=== PATIENT | female | born 1935 | race Caucasian/White ===

== ENCOUNTER → 2016-07-09 | Outpatient (CLI) | payer OTHER ==
[~2016-07-09] MED LIST: ALBUAER2 INH; ALEN70TA4 PO; ASCO500T16 PO; ATOR-22 PO; ATRINSX INH; CALC200T PO; CALCTAB7 PO; CICL80AE INH; DENO60SO IM; DILT120C43 PO; DILT120C68 PO; EPP3/2 IM; FURO20TA PO; IMD/2 PO; MULT-506 PO; PANT40TA PO; PSYL1POW PO; RIVA1TAB4 PO
[2016-07-09 15:33] LABS: BASO % 0.3 %; BASO ABS # 0.02 K/uL (0-0.2); COMPLETE YES; EOS % 1.8 %; HEMATOCRIT 40.3 % (37-47); IG% 0.3 %; LYMPH % 34.4 %; LYMPH ABS # 2.62 K/uL (1.2-3.4); MEAN CELL VOLUME 87.2 fL (80-100); MEAN CORPUSCULAR HEMOGLOBIN 29.2 pg (25-34); MEAN CORPUSCULAR HGB CONC 33.5 g/dl (32-36); MEAN PLATELET VOLUME 11.2 fL (7.4-10.4); MONO % 9.3 %; NEUT % 53.9 %; PLATELET COUNT 240 K/uL (130-400); RED BLOOD COUNT 4.62 M/uL (4.2-5.4); WHITE BLOOD COUNT 7.62 K/uL (4.8-10.8)
== END | disposition home or self-care (01) ==
LOC: C.LAB1850 14:00
PROVIDERS: ATTEND Internal Medicine
DX: K62.5 Hemorrhage of anus and rectum (principal)

== ENCOUNTER → 2016-07-17 | Outpatient (CLI) | payer OTHER | END | disposition home or self-care (01) | LOC: C.PAPS 16:16 | PROVIDERS: ATTEND Obstetrics & Gynecology | DX: Z12.4 Encounter for screening for malignant neoplasm of cervix (principal) ==

== ENCOUNTER → 2016-07-19 | Outpatient (CLI) | payer OTHER ==
--- NOTE | 2016-07-19 14:08 | MAMMOGRAPHY REPORT ---
BILATERAL DIGITAL SCREENING MAMMOGRAM WITH CAD: 07/19/2016 TECHNIQUE: Current study was also evaluated with a Computer Aided Detection (CAD) system. Bilatera l CC and MLO views were obtained. COMPARISON: Comparison is made to exams dated: 06/26/2015 mammogram, 06/24/2014 mammogram, 06/18/2012 mammogram, 06/23/2013 mammogram, 06/17/2011 mammogram, and 06/14/2009 mammogram - [facility]. BREAST COMPOSITION: The tissue of both breasts is heterogeneously dense, which may obscure small ma sses. FINDINGS: No suspicious masses, calcifications, or areas of architectural distortion are noted in e ither breast. There has been no significant interval change compared to prior exams. Scattered bilat eral benign-appearing calcifications are not significantly changed. IMPRESSION: ACR BI-RADS CATEGORY 2: BENIGN There is no mammographic evidence of malignancy. A 1 year screening mammogram is recommended. The p atient will receive written notification of the results. Approximately 10% of breast cancers are not detected with mammography. A negative mammographic repor t should not delay biopsy if a clinically suggestive mass is present. Stephanie Jane M.D. ah/:07/19/2016 11:52:39 [employer]ivery Car Driver: Zenia LAURENT(Jacob)(Deven), [facility] letter sent: Normal 1/2 BI-RADS Code: ACR BI-RADS Category 2: Benign
== END | disposition home or self-care (01) ==
LOC: C.MAMM 10:46
PROVIDERS: ATTEND Obstetrics & Gynecology
DX: Z12.31 Encounter for screening mammogram for malignant neoplasm of breast (principal)

== ENCOUNTER → 2016-08-06 | Outpatient (CLI) | payer OTHER ==
--- NOTE | 2016-08-06 15:53 | DIAGNOSTIC IMAGING REPORT ---
TWO VIEW CHEST CLINICAL HISTORY: Cough. Dyspnea. FINDINGS: PA and lateral chest radiographs are compared to study dated 12/28/2013. The heart is enlarged and there is atherosclerotic calcification of the thoracic aorta. The mitral annulus is densely calcified. The pulmonary vasculature is noncongested. Chronic residual thickening is similar to previous. There are small pleural effusions with bibasilar consolidation. The upper lobes appear clear. There is no pneumothorax. The skeletal structures are osteopenic. Degenerative change is noted throughout the thoracic spine. Fusion hardware is seen in the lower cervical region. IMPRESSION: 1. Cardiomegaly without radiographic evidence of congestive failure. 2. Small pleural effusions and bibasilar consolidation. This could represent atelectasis versus an infectious/inflammatory pneumonitis. Clinical correlation will be required and radiographic follow-up to resolution is recommended. Electronically signed by: Jorje Quispe M.D. 08/06/2016 3:52 PM Dictated Date/Time: 08/06/2016 3:51 PM
== END | disposition home or self-care (01) ==
LOC: C.RAD1850 15:32
PROVIDERS: ATTEND Internal Medicine Pulmonary Disease
DX: R06.02 Shortness of breath (principal); R05 Cough; I51.7 Cardiomegaly; J90 Pleural effusion, not elsewhere classified; R91.8 Other nonspecific abnormal finding of lung field

== ENCOUNTER → 2016-08-12 | Outpatient (CLI) | payer OTHER ==
--- NOTE | 2016-08-12 15:15 | DIAGNOSTIC IMAGING REPORT ---
CHEST 2 VIEWS ROUTINE CLINICAL HISTORY: J18.9 [id number] dyspnea COMPARISON STUDY: 08/06/2016 FINDINGS: Small bilateral pleural effusions are unchanged. Mild stable cardiomegaly. Partial calcification of the mitral annulus. Mid and upper lungs are considered clear. IMPRESSION: Small stable bilateral pleural effusions. Moderate stable cardiomegaly. Electronically signed by: Junito Mckee M.D. 08/12/2016 3:13 PM Dictated Date/Time: 08/12/2016 3:12 PM
== END | disposition home or self-care (01) ==
LOC: C.RAD1850 15:01
PROVIDERS: ATTEND Allergy & Immunology Allergy
DX: J18.9 Pneumonia, unspecified organism (principal)

== ENCOUNTER → 2016-09-16 | Outpatient (CLI) | payer OTHER ==
--- NOTE | 2016-09-16 11:04 | DIAGNOSTIC IMAGING REPORT ---
RIGHT HAND 3 VIEWS CLINICAL HISTORY: Right hand pain. Fall. FINDINGS: 3 views the right hand are compared to study dated 05/29/2016. The skeletal structures are osteopenic. No fracture is identified. There is mild degenerative narrowing at the radiocarpal articulation. Arthritic change is also seen at the first carpometacarpal and metacarpophalangeal joints. There is advanced erosive osteoarthritic change seen involving the second and third distal interphalangeal joints with overlying soft tissue edema. Milder osteoarthritic change is seen throughout the remaining interphalangeal joints. IMPRESSION: 1. No acute fracture is identified. 2. Osteopenia and arthritic change as detailed above. This is similar to the 05/29/2016 examination. Electronically signed by: Jorje Quispe M.D. 09/16/2016 11:02 AM Dictated Date/Time: 09/16/2016 10:59 AM
== END | disposition home or self-care (01) ==
LOC: C.RDSM 08:00
PROVIDERS: ATTEND Physician Assistant
DX: M79.641 Pain in right hand (principal); M85.841 Other specified disorders of bone density and structure, right hand

== ENCOUNTER → 2016-09-25 | Outpatient (CLI) | payer OTHER ==
--- NOTE | 2016-09-25 17:43 | DIAGNOSTIC IMAGING REPORT ---
CHEST 2 VIEWS ROUTINE HISTORY: Atypical chest pain. Cough. COMPARISON: Chest 08/12/2016. FINDINGS: The heart remains enlarged. There are small bilateral pleural effusions, unchanged. Mild diffuse interstitial thickening persists. This may represent mild congestive change. There is cervical spinal fusion hardware. No pneumothorax. IMPRESSION: No change in the small bilateral pleural effusions, cardiomegaly, and mild congestive change. Electronically signed by: Wilbert Horvath M.D. 09/25/2016 5:40 PM Dictated Date/Time: 09/25/2016 5:39 PM
== END | disposition home or self-care (01) ==
LOC: C.RAD1850 15:55
PROVIDERS: ATTEND Physician Assistant
DX: R05 Cough (principal); R07.9 Chest pain, unspecified; I51.7 Cardiomegaly

== ENCOUNTER → 2016-09-26 | Outpatient (CLI) | payer OTHER | END | disposition home or self-care (01) | LOC: C.MAMM 15:15 | PROVIDERS: ATTEND Obstetrics & Gynecology | DX: M81.0 Age-related osteoporosis without current pathological fracture (principal); M85.89 Other specified disorders of bone density and structure, multiple sites ==

== ENCOUNTER → 2016-10-01 | Outpatient (CLI) | payer OTHER ==
--- NOTE | 2016-10-01 10:21 | DIAGNOSTIC IMAGING REPORT ---
RIGHT HAND MIN 3 VIEWS CLINICAL HISTORY: RIGHT HAND PAIN Right pain COMPARISON: None. DISCUSSION: Severe degenerative change of the distal interphalangeal joints. This is most prominent at the level of the first through third fingers. Significant degenerative changes noted in the intercarpal as well as carpal metacarpal region. Bony mineralization is somewhat diminished throughout. There is no evidence for soft tissue swelling. IMPRESSION: Severe degenerative change. Electronically signed by: Junito Mckee M.D. 10/01/2016 10:20 AM Dictated Date/Time: 10/01/2016 10:18 AM
== END | disposition home or self-care (01) ==
LOC: C.RDSM 10:15
PROVIDERS: ATTEND Physician Assistant
DX: M79.641 Pain in right hand (principal)

== ENCOUNTER → 2016-10-23 | Outpatient (CLI) | payer OTHER ==
[2016-10-23 12:24] LABS: CALCIUM 8.7 mg/dl (8.5-10.1)
[2016-10-23 12:58] LABS: URINE COLLECTION TIME 24 HOURS
[2016-10-23 13:03] LABS: CALCIUM URINE < 5.0 mg/dl
[2016-10-24 17:48] LABS: ALBUMIN 4.1 G/DL (3.8-4.8); GAMMA GLOBULIN 0.6 G/DL (0.8-1.7); TOTAL PROTEIN 6.2 G/DL (6.2-8.3)
== END | disposition home or self-care (01) ==
LOC: C.LAB1850 11:18
PROVIDERS: ATTEND Internal Medicine Rheumatology
DX: M81.0 Age-related osteoporosis without current pathological fracture (principal); E55.9 Vitamin D deficiency, unspecified; E61.8 Deficiency of other specified nutrient elements

== ENCOUNTER → 2016-11-12 | Day surgery (SDC) | payer OTHER ==
[2016-10-31 10:56] VITALS: Ht 154.9 cm; Wt 60.0 kg
[~2016-11-12] VITALS: Ht 154.9 cm; Wt 60.0 kg
[~2016-11-12] MED LIST changes: -ALEN70TA4 PO; -CALCTAB7 PO; -DILT120C43 PO; -FURO20TA PO; +LIDOCAINE HCL 2% 2 ML VIAL (20MG/ML) ONE; +PROPOFOL IV EMULSION 10 MG/ML 20 ML VIAL IV ONE
--- NOTE | 2016-11-12 11:54 | Endo History and Physical ---
History & Physical Date of Service: Nov 12, 2016. Chief Complaint: DYSPHAGIA, GERD Referring Physician: DR. RAMON History of Present Illness 81 yo CF who presents for EGD secondary to GERD and dysphagia. Past Medical History Atrial Fibrillation, Osteoporosis, Asthma, Gastrointestinal Disorder, Reflux, High Cholesterol, Hypertension, Other Past Surgical History Hx Cardiac Surgery: No Hx Internal Defibrillator: No Hx Pacemaker: No Hx Abdominal Surgery: Yes (OOPHERECTOMY, PARTIAL HYSTER, HEMORRHOIDECTOMY) Hx of Implantable Prosthesis: No Hx Post-Op Nausea and Vomiting: No Hx Cancer Surgery: No Hx Thoracic Surgery: No Hx Orthopedic: Yes (RT X2/LT X1 CTR, LT SHOULDER SURGERY,LT KNEE SURGERY,C4-5 SURGERY(FULL ROM)) Hx Urinary Tract Surgery: Yes (BLADDER TACK X3) Family History None Social History Smoking Status: Never Smoker Hx Substance Use: No Hx Alcohol Use: No Allergies Coded Allergies: BEE STING (Verified Allergy, Severe, ANAPHYLAXIS, 10/31/16) Clarithromycin (Verified Allergy, Severe, RASH AND FACIAL SWELLING, 10/31/16 ) Moxifloxacin (Verified Allergy, Severe, RASH AND FACIAL SWELLING, 10/31/16) Quinolones (Verified Allergy, Severe, RASH AND FACIAL SWELLING, 10/31/16) Sulfamethoxazole w/Trimethoprim (Verified Allergy, Severe, RASH AND FACIAL SWELLING, 10/31/16) Fluconazole (Verified Allergy, Intermediate, INCREASED HEART RATE, 11/11/14 ) Nitrofurantoin (Verified Allergy, Unknown, RASH, 10/31/16) Ketamine (Verified Adverse Reaction, Unknown, VOMITING, 10/31/16) Current Medications Reported Home Medications Medications Dose Route/Sig Max Daily Dose Days Date Category Prolia (Denosumab) 60 Mg/Ml Cindy 1 Dose IM [id number] 10/31/16 Reported Metamucil [facility] Fib (Psyllium) 58.12 % Pow 2 Tbs PO QAM 10/31/16 Reported Imodium (Loperamide HCl) 2 Mg Cap 2 Mg PO DAILY PRN 10/31/16 Reported Epipen (Epinephrine) 0.3 Mg/0.3 Ml Inj 0.3 Mg IM UD PRN 10/31/16 Reported Atrovent 0.02% Soln (Ipratropium [place]) 2.5 Ml Nebu 1 Dose INH QID PRN 10/31/16 Reported Oscal 500/200 D-3 (Calcium Carbonate-Vitamin D) 1 Tab Tab 1 Tab PO QAM 10/31/16 Reported Alvesco (Ciclesonide) 80 Mcg/Act Aer 1 Puff INH BID 10/31/16 Reported Tiazac (Diltiazem HCl) 120 Mg Capcr 120 Mg PO BID 10/31/16 Reported Xarelto (Rivaroxaban) 20 Mg Tab 20 Mg PO QPM 06/29/14 Reported Ascorbic Acid 500 Mg Tab 500 Mg PO QAM 09/27/12 Reported Protonix (Pantoprazole Sodium) 40 Mg Tab 40 Mg PO QAM 03/16/12 Reported Multivitamin (Multivitamins) Tab 1 Tablet PO QAM 04/08/11 Reported Ventolin (Albuterol) Inh 2 Puffs INH Q4H PRN 01/17/09 Reported Lipitor (Atorvastatin Calcium) 20 Mg Tab 40 Mg PO HS 01/17/09 Reported Vital Signs Weight (Kilograms): 60 Height (Feet): 5 Height (Inches): 1 Date Time Temp Pulse Resp B/P (MAP) Pulse Ox O2 Delivery O2 Flow Rate FiO2 11/12/16 11:39 36.6 87 18 131/77 (95) 96 Room Air Physical Exam General Appearance: WD/WN, no apparent distress Respiratory/Chest: Auscultation: breath sounds normal Cardiovascular: Heart Auscultation: RRR Abdomen: Bowel Sounds: normal Inspection & Palpation: soft, non-distended, no tenderness, guarding & rebound Assessment and Plan Assessment: 81 yo CF who presents for EGD secondary to GERD and dysphagia. Plan: Proceed with EGD
--- NOTE | 2016-11-12 12:47 | Discharge Instructions ---
Endoscopy Patient Instructions Date / Procedure(s) Performed Nov 12, 2016. EGD Allergy Information Coded Allergies: BEE STING (Verified Allergy, Severe, ANAPHYLAXIS, 10/31/16) Clarithromycin (Verified Allergy, Severe, RASH AND FACIAL SWELLING, 10/31/16 ) Moxifloxacin (Verified Allergy, Severe, RASH AND FACIAL SWELLING, 10/31/16) Quinolones (Verified Allergy, Severe, RASH AND FACIAL SWELLING, 10/31/16) Sulfamethoxazole w/Trimethoprim (Verified Allergy, Severe, RASH AND FACIAL SWELLING, 10/31/16) Fluconazole (Verified Allergy, Intermediate, INCREASED HEART RATE, 11/11/14 ) Nitrofurantoin (Verified Allergy, Unknown, RASH, 10/31/16) Ketamine (Verified Adverse Reaction, Unknown, VOMITING, 10/31/16) Discharge Date / Findings Nov 12, 2016. Esophageal stricture s/p dilation Hiatal hernia Medication Instructions Stopped Medication(s): XARELTO 11/09/16 OK to resume all medications today as prescribed Medications Dose Route/Sig Max Daily Dose Days Date Category Prolia (Denosumab) 60 Mg/Ml Cindy 1 Dose IM [id number] 10/31/16 Reported Metamucil [facility] Fib (Psyllium) 58.12 % Pow 2 Tbs PO QAM 10/31/16 Reported Imodium (Loperamide HCl) 2 Mg Cap 2 Mg PO DAILY PRN 10/31/16 Reported Epipen (Epinephrine) 0.3 Mg/0.3 Ml Inj 0.3 Mg IM UD PRN 10/31/16 Reported Atrovent 0.02% Soln (Ipratropium [place]) 2.5 Ml Nebu 1 Dose INH QID PRN 10/31/16 Reported Oscal 500/200 D-3 (Calcium Carbonate-Vitamin D) 1 Tab Tab 1 Tab PO QAM 10/31/16 Reported Alvesco (Ciclesonide) 80 Mcg/Act Aer 1 Puff INH BID 10/31/16 Reported Tiazac (Diltiazem HCl) 120 Mg Capcr 120 Mg PO BID 10/31/16 Reported Xarelto (Rivaroxaban) 20 Mg Tab 20 Mg PO QPM 06/29/14 Reported Ascorbic Acid 500 Mg Tab 500 Mg PO QAM 09/27/12 Reported Protonix (Pantoprazole Sodium) 40 Mg Tab 40 Mg PO QAM 03/16/12 Reported Multivitamin (Multivitamins) Tab 1 Tablet PO QAM 04/08/11 Reported Ventolin (Albuterol) Inh 2 Puffs INH Q4H PRN 01/17/09 Reported Lipitor (Atorvastatin Calcium) 20 Mg Tab 40 Mg PO HS 01/17/09 Reported Provider Instructions Activity Restrictions - No exercising or heavy lifting for 24 hours. - Do not drink alcohol the day of the procedure. - Do not drive a car or operate machinery until the day after the procedure. - Do not make any important decisions or sign important papers in 24 hours after the procedure. Following Day: - Return to full activity which may include returning to work/school. Diet Start your diet with liquids and light foods (jello, soup, juice, toast). Then eat your usual diet if not nauseated. Treatment For Common After Affects For mild abdominal pain, bloating, or excessive gas: - Rest - Eat lightly - Lie on right side Follow-Up Information Follow-up with DR. RAMON as scheduled Anesthesia Information What You Should Know You have had a procedure that required some medicine to reduce anxiety and discomfort. This treatment is called moderate sedation. After receiving the treatment, you may be sleepy, but you will be able to breathe on your own. The effects of the treatment may last for several hours. Follow these instructions along with Activity/Diet recommendations noted above: * Do NOT do anything where dizziness or clumsiness would be dangerous. * Rest quietly at home today, then you can be up and about tomorrow. * Have a responsible person stay with you the rest of today. * You may have had an I.V. today. If so, you may take the dressing off later today. Recommendations Call your doctor if: * Trouble breathing * Continuous vomiting for more than 24 hours * Temperature above 101 degrees * Severe abdominal pain or bloating * Pain not relieved by pain medicine ordered * There is increased drainage or redness from any incision * A large amount of rectal bleeding greater than 2-3 tablespoons. (If you had a polyp/s removed or have hemorrhoids, a small amount of blood - from the rectum is to be expected.) * You have any unanswered questions or concerns. IN THE EVENT OF A SERIOUS EMERGENCY, GO TO THE NEAREST EMERGENCY ROOM Your discharge instructions were prepared by provider Eamon Betancur. Patient Instructions Signature Page Muna Young Patient (or Guardian) Signature/Date: I have read and understand the instructions given to me by my caregivers. Caregiver/RN/Doctor Signature/Date: The above-named patient and/or guardian has received patient instructions on this date. + Original Patient Signature Page (only) stays with chart. Please make copy for patient.
--- NOTE | 2016-11-12 12:58 | GI REPORT ---
Procedure Date: 11/12/2016 12:34 PM Procedure: Upper GI endoscopy Indications: Dysphagia Medicines: Monitored Anesthesia Care Complications: No immediate complications. Estimated Blood Loss: Estimated blood loss: none. Procedure: Pre-Anesthesia Assessment: - Prior to the procedure, a History and Physical was performed, and patient medications and allergies were reviewed. The patient's tolerance of previous anesthesia was also reviewed. The risks and benefits of the procedure and the sedation options and risks were discussed with the patient. All questions were answered, and informed consent was obtained. Prior Anticoagulants: The patient has taken Xarelto (rivaroxaban), last dose was 3 days prior to procedure. ASA Grade Assessment: III - A patient with severe systemic disease. After reviewing the risks and benefits, the patient was deemed in satisfactory condition to undergo the procedure. After obtaining informed consent, the endoscope was passed under direct vision. Throughout the procedure, the patient's blood pressure, pulse, and oxygen saturations were monitored continuously. The scope was introduced through the mouth, and advanced to the second part of duodenum. The upper GI endoscopy was accomplished without difficulty. The patient tolerated the procedure well. Findings: One mild benign-appearing, intrinsic stenosis was found. This measured 1.5 cm (inner diameter) x 1 cm (in length) and was traversed. A guidewire was placed and the scope was withdrawn. Dilation was performed with a Savary dilator with no resistance at 54 Fr. A small hiatus hernia was present. The examined duodenum was normal. Impression: - Benign-appearing esophageal stenosis. Dilated. - Small hiatus hernia. - Normal examined duodenum. - No specimens collected. Recommendation: - Resume previous diet. - Continue present medications. - Repeat the upper endoscopy PRN for retreatment. - Return to primary care physician as previously scheduled. Eamon Betancur DO 11/12/2016 12:58:12 PM This report has been signed electronically. Note Initiated On: 11/12/2016 12:34 PM I attest to the content of the Intraoperative Record and orders documented therein, exceptions below
[2016-11-12 13:19] VITALS: BP 128/85; PULSE 80; O2SAT 97
--- NOTE | 2016-11-12 14:16 | Anesthesiology Progress Note ---
Anesthesia Post Op Note Date & Time Nov 12, 2016 at 14:16 Vital Signs Pain Intensity: 0 Vital Signs Past 12 Hours Date Time Temp Pulse Resp B/P (MAP) Pulse Ox O2 Delivery O2 Flow Rate FiO2 11/12/16 13:19 80 16 128/85 (99) 97 Room Air 11/12/16 13:04 89 16 124/69 (87) 97 Room Air 11/12/16 12:49 87 16 105/64 (78) 90 Room Air 11/12/16 11:39 36.6 87 18 131/77 (95) 96 Room Air Notes Mental Status: alert / awake / arousable, participated in evaluation Pt Amnestic to Procedure: Yes Nausea / Vomiting: adequately controlled Pain: adequately controlled Airway Patency, RR, SpO2: stable & adequate BP & HR: stable & adequate Hydration State: stable & adequate Anesthetic Complications: no major complications apparent
== END | disposition home or self-care (01) ==
LOC: C.GI 11:06
PROVIDERS: ATTEND Internal Medicine
DX: R13.10 Dysphagia, unspecified (principal); K22.2 Esophageal obstruction; K44.9 Diaphragmatic hernia without obstruction or gangrene; M81.0 Age-related osteoporosis without current pathological fracture; I48.91 Unspecified atrial fibrillation; J45.909 Unspecified asthma, uncomplicated; K21.9 Gastro-esophageal reflux disease without esophagitis; E78.00 Pure hypercholesterolemia, unspecified; I10 Essential (primary) hypertension; Z79.01 Long term (current) use of anticoagulants

== ENCOUNTER → 2016-12-06 | Outpatient (CLI) | payer OTHER ==
[~2016-12-06] MED LIST changes: -LIDOCAINE HCL 2% 2 ML VIAL (20MG/ML) ONE; -PROPOFOL IV EMULSION 10 MG/ML 20 ML VIAL IV ONE
--- NOTE | 2016-12-06 15:47 | DIAGNOSTIC IMAGING REPORT ---
LEFT FOOT MIN 3 VIEWS HISTORY:81 yearsFemaleLEFT FOOT PAIN COMPARISON: None available. TECHNIQUE: 3 views of the left foot. FINDINGS: The bones are moderately demineralized. No acute fracture or dislocation is identified. There is severe joint space narrowing with subchondral sclerosis and marginal spurring of the first metatarsal phalangeal joint. Moderate degenerative changes are seen throughout the interphalangeal joints. There is spurring of the calcaneus. There is mild dorsal forefoot soft tissue swelling. IMPRESSION: 1. Mild forefoot soft tissue swelling without acute fracture or dislocation. 2. Severe osteoarthritis of the first metatarsophalangeal joint. The above report was generated using voice recognition software. It may contain grammatical, syntax or spelling errors. Electronically signed by: Ignacio Whelan 12/06/2016 3:46 PM Dictated Date/Time: 12/06/2016 3:44 PM
== END | disposition home or self-care (01) ==
LOC: C.RDSM 15:30
PROVIDERS: ATTEND Physician Assistant
DX: M79.672 Pain in left foot (principal)

== ENCOUNTER → 2016-12-27 | Outpatient (CLI) | payer OTHER ==
--- NOTE | 2016-12-27 12:42 | DIAGNOSTIC IMAGING REPORT ---
LEFT FOOT 3 VIEWS CLINICAL HISTORY: Left foot pain. FINDINGS: 3 views of left foot are compared to study dated 12/06/2016. The skeletal structures are osteopenic. No fracture is seen. Advanced arthritic change is seen at the first metatarsophalangeal joint with bony overgrowth and sclerosis. There is a large plantar calcaneal enthesophyte. Mild dorsal soft tissue edema is noted. IMPRESSION: 1. No acute fracture is identified. Dorsal soft tissue swelling has modestly improved from 12/06/2016. 2. Osteopenia, heel spur, and arthritic change as above Electronically signed by: Jorje Quispe M.D. 12/27/2016 12:41 PM Dictated Date/Time: 12/27/2016 12:40 PM
== END | disposition home or self-care (01) ==
LOC: C.RDSM 11:30
PROVIDERS: ATTEND Physician Assistant
DX: M85.872 Other specified disorders of bone density and structure, left ankle and foot (principal); M77.32 Calcaneal spur, left foot

== ENCOUNTER → 2017-01-06 | Outpatient (CLI) | payer OTHER | END | disposition home or self-care (01) | LOC: C.LAB1850 11:06 | PROVIDERS: ATTEND Internal Medicine Rheumatology | DX: E55.9 Vitamin D deficiency, unspecified (principal); E21.3 Hyperparathyroidism, unspecified ==

== ENCOUNTER → 2017-01-16 | Outpatient (CLI) | payer OTHER ==
--- NOTE | 2017-01-16 13:39 | DIAGNOSTIC IMAGING REPORT ---
LEFT FOOT 3 VIEWS HISTORY: Left foot pain. METATARSAL FX OF LEFT FOOT COMPARISON: Left foot 12/19/2016. FINDINGS: The bones are osteopenic. Severe osteoarthritis with [id number] articulation at the first MTP joint. No acute fracture or dislocation. The Lisfranc joint is maintained. Small plantar heel spur. Mild dorsal soft tissue swelling remains unchanged. No radiopaque foreign bodies. Moderate osteoarthritis of the DIP and PIP joints of the toes. IMPRESSION: No change compared to the prior study. No acute fracture or dislocation within the left foot. Severe osteoarthritis at the first MTP joint. Electronically signed by: Wilbert Horvath M.D. 01/16/2017 1:37 PM Dictated Date/Time: 01/16/2017 1:34 PM
== END | disposition home or self-care (01) ==
LOC: C.RDSM 11:39
PROVIDERS: ATTEND Physician Assistant
DX: M19.072 Primary osteoarthritis, left ankle and foot (principal)

== ENCOUNTER → 2017-03-05 | Outpatient (CLI) | payer OTHER ==
--- NOTE | 2017-03-05 15:42 | DIAGNOSTIC IMAGING REPORT ---
RIGHT FOOT 3 VIEWS HISTORY: RIGHT FOOT PAIN COMPARISON: Right foot 11/30/2015. FINDINGS: No acute fracture or dislocation. The Lisfranc joint remains intact. Mild to moderate osteoarthritis throughout the right foot, unchanged. Small soft tissue and bony bunion. Small plantar heel spur. Soft tissues are unremarkable. No radiopaque foreign bodies. IMPRESSION: No acute fracture or dislocation within the right foot. Electronically signed by: Wilbert Horvath M.D. 03/05/2017 3:41 PM Dictated Date/Time: 03/05/2017 3:35 PM
== END ==
LOC: C.RDSM 15:06
PROVIDERS: ATTEND Physician Assistant
DX: M79.671 Pain in right foot (principal)

== ENCOUNTER → 2017-03-24 | Outpatient (CLI) | payer OTHER ==
[2017-03-24 12:21] LABS: BLOOD UREA NITROGEN 9 mg/dl (7-18); BUN/CREATININE RATIO 9.9 (10-20); CREATININE 0.93 mg/dl (0.60-1.20)
== END | disposition home or self-care (01) ==
LOC: C.LAB1850 10:12
PROVIDERS: ATTEND Surgery
DX: K43.2 Incisional hernia without obstruction or gangrene (principal)

== ENCOUNTER → 2017-03-25 | Outpatient (CLI) | payer OTHER ==
[~2017-03-25] MED LIST changes: +OPTIRAY 320 IV PRN
--- NOTE | 2017-03-25 12:31 | DIAGNOSTIC IMAGING REPORT ---
CT ABD/PELVIS IV AND ORAL CONT CLINICAL HISTORY: K43.2 left-sided abdominal pain. Possible incisional hernia. COMPARISON STUDY: 06/10/2014 TECHNIQUE: Following the IV administration of 94 mL of Optiray-320, CT scan of the abdomen and pelvis was performed from the lung bases to the proximal femurs. Images are reviewed in the axial, sagittal, and coronal planes. IV contrast was administered without complication. A dose lowering technique was utilized adhering to the principles of ALARA. CT DOSE: 277.43 mGy.cm FINDINGS: Lower chest: The heart is enlarged. There is dependent interstitial thickening/atelectatic change. Liver: The contrast-enhanced liver is normal in size, contour, and attenuation. There is no intrahepatic biliary ductal dilatation. The hepatic veins and portal veins are patent. Gallbladder: Unremarkable. Spleen: Normal in size and attenuation. Pancreas: Unremarkable. Adrenal glands: Unremarkable. Kidneys: There is a 46 mm right renal cyst. Bowel: There are no transition zones indicate bowel obstruction. There are no findings to indicate acute appendicitis. By history the appendix is surgically absent. There is colonic diverticulosis. There are no acute peridiverticular inflammatory changes. Peritoneum: There is no intraperitoneal free air or abdominal ascites. There is an enlarging left-sided spigelian hernia. There is mild infiltration of the hernia fat. Vasculature: The abdominal aorta is normal in course and caliber. Adenopathy: None. Pelvic viscera: The uterus appears surgically absent. Skeletal structures: There is a grade 1 spondylolisthesis of L4 and L5. No destructive lesions are visualized IMPRESSION: 1. No evidence of bowel obstruction. No evidence of free air. 2. Surgically absent appendix. No evidence of acute diverticulitis 3. Enlarging left-sided spigelian hernia with mild infiltration of the hernia fat Electronically signed by: Elton Rowley M.D. 03/25/2017 12:29 PM Dictated Date/Time: 03/25/2017 12:25 PM
== END | disposition home or self-care (01) ==
LOC: C.CTS 11:59
PROVIDERS: ATTEND Surgery
DX: K43.9 Ventral hernia without obstruction or gangrene (principal)

== ENCOUNTER → 2017-05-12 | Outpatient (CLI) | payer OTHER ==
[~2017-05-12] MED LIST changes: -OPTIRAY 320 IV PRN
--- NOTE | 2017-05-12 15:52 | DIAGNOSTIC IMAGING REPORT ---
CHEST 2 VIEWS ROUTINE CLINICAL HISTORY: COUGH HISTORY PNEUMONIA COMPARISON STUDY: 09/25/2016 FINDINGS: The heart is enlarged. There are small bilateral pleural effusions. There are associated bibasilar opacities likely atelectatic although a superimposed inflammatory process could appear similar. There is no overt failure. Post surgical changes are present within the cervical spine.[ IMPRESSION: Cardiomegaly and small bilateral pleural effusions with associated bibasilar opacities likely atelectatic Electronically signed by: Elton Rowley M.D. 05/12/2017 3:51 PM Dictated Date/Time: 05/12/2017 3:50 PM
== END | disposition home or self-care (01) ==
LOC: C.RAD1850 15:38
PROVIDERS: ATTEND Internal Medicine
DX: R05 Cough (principal)

== ENCOUNTER → 2017-07-10 | Outpatient (CLI) | payer OTHER ==
[~2017-07-10] VITALS: Ht 157.5 cm; Wt 58.0 kg
[2017-07-10] VITALS (8 sets, daily range): BP systolic 123–152; BP diastolic 63–89; PULSE 80–102; TEMP 36.6; O2SAT 91–100; Ht 157.5 cm; Wt 58.0 kg
[~2017-07-10] MED LIST changes: +BCTCR/30 EXT; +CARTIA PO; +FENTANYL CITRATE INJ 50 MCG/1 ML 2 ML VIAL ONE; +MIDAZOLAM HCL 1 MG/ML 2ML VIAL ONE; +TRIA37.5 PO; +VITAMIN D PO
--- NOTE | 2017-07-10 09:02 | History & Physical Bridge Note ---
H&P Re-Evaluation Bridge Note: I have examined the patient, reviewed the History & Physical and in the interval since the performance of the History & Physical I have noted the following changes of clinical significance: No changes noted
--- NOTE | 2017-07-10 09:03 | Pre Sedation Assessment ---
Pre Sedation Assessment General Date of Sedation: Jul 10, 2017. Vital Signs Past 12 Hours Date Time Temp Pulse Resp B/P (MAP) Pulse Ox O2 Delivery O2 Flow Rate FiO2 07/10/17 07:44 36.6 83 16 130/77 (94) 91 Room Air Review Cardiovascular: + systolic murmur, + irregularly irregular Lungs: lungs clear Pre-Sedation Airway Assessment Smoking Status: Never Smoker Hx of Sleep Apnea: No Short Thick Neck: No Thyro-mental Distance: > 3 Finger Breadths Oral Cavity: Dentures Mallampati Classification: Class III ASA Classification: Class III NPO Status Date of Last Intake of Fluids: Jul 10, 2017 Time of Last Intake of Fluids: 0600 Date of Last Intake of Solids: Jul 09, 2017 Time of Last Intake of Solids: 1999 Procedure Planning Contraindications for Sedation: None Current Medications Reviewed: Yes Notes The planned sedation has been discussed with the patient. Informed Consent was obtained. I have identified the patient, determined the appropriateness of sedation and have assessed the patient immediately prior to the procedure. All medicine(s) and interventions are by my order.
--- NOTE | 2017-07-10 09:39 | Cardiology Procedure Brief Nt ---
Preliminary Cardiology Note Procedure Date Jul 10, 2017. 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 Sutton Specimens none Complication(s) None Disposition
--- NOTE | 2017-07-10 09:44 | Discharge Instructions ---
Discharge Instructions Date of Service Jul 10, 2017. Visit Dyspnea on exertion Discharge Discharge Diagnosis / Problem: Mitral valve prolapse with regurgitation Discharge Goals Goal(s): Diagnostic testing Activity Recommendations Activity Limitations: as noted below Anesthesia . Post Anesthesia Instructions: If you have had General Anesthesia or IV Sedation: * Do not drive today. * Resume driving when surgeon permits. * Do not make important decisions or sign legal documents today. * Call surgeon for: 1. Temperature elevations greater than 101 degrees F. 2. Uncontrollable pain. 3. Excessive bleeding. 4. Persistent nausea and vomiting. 5. Medication intolerance (nausea, vomiting or rash). * For nausea and vomiting use only clear liquids such as: tea, soda, bouillon until nausea subsides, then gradually increase diet as tolerated. * If you have any concerns or questions, call your surgeon's office. If physician is unavailable and it is an emergency, call 911 or go to the nearest emergency room. . Instructions / Follow-Up Instructions / Follow-Up ACTIVITY RECOMMENDATIONS: Resume activities as tolerated with no limitations unless specified. __ No lifting over 10 pounds for 24 hours. __ Do not engage in vigorous exercise, sexual activity, or sports for 24 hours. __ Do not drive or operate any motorized equipment for 24 hours. __ You may return to work/school tomorrow. __ Nothing to eat or drink until gag reflex returns. __ No HOT or WARM liquids for 8 hours. __ Avoid "scratchy" foods such as potato chips or pretzels for 24 hours following procedure. SPECIAL CARE: If you experience coughing up or vomiting of blood, contact 911. Diet Recommendations Recommended Home Diet: resume previous diet Pending Studies Studies pending at discharge: no Medical Emergencies . Who to Call and When: Medical Emergencies: If at any time you feel your situation is an emergency, please call 911 immediately. . Non-Emergent Contact Non-Emergency issues call your: Primary Care Provider . . "Provider Documentation" section prepared by Myrtle Morse. .
--- NOTE | 2017-07-10 14:04 | Post Sedation Assessment ---
Post Sedation Assessment General Date of Sedation Jul 10, 2017. Vital Signs: Vital Signs Past 12 Hours Date Time Temp Pulse Resp B/P (MAP) Pulse Ox O2 Delivery O2 Flow Rate FiO2 07/10/17 11:00 80 18 123/66 (85) 94 Room Air 07/10/17 10:45 80 18 124/61 (82) 94 Room Air 07/10/17 10:30 87 18 123/63 (83) 93 Room Air 07/10/17 10:15 82 18 123/52 (75) 93 Room Air 07/10/17 10:00 85 18 123/52 (75) 93 Room Air 07/10/17 09:50 77 18 126/60 (82) 92 Room Air 07/10/17 09:40 94 16 129/61 (83) 92 Room Air 07/10/17 09:33 96 18 134/80 96 Nasal Cannula 6 07/10/17 09:30 96 18 141/89 96 Nasal Cannula 6 07/10/17 09:25 96 18 138/72 96 Nasal Cannula 6 07/10/17 09:20 96 18 139/63 95 Nasal Cannula 6 07/10/17 09:15 102 18 149/86 95 Nasal Cannula 6 07/10/17 09:10 102 18 152/89 100 Nasal Cannula 6 07/10/17 07:44 36.6 83 16 130/77 (94) 91 Room Air Post Procedure Recovery Score Activity: (2) Moves 4 extremities * Respiration: (2) Deep breath/cough Circulation: (2) +/-20% PreAnes Value Consciousness: (2) Fully Awake Oxygen Saturation: (2) > 92% On Room Air Post Anesthesia Score: 10 Post Sedation Plan On clinical assessment, the patient appears to have tolerated the sedation without complications. Patient is recovering as anticipated. Patient will continue to be monitored by nursing and may be discharged when sedation discharge criteria are met per below protocol. Upon Completions of procedure and additional 15 minutes continue every 5 minute vital signs and the P.A.R. score; then discharge to a Phase I or Fast Track to Phase II per the following guidelines: * Discharge Patient to appropriate Phase II area if PAR is 8 or greater or return to pre- procedure baseline. The post - procedure orders will be as directed. * If PAR score is less than 8 or not return to pre-procedure baseline then patient will follow Phase I monitoring till PAR is reached for Phase II. The Phase I may be done in procedure room or may call to secure a Phase I area. * If naloxone or flumazenil are used for reversal, hold in Phase I for an additional 60 -120 minutes before discharge to Phase II. Please call the Sedation Physician to re-evaluate and complete post-note for discharge to Phase II area. Do NOT discharge from procedure sedation or Phase 1 until post- sedation evaluation note is complete by procedure /sedation MD Sedation Discharge Instructions to be given to the patient at discharge to home.
--- NOTE | 2017-07-10 14:46 | TEE ---
*NOTICE TO RECEIVING LIBERTARIAN AGENCY This information is strictly Confidential and protected under [place] law. [place] law prohibits you from making any further disclosure of this information unless further disclosure is expressly permitted by the written consent of the person to whom it pertains or is authorized by law. A general authorization for the release of medical or other information is not sufficient for this purpose. Hospital accepts no responsibility if the information is made available to any other person, INCLUDING THE PATIENT. Interpretation Summary * Name: SHIREEN DOMINGUEZ Study Date: 07/10/2017 08:58 AM BP: 129/66 mmHg * Patient Location: [facility] HR: 88 * : 1935 (M/d/yyyy) Gender: Female Height: 62 in * Age: 82 yrs Ethnicity: [place] Weight: 127 lb * Ordering Physician: Kade Sutton * Referring Physician: Kade Sutton * Performed By: Elise Aguero RDCS * * Reason For Study: Dyspnea on Exertion * BSA: 1.6 m2 * -- Conclusions -- * SABINO: * 1. Normal left ventricular size and systolic function. Estimated EF 60-65%. No regional wall motion abnormalities. No significant left ventricular hypertrophy. * 2. The right ventricle is mildly dilated. * 3. Moderate left atrial dilation. Severe right atrial dilation. * 4. 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 At least moderate to severe eccentric (anteriorly directed) mitral regurgitation. * 5. There is moderate tricuspid regurgitation. * 6. Patient tolerated procedure well without known complication. Procedure Details * The transesophageal portion of this study was personally supervised by the undersigned interpreting physician. * SABINO Probe #1 utilized for procedure. * The study was performed in Cardiopulmonary Department. * Time out was conducted by the physician, nurse, and outboard technician with positive identification of patient and procedure. * Informed consent for Transesophageal Echocardiogram was obtained prior to the procedure. * An intravenous line was placed. A topical anesthetic agent was used for oropharangeal anesthesia. A bite block was inserted. * The patient's vital signs, including blood pressure, heart rate, pulse oximetry and cardiac rhythm were monitored throughout the procedure . * Fentanyl 75 mcg was administered for procedural sedation. * Midazolam 3 mg administered for sedation. * The posterior oropharynx was anesthetized using a topical anesthetic spray. A bite guard was inserted. * A multifrequency, multiplane transesopheageal echocardiographic endoscope was inserted and manipulated in the standard fashion to achieve multiplane views. * The transesophageal probe was passed without difficulty. * The usual views were obtained; basal, mid-esophageal, transgastric and aortic views. * The patient tolerated the procedure well without evidence of orophangeal or esophageal trauma. * A 2D transesophageal echocardiogram with spectral and color flow Doppler was performed. * Start time: 9:10 am End time: 9:33 am Left Ventricle * Normal left ventricular size and systolic function. Estimated EF 60-65%. No regional wall motion abnormalities. No significant left ventricular hypertrophy. Right Ventricle * The right ventricle is mildly dilated. * The right ventricular systolic function is normal. Atria * No thrombus is detected in the left atrial appendage. * Moderate left atrial dilation. * The right atrium is severely dilated. * No visualized VSD or PFO on 2D imaging or color Doppler. 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 At least moderate to severe eccentric (anteriorly directed) mitral regurgitation. * There is no mitral valve stenosis. Tricuspid Valve * Tricuspid valve appears grossly normal in structure. * There is no tricuspid stenosis. * There is moderate tricuspid regurgitation. Aortic Valve * The aortic valve is trileaflet. * The aortic valve opens well. * Trace aortic regurgitation. Pulmonic Valve * The pulmonary valve is inadequately visualized, but the Doppler data is adequate for interpretation. * Trace pulmonic valvular regurgitation. Great Vessels * The aortic root is normal size. * Ascending aorta of normal dimension * Moderate atherosclerotic disease noted within the visualized portions of the thoracic descending aorta. * Blunted pulmonary venous flow pattern. Pericardium * Trace pericardial effusion. MMode 2D Measurements and Calculations Ao root diam 3.5 cm Ao root area 9.9 cm\S\2 asc Aorta Diam 3.5 cm Doppler Measurements and Calculations MV E max or[place] 85.8 cm/sec MR max [place] 341.3 cm/sec MR max PG 46.6 mmHg TR max [place] 302.8 cm/sec
== END | disposition home or self-care (01) ==
LOC: C.CPL 06:45
PROVIDERS: ATTEND Internal Medicine Cardiovascular Disease
DX: I34.0 Nonrheumatic mitral (valve) insufficiency (principal); R06.09 Other forms of dyspnea; I10 Essential (primary) hypertension; J45.901 Unspecified asthma with (acute) exacerbation; I65.29 Occlusion and stenosis of unspecified carotid artery; I48.2 Chronic atrial fibrillation; Z79.01 Long term (current) use of anticoagulants; K21.9 Gastro-esophageal reflux disease without esophagitis; M19.90 Unspecified osteoarthritis, unspecified site; E78.5 Hyperlipidemia, unspecified; K44.9 Diaphragmatic hernia without obstruction or gangrene; M81.0 Age-related osteoporosis without current pathological fracture; N25.81 Secondary hyperparathyroidism of renal origin; E55.9 Vitamin D deficiency, unspecified; Z90.710 Acquired absence of both cervix and uterus; Z82.49 Family history of ischemic heart disease and other diseases of the circulatory system; Z83.3 Family history of diabetes mellitus; Z82.3 Family history of stroke; Z80.3 Family history of malignant neoplasm of breast; Z80.41 Family history of malignant neoplasm of ovary; Z80.7 Family history of other malignant neoplasms of lymphoid, hematopoietic and related tissues; Z88.1 Allergy status to other antibiotic agents

== ENCOUNTER → 2017-07-21 | Outpatient (CLI) | payer OTHER ==
[~2017-07-21] MED LIST changes: -FENTANYL CITRATE INJ 50 MCG/1 ML 2 ML VIAL ONE; -MIDAZOLAM HCL 1 MG/ML 2ML VIAL ONE
--- NOTE | 2017-07-21 14:50 | MAMMOGRAPHY REPORT ---
BILATERAL DIGITAL SCREENING MAMMOGRAM TOMOSYNTHESIS WITH CAD: 07/21/2017 CLINICAL HISTORY: Routine screening examination. TECHNIQUE: Breast tomosynthesis in addition to standard 2D mammography was performed. Current study was also evaluated with a Computer Aided Detection (CAD) system. COMPARISON: Comparison is made to exams dated: 07/19/2016 mammogram, 06/26/2015 mammogram, 06/24/2014 m ammogram, 06/23/2013 mammogram, 06/18/2012 mammogram, and 06/15/2010 mammogram - [facility]. BREAST COMPOSITION: The tissue of both breasts is heterogeneously dense, which may obscure small mas ses. FINDINGS: There are mild to moderate vascular calcifications and scattered benign rim calcifications in the breasts. No suspicious mass, architectural distortion or cluster of suspicious microcalcifica tions is seen. IMPRESSION: ACR BI-RADS CATEGORY 1: NEGATIVE There is no mammographic evidence of malignancy. A 1 year screening mammogram is recommended. The pa tient will receive written notification of the results. Approximately 10% of breast cancers are not detected with mammography. A negative mammographic report should not delay biopsy if a clinically suggestive mass is present. Myrtle Anthony M.D. ay/:07/21/2017 11:33:41 Quality Assurance Advisor: Zenia LAURENT(Jacob)(Deven), [facility] letter sent: Normal 1/2 BI-RADS Code: ACR BI-RADS Category 1: Negative
== END | disposition home or self-care (01) ==
LOC: C.MAMM 11:04
PROVIDERS: ATTEND Obstetrics & Gynecology
DX: Z12.31 Encounter for screening mammogram for malignant neoplasm of breast (principal)

== ENCOUNTER → 2017-08-08 | Outpatient (CLI) | payer OTHER | END | disposition home or self-care (01) | LOC: C.LAB1850 14:39 | PROVIDERS: ATTEND Internal Medicine Rheumatology | DX: M81.0 Age-related osteoporosis without current pathological fracture (principal); E55.9 Vitamin D deficiency, unspecified; N25.81 Secondary hyperparathyroidism of renal origin ==

== ENCOUNTER → 2017-12-30 | Outpatient (CLI) | payer OTHER ==
[~2017-12-30] MED LIST changes: -ALBUAER2 INH; -ATOR-22 PO; -BCTCR/30 EXT; -CARTIA PO; -CICL80AE INH; -DENO60SO IM; +DNSIS60 INJ; +LPT/40 PO; -PSYL1POW PO; +PSYL43PO PO; +SYMIN/8045 INH; -VITAMIN D PO; +VNTHFA/IN INH
--- NOTE | 2017-12-30 13:52 | DIAGNOSTIC IMAGING REPORT ---
CHEST 2 VIEWS ROUTINE CLINICAL HISTORY: K22.8 Esophageal pain pain. Dyspnea. COMPARISON STUDY: 05/12/2017 FINDINGS: Moderate stable cardia megaly. Chronic basilar interstitial prominence. No focal infiltrate. IMPRESSION: Stable cardiomegaly. No acute process. The above report was generated using voice recognition software. It may contain grammatical, syntax or spelling errors. Electronically signed by: Junito Mckee M.D. 12/30/2017 1:51 PM Dictated Date/Time: 12/30/2017 1:50 PM
== END | disposition home or self-care (01) ==
LOC: C.RAD 13:22
PROVIDERS: ATTEND Internal Medicine
DX: K22.8 Other specified diseases of esophagus (principal)

== ENCOUNTER 2021-03-27 20:11 | Inpatient (IN) ==
[2021-03-27 20:43] LABS: Basophils # (auto) 0.03 K/uL (0-0.2); Basophils % (auto) 0.3 %; Eosinophils # (auto) 0.19 K/uL (0-0.5); Eosinophils % (auto) 1.8 %; Hematocrit (blood only) 40.5 % (37-47); Hemoglobin 13.9 g/dL (12.0-16.0); Immature Granulocytes # (auto) 0.03 K/uL (0.00-0.02); Immature Granulocytes % (auto) 0.3 %; Lymphocytes # (auto) 1.63 K/uL (1.2-3.4); Lymphocytes % (auto) 15.6 %; Mean Corpuscular Hemoglobin 29.4 pg (25-34); Mean Corpuscular Hgb Conc 34.3 g/dL (32-36); Mean Corpuscular Volume 85.6 fL (80-100); Mean Platelet Volume 9.9 fL (7.4-10.4); Monocytes # (auto) 0.99 K/uL (0.11-0.59); Monocytes % (auto) 9.5 %; Neutrophils # (auto) 7.56 K/uL (1.4-6.5); Neutrophils % (auto) 72.5 %; Platelet Count 222 K/uL (130-400); RDW Coefficient of Variation 14.6 % (11.5-14.5); RDW Standard Deviation 45.5 fL (36.4-46.3); Red Blood Count 4.73 M/uL (4.2-5.4); White Blood Count 10.43 K/uL (4.8-10.8)
[2021-03-27 20:56] LABS: INR 2.3 (0.9-1.1); Partial Thromboplastin Ratio 1.4; Partial Thromboplastin Time 35.8 Seconds (21.0-31.0); Prothrombin Time 21.5 Seconds (9.0-12.0)
[2021-03-27 21:01] LABS: Alanine Aminotransferase 24 U/L (12-78); Albumin Level 3.6 gm/dl (3.4-5.0); Aspartate Aminotransferase 24 U/L (15-37); BUN Creatinine Ratio 12.1 (10-20); Blood Urea Nitrogen 10 mg/dl (7-18); Calcium 9.7 mg/dl (8.5-10.1); Carbon Dioxide 26 mmol/L (21-32); Chloride 104 mmol/L (98-107); Est GFR (African American) 79.1 ml/min; Est GFR (Non-African American) 68.3 ml/min; Glucose 123 mg/dl (70-99); Potassium 3.6 mmol/L (3.5-5.1); Sodium 137 mmol/L (136-145)
--- NOTE | 2021-03-27 21:01 | History & Physical Report ---
Date of Service March 27, 2021 Assessment & Plan (1) Abdominal pain: Plan: Suspect the patient's abdominal pain and other GI complaints are related to her hernia. I discussed with the emergency room physician who saw her during her previous visit on 03/23 and he actually saw the patient this evening as well and noted that the hernia appears larger. Due to the fact that her hernia is larger and her GI complaints noted we are planning on taking her emergently to the operating room for repair of this hernia. Dr. Gutierrez will be in shortly to go over the risks, benefits, and alternatives with the patient. He will also discussed with her the expected postoperative course. I will plan on contacting the blood bank to see if any FFP is available in the event that we need to reverse her Coumadin. This patient is taking Coumadin and there is plan surgery we will not use any additional chemical means of DVT prevention. Additional recommendations will be made based on the patient's operative findings and postoperative course as it unfolds. History of Present Illness Chief Complaint: Abdominal pain Primary Care Provider: Jeff Mensah MD This is an 86-year-old female with a known history of an abdominal hernia. Patient was seen and evaluated by general surgery in the past but she put off hernia repair as she had significant dyspnea on exertion requiring open heart surgery. Patient says in 2018 she ultimately underwent a tricuspid valve repair and atrial appendage ablation at the [facility]. Since her heart surgery she has now been able to walk nearly 2 miles a day and her dyspnea on exertion has markedly improved. With her activities of daily living she does not get short of breath. She does note however that she takes Coumadin for history of atrial fibrillation. She notes that she has taken her Coumadin up to and including this evening. The patient was seen here at [facility] in the emergency department due to nausea, vomiting, and diarrhea. In the emergency department the patient had a CT scan of her abdomen which demonstrated a fat-containing Sp igellian hernia. She was able to be discharged home as there is no noted bowel obstruction. Patient says that since her most recent trip to the emergency department she was doing well up to including yesterday. She did note however today that the hernia appears to be bigger and she has had multiple episodes of nausea vomiting. She also notes some abdominal pain that appears to be worst in the epigastric area. She denies any fevers, shakes, chills. She denies any chest pain. She denies any shortness of breath. Since arrival to the emergency department she has had labs performed including a CBC where her white blood cell count, hemoglobin, hematocrit, and platelet count were noted to be within normal range. Coagulation studies, CMP, and lactic acid level are pending. A Covid test has been sent and is pending. A preoperative chest x-ray did not show any evidence of pneumonia or pleural effusions. A preoperative EKG is pending.. At the time of my interview the patient was having episodes of nausea vomiting but she was not in any overt distress. Allergies Allergy/AdvReac Type Severity Reaction Status Date / Time Bactrim Allergy Severe RASH AND Verified 12/25/17 10:05 FACIAL SWELLING bee venom protein (honey bee) Allergy SV ANAPHYLAXIS Verified 03/27/21 20:39 clarithromycin Allergy SV RASH AND Verified 03/27/21 20:39 FACIAL SWELLING moxifloxacin Allergy SV RASH AND Verified 03/27/21 20:39 FACIAL SWELLING Quinolones Allergy SV RASH AND Verified 03/27/21 20:39 FACIAL SWELLING sulfamethoxazole Allergy SV RASH AND Verified 03/27/21 20:39 FACIAL SWELLING trimethoprim Allergy SV RASH AND Verified 03/27/21 20:39 FACIAL SWELLING fluconazole Allergy MO INCREASED Verified 03/27/21 20:39 HEART RATE nitrofurantoin Allergy U RASH Verified 03/27/21 20:39 ampicillin Allergy Unknown Verified 03/27/21 20:39 NSAIDS (Non-Steroidal AdvReac Intermediate Pt had Unverified 03/27/21 20:39 Anti-Inflamma Open Heart Surgery ketamine AdvReac U VOMITING Verified 03/27/21 20:39 Home Medications Medication Instructions Recorded Confirmed Type albuterol sulfate 90 mcg/actuation 2 puff INHALATION Q4 PRN 03/24/18 03/27/21 History aerosol inhaler (Ventolin HFA) ascorbic acid (vitamin C) 500 mg 500 mg PO DAILY 03/24/18 03/27/21 History tablet (Vitamin C) calcium carbonate 500 mg (1,250 1 tab PO DAILY 03/24/18 03/27/21 History mg)-vitamin D3 200 unit tablet (Calcium 500 + D) cholecalciferol (vitamin D3) 125 5,000 unit PO Q2D 03/24/18 03/27/21 History mcg (5,000 unit) tablet (Vitamin D3) multivitamin (Multiple Vitamins) 1 tab PO DAILY 03/24/18 03/27/21 History psyllium husk 3.4 gram/5.4 gram 1 - 2 tbsp PO DAILY@1600 03/24/18 03/27/21 History oral powder (Metamucil) denosumab 60 mg/mL subcutaneous 60 mg SUBCUT Q6MO ml 02/02/19 03/27/21 History syringe (Prolia) inhalational spacing device #1 ea 02/02/19 01/18/21 History (Aerochamber Plus Flow-Vu) fluticasone 250 mcg-salmeterol 50 1 inh INHALATION DAILY #60 ea 08/20/20 03/27/21 Rx mcg/dose blistr powdr for inhalation (Advair Diskus) pantoprazole 40 mg tablet,delayed 40 mg PO QAM #90 tab 11/28/20 03/27/21 Rx release (Protonix) atorvastatin 40 mg tablet (Lipitor) 40 mg PO HS #90 tab 12/07/20 03/27/21 Rx triamterene 37.5 1 tab PO Q2D #45 tab 12/21/20 03/27/21 Rx mg-hydrochlorothiazide 25 mg tablet ipratropium bromide 0.02 % 2.5 ml INHALATION QID PRN #150 ml 03/12/21 03/27/21 Rx solution for inhalation aspirin 81 mg tablet,delayed 81 mg PO DAILY 03/23/21 03/27/21 History release cefdinir 300 mg capsule 300 mg PO BID 5 Days #10 cap 03/23/21 03/27/21 Rx epinephrine 0.3 mg/0.3 mL 0.3 mg IM UD PRN 03/23/21 03/27/21 History injection, auto-injector warfarin 6 mg tablet 6 mg PO DAILY 03/23/21 03/27/21 History metoprolol succinate 25 mg 12.5 mg PO BID #90 tab 03/27/21 03/27/21 Rx tablet,extended release 24 hr (Toprol XL) Past Med/Surg History Medical History Anticoagulant long-term use Asthma Atrial flutter with rapid ventricular response Biopsy of breast (2012) Cystocele surgically repaired Dysphagia H/O Goiter H/O gastroesophageal reflux (GERD) Hiatal hernia History of esophageal dilatation Hypertension Migraines Osteoarthritis Osteoporosis Severe mitral regurgitation 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 MVR/MAZE. 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 Surgical History H/O hemorrhoidectomy H/O knee surgery LEFT KNEE H/O maze procedure for a fib H/O shoulder surgery LEFT History of back surgery History of bilateral tubal ligation History of bladder surgery History of breast biopsy History of cardiac cath History of carpal tunnel release History of cataract surgery History of colonoscopy History of esophagogastroduodenoscopy (EGD) History of foot surgery History of hand surgery History of hysterectomy History of oophorectomy History of rectocele History of total abdominal hysterectomy History of tricuspid valve replacement S/P cervical spinal fusion (1999) UNSURE OF LEVELS. FULL ROM. 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 Beliefs That Will Affect Care: None marital status: / Current Living Situation: Alone current occupation: Retired Feels Safe at Home: Yes Seatbelt Use: always Assistive Devices: Hearing Aid - Bilateral Review of Systems Constitutional: no fever and no chills Eyes: no diplopia Ear, Nose, Mouth, Throat: no ear pain and no sore throat Respiratory: no cough and no dyspnea Cardiovascular: no chest pain Gastrointestinal: + abdominal pain, + nausea and + vomiting Genitourinary: no dysuria Musculoskeletal: no back pain Integumentary: no rash Neurologic: no localized weakness Physical Exam Constitutional: well developed and well nourished; no acute distress Eyes: no conjunctival abnormality ENMT: Ears: no hearing impairment and no external ear abnormality Mouth: no oropharynx abnormality Neck: trachea midline Respiratory: normal respiratory effort; no respiratory distress and no labored breathing Breath sounds are slightly decreased at the bases Cardiovascular: Rate/Rhythm: + irregularly irregular Gastrointestinal (Abdomen): Abdomen is soft with minimal distention. Bowel sounds are present. The patient was noted to have a large bulging mass in the left upper quadrant consistent with known hernia. There is minimal tenderness to this area. There is no erythema noted to the surrounding skin. The hernia was unable to be reduced at bedside. Musculoskeletal: No calf tenderness Skin: normal turgor Neurologic: moves all extremities Psychiatric: A+Ox3, euthymic affect Results & Data Results & Data ([facility]) Vital Signs (Past 12 Hours) Vital Signs Pulse Resp BP Pulse Ox 03/27/21 20:27 16 03/27/21 20:24 60 18 204/95 H 95 Supervising Physician Co-Signing Physician Notes As per Bandar Singleton physician operations and intelligence assistant Muna weller call me from home earlier this evening complaining of nausea and vomiting that developed earlier during the day and also noted that the hernia that she had in the left side is gotten bigger and she was concerned there was strangulated and I asked her to come into the emergency room where at this time evaluation will enlarge left lower quadrant hernia unable to be reduced the size of the hernia extends approximately 15 cm although reviewing the CAT scan that she had a few days ago but this was a spigelian hernia with fat and some strangulation of tissue but no bowel contents On physical exam it feels marked to be smooth during contents and 1 waiting vision just was incarcerated fat The ER physician that saw her few days ago was present again tonight and felt that the hernia got markedly larger On examination the rest of the abdomen is benign With this I recommended to proceed with surgery having seen no other pathology that could explain her symptomatology and suspicious at this time that this may contain some bowel loops recommended to proceed accordingly The situation was also discussed in detail with her daughter Susannah at [phone] Our discussion included indication for surgery in anticipation of surgery possible repair with and without mesh and anticipated recovery time raising also the question that the patient's may need to go to a rehab facility after surgery since she lives alone Also discussed the patient is on Coumadin INR is 2.6 and I felt given her past history cardiac gandhi we would work with that rather than try to reverse it All questions were answered permit was signed PG Care Time/CCT Total # of Minutes Spent Total Time Spent with Patient: Total time spent is greater than 50% in coordination of care (as documented) at patient's floor/unit and/or counseling patient: Coding Level of Care Code 12186 Initial Inpt Care Lvl 3 Diagnoses Abdominal pain R10.9 Abdominal location: unspecified location (1) Abdominal pain Abdominal location: unspecified location Qualified Code(s): R10.9 - Unspecified abdominal pain
[2021-03-27 21:04] LABS: Albumin Globulin Ratio 1.2 (0.9-2); Alkaline Phosphatase 69 U/L (45-117); Globulin 3.1 gm/dl (2.5-4.0); Total Protein 6.7 gm/dl (6.4-8.2)
[2021-03-27] MEDS ORDERED: LIDOCAINE 1% LOCAL 20 ML VIAL ONE (21:39)
[2021-03-27] MEDS ORDERED: BUPIVACAINE 0.5 % 5 MG/1 ML MPF 30ML VIAL ONE (21:39)
--- NOTE | 2021-03-27 21:51 | Anesthesiology Consultation ---
Date of Service March 27, 2021 Assessment & Plan (1) Encounter for pre-operative examination: Chart Review Chart Review: Acceptable Risk for Surgery Consults Requested none ASA [id number] Proposed Anesthesia Anesthesia Type: General Risk / Benefits Reviewed With: PT / POA / Parent / Guardian, Accepts Plan and Informed Consent Obtained History Surgery Operation Date: 03/27/21 22:00 Proposed Procedures p Ventral Hernia Repair - Abhishek Gutierrez MD, FACS Height/Weight Weight: 64.8 kg Allergies Allergy/AdvReac Type Severity Reaction Status Date / Time Bactrim Allergy Severe RASH AND Verified 12/25/17 10:05 FACIAL SWELLING bee venom protein (honey bee) Allergy SV ANAPHYLAXIS Verified 03/27/21 20:39 clarithromycin Allergy SV RASH AND Verified 03/27/21 20:39 FACIAL SWELLING moxifloxacin Allergy SV RASH AND Verified 03/27/21 20:39 FACIAL SWELLING Quinolones Allergy SV RASH AND Verified 03/27/21 20:39 FACIAL SWELLING sulfamethoxazole Allergy SV RASH AND Verified 03/27/21 20:39 FACIAL SWELLING trimethoprim Allergy SV RASH AND Verified 03/27/21 20:39 FACIAL SWELLING fluconazole Allergy MO INCREASED Verified 03/27/21 20:39 HEART RATE nitrofurantoin Allergy U RASH Verified 03/27/21 20:39 ampicillin Allergy Unknown Verified 03/27/21 20:39 NSAIDS (Non-Steroidal AdvReac Intermediate Pt had Unverified 03/27/21 20:39 Anti-Inflamma Open Heart Surgery ketamine AdvReac U VOMITING Verified 03/27/21 20:39 Medications Home Medications Medication Instructions Recorded Confirmed Last Taken albuterol sulfate 90 mcg/actuation 2 puff INHALATION Q4 PRN 03/24/18 03/27/21 Unknown aerosol inhaler (Ventolin HFA) ascorbic acid (vitamin C) 500 mg 500 mg PO DAILY 03/24/18 03/27/21 03/22/21 tablet (Vitamin C) calcium carbonate 500 mg (1,250 1 tab PO DAILY 03/24/18 03/27/21 03/22/21 mg)-vitamin D3 200 unit tablet (Calcium 500 + D) cholecalciferol (vitamin D3) 125 5,000 unit PO Q2D 03/24/18 03/27/21 03/22/21 mcg (5,000 unit) tablet (Vitamin D3) multivitamin (Multiple Vitamins) 1 tab PO DAILY 03/24/18 03/27/21 03/22/21 psyllium husk 3.4 gram/5.4 gram 1 - 2 tbsp PO DAILY@1600 03/24/18 03/27/21 03/22/21 oral powder (Metamucil) denosumab 60 mg/mL subcutaneous 60 mg SUBCUT Q6MO ml 02/02/19 03/27/21 03/21/21 syringe (Prolia) inhalational spacing device #1 ea 02/02/19 01/18/21 Unknown (Aerochamber Plus Flow-Vu) fluticasone 250 mcg-salmeterol 50 1 inh INHALATION DAILY #60 ea 08/20/20 03/27/21 03/22/21 mcg/dose blistr powdr for inhalation (Advair Diskus) pantoprazole 40 mg tablet,delayed 40 mg PO QAM #90 tab 11/28/20 03/27/21 03/22/21 release (Protonix) atorvastatin 40 mg tablet (Lipitor) 40 mg PO HS #90 tab 12/07/20 03/27/21 03/22/21 triamterene 37.5 1 tab PO Q2D #45 tab 12/21/20 03/27/21 03/22/21 mg-hydrochlorothiazide 25 mg tablet ipratropium bromide 0.02 % 2.5 ml INHALATION QID PRN #150 ml 03/12/21 03/27/21 03/19/21 solution for inhalation aspirin 81 mg tablet,delayed 81 mg PO DAILY 03/23/21 03/27/21 03/22/21 release cefdinir 300 mg capsule 300 mg PO BID 5 Days #10 cap 03/23/21 03/27/21 Unknown epinephrine 0.3 mg/0.3 mL 0.3 mg IM UD PRN 03/23/21 03/27/21 Unknown injection, auto-injector warfarin 6 mg tablet 6 mg PO DAILY 03/23/21 03/27/21 03/22/21 metoprolol succinate 25 mg 12.5 mg PO BID #90 tab 03/27/21 03/27/21 Unknown tablet,extended release 24 hr (Toprol XL) NPO Date Last Intake of Fluids: 03/27/21 Time Last Intake of Fluids: 17:00 Date Last Intake of Solids: 03/27/21 Time Last Intake of Solids: 12:00 Past Medical History Medical History Anticoagulant long-term use Asthma Atrial flutter with rapid ventricular response Biopsy of breast (2012) Cystocele surgically repaired Dysphagia H/O Goiter H/O gastroesophageal reflux (GERD) Hiatal hernia History of esophageal dilatation Hypertension Migraines Osteoarthritis Osteoporosis Severe mitral regurgitation 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 MVR/MAZE. 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 Exercise / Class Metabolic Activity III < 4 Walking/Shop/Light housework Past Family History Family History Aunt Breast cancer Brother Diabetes Sister Breast cancer Myocardial infarction Ovarian cancer Diabetes Father Myocardial infarction Mother Myocardial infarction Diabetes Past Surgical History Surgical History H/O hemorrhoidectomy H/O knee surgery LEFT KNEE H/O maze procedure for a fib H/O shoulder surgery LEFT History of back surgery History of bilateral tubal ligation History of bladder surgery History of breast biopsy History of cardiac cath History of carpal tunnel release History of cataract surgery History of colonoscopy History of esophagogastroduodenoscopy (EGD) History of foot surgery History of hand surgery History of hysterectomy History of oophorectomy History of rectocele History of total abdominal hysterectomy History of tricuspid valve replacement S/P cervical spinal fusion (1999) UNSURE OF LEVELS. FULL ROM. S/P hysterectomy (2012) S/P Maze operation for atrial fibrillation (2017) S/P STERLING-BSO Past Anesthesia History No Hx of Anesthesia Complications and No Family Hx of Anesthesia Complications History of PONV No Hx of Motion Sickness and History of PONV Social History Smoking Status: Smoker, status unknown Hx Alcohol Use: No Hx Substance Use: No substance use type: does not use Physical Exam Vital Signs Last Vital Signs Pulse 60 03/27/21 20:24 Resp 16 03/27/21 20:27 BP 204/95 H 03/27/21 20:24 Pulse Ox 95 03/27/21 20:24 ENMT Mouth: + dentures (partials) Thyromental Distance: > or= 3.5 Finger Breadths Mallampati Class: III Neck normal visual inspection Respiratory normal respiratory effort Auscultation: lungs clear to auscultation bilaterally Cardiovascular Rate/Rhythm: regular rate and regular rhythm Testing Laboratory Results 03/27/21 20:35 03/27/21 20:35 PT 21.5 Seconds (9.0-12.0) H 03/27/21 20:35 INR 2.3 (0.9-1.1) H 03/27/21 20:35 APTT 35.8 Seconds (21.0-31.0) H 03/27/21 20:35 Laboratory Tests 12/27/20 16:25 SARS-CoV-2 RNA ([facility]) Negative Electrocardiogram Date: 03/27/21 Sinus bradycardia, rate 59 bpm Low voltage QRS Possible Anterolateral infarct , age undetermined Abnormal ECG When compared with ECG of 23-MAR-2021 10:14, QRS axis Shifted right Borderline criteria for Anterior infarct are now Present Borderline criteria for Anterolateral infarct are now Present Nonspecific T wave abnormality now evident in Lateral leads
[2021-03-27] MEDS ORDERED: ePHEDrine sulfate 50 MG/ML AMP IV PRN (21:52)
[2021-03-27] MEDS ORDERED: ATROPINE SULFATE 0.1 MG/ML 10ML SYR IV PRN (21:52)
[2021-03-27] MEDS ORDERED: ONDANSETRON INJ 2 MG/ML 2 ML VIAL IV PRN (21:52)
[2021-03-27] MEDS ORDERED: fentaNYL citrate 100 MCG/2 ML VIAL IV PRN (21:52)
[2021-03-27] MEDS ORDERED: LIDOCAINE 2% 2 ML VIAL/AMP(20MG/ML) INFIL ONE (21:59)
[2021-03-27] MEDS ORDERED: fentaNYL citrate 100 MCG/2 ML VIAL ONE ×3 (21:59→23:14)
[2021-03-27] MEDS ORDERED: SUCCINYLCHOLINE 100MG/5ML SYR IV ONE (21:59)
[2021-03-27] MEDS ORDERED: PROPOFOL IV EMULSION 10 MG/ML 20 ML VIAL IV ONE (21:59)
[2021-03-27] MEDS ORDERED: PHENYLEPHRINE 100MCG/ML 5ML SYR ONE (23:19)
[2021-03-27] MEDS ORDERED: ceFAZolin 1000MG 1,000 MG/7.5 ML SYR IV ONE (23:33)
[2021-03-27] MEDS ORDERED: GELATIN SPONGE SZ 100 ONE (23:36)
--- NOTE | 2021-03-27 23:42 | Post Operative Brief Note ---
PG Immediate Post Op with CF Date of Surgery March 27, 2021 Pre & Post Diagnosis Operation Date: 03/27/21 22:00 Pre-Op Diagnosis: Incisional Hernia Post-Op Diagnosis: Incisional Hernia I identified the patient and participated in the time-out.: Yes Procedure Operation Date: 03/27/21 22:00 Actual Procedures p Open Incarcerated Incisional Hernia Repair (Left) - Abhishek Gutierrez MD, FACS Surgeon Abhishek Gutierrez MD, FACS [employer]age [employer] Estimated Blood Loss 50 Findings Consistent with Post-Op Diagnosis Specimens Specimen Description: A. Incarcerated Incisional Hernia Sac
--- NOTE | 2021-03-27 23:59 | Operative Report ---
Post Operative Report Pre & Post Diagnosis Operation Date: 03/27/21 22:00 Pre-Op Diagnosis: Incisional Hernia Post-Op Diagnosis: Incisional Hernia I identified the patient and participated in the time-out.: Yes Procedure Operation Date: 03/27/21 22:00 Actual Procedures p Open Incarcerated Incisional Hernia Repair (Left) - Abhishek Gutierrez MD, FACS Repair of incarcerated incisional hernia and resection of incarcerated fatty tissue The patient was brought into the operating room theater supine position the abdomen was prepped Betadine scrub a solution properly draped a timeout was had patient was identified antibiotics were not initially given patient has been on p.o. antibiotics for UTI for last 5 days and anticipated not likely using mesh for the procedure The mass that we had measured was incarcerated tissue was centered over what appeared to be a trocar site from previous laparoscopic surgery not sure if it was a robotic or not that was done Arline therefore we made an incision of likely right over the trocar site medially went into the subcutaneous tissue went underneath Mat's fascia were met was significant incarcerated tissue onto what appeared to be the hernial sac this was chronically incarcerated we took our line of resection first by exposing the emergent abdominal wall lateral to this large defect and circumferentially worked our way underneath free and the abdominal wall from the subcutaneous fatty tissue to we were able then to a lot find the large mass that was protruding through the abdominal wall what we could see here there was some discoloration into the underneath the hernial sac we could see some fatty tissue only were able to enter the hernial sac and identified a significant amount of fat omentum that was adherent unable to be reduced from the hernial sac but we also saw a loop of small bowel coming through that apparently slightly compromised no significant ischemic we then we placed the finger and could identify the hernial defect which was proximal about 3 cm in size we enlarged that in the inferior portion use any cautery and what we could see was that our extension in the inferior portion medially of it we were at the edge of the rectus abdominis once this had been completed we were able then to reduce the loop of small bowel easily into the abdomen and it pinked up immediately patient had omentum was significantly incarcerated in the subcutaneous tissue and hernial sac we excised that the hernial sac circumferentially along with it we resected a portion of the omentum that was incarcerated. Once this was completed we enlarged the incision so we could free the undersurface under the peritoneal cavity of any adhesions. We had exposed the peritoneum enough that we would be able to close it with a chromic suture. The opening of the hernial defect into the peritoneum once we were finished and what we had enlarged was approximately 6 cm after we closed the peritoneum with a 3-0 chromic suture I closed the abdominal wall starting just lateral to the rectus abdominis all the way to the external Bleich incorporating the external fascia and the internal Bleich and single [id number] PDS sutures once this completed I ran another 0 PDS suture in a continuous fashion over the incision the area was checked hemostasis and appears satisfactory we then placed a piece of Gelfoam embedded in 0.5% Marcaine in the subcutaneous tissue close the fatty tissue over it with 2-0 running Vicryl and ash for skin edges dressing was applied procedure was tolerated well by the patient estimated blood loss approximately 50 cc Addendum once I had opened the hernial defect was not sure whether or not that would need that mesh at that time I asked anesthesia to give 1 g of Ancef and of note she had no side effects from being allergic to a significant amount of cephalosporin and other antibiotics Addendum Bandar Zaman physician political science research assistant was present throughout the whole case and helped the retraction exposure and wound closure Spoke with daughter Susannah after surgery at [phone] Surgeon Abhishek Gutierrez MD, FACS [employer]ather [employer] Estimated Blood Loss 50 Findings Consistent with Post-Op Diagnosis Incarcerated omental tissue and small bowel loops Specimens Hernia sac and incarcerated fatty tissue Description of Procedure merda I attest to the content of the Intraoperative Record and any orders documented therein. Any exceptions are noted below.
--- NOTE | 2021-03-28 00:14 | Anesthesiology Progress Note ---
Date of Service March 28, 2021 Anesthesia Post Procedure Vital Signs Vital Signs: Temp Pulse Pulse Resp BP BP Pulse Ox 03/27/21 23:57 98.2 F 58 L 14 173/79 H 98 03/27/21 20:27 16 03/27/21 20:24 60 18 204/95 H 95 Transfer of Care Handoff Completed per policy Notes Mental Status: alert / awake / arousable and participated in evaluation Patient Amnestic to Procedure: Yes Nausea / Vomiting: adequately controlled Pain: adequately controlled Airway Patency, RR, SpO2: stable & adequate BP & HR: stable & adequate Hydration State: stable & adequate Anesthetic Complications: no major complications apparent and Pt Satisfied with anesthetic care
[2021-03-28] MEDS ORDERED: MoRPHine SULFATE 2 MG/ML CARP IV PRN (01:39)
[2021-03-28] MEDS ORDERED: [UNRECOGNIZED DRUG - OTHER] SCH (01:39)
[2021-03-28] MEDS ORDERED: ALBUTEROL HFA 8 GM INHALER INH PRN (01:39)
[2021-03-28] MEDS ORDERED: EPINEPHrine ADULT AUTO-INJECT 0.3 MG SYR IM PRN (01:39)
[2021-03-28] MEDS ORDERED: IPRATROPIUM BROMIDE NEB SOLN 0.02% 2.5 ML VIAL INH PRN (01:39)
[2021-03-28] MEDS ORDERED: LACTATED RINGER'S 1,000 ML IV SCH (01:39)
[2021-03-28] MEDS ORDERED: ACETAMINOPHEN 1,000 MG/100 ML VIAL IV SCH (03:00)
[2021-03-28] MEDS: ONDANSETRON INJ 2 MG/ML 2 ML VIAL IV PRN ×2 (03:41→16:25)
[2021-03-28 06:15] LABS: Basophils # (auto) 0.02 K/uL (0-0.2); Basophils % (auto) 0.2 %; Eosinophils # (auto) 0.13 K/uL (0-0.5); Eosinophils % (auto) 1.3 %; Hematocrit (blood only) 35.7 % (37-47); Hemoglobin 12.2 g/dL (12.0-16.0); Immature Granulocytes # (auto) 0.02 K/uL (0.00-0.02); Immature Granulocytes % (auto) 0.2 %; Lymphocytes # (auto) 1.43 K/uL (1.2-3.4); Lymphocytes % (auto) 13.9 %; Mean Corpuscular Hemoglobin 29.3 pg (25-34); Mean Corpuscular Volume 85.6 fL (80-100); Mean Platelet Volume 9.5 fL (7.4-10.4); Monocytes # (auto) 1.15 K/uL (0.11-0.59); Monocytes % (auto) 11.2 %; Neutrophils # (auto) 7.56 K/uL (1.4-6.5); Neutrophils % (auto) 73.2 %; Platelet Count 186 K/uL (130-400); RDW Coefficient of Variation 14.8 % (11.5-14.5); RDW Standard Deviation 46.6 fL (36.4-46.3); Red Blood Count 4.17 M/uL (4.2-5.4); White Blood Count 10.31 K/uL (4.8-10.8)
[2021-03-28 06:21] LABS: Mean Corpuscular Hgb Conc 34.2 g/dL (32-36)
[2021-03-28 06:30] LABS: INR 2.2 (0.9-1.1); Prothrombin Time 21.2 Seconds (9.0-12.0)
[2021-03-28 06:36] LABS: BUN Creatinine Ratio 11.7 (10-20); Calcium 8.4 mg/dl (8.5-10.1); Creatinine Clr Calc Pharmacy 48.5 ml/min; Est GFR (African American) 85.6 ml/min; Est GFR (Non-African American) 73.9 ml/min
--- NOTE | 2021-03-28 07:00 | XRay Report ---
XR chest 1V portable CLINICAL HISTORY: Preoperative evaluation. COMPARISON STUDY: Chest radiograph December 27, 2020. FINDINGS: Moderate cardiomegaly is noted. There is no evidence for pulmonary edema. Left basilar opac ity favors atelectasis. There are median sternotomy wires, prosthetic tricuspid valve and postoperati ve findings within the cervical spine. IMPRESSION: 1. No acute cardiopulmonary findings. 2. Stable cardiomegaly without evidence for pulmonary edema. 3. Left basilar opacity suggestive of atelectasis. ACT 112: Negative or not required by law. Electronically signed by: Rob Mackay M.D. 03/28/2021 6:58 AM
[2021-03-28] MEDS: METOPROLOL SUCC 25MG EXT REL TAB PO SCH ×2 (07:52→20:22)
[2021-03-28] MEDS: ASPIRIN 81 MG ECTAB PO SCH (07:57)
[2021-03-28] MEDS: PANTOprazole 40 MG TAB PO SCH (07:57)
[2021-03-28] MEDS: CALCIUM 600MG + VIT D 400 IU TAB PO SCH (07:58)
--- NOTE | 2021-03-28 08:02 | Surgery Progress Note ---
Date of Service March 28, 2021 Assessment & Plan (1) Abdominal pain: Plan: Suspect the patient's abdominal pain and other GI complaints are related to her hernia. I discussed with the emergency room physician who saw her during her previous visit on 03/23 and he actually saw the patient this evening as well and noted that the hernia appears larger. Due to the fact that her hernia is larger and her GI complaints noted we are planning on taking her emergently to the operating room for repair of this hernia. Dr. Gutierrez will be in shortly to go over the risks, benefits, and alternatives with the patient. He will also discussed with her the expected postoperative course. I will plan on contacting the blood bank to see if any FFP is available in the event that we need to reverse her Coumadin. This patient is taking Coumadin and there is plan surgery we will not use any additional chemical means of DVT prevention. Additional recommendations will be made based on the patient's operative findings and postoperative course as it unfolds. Plan: Patient is 12 hours postoperative open repair and incarcerated incisional hernia from a prior trocar site that she had approximately 4 years ago for a gynecologic procedure The operative finding was discussed with the patient including the fact there was a loop of small bowel that was incarcerated that did not need to be resected At this point will increase her activity and diet but the patient will require some rehab in the immediate postoperative period she lives alone social service was consulted Suspects length of stay in the hospital next 24 possibly 48 hours Admission and Anticipated Discharge Date Admission Date: March 27, 2021 Subjective Feels much better than last evening stating her pain was pretty excruciating then Physical Exam Physical Exam: She is alert coherent resting comfortable in bed without any abdominal discomfort except at the operative site Gastrointestinal (Abdomen): The abdomen is soft the dressing in the left lower quadrant operative site is intact dry Results & Data ([facility]) Vital Signs (Past 12 Hours) Vital Signs Temp Pulse Pulse Resp BP BP Pulse Ox 03/28/21 07:33 37.1 C 53 L 16 122/72 95 03/28/21 03:02 36.5 C 59 L 16 129/69 92 03/28/21 02:05 54 L 03/28/21 00:50 54 L 16 155/69 H 95 03/28/21 00:40 36.5 C 53 L 15 154/65 H 95 03/28/21 00:30 53 L 16 162/74 H 96 03/28/21 00:20 56 L 18 163/73 H 96 03/28/21 00:10 56 L 15 166/78 H 98 03/28/21 00:00 62 18 167/79 H 98 03/27/21 23:57 36.8 C 58 L 14 173/79 H 98 03/27/21 20:27 16 03/27/21 20:24 60 18 204/95 H 95 PG Care Time/CCT Total # of Minutes Spent Total Time Spent with Patient: Total time spent is greater than 50% in coordination of care (as documented) at patient's floor/unit and/or counseling patient: Coding Level of Care Code None Diagnoses Abdominal pain R10.9 Abdominal location: unspecified location (1) Abdominal pain Abdominal location: unspecified location Qualified Code(s): R10.9 - Unspecified abdominal pain
[2021-03-28] MEDS ORDERED: oxyCODONE/ACETAMINOPHEN 5mg/325mg TAB PO PRN (08:04)
[2021-03-28] MEDS: FLUTICASONE/VILANTEROL 200/25MCG 14 PUFFS/INHALER INH SCH (08:44)
--- NOTE | 2021-03-28 13:26 | Hospitalist Consultation ---
Date of Consultation March 28, 2021 Assessment & Plan (1) Incisional hernia: S/p incisional hernia repair with Dr. Gutierrez on 03/27 for an incarcerated loop of small bowel. - Doing well overall. Advanced diet per surgery. - Post-operative care per surgery (2) Atrial flutter with controlled response: In sinus bradycardia on admission. Had MAZE procedure when her mitral valve was replaced. - Monitor - Continue warfarin - INR today is 2.2. (3) HTN (hypertension): Follows with Dr. Sutton. BP today is 140/80. - Continue beta-marychuy (4) Asthma: Follows with Dr. Hernandez. No acute issues. - Continue home inhaler - DuoNebs PRN (5) S/P mitral valve replacement with bioprosthetic valve: In 2018. - No acute needs (6) DVT prophylaxis: On warfarin. Therapeutic INR. History of Present Illness Reason for Consultation: Medical management Attending Physician: Abhishek Gutierrez MD, FACS History of Present Illness 86yo F w/ hx of asthma, allergies, HTN, atrial flutter, s/p mitral valve replacement who presents as post-operative consult after hernia repair with Dr. Gutierrez on 03/27. She reports that her pain is relatively well controlled. It was mildly worse this morning, but otherwise better this afternoon. Reports no fevers/chills, chest pain, shortness of breath, abdominal pain, nausea, or vomiting. Allergies Allergy/AdvReac Type Severity Reaction Status Date / Time Bactrim Allergy Severe RASH AND Verified 12/25/17 10:05 FACIAL SWELLING bee venom protein (honey bee) Allergy SV ANAPHYLAXIS Verified 03/27/21 20:39 clarithromycin Allergy SV RASH AND Verified 03/27/21 20:39 FACIAL SWELLING moxifloxacin Allergy SV RASH AND Verified 03/27/21 20:39 FACIAL SWELLING Quinolones Allergy SV RASH AND Verified 03/27/21 20:39 FACIAL SWELLING sulfamethoxazole Allergy SV RASH AND Verified 03/27/21 20:39 FACIAL SWELLING trimethoprim Allergy SV RASH AND Verified 03/27/21 20:39 FACIAL SWELLING fluconazole Allergy MO INCREASED Verified 03/27/21 20:39 HEART RATE nitrofurantoin Allergy U RASH Verified 03/27/21 20:39 ampicillin Allergy Unknown Verified 03/27/21 20:39 NSAIDS (Non-Steroidal AdvReac Intermediate Pt had Unverified 03/27/21 20:39 Anti-Inflamma Open Heart Surgery ketamine AdvReac U VOMITING Verified 03/27/21 20:39 Home Medications Medication Instructions Recorded Confirmed Type albuterol sulfate 90 mcg/actuation 2 puff INHALATION Q4 PRN 03/24/18 03/27/21 History aerosol inhaler (Ventolin HFA) ascorbic acid (vitamin C) 500 mg 500 mg PO DAILY 03/24/18 03/27/21 History tablet (Vitamin C) calcium carbonate 500 mg (1,250 1 tab PO DAILY 03/24/18 03/27/21 History mg)-vitamin D3 200 unit tablet (Calcium 500 + D) cholecalciferol (vitamin D3) 125 5,000 unit PO Q2D 03/24/18 03/27/21 History mcg (5,000 unit) tablet (Vitamin D3) multivitamin (Multiple Vitamins) 1 tab PO DAILY 03/24/18 03/27/21 History psyllium husk 3.4 gram/5.4 gram 1 - 2 tbsp PO DAILY@1600 03/24/18 03/27/21 History oral powder (Metamucil) denosumab 60 mg/mL subcutaneous 60 mg SUBCUT Q6MO ml 02/02/19 03/27/21 History syringe (Prolia) inhalational spacing device #1 ea 02/02/19 01/18/21 History (Aerochamber Plus Flow-Vu) fluticasone 250 mcg-salmeterol 50 1 inh INHALATION DAILY #60 ea 08/20/20 Rx mcg/dose blistr powdr for inhalation (Advair Diskus) pantoprazole 40 mg tablet,delayed 40 mg PO QAM #90 tab 11/28/20 03/27/21 Rx release (Protonix) atorvastatin 40 mg tablet (Lipitor) 40 mg PO HS #90 tab 12/07/20 03/27/21 Rx triamterene 37.5 1 tab PO Q2D #45 tab 12/21/20 03/27/21 Rx mg-hydrochlorothiazide 25 mg tablet ipratropium bromide 0.02 % 2.5 ml INHALATION QID PRN #150 ml 03/12/21 03/27/21 Rx solution for inhalation aspirin 81 mg tablet,delayed 81 mg PO DAILY 03/23/21 03/27/21 History release epinephrine 0.3 mg/0.3 mL 0.3 mg IM UD PRN 03/23/21 03/27/21 History injection, auto-injector warfarin 6 mg tablet 6 mg PO DAILY 03/23/21 03/27/21 History metoprolol succinate 25 mg 12.5 mg PO BID #90 tab 03/27/21 03/27/21 Rx tablet,extended release 24 hr (Toprol XL) Patient History Medical History Anticoagulant long-term use Asthma Atrial flutter with rapid ventricular response Biopsy of breast (2012) Cystocele surgically repaired Dysphagia H/O Goiter H/O gastroesophageal reflux (GERD) Hiatal hernia History of esophageal dilatation Hypertension Migraines Osteoarthritis Osteoporosis Severe mitral regurgitation 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 MVR/MAZE. 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 Surgical History H/O hemorrhoidectomy H/O knee surgery LEFT KNEE H/O maze procedure for a fib H/O shoulder surgery LEFT History of back surgery History of bilateral tubal ligation History of bladder surgery History of breast biopsy History of cardiac cath History of carpal tunnel release History of cataract surgery History of colonoscopy History of esophagogastroduodenoscopy (EGD) History of foot surgery History of hand surgery History of hysterectomy History of incisional hernia repair (03/27/21) Open Incarcerated Incisional Hernia Repair -Abhishek Gutierrez MD, FACS 03/27/2021 History of oophorectomy History of rectocele History of total abdominal hysterectomy History of tricuspid valve replacement S/P cervical spinal fusion (1999) UNSURE OF LEVELS. FULL ROM. S/P hysterectomy (2012) S/P Maze operation for atrial fibrillation (2017) S/P STERLING-BSO Family History Aunt Breast cancer Brother Diabetes Sister Breast cancer Myocardial infarction Ovarian cancer Diabetes Father Myocardial infarction Mother Myocardial infarction Diabetes Social History Smoking Status: Never smoker Second Hand Exposure: No; Hx Alcohol Use: No Hx Substance Use: No Preferred Language: Mauritian Communication Ability: Effective Hearing Ability: Normal Classification Analyst Required: No Beliefs That Will Affect Care: None marital status: / Current Living Situation: Alone current occupation: Retired How many Children do You have: 2 Other Information That Helps Us Care for You: No Feels Safe at Home: Yes Safety Concerns: Feels Safe At This Time Seatbelt Use: always Assistive Devices: None Assistive Devices Comment: partials, upper and lower Review of Systems Review of Systems: All systems reviewed & are unremarkable except as noted in HPI & below Physical Exam Constitutional: WD/WN, vitals as above Eyes: EOM intact bilaterally; no conjunctival abnormality ENMT: external ear and nose normal, oropharynx normal Neck: trachea midline, no thyromegaly normal visual inspection Respiratory: normal respiratory effort, lungs clear to auscultation no respiratory distress Cardiovascular: RRR, no murmur, no edema Gastrointestinal (Abdomen): Inspection/Auscultation: + abdominal surgical incision (Bandaged); + abdomen abnormal to inspection and abdomen not distended Musculoskeletal: no cyanosis or clubbing, extremities motor strength 5/5 Skin: no rashes, warm and dry Neurologic: moves all extremities and awake Psychiatric: Orientation: alert, oriented to person and cooperative Results & Data Results & Data ([facility]) Vital Signs (Past 12 Hours) Vital Signs Temp Pulse Pulse Resp BP Pulse Ox 03/28/21 11:07 36.8 C 59 L 14 138/78 95 03/28/21 07:33 37.1 C 53 L 16 122/72 95 03/28/21 03:02 36.5 C 59 L 16 129/69 92 03/28/21 02:05 54 L PG Care Time/CCT Total # of Minutes Spent Total Time Spent with Patient: Total time spent is greater than 50% in coordination of care (as documented) at patient's floor/unit and/or counseling patient: Coding Level of Care Code 16105 Inpt Consult Level 4 Diagnoses Incisional hernia K43.2 Atrial flutter with controlled response I48.92 HTN (hypertension) I10 S/P mitral valve replacement with bioprosthetic valve Z95.3 DVT prophylaxis Z29.9 Asthma J45.909
[2021-03-28] MEDS: WARFARIN SOD 6 MG TAB PO SCH (15:48)
[2021-03-28] MEDS: ACETAMINOPHEN 325 MG TAB PO PRN (16:25)
--- NOTE | 2021-03-29 05:37 | Electrocardiogram Report ---
Test Reason : Blood Pressure : / mmHG Vent. Rate : 059 BPM Atrial Rate : 059 BPM P-R Int : 200 ms QRS Dur : 094 ms QT Int : 452 ms P-R-T Axes : 000 119 -06 degrees QTc Int : 447 ms Sinus bradycardia Low voltage QRS Possible Anterior infarct Nonspecific T wave abnormality Abnormal ECG When compared with ECG of 23-MAR-2021 10:14, QRS axis Shifted right Borderline criteria for Anterior infarct are now Present Confirmed by Thompson Warren ([id number]) on 03/29/2021 5:36:34 AM Referred By: REFERRED SELF Confirmed By:Thompson Warren
[2021-03-29 07:26] LABS: INR 3.2 (0.9-1.1); Prothrombin Time 29.3 Seconds (9.0-12.0)
[2021-03-29 07:29] VITALS: BP 133/69; TEMP 98.6; O2SAT 91
[2021-03-29] MEDS: PANTOprazole 40 MG TAB PO SCH (07:40)
--- NOTE | 2021-03-29 07:40 | Surgery Progress Note ---
Date of Service March 29, 2021 Assessment & Plan (1) Abdominal pain: Plan: Suspect the patient's abdominal pain and other GI complaints are related to her hernia. I discussed with the emergency room physician who saw her during her previous visit on 03/23 and he actually saw the patient this evening as well and noted that the hernia appears larger. Due to the fact that her hernia is larger and her GI complaints noted we are planning on taking her emergently to the operating room for repair of this hernia. Dr. Gutierrez will be in shortly to go over the risks, benefits, and alternatives with the patient. He will also discussed with her the expected postoperative course. I will plan on contacting the blood bank to see if any FFP is available in the event that we need to reverse her Coumadin. This patient is taking Coumadin and there is plan surgery we will not use any additional chemical means of DVT prevention. Additional recommendations will be made based on the patient's operative findings and postoperative course as it unfolds. Plan: 03/29/21 Patient is approximately 36 hours postop repair incarcerated incisional hernia left lower quadrant Overall she is doing very well plans for discharge her to her rehab facility are underway She can be increase her activity may shower Recheck a hemoglobin this morning Patient is 12 hours postoperative open repair and incarcerated incisional hernia from a prior trocar site that she had approximately 4 years ago for a gynecologic procedure The operative finding was discussed with the patient including the fact there w as a loop of small bowel that was incarcerated that did not need to be resected At this point will increase her activity and diet but the patient will require some rehab in the immediate postoperative period she lives alone social service was consulted Suspects length of stay in the hospital next 24 possibly 48 hours Admission and Anticipated Discharge Date Admission Date: March 27, 2021 Subjective She denies any abdominal discomfort was able to eat yesterday without any pain she has been up in a chair and states he has some discomfort in on the incision she set up for for a while She is just taking some Tylenol for pain Physical Exam Physical Exam: Is alert coherent resting comfortably The abdomen soft does have some bloody drainage along the incision in the left lower quadrant and the fullness in that area is likely related more to the longstanding tissue that expanded over the hernia rather than the abdomen leading Results & Data ([facility]) Vital Signs (Past 12 Hours) Vital Signs Temp Pulse Pulse Resp BP Pulse Ox 03/29/21 07:29 37.0 C 77 16 133/69 91 03/29/21 04:00 36.9 C 107 H 18 139/78 93 03/28/21 23:00 36.8 C 70 18 151/92 H 90 03/28/21 22:19 67 PG Care Time/CCT Total # of Minutes Spent Total Time Spent with Patient: Total time spent is greater than 50% in coordination of care (as documented) at patient's floor/unit and/or counseling patient: Coding Level of Care Code None Diagnoses Abdominal pain R10.9 Abdominal location: unspecified location (1) Abdominal pain Abdominal location: unspecified location Qualified Code(s): R10.9 - Unspecified abdominal pain
[2021-03-29] MEDS: ASPIRIN 81 MG ECTAB PO SCH (07:41)
[2021-03-29] MEDS: FLUTICASONE/VILANTEROL 200/25MCG 14 PUFFS/INHALER INH SCH (07:41)
[2021-03-29] MEDS: CALCIUM 600MG + VIT D 400 IU TAB PO SCH (07:41)
[2021-03-29] MEDS: METOPROLOL SUCC 25MG EXT REL TAB PO SCH (07:41)
[2021-03-29] MEDS: ONDANSETRON INJ 2 MG/ML 2 ML VIAL IV PRN ×2 (09:05→12:35)
[2021-03-29] MEDS: WARFARIN SOD 6 MG TAB PO SCH (11:21)
--- NOTE | 2021-03-29 12:23 | Hospitalist Progress Note ---
Date of Service March 29, 2021 Assessment & Plan (1) Incisional hernia: Plan: S/p incisional hernia repair with Dr. Gutierrez on 03/27 for an incarcerated loop of small bowel. - Doing well overall. Advanced diet per surgery. No BM yet on my interview. - Post-operative care per surgery (2) Atrial flutter with controlled response: Plan: In sinus bradycardia on admission. Had MAZE procedure when her mitral valve was replaced. - Monitor - INR today is 3.2. Hold warfarin for today, then possibly lower dose as her oral vitamin K intake is lower than usual. (3) HTN (hypertension): Plan: Follows with Dr. Sutton. BP today is 130/70. - Continue beta-marychuy (4) Asthma: Plan: Follows with Dr. Hernandez. No acute issues. - Continue home inhaler - DuoNebs PRN (5) S/P mitral valve replacement with bioprosthetic valve: Plan: In 2017. - No acute needs (6) DVT prophylaxis: Plan: On warfarin. Therapeutic INR. Given medical stability, Hospital Medicine team will sign off. Please re-consult with any questions or concerns. Thank you for letting us assist in the care of this patient! Admission and Anticipated Discharge Date Admission Date: March 27, 2021 Subjective Some pain today, but not a ton and controlled with acetaminophen.. Physical Exam Constitutional: WD/WN, vitals as above Eyes: EOM intact bilaterally; no conjunctival abnormality ENMT: external ear and nose normal, oropharynx normal Neck: trachea midline, no thyromegaly normal visual inspection Respiratory: normal respiratory effort, lungs clear to auscultation no respiratory distress Cardiovascular: RRR, no murmur, no edema Gastrointestinal (Abdomen): Inspection/Auscultation: + abdominal surgical incision (Bandaged); + abdomen abnormal to inspection and abdomen not distended Musculoskeletal: no cyanosis or clubbing, extremities motor strength 5/5 Skin: no rashes, warm and dry Neurologic: moves all extremities and awake Psychiatric: Orientation: alert, oriented to person and cooperative Results & Data Results & Data ([facility]) Vital Signs (Past 12 Hours) Vital Signs Temp Pulse Resp BP Pulse Ox 03/29/21 07:29 37.0 C 77 16 133/69 91 03/29/21 04:00 36.9 C 107 H 18 139/78 93 PG Care Time/CCT Total # of Minutes Spent Total Time Spent with Patient: Total time spent is greater than 50% in coordination of care (as documented) at patient's floor/unit and/or counseling patient: Coding Level of Care Code 45292 Subseq Hosp Care Lvl 2 Diagnoses Incisional hernia K43.2 Atrial flutter with controlled response I48.92 HTN (hypertension) I10 Asthma J45.909 S/P mitral valve replacement with bioprosthetic valve Z95.3 DVT prophylaxis Z29.9
[2021-03-29 13:26] VITALS: PULSE 69
[2021-03-29] MEDS: ACETAMINOPHEN 325 MG TAB PO PRN (15:08)
--- NOTE | 2021-03-30 08:34 | Discharge Summary ---
Date of Service March 30, 2021 Admission HPI Per Admitting Provider This is an 86-year-old female with a known history of an abdominal hernia. Patient was seen and evaluated by general surgery in the past but she put off hernia repair as she had significant dyspnea on exertion requiring open heart surgery. Patient says in 2018 she ultimately underwent a tricuspid valve repair and atrial appendage ablation at the [facility]. Since her heart surgery she has now been able to walk nearly 2 miles a day and her dyspnea on exertion has markedly improved. With her activities of daily living she does not get short of breath. She does note however that she takes Coumadin for history of atrial fibrillation. She notes that she has taken her Coumadin up to and including this evening. The patient was seen here at [facility] in the emergency department due to nausea, vomiting, and diarrhea. In the emergency department the patient had a CT scan of her abdomen which demonstrated a fat-containing Spigellian hernia. She was able to be discharged home as there is no noted bowel obstruction. Patient says that since her most recent trip to the emergency department she was doing well up to including yesterday. She did note however today that the hernia appears to be bigger and she has had multiple episodes of nausea vomiting. She also notes some abdominal pain that appears to be worst in the epigastric area. She denies any fevers, shakes, chills. She denies any chest pain. She denies any shortness of breath. Since arrival to the emergency department she has had labs performed including a CBC where her white blood cell count, hemoglobin, hematocrit, and platelet count were noted to be within normal range. Coagulation studies, CMP, and lactic acid level are pending. A Covid test has been sent and is pending. A preoperative chest x-ray did not show any evidence of pneumonia or pleural effusions. A preoperative EKG is pending.. At the time of my interview the patient was having episodes of nausea vomiting but she was not in any overt distress. Principal Diagnosis Incarcerated incisional hernia left lower quadrant Discharge Exam She was alert coherent in no distress abdomen is benign the incision ash were intact some slight ecchymosis were noted and likely some postop fluid accumulation in the abdominal wall at the operative site Discharge Data Allergies Allergy/AdvReac Type Severity Reaction Status Date / Time Bactrim Allergy Severe RASH AND Verified 12/25/17 10:05 FACIAL SWELLING bee venom protein (honey bee) Allergy SV ANAPHYLAXIS Verified 03/27/21 20:39 clarithromycin Allergy SV RASH AND Verified 03/27/21 20:39 FACIAL SWELLING moxifloxacin Allergy SV RASH AND Verified 03/27/21 20:39 FACIAL SWELLING Quinolones Allergy SV RASH AND Verified 03/27/21 20:39 FACIAL SWELLING sulfamethoxazole Allergy SV RASH AND Verified 03/27/21 20:39 FACIAL SWELLING trimethoprim Allergy SV RASH AND Verified 03/27/21 20:39 FACIAL SWELLING fluconazole Allergy MO INCREASED Verified 03/27/21 20:39 HEART RATE nitrofurantoin Allergy U RASH Verified 03/27/21 20:39 ampicillin Allergy Unknown Verified 03/27/21 20:39 NSAIDS (Non-Steroidal AdvReac Intermediate Pt had Unverified 03/27/21 20:39 Anti-Inflamma Open Heart Surgery ketamine AdvReac U VOMITING Verified 03/27/21 20:39 Consultations 03/28/21 01:39 Consult Hospitalist Routine Procedures Performed Operation Date: 03/27/21 22:00 Actual Procedures p Open Incarcerated Incisional Hernia Repair (Left) - Abhishek Gutierrez MD, FACS Hospital Course (1) Incisional hernia: Patient will be discharged today to rehab facility see her back in the office in a week instructions were given regarding wound care diet activity and meds Patient was taken the operating room on 03/27/2021 for incarcerated left lower quadrant incisional hernia from a trocar site likely from a laparoscopic robotic assisted gynecological procedure done years ago At the time of the surgery we identified a small loop of bowel that was incarcerated but not strangulated we reduce it and immediately and improved we closed the incision primarily with suture avoiding mesh Total Time Total Time Spent Total Time Spent (In Minutes): 30 minutes Discharge Plan Discharge Items Patient Disposition: Transfer Inpatient Rehab Fac Reason For Visit: HERNIA Discharge Diagnosis: s/p incarcerated left lower quadrant hernia repair Activity: As commented below Lifting: No more than 10 pounds Lifting Comment: for 1 week Bathing Comment: may shower with help Sexual Activity: When tolerated Exercise/Sports: None Driving/Machine Use: no driving until seen in follow up Non-emergency contact: Surgeon Call non-emergency contact if: your pain is not controlled and your temperature is above 101 Follow-up/Referrals: Jeff Mensah III, MD [Primary Care Provider] - Diet: Low Fiber Christian Attending Provider Instructions: call [phone] for follow up one week with general surgery [facility] [employer] Provider Instructions: - Hold warfarin for 03/29/2021. - Recheck INR on 03/30/2021 Patient eats lots of leafy greens at home (2x/day), so warfarin may need to be reduced until she has a full diet and is able to return to normal oral intake. Pending Studies at Discharge: No Stand-Alone Forms: [facility] Skilled Items Patient informed of condition?: Yes DNR: Yes Discharge Level of Care: Acute rehab Communicable Disease: No Discharge Prognosis: Improving Lines: None Urinary Catheter: No Medications and DC Order Prescriptions: Continued fluticasone propion-salmeterol [Advair Diskus] 250-50 mcg/dose blister with device 1 inh inhalation DAILY Qty: 60 RF: 5 atorvastatin [Lipitor] 40 mg tablet 40 mg PO HS Qty: 90 RF: 3 triamterene-hydrochlorothiazid 37.5-25 mg tablet 1 tab PO Q2D Qty: 45 RF: 3 ipratropium bromide 0.02 % solution 2.5 ml Inhalation QID PRN (Reason: Shortness Of Breath Or Wheezing) Qty: 150 RF: 8 metoprolol succinate [Toprol XL] 25 mg tablet extended release 24 hr 12.5 mg PO BID Qty: 90 RF: 3 (DME) Aerochamber Plus Flow-Vu spacer See Dose Instructions .ROUTE .MEDSUPPLY Qty: 1 RF: 0 pantoprazole [Protonix] 40 mg tablet,delayed release (DR/EC) 40 mg PO QAM Qty: 90 RF: 3 multivitamin [Multiple Vitamins] Tablet 1 tab PO DAILY RF: 0 ascorbic acid (vitamin C) [Vitamin C] 500 mg Tablet 500 mg PO DAILY RF: 0 albuterol sulfate [Ventolin HFA] 90 mcg/actuation Hfa Aerosol Inhaler 2 puff INHALATION Q4 PRN (Reason: Shortness Of Breath Or Wheezing) RF: 0 calcium carbonate-vitamin D3 [Calcium 500 + D] 500 mg(1,250mg) -200 unit Tablet 1 tab PO DAILY RF: 0 cholecalciferol (vitamin D3) [Vitamin D3] 5,000 unit Tablet 5,000 unit PO Q2D RF: 0 Metamucil 3.4 gram/5.4 gram Powder 1 - 2 tbsp PO DAILY@1600 RF: 0 Prolia 60 mg/mL syringe 60 mg subcut Q6MO RF: 0 aspirin 81 mg Tablet,Delayed Release (Dr/Ec) 81 mg PO DAILY RF: 0 epinephrine 0.3 mg/0.3 mL auto-injector 0.3 mg IM UD PRN (Reason: Allergic Reaction) RF: 0 warfarin 6 mg tablet 6 mg PO DAILY RF: 0 Discharge Orders: Discharge Order (Routine); Ordered 03/29/21 Ordered By: Abhishek Gutierrez Admission Data Admit Date/Time: 03/27/21 23:51 Attending Provider: Abhishek Gutierrez Admit Provider: Abhishek Gutierrez Primary Care Provider: Jeff Mensah III Other Providers: Nisreen Ley ; Ryder Post ; Neri Roberto ; Jignesh Cash ; Judson Knapp ; Fernando Egan ; Jorje Engel ; Moni Macias ; Navya Foote ; Josue Lyles ; Ashwini Moyer ; Margaret Urban ; Roverto Swartz ; Jose D Vicente ; Ritchie Jiménez ; Nisreen Marx ; Berry Plaza ; Rik Prieto ; Ulises Durán ; Ryder Mendosa ; Lucas Ahn ; Jessica Hunter ; Luan Barragan ; Ashwini Padilla ; Arturo Ayala ; Gerald Baltazar ; Uma Iglesias ; [facility] Other Interventions: Discharge Summary Assessment (RN) Last Done: 03/29/21 13:25 Coding Level of Care Code D/C DAY MANAGEMENT <30 MINS Diagnoses Incisional hernia K43.2
== END 2021-03-29 15:32 | DRG 354 ==
LOC: ED 20:11 → ASU 21:42 → 2W 23:51

== ENCOUNTER 2021-04-02 09:29 | Inpatient (IN) ==
[2021-04-02] MEDS ORDERED: ONDANSETRON INJ 2 MG/ML 2 ML VIAL IV STA (09:38)
[2021-04-02] MEDS ORDERED: MoRPHine SULFATE 4 MG/ML 1 ML CARP\\VIAL IV STA (09:38)
[2021-04-02] MEDS ORDERED: SODIUM CHLORIDE 0.9% 500 ML IV STA (09:38)
--- NOTE | 2021-04-02 09:44 | Emergency Department Note ---
Impression & Plan SBO (small bowel obstruction) admission ED Provider Note HPI: The patient is an 86-year-old female who presents the emergency department with a chief complaint of left lower quadrant abdominal pain as well as nausea and vomiting. Patient is POD # 6 s/p hernia repair to [facility] by Dr. Gutierrez. Patient states that her symptoms seem to have worsened over the past several days to the point where she has a very diminished appetite. She does complain of some pain in the area of the left lower quadrant. On arrival here to the ED the patient is hypertensive but otherwise hemodynamically stable, she is saturating well on room air, she appears in no acute distress on my initial evaluation. ROS: -GI: Abdominal pain, recent surgery, nausea and vomiting *10 point review systems was conducted and is otherwise negative unless stated above *Outpatient medications and allergy history reviewed PE: General: Alert, NAD HEENT: Normocephalic, atraumatic, trachea midline Eyes: Extraocular eye movement is intact, no scleral erythema Pulmonary: Clear to auscultation bilaterally, no wheezing Cardio: Regular rate and rhythm GI: Abdomen is soft, moderate tenderness to palpation without guarding or rigidity, there is moderate distention, surgical wound to the left side of the abdomen with ash in place without surrounding erythema, there is no purulent drainage : No suprapubic tenderness MSK: No evidence of trauma or malformation of the extremities, no edema Skin: No evidence of rash Neuro: Alert, no focal deficits Psychiatric: Cooperative pvc monitor: Order placed, patient is in sinus rhythm on the monitor Medical Decision Making: CT imaging of the abdomen and pelvis shows evidence of high-grade small bowel obstruction. Lab work is generally at baseline. Patient was given IV fluids in the ED as well as antiemetics. Case was discussed with the patient's general surgeon, Dr. Greg Horan, who evaluated the patient at the bedside. Patient is hemodynamically stable at this time. She will be admitted to the general surgery service for further management. Patient was in agreement the above plan, she was admitted in stable condition. * Diagnosis: High-grade small bowel obstruction * Disposition: Admission to general surgery Junito Woodard DO Emergency Medicine Past Med/Surg History Medical History Anticoagulant long-term use Asthma Atrial flutter with rapid ventricular response Biopsy of breast (2012) Cystocele surgically repaired Dysphagia H/O Goiter H/O gastroesophageal reflux (GERD) Hiatal hernia History of esophageal dilatation Hypertension Migraines Osteoarthritis Osteoporosis Severe mitral regurgitation 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 MVR/MAZE. 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 Surgical History H/O hemorrhoidectomy H/O knee surgery LEFT KNEE H/O maze procedure for a fib H/O shoulder surgery LEFT History of back surgery History of bilateral tubal ligation History of bladder surgery History of breast biopsy History of cardiac cath History of carpal tunnel release History of cataract surgery History of colonoscopy History of esophagogastroduodenoscopy (EGD) History of foot surgery History of hand surgery History of hysterectomy History of incisional hernia repair (03/27/21) Open Incarcerated Incisional Hernia Repair -Abhishek Gutierrez MD, FACS 03/27/2021 History of oophorectomy History of rectocele History of total abdominal hysterectomy History of tricuspid valve replacement S/P cervical spinal fusion (1999) UNSURE OF LEVELS. FULL ROM. S/P hysterectomy (2012) S/P Maze operation for atrial fibrillation (2017) S/P STERLING-BSO Family History Aunt Breast cancer Brother Diabetes Sister Breast cancer Myocardial infarction Ovarian cancer Diabetes Father Myocardial infarction Mother Myocardial infarction Diabetes Social History Smoking Status: Never smoker Second Hand Exposure: No; Hx Alcohol Use: No Hx Substance Use: No Preferred Language: [place] Communication Ability: Effective Hearing Ability: Normal Claims Consultant Required: No Beliefs That Will Affect Care: None marital status: / Current Living Situation: Alone current occupation: Retired How many Children do You have: 2 Feels Safe at Home: Yes Seatbelt Use: always Assistive Devices: Walker Allergies Allergies Allergy/AdvReac Type Severity Reaction Status Date / Time Bactrim Allergy Severe RASH AND Verified 12/25/17 10:05 FACIAL SWELLING bee venom protein (honey bee) Allergy Severe ANAPHYLAXIS Verified 04/02/21 16:44 clarithromycin Allergy Intermediate RASH AND Verified 04/02/21 16:44 FACIAL SWELLING fluconazole Allergy Intermediate INCREASED Verified 04/02/21 16:44 HEART RATE moxifloxacin Allergy Intermediate RASH AND Verified 04/02/21 16:44 FACIAL SWELLING nitrofurantoin Allergy Intermediate RASH Verified 04/02/21 16:44 Quinolones Allergy Intermediate RASH AND Verified 04/02/21 16:44 FACIAL SWELLING sulfamethoxazole Allergy Intermediate RASH AND Verified 04/02/21 16:44 FACIAL SWELLING trimethoprim Allergy Intermediate RASH AND Verified 04/02/21 16:44 FACIAL SWELLING ampicillin Allergy Unknown Unknown Verified 04/02/21 16:44 NSAIDS (Non-Steroidal AdvReac Intermediate Pt had Unverified 04/02/21 10:23 Anti-Inflamma Open Heart Surgery ketamine AdvReac Mild VOMITING Verified 04/02/21 16:44 Home Meds Home Medications Medication Instructions Recorded Confirmed albuterol sulfate 90 mcg/actuation 2 puff INHALATION Q4 PRN 03/24/18 04/02/21 aerosol inhaler (Ventolin HFA) ascorbic acid (vitamin C) 500 mg 500 mg PO DAILY 03/24/18 04/02/21 tablet (Vitamin C) calcium carbonate 500 mg (1,250 1 tab PO DAILY 03/24/18 04/02/21 mg)-vitamin D3 200 unit tablet (Calcium 500 + D) cholecalciferol (vitamin D3) 125 5,000 unit PO Q2D 03/24/18 04/02/21 mcg (5,000 unit) tablet (Vitamin D3) multivitamin (Multiple Vitamins) 1 tab PO DAILY 03/24/18 04/02/21 psyllium husk 3.4 gram/5.4 gram 1 - 2 tbsp PO DAILY@1600 03/24/18 04/02/21 oral powder (Metamucil) aspirin 81 mg tablet,delayed 81 mg PO DAILY 03/23/21 04/02/21 release epinephrine 0.3 mg/0.3 mL 0.3 mg IM UD PRN 03/23/21 04/02/21 injection, auto-injector warfarin 6 mg tablet 6 mg PO DAILY 03/23/21 04/02/21 fluticasone furoate 200 1 inh INHALATION DAILY 04/02/21 04/02/21 mcg-vilanterol 25 mcg/dose inhalation powder Previous Rx's Medication Instructions Recorded pantoprazole 40 mg tablet,delayed 40 mg PO QAM #90 tab 11/28/20 release (Protonix) atorvastatin 40 mg tablet (Lipitor) 40 mg PO HS #90 tab 12/07/20 triamterene 37.5 1 tab PO Q2D #45 tab 12/21/20 mg-hydrochlorothiazide 25 mg tablet metoprolol succinate 25 mg 12.5 mg PO BID #90 tab 03/27/21 tablet,extended release 24 hr (Toprol XL) Results & Data (ED) Vital Signs Vital Signs - 24 hr 04/02/21 09:34 04/02/21 09:38 04/02/21 10:00 Temperature 37.4 C Temperature Source Oral Pulse Rate 68 68 Pulse Rate from SpO2 Sensor 67 Pulse Rhythm Regular Pulse Strength Normal Respiratory Rate 20 25 H Respiratory Effort / Characteristics Non-Labored Spontaneous Respiratory Depth Normal Respiratory Pattern Regular Blood Pressure 157/102 H 172/86 H Blood Pressure Mean 120 114 Blood Pressure Position Sitting Pulse Oximetry 94 97 Oxygen Delivery Method Room Air Sepsis Recent Fever Within 48 Hours No Sepsis New/Unexplained Change in Mental Status No Sepsis Action Taken by Nursing No Action Required 04/02/21 11:02 04/02/21 13:00 Temperature Temperature Source Pulse Rate 65 65 Pulse Rate from SpO2 Sensor Pulse Rhythm Pulse Strength Respiratory Rate 20 16 Respiratory Effort / Characteristics Respiratory Depth Respiratory Pattern Blood Pressure 164/73 H 172/82 H Blood Pressure Mean 103 112 Blood Pressure Position Pulse Oximetry 99 97 Oxygen Delivery Method Room Air Room Air Sepsis Recent Fever Within 48 Hours Sepsis New/Unexplained Change in Mental Status Sepsis Action Taken by Nursing Laboratory Data Result diagrams: 04/02/21 09:55 04/02/21 09:55 Lab Results 04/02/21 04/02/21 04/02/21 Range/Units 09:55 09:55 09:55 WBC 8.99 (4.8-10.8) K/uL RBC 4.28 (4.2-5.4) M/uL Hgb 12.3 (12.0-16.0) g/dL Hct 36.7 L (37-47) % MCV 85.7 (80-100) fL MCH 28.7 (25-34) pg MCHC 33.5 (32-36) g/dL RDW Std Deviation 44.0 (36.4-46.3) fL RDW Coeff of Linda 14.1 (11.5-14.5) % Plt Count 248 (130-400) K/uL MPV 9.5 (7.4-10.4) fL Immature Gran % (Auto) 0.3 % Neut % (Auto) 71.4 % Lymph % (Auto) 14.8 % [place] % (Auto) 11.9 % Eos % (Auto) 1.4 % Baso % (Auto) 0.2 % Neut # (Auto) 6.41 (1.4-6.5) K/uL Lymph # (Auto) 1.33 (1.2-3.4) K/uL [place] # (Auto) 1.07 H (0.11-0.59) K/uL Eos # (Auto) 0.13 (0-0.5) K/uL Baso # (Auto) 0.02 (0-0.2) K/uL Immature Gran # (Auto) 0.03 H (0.00-0.02) K/uL PT 12.3 H (9.0-12.0) Seconds INR 1.2 H (0.9-1.1) Sodium 132 L (136-145) mmol/L Potassium 3.4 L (3.5-5.1) mmol/L Chloride 99 (98-107) mmol/L Carbon Dioxide 24 (21-32) mmol/L Anion Gap 9.0 (3-11) BUN 13 (7-18) mg/dl Creatinine 0.59 L (0.6-1.2) mg/dl Est Cr Clr Drug Dosing 61.6 ml/min Est GFR ( Amer) 96.9 ml/min Est GFR (Non-Af Amer) 83.6 ml/min BUN/Creatinine Ratio 21.4 H (10-20) Glucose 112 H (70-99) mg/dl Calcium 8.5 (8.5-10.1) mg/dl Total Bilirubin 1.9 H (0.2-1) mg/dl AST 22 (15-37) U/L ALT 17 (12-78) U/L Alkaline Phosphatase 61 (45-117) U/L Total Protein 5.9 L (6.4-8.2) gm/dl Albumin 2.7 L (3.4-5.0) gm/dl Globulin 3.2 (2.5-4.0) gm/dl Albumin/Globulin Ratio 0.8 L (0.9-2) Lipase 66 L (73-393) U/L Urine Color Urine Appearance (Clear) Urine pH (4.5-7.5) Ur Specific [place] (1.000-1.030) Urine Protein (Negative) Urine Glucose (UA) (Negative) Urine Ketones (Negative) Urine Blood (Negative) Urine Nitrite (Negative) Urine Bilirubin (Negative) Urine Urobilinogen (Negative) Ur Leukocyte Esterase (Negative) Urine WBC (Auto) (0-5) /hpf Urine RBC (Auto) (0-4) /hpf U Hyaline Cast (Auto) (0-5) /lpf U Epithel Cells (Auto) (0-5) /lpf Urine Bacteria (Auto) (Negative) COVID-19 Eval Order SARS-CoV-2 (PCR) (Negative) 04/02/21 04/02/21 04/02/21 Range/Units 11:10 11:19 11:19 WBC (4.8-10.8) K/uL RBC (4.2-5.4) M/uL Hgb (12.0-16.0) g/dL Hct (37-47) % MCV (80-100) fL MCH (25-34) pg MCHC (32-36) g/dL RDW Std Deviation (36.4-46.3) fL RDW Coeff of Linda (11.5-14.5) % Plt Count (130-400) K/uL MPV (7.4-10.4) fL Immature Gran % (Auto) % Neut % (Auto) % Lymph % (Auto) % [place] % (Auto) % Eos % (Auto) % Baso % (Auto) % Neut # (Auto) (1.4-6.5) K/uL Lymph # (Auto) (1.2-3.4) K/uL [place] # (Auto) (0.11-0.59) K/uL Eos # (Auto) (0-0.5) K/uL Baso # (Auto) (0-0.2) K/uL Immature Gran # (Auto) (0.00-0.02) K/uL PT (9.0-12.0) Seconds INR (0.9-1.1) Sodium (136-145) mmol/L Potassium (3.5-5.1) mmol/L Chloride (98-107) mmol/L Carbon Dioxide (21-32) mmol/L Anion Gap (3-11) BUN (7-18) mg/dl Creatinine (0.6-1.2) mg/dl Est Cr Clr Drug Dosing ml/min Est GFR ( Amer) ml/min Est GFR (Non-Af Amer) ml/min BUN/Creatinine Ratio (10-20) Glucose (70-99) mg/dl Calcium (8.5-10.1) mg/dl Total Bilirubin (0.2-1) mg/dl AST (15-37) U/L ALT (12-78) U/L Alkaline Phosphatase (45-117) U/L Total Protein (6.4-8.2) gm/dl Albumin (3.4-5.0) gm/dl Globulin (2.5-4.0) gm/dl Albumin/Globulin Ratio (0.9-2) Lipase (73-393) U/L Urine Color Dark Yellow Urine Appearance Clear (Clear) Urine pH 6.0 (4.5-7.5) Ur Specific [place] 1.036 H (1.000-1.030) Urine Protein Trace H (Negative) Urine Glucose (UA) Negative (Negative) Urine Ketones Trace H (Negative) Urine Blood Negative (Negative) Urine Nitrite Negative (Negative) Urine Bilirubin Negative (Negative) Urine Urobilinogen Negative (Negative) Ur Leukocyte Esterase Trace H (Negative) Urine WBC (Auto) 1-5 (0-5) /hpf Urine RBC (Auto) 0-4 (0-4) /hpf U Hyaline Cast (Auto) 1-5 (0-5) /lpf U Epithel Cells (Auto) >30 H (0-5) /lpf Urine Bacteria (Auto) Negative (Negative) COVID-19 Eval Order Covid19 at [facility] SARS-CoV-2 (PCR) NEGATIVE (Negative) Administered Medications Potassium Chloride/Sodium Chloride (Normal Saline W/20 Meq Kcl) 20 meq in 1,000 mls @ 100 mls/hr IV .Q10H RANDOLPH Stop: 05/02/21 16:37 Last Admin: 04/02/21 16:54 Dose: 100 mls/hr Documented by: [id number] Ondansetron HCl (Ondansetron Inj 2 Mg/Ml 2 Ml Vial) 4 mg IV Q4H PRN PRN Reason: Nausea And Vomiting Stop: 05/02/21 16:37 Last Admin: 04/02/21 16:54 Dose: 4 mg Documented by: [id number] Discontinued Medications Sodium Chloride (Nss) 500 mls @ 999 mls/hr IV .Q31M STA Stop: 04/02/21 10:08 Last Infusion: 04/02/21 11:17 Dose: 0 mls/hr Documented by: [id number] Admin: 04/02/21 09:51 Dose: 999 mls/hr Documented by: [id number] Ioversol (Optiray 320 100ml) 94 ml IV ONCE ONE Stop: 04/02/21 10:59 Last Admin: 04/02/21 10:59 Dose: 94 ml Documented by: [id number] Morphine Sulfate (Morphine Sulfate 4 Mg/Ml 1 Ml Carp\Vial) 2 mg IV NOW STA Stop: 04/02/21 09:39 Last Admin: 04/02/21 09:51 Dose: Not Given Documented by: [id number] Morphine Sulfate (Morphine Sulfate 2 Mg/Ml Carp) Confirm Administered Dose 2 mg .ROUTE .STK-MED ONE Stop: 04/02/21 09:48 Last Admin: 04/02/21 09:51 Dose: 2 mg Documented by: [id number] Ondansetron HCl (Ondansetron Inj 2 Mg/Ml 2 Ml Vial) 4 mg IV NOW STA Stop: 04/02/21 09:39 Last Admin: 04/02/21 09:51 Dose: 4 mg Documented by: [id number] Imaging Data Radiologist's Impression: Abdomen/Pelvis CT 04/02/21 09:[address] WITH IV CONTRAST CT DOSE: 607.14 mGycm HISTORY: N/V, left lower quadrant pain, recent hernia surgery TECHNIQUE: Multiaxial CT images of the abdomen and pelvis were performed following the use of intravenous contrast. A dose lowering technique was utilized adhering to the principles of ALARA. COMPARISON STUDY: Abdomen and pelvis CT 03/23/2021. FINDINGS: Patchy densities within the lungs posteriorly favor dependent change. There are poststernotomy changes. The heart remains mildly enlarged. Tricuspid valve prosthesis is noted. Dense mitral anus calcifications are present. No pneumoperitoneum. No pneumatosis. No suspicious lytic or blastic osseous lesions. The liver, gallbladder, spleen, adrenal glands, and pancreas unremarkable. Stable right renal cyst. No hydronephrosis. Normal left kidney. Calcified plaque within the normal caliber abdominal aorta. The main portal vein is patent. The bladder is unremarkable. Small amount of ascites is present. Colonic diverticulosis. No evidence for acute diverticulitis. Mildly dilated gas and fluid-filled loops of proximal to mid small bowel seen within the abdomen. Focal transition point within the left mid abdomen on image 284. The distal loops of small bowel are decompressed. The small bowel loops are dilated up to 3.6 cm. There is trace fluid adjacent to the but dilated small bowel. Therefore, this is consistent with a high-grade small bowel obstruction. Small irregular focus of hemorrhage within the left lower quadrant omental fat which is likely expected given the postoperative changes of repair of the left lower quadrant fat-containing hernia. There is hemorrhage and fluid deep to the incision site within the subcutaneous left lower quadrant abdominal wall. This likely represents the recent postoperative change. This area measures approximately 9 x 3 cm. IMPRESSION: 1. Focal transition point within the mid to distal jejunum within the left midabdomen as described above resulting in a high-grade small bowel obstruction. The exact etiology is not clearly identified but favors an internal hernia. 2. Small amount of irregular density within the left lower quadrant omentum likely representing a small amount of hemorrhage from the interval reduction of the left lower quadrant hernia. 3. A focal area of subcutaneous gas and hemorrhage within the left lower quadrant deep to the incision site likely due to the postoperative change. 4. Trace ascites. 5. These findings were discussed with Dr. Gutierrez at 12:15 PM on 04/02/2021. ACT 112: Negative or not required by law. Electronically signed by: Wilbert Horvath M.D. 04/02/2021 12:20 PM Discharge Plan Visit Data Chief Complaint: Abdominal Pain ED Provider: Junito Woodard Discharge Problem: SBO (small bowel obstruction) Patient Disposition: Admitted As Inpatient Discharge Instructions Interventions: ED Discharge Assessment Last Done: 04/02/21 16:23
[2021-04-02] MEDS ORDERED: MoRPHine SULFATE 2 MG/ML CARP ONE (09:47)
[2021-04-02 10:12] LABS: Basophils # (auto) 0.02 K/uL (0-0.2); Basophils % (auto) 0.2 %; Eosinophils # (auto) 0.13 K/uL (0-0.5); Eosinophils % (auto) 1.4 %; Hematocrit (blood only) 36.7 % (37-47); Hemoglobin 12.3 g/dL (12.0-16.0); Immature Granulocytes # (auto) 0.03 K/uL (0.00-0.02); Immature Granulocytes % (auto) 0.3 %; Lymphocytes # (auto) 1.33 K/uL (1.2-3.4); Lymphocytes % (auto) 14.8 %; Mean Corpuscular Hemoglobin 28.7 pg (25-34); Mean Corpuscular Hgb Conc 33.5 g/dL (32-36); Mean Corpuscular Volume 85.7 fL (80-100); Mean Platelet Volume 9.5 fL (7.4-10.4); Monocytes # (auto) 1.07 K/uL (0.11-0.59); Monocytes % (auto) 11.9 %; Neutrophils # (auto) 6.41 K/uL (1.4-6.5); Neutrophils % (auto) 71.4 %; Platelet Count 248 K/uL (130-400); RDW Coefficient of Variation 14.1 % (11.5-14.5); Red Blood Count 4.28 M/uL (4.2-5.4); White Blood Count 8.99 K/uL (4.8-10.8)
[2021-04-02 10:22] LABS: INR 1.2 (0.9-1.1); Prothrombin Time 12.3 Seconds (9.0-12.0)
[2021-04-02 10:27] LABS: Albumin Level 2.7 gm/dl (3.4-5.0); BUN Creatinine Ratio 21.4 (10-20); Calcium 8.5 mg/dl (8.5-10.1); Creatinine Clr Calc Pharmacy 61.6 ml/min; Est GFR (African American) 96.9 ml/min; Est GFR (Non-African American) 83.6 ml/min; Potassium 3.4 mmol/L (3.5-5.1)
[2021-04-02 10:29] LABS: Albumin Globulin Ratio 0.8 (0.9-2); Bilirubin,Total 1.9 mg/dl (0.2-1); Globulin 3.2 gm/dl (2.5-4.0); Total Protein 5.9 gm/dl (6.4-8.2)
[2021-04-02] MEDS ORDERED: OPTIRAY 320 100ml IV ONE (10:58)
[2021-04-02 11:27] LABS: Appearance Urine Clear (Clear); Bacteria Urine Automated Negative (Negative); Bilirubin Urine Negative (Negative); Blood Urine Negative (Negative); Color Urine Dark Yellow; Epithelial Cell Urine Auto >30 /lpf (0-5); Glucose Urine UA Negative (Negative); Ketones Urine Trace (Negative); Leukocyte Esterase Urine Trace (Negative); Nitrite Urine Negative (Negative); Protein Urine Trace (Negative); RBC Urine Automated 0-4 /hpf (0-4); Specific Gravity Urine 1.036 (1.000-1.030); Urobilinogen Urine Negative (Negative)
--- NOTE | 2021-04-02 12:22 | CT Scan Report ---
ABDOMEN AND PELVIS CT WITH IV CONTRAST CT DOSE: 607.14 mGycm HISTORY: N/V, left lower quadrant pain, recent hernia surgery TECHNIQUE: Multiaxial CT images of the abdomen and pelvis were performed following the use of intrave nous contrast. A dose lowering technique was utilized adhering to the principles of ALARA. COMPARISON STUDY: Abdomen and pelvis CT 03/23/2021. FINDINGS: Patchy densities within the lungs posteriorly favor dependent change. There are poststernot loyda changes. The heart remains mildly enlarged. Tricuspid valve prosthesis is noted. Dense mitral sandi s calcifications are present. No pneumoperitoneum. No pneumatosis. No suspicious lytic or blastic oss eous lesions. The liver, gallbladder, spleen, adrenal glands, and pancreas unremarkable. Stable right renal cyst. No hydronephrosis. Normal left kidney. Calcified plaque within the normal caliber abdomi nal aorta. The main portal vein is patent. The bladder is unremarkable. Small amount of ascites is pr esent. Colonic diverticulosis. No evidence for acute diverticulitis. Mildly dilated gas and fluid-maya led loops of proximal to mid small bowel seen within the abdomen. Focal transition point within the l eft mid abdomen on image 284. The distal loops of small bowel are decompressed. The small bowel loops are dilated up to 3.6 cm. There is trace fluid adjacent to the but dilated small bowel. Therefore, t his is consistent with a high-grade small bowel obstruction. Small irregular focus of hemorrhage with in the left lower quadrant omental fat which is likely expected given the postoperative changes of re pair of the left lower quadrant fat-containing hernia. There is hemorrhage and fluid deep to the inci pillo site within the subcutaneous left lower quadrant abdominal wall. This likely represents the rece nt postoperative change. This area measures approximately 9 x 3 cm. IMPRESSION: 1. Focal transition point within the mid to distal jejunum within the left midabdomen as described ab ove resulting in a high-grade small bowel obstruction. The exact etiology is not clearly identified b ut favors an internal hernia. 2. Small amount of irregular density within the left lower quadrant omentum likely representing a sma ll amount of hemorrhage from the interval reduction of the left lower quadrant hernia. 3. A focal area of subcutaneous gas and hemorrhage within the left lower quadrant deep to the incisio n site likely due to the postoperative change. 4. Trace ascites. 5. These findings were discussed with Dr. Gutierrez at 12:15 PM on 04/02/2021. ACT 112: Negative or not required by law. Electronically signed by: Wilbert Horvath M.D. 04/02/2021 12:20 PM
--- NOTE | 2021-04-02 13:14 | History & Physical Report ---
Date of Service April 02, 2021 Assessment & Plan (1) Abdominal pain: Plan: Will admit for possible SBO vs post op ileus. N/V have improved, will hold on NG for now but place if she has further N/V. INR is 1.2, will ask hospitalist to see also. Could be started on heparin drip if needed--will be NPO, further surgery may be possible but nothing planned at this time. History of Present Illness Primary Care Provider: Jeff Mensah MD 86 y/o female 6 days s/p LLQ incisional hernia repair with increasing pain, N/V over the weekend. Dr. Gutierrez was contacted this morning and recommended the patient come to the ED for further evaluation. Allergies Allergy/AdvReac Type Severity Reaction Status Date / Time Bactrim Allergy Severe RASH AND Verified 12/25/17 10:05 FACIAL SWELLING bee venom protein (honey bee) Allergy SV ANAPHYLAXIS Verified 04/02/21 10:23 clarithromycin Allergy SV RASH AND Verified 04/02/21 10:23 FACIAL SWELLING moxifloxacin Allergy SV RASH AND Verified 04/02/21 10:23 FACIAL SWELLING Quinolones Allergy SV RASH AND Verified 04/02/21 10:23 FACIAL SWELLING sulfamethoxazole Allergy SV RASH AND Verified 04/02/21 10:23 FACIAL SWELLING trimethoprim Allergy SV RASH AND Verified 04/02/21 10:23 FACIAL SWELLING fluconazole Allergy MO INCREASED Verified 04/02/21 10:23 HEART RATE nitrofurantoin Allergy U RASH Verified 04/02/21 10:23 ampicillin Allergy Unknown Verified 04/02/21 10:23 NSAIDS (Non-Steroidal AdvReac Intermediate Pt had Unverified 04/02/21 10:23 Anti-Inflamma Open Heart Surgery ketamine AdvReac U VOMITING Verified 04/02/21 10:23 Home Medications Medication Instructions Recorded Confirmed Type albuterol sulfate 90 mcg/actuation 2 puff INHALATION Q4 PRN 03/24/18 04/02/21 History aerosol inhaler (Ventolin HFA) ascorbic acid (vitamin C) 500 mg 500 mg PO DAILY 03/24/18 04/02/21 History tablet (Vitamin C) calcium carbonate 500 mg (1,250 1 tab PO DAILY 03/24/18 04/02/21 History mg)-vitamin D3 200 unit tablet (Calcium 500 + D) cholecalciferol (vitamin D3) 125 5,000 unit PO Q2D 03/24/18 04/02/21 History mcg (5,000 unit) tablet (Vitamin D3) multivitamin (Multiple Vitamins) 1 tab PO DAILY 03/24/18 04/02/21 History psyllium husk 3.4 gram/5.4 gram 1 - 2 tbsp PO DAILY@1600 03/24/18 04/02/21 History oral powder (Metamucil) pantoprazole 40 mg tablet,delayed 40 mg PO QAM #90 tab 11/28/20 04/02/21 Rx release (Protonix) atorvastatin 40 mg tablet (Lipitor) 40 mg PO HS #90 tab 12/07/20 04/02/21 Rx triamterene 37.5 1 tab PO Q2D #45 tab 12/21/20 04/02/21 Rx mg-hydrochlorothiazide 25 mg tablet aspirin 81 mg tablet,delayed 81 mg PO DAILY 03/23/21 04/02/21 History release epinephrine 0.3 mg/0.3 mL 0.3 mg IM UD PRN 03/23/21 04/02/21 History injection, auto-injector warfarin 6 mg tablet 6 mg PO DAILY 03/23/21 04/02/21 History metoprolol succinate 25 mg 12.5 mg PO BID #90 tab 03/27/21 04/02/21 Rx tablet,extended release 24 hr (Toprol XL) fluticasone furoate 200 1 inh INHALATION DAILY 04/02/21 04/02/21 History mcg-vilanterol 25 mcg/dose inhalation powder Past Med/Surg History Medical History Anticoagulant long-term use Asthma Atrial flutter with rapid ventricular response Biopsy of breast (2012) Cystocele surgically repaired Dysphagia H/O Goiter H/O gastroesophageal reflux (GERD) Hiatal hernia History of esophageal dilatation Hypertension Migraines Osteoarthritis Osteoporosis Severe mitral regurgitation 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 MVR/MAZE. 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 Surgical History H/O hemorrhoidectomy H/O knee surgery LEFT KNEE H/O maze procedure for a fib H/O shoulder surgery LEFT History of back surgery History of bilateral tubal ligation History of bladder surgery History of breast biopsy History of cardiac cath History of carpal tunnel release History of cataract surgery History of colonoscopy History of esophagogastroduodenoscopy (EGD) History of foot surgery History of hand surgery History of hysterectomy History of incisional hernia repair (03/27/21) Open Incarcerated Incisional Hernia Repair -Abhishek Gutierrez MD, FACS 03/27/2021 History of oophorectomy History of rectocele History of total abdominal hysterectomy History of tricuspid valve replacement S/P cervical spinal fusion (1999) UNSURE OF LEVELS. FULL ROM. S/P hysterectomy (2012) S/P Maze operation for atrial fibrillation (2017) S/P STERLING-BSO Family History Aunt Breast cancer Brother Diabetes Sister Breast cancer Myocardial infarction Ovarian cancer Diabetes Father Myocardial infarction Mother Myocardial infarction Diabetes Social History Smoking Status: Never smoker Second Hand Exposure: No; Hx Alcohol Use: No Hx Substance Use: No Preferred Language: Serbian Communication Ability: Effective Hearing Ability: Normal Tool Adjuster Required: No Beliefs That Will Affect Care: None marital status: / Current Living Situation: Alone current occupation: Retired How many Children do You have: 2 Feels Safe at Home: Yes Seatbelt Use: always Assistive Devices: Walker Review of Systems Constitutional: no fever and no chills Gastrointestinal: + abdominal pain, + nausea and + vomiting Physical Exam Constitutional: WD/WN, vitals as above Respiratory: normal respiratory effort, lungs clear to auscultation Cardiovascular: RRR, no murmur, no edema Gastrointestinal (Abdomen): Inspection/Auscultation: + abdomen distended (mild) and + abdominal surgical incision (some ecchymosis, dry) Percussion/Palpation: + abdomen tender (mild) and abdomen soft Results & Data Results & Data ([facility]) Vital Signs (Past 12 Hours) Vital Signs Temp Pulse Resp BP Pulse Ox 04/02/21 13:00 65 16 172/82 H 97 04/02/21 11:02 65 20 164/73 H 99 04/02/21 10:00 68 25 H 172/86 H 97 04/02/21 09:38 94 04/02/21 09:34 37.4 C 68 20 157/102 H Code Status & VTE Plan VTE Prophylaxis Plan VTE Prophylaxis will be ordered: Yes (1) Abdominal pain Abdominal location: unspecified location Qualified Code(s): R10.9 - Unspecified abdominal pain
[2021-04-02] MEDS ORDERED: MoRPHine SULFATE 2 MG/ML CARP IV PRN (16:38)
[2021-04-02] MEDS ORDERED: MoRPHine SULFATE 4 MG/ML 1 ML CARP\\VIAL IV PRN (16:38)
[2021-04-02] MEDS ORDERED: ALBUTEROL HFA 8 GM INHALER INH PRN (16:38)
[2021-04-02] MEDS: ONDANSETRON INJ 2 MG/ML 2 ML VIAL IV PRN (16:54)
[2021-04-02] MEDS: NSS + 20MEQ KCL 20 MEQ/1,000 ML BAG IV SCH (16:54)
--- NOTE | 2021-04-02 17:41 | Hospitalist Consultation ---
Date of Consultation April 02, 2021 Assessment & Plan (1) SBO (small bowel obstruction): This is an 86-year-old female with a notable history of bioprosthetic mitral valve repair and tricuspid repair with subsequent development of atrial flutter (s/p MAZE procedure), now on warfarin therapy and metoprolol, hypertension who presented to [facility] on 04/02 for evaluation of persistent nausea and vomiting over the weekend, subsequently found to have findings c/f SBO vs. ileus. Hospitalist team consulted for aid in anticoagulation History of Atrial Flutter -- in setting of MVR, now s/p MAZE procedure Noted to be in sinus rhythm on admission; however, at the time of my visitation, was noted to have irregular rhythm versus frequent ectopy on exam. Will obtain EKG Patient normally on warfarin 6 mg daily. Hold while n.p.o. Initiate heparin drip to maintain therapeutic anticoagulation while n.p.o. / in case of need for surgery Continue home metoprolol succinate for now - can transition to IV if poorly tolerated (2.5mg b.i.d.) Maintain K>4, Mg>2 Monitor H&H SBO vs. Ileus -- in setting of recent incisional hernia repair on 03/[address] of the abdomen and pelvis Surgery following, no plan for procedural intervention at this time. No NGT currently in place. HTN At home, on metoprolol succinate 12.5 mg twice daily, triamterenehydrochlorothiazide 37.5-25 mg every other day Continue home metoprolol, hold triamterenehydrochlorothiazide Asthma No acute issues, continue home inhaler, duo nebs as needed DVT PPX: Heparin gtt, as above. (2) Atrial flutter with controlled response: (3) Asthma: (4) HTN (hypertension): (5) S/P mitral valve replacement with bioprosthetic valve: (6) S/P tricuspid valve repair: (7) Hyponatremia: (8) Hypokalemia: (9) Total bilirubin, elevated: Supervising Physician Co-Signing Physician Notes Attending Attestation & Consult Note: Pt seen/examined, chart reviewed, care plan d/w resident Dr Judson Waters. I agree w/ the smyth components of his consult documentation. 86yo female - POD #6 s/p left-sided open Incarcerated Incisional Hernia Repair. Was discharged to home last but unfortunately developed recurrent nausea and vomiting along with stomach pain/bloating on Friday into Friday. Presented today to the ER for worsening GI symptoms and lack of flatus. CT a/p with probable SBO (internal hernia). Admitted by gen surg for supportive care. During my visit she states the vomiting has stopped. She passed a minimal amount of flatus a short time ago prior to my visit. PMH, PSH, allergies, meds, sochx, famhx - reviewed VSS, afebrile gen - looks ill/tired but a/o x 3 mouth - MM slightly dry neck - no JVD heart - irregular (extra beats), regular rate, S1 S2, no murmur lungs - CTA b/l abd - modestly distended, BS+, nontender, ecchymoses LLQ abd wall; dressing in place LLQ ext - no edema, pulses 2+ b/l labs - Na [address] a/p reviewed Hb 12.3 (stable from prior CBC) EKG - my reading - NSR, NS ST changes limb leads/anterior leads - no change from prior EKG A/P: 1. SBO - 2nd internal hernia? defer management/Rx to gen surg 2. HYPONATREMIA - 2nd to volume depletion/emesis. Isotonic fluids as you are doing. 3. hypokalemia - KCL in Iv fluids; repeat K and mag in am. 4. h/o A.fib/flutter on coumadin - hold latter, heparin drip in meantime. Small amount of blood noted on CT abd/pelvis is small and H/H stable from prior hospitalization. 5. elevated total bili - Gilbert's? consider repeat in 2-3 days. 6. valvular heart disease - no issues at this time. Ryder Post MD History of Present Illness Reason for Consultation: medical management of anticoagulation Requesting Physician: Abhishek Gutierrez MD Attending Physician: Abhishek Gutierrez MD, [facility] History of Present Illness This is an 86-year-old female with a notable history of bioprosthetic mitral valve repair and tricuspid repair with subsequent development of atrial flutter (s/p MAZE procedure), now on warfarin therapy and metoprolol, hypertension who presented to [facility] on 04/02 for evaluation of persistent nausea and vomiting over the weekend. Of note, patient recently underwent incisional hernia repair on 03/27 following discovery of an incarcerated loop of bowel. In the ER, she was found to have evidence of a transition point within the intestines on imaging that was concerning for small bowel obstruction, po ssibly with small, surrounding hemorrhage in the left lower quadrant omentum. Her hemoglobin was stable at 12.3. She was admitted by the surgical service for possible SBO versus postop ileus. She is noted to have had high blood pressures throughout her stay so far, between BPs 150-170/70-100s. Hospitalist service was consulted for aid in management with her anticoagulation. At the time my visitation, patient endorses some abdominal pain but no nausea. She says this is improved since she has gotten here, but not by much. She denies any chest pain, palpitations, shortness of breath. She endorses wanting ice chips and that the n.p.o. status has been difficult for her. Allergies Allergy/AdvReac Type Severity Reaction Status Date / Time Bactrim Allergy Severe RASH AND Verified 12/25/17 10:05 FACIAL SWELLING bee venom protein (honey bee) Allergy Severe ANAPHYLAXIS Verified 04/02/21 16:44 clarithromycin Allergy Intermediate RASH AND Verified 04/02/21 16:44 FACIAL SWELLING fluconazole Allergy Intermediate INCREASED Verified 04/02/21 16:44 HEART RATE moxifloxacin Allergy Intermediate RASH AND Verified 04/02/21 16:44 FACIAL SWELLING nitrofurantoin Allergy Intermediate RASH Verified 04/02/21 16:44 Quinolones Allergy Intermediate RASH AND Verified 04/02/21 16:44 FACIAL SWELLING sulfamethoxazole Allergy Intermediate RASH AND Verified 04/02/21 16:44 FACIAL SWELLING trimethoprim Allergy Intermediate RASH AND Verified 04/02/21 16:44 FACIAL SWELLING ampicillin Allergy Unknown Unknown Verified 04/02/21 16:44 NSAIDS (Non-Steroidal AdvReac Intermediate Pt had Unverified 04/02/21 10:23 Anti-Inflamma Open Heart Surgery ketamine AdvReac Mild VOMITING Verified 04/02/21 16:44 Home Medications Medication Instructions Recorded Confirmed Type albuterol sulfate 90 mcg/actuation 2 puff INHALATION Q4 PRN 03/24/18 04/02/21 History aerosol inhaler (Ventolin HFA) ascorbic acid (vitamin C) 500 mg 500 mg PO DAILY 03/24/18 04/02/21 History tablet (Vitamin C) calcium carbonate 500 mg (1,250 1 tab PO DAILY 03/24/18 04/02/21 History mg)-vitamin D3 200 unit tablet (Calcium 500 + D) cholecalciferol (vitamin D3) 125 5,000 unit PO Q2D 03/24/18 04/02/21 History mcg (5,000 unit) tablet (Vitamin D3) multivitamin (Multiple Vitamins) 1 tab PO DAILY 03/24/18 04/02/21 History psyllium husk 3.4 gram/5.4 gram 1 - 2 tbsp PO DAILY@1600 03/24/18 04/02/21 History oral powder (Metamucil) pantoprazole 40 mg tablet,delayed 40 mg PO QAM #90 tab 11/28/20 04/02/21 Rx release (Protonix) atorvastatin 40 mg tablet (Lipitor) 40 mg PO HS #90 tab 12/07/20 04/02/21 Rx triamterene 37.5 1 tab PO Q2D #45 tab 12/21/20 04/02/21 Rx mg-hydrochlorothiazide 25 mg tablet aspirin 81 mg tablet,delayed 81 mg PO DAILY 03/23/21 04/02/21 History release epinephrine 0.3 mg/0.3 mL 0.3 mg IM UD PRN 03/23/21 04/02/21 History injection, auto-injector warfarin 6 mg tablet 6 mg PO DAILY 03/23/21 04/02/21 History metoprolol succinate 25 mg 12.5 mg PO BID #90 tab 03/27/21 04/02/21 Rx tablet,extended release 24 hr (Toprol XL) fluticasone furoate 200 1 inh INHALATION DAILY 04/02/21 04/02/21 History mcg-vilanterol 25 mcg/dose inhalation powder Patient History Medical History Anticoagulant long-term use Asthma Atrial flutter with rapid ventricular response Biopsy of breast (2012) Cystocele surgically repaired Dysphagia H/O Goiter H/O gastroesophageal reflux (GERD) Hiatal hernia History of esophageal dilatation Hypertension Migraines Osteoarthritis Osteoporosis Severe mitral regurgitation 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 MVR/MAZE. 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 Surgical History H/O hemorrhoidectomy H/O knee surgery LEFT KNEE H/O maze procedure for a fib H/O shoulder surgery LEFT History of back surgery History of bilateral tubal ligation History of bladder surgery History of breast biopsy History of cardiac cath History of carpal tunnel release History of cataract surgery History of colonoscopy History of esophagogastroduodenoscopy (EGD) History of foot surgery History of hand surgery History of hysterectomy History of incisional hernia repair (03/27/21) Open Incarcerated Incisional Hernia Repair -Abhishek Gutierrez MD, FACS 03/27/2021 History of oophorectomy History of rectocele History of total abdominal hysterectomy History of tricuspid valve replacement S/P cervical spinal fusion (1999) UNSURE OF LEVELS. FULL ROM. S/P hysterectomy (2012) S/P Maze operation for atrial fibrillation (2017) S/P STERLING-BSO Family History Aunt Breast cancer Brother Diabetes Sister Breast cancer Myocardial infarction Ovarian cancer Diabetes Father Myocardial infarction Mother Myocardial infarction Diabetes Social History Smoking Status: Never smoker Second Hand Exposure: No; Hx Alcohol Use: No Hx Substance Use: No Preferred Language: Syrian Communication Ability: Effective Hearing Ability: Normal Cub Reporter Required: No Beliefs That Will Affect Care: None marital status: / Current Living Situation: Alone current occupation: Retired How many Children do You have: 2 Feels Safe at Home: Yes Safety Concerns: Feels Safe At This Time Seatbelt Use: always Assistive Devices: None Review of Systems Review of Systems: Constitutional: Denies fever, chills Cardiovascular: Denies Chest pain, chest pressure, palpitations Respiratory: Denies shortness of breath, cough, sputum production, difficulty breathing Gastrointestinal: Endorses some abdominal pain, nausea; no vomiting Genitourinary: Denies urinary symptoms Musculoskeletal: Denies weakness Neurological: Denies headache Physical Exam Physical Exam: General: Tired appearing 86-year-old woman who is lying back in her hospital bed, relaxed, upon my arrival. She is freely conversive and oriented throughout her discussion. HEENT: NCAT. Eyes - Sclera are white, anicteric, and without injection. Mouth - MMM with no tonsillar edema or exudates. Cardiac: Normal rate and irregular rhythm (vs. regular rhythm with frequent ectopy); S1 and S2 present with no murmurs, rubs, or gallops. Pulmonary: Good respiratory effort with symmetric expansion of the chest. No use of accessory muscles. Lungs were clear to auscultation bilaterally with no crackles or wheezes. Abdominal: Normoactive bowel sounds. Abdomen was soft, nondistended, and non- tender to palpation. Extremities: Upper and lower extremities are warm and well perfused. Psych: Behavior is cooperative and appropriate. Affect is WNL. Insight is appropriate. Results & Data Results & Data ([facility]) Vital Signs (Past 12 Hours) Vital Signs Temp Pulse Pulse Resp BP BP Pulse Ox 04/02/21 16:37 36.7 C 71 18 173/79 H 94 04/02/21 16:00 72 20 174/87 H 97 04/02/21 15:30 72 20 97 04/02/21 15:00 69 20 96 04/02/21 14:30 70 20 97 04/02/21 14:00 69 20 97 04/02/21 13:30 68 20 96 04/02/21 13:00 65 16 172/82 H 97 04/02/21 11:02 65 20 164/73 H 99 04/02/21 10:00 68 25 H 172/86 H 97 04/02/21 09:38 94 04/02/21 09:34 37.4 C 68 20 157/102 H Laboratory Results Laboratory Results - last 24 hr 04/02/21 04/02/21 04/02/21 09:55 09:55 09:55 WBC 8.99 RBC 4.28 Hgb 12.3 Hct 36.7 L MCV 85.7 MCH 28.7 MCHC 33.5 RDW Std Deviation 44.0 RDW Coeff of Linda 14.1 Plt Count 248 MPV 9.5 Immature Gran % (Auto) 0.3 Neut % (Auto) 71.4 Lymph % (Auto) 14.8 Harding % (Auto) 11.9 Eos % (Auto) 1.4 Baso % (Auto) 0.2 Neut # (Auto) 6.41 Lymph # (Auto) 1.33 Harding # (Auto) 1.07 H Eos # (Auto) 0.13 Baso # (Auto) 0.02 Immature Gran # (Auto) 0.03 H PT 12.3 H INR 1.2 H APTT PTT Ratio Sodium 132 L Potassium 3.4 L Chloride 99 Carbon Dioxide 24 Anion Gap 9.0 BUN 13 Creatinine 0.59 L Est Cr Clr Drug Dosing 61.6 Est GFR ( Amer) 96.9 Est GFR (Non-Af Amer) 83.6 BUN/Creatinine Ratio 21.4 H Glucose 112 H Calcium 8.5 Total Bilirubin 1.9 H AST 22 ALT 17 Alkaline Phosphatase 61 Total Protein 5.9 L Albumin 2.7 L Globulin 3.2 Albumin/Globulin Ratio 0.8 L Lipase 66 L Urine Color Urine Appearance Urine pH Ur Specific Dunbar Urine Protein Urine Glucose (UA) Urine Ketones Urine Blood Urine Nitrite Urine Bilirubin Urine Urobilinogen Ur Leukocyte Esterase Urine WBC (Auto) Urine RBC (Auto) U Hyaline Cast (Auto) U Epithel Cells (Auto) Urine Bacteria (Auto) COVID-19 Eval Order SARS-CoV-2 (PCR) 04/02/21 04/02/21 04/02/21 11:10 11:19 11:19 WBC RBC Hgb Hct MCV MCH MCHC RDW Std Deviation RDW Coeff of Linda Plt Count MPV Immature Gran % (Auto) Neut % (Auto) Lymph % (Auto) Harding % (Auto) Eos % (Auto) Baso % (Auto) Neut # (Auto) Lymph # (Auto) Harding # (Auto) Eos # (Auto) Baso # (Auto) Immature Gran # (Auto) PT INR APTT PTT Ratio Sodium Potassium Chloride Carbon Dioxide Anion Gap BUN Creatinine Est Cr Clr Drug Dosing Est GFR ( Amer) Est GFR (Non-Af Amer) BUN/Creatinine Ratio Glucose Calcium Total Bilirubin AST ALT Alkaline Phosphatase Total Protein Albumin Globulin Albumin/Globulin Ratio Lipase Urine Color Dark Yellow Urine Appearance Clear Urine pH 6.0 Ur Specific Dunbar 1.036 H Urine Protein Trace H Urine Glucose (UA) Negative Urine Ketones Trace H Urine Blood Negative Urine Nitrite Negative Urine Bilirubin Negative Urine Urobilinogen Negative Ur Leukocyte Esterase Trace H Urine WBC (Auto) 1-5 Urine RBC (Auto) 0-4 U Hyaline Cast (Auto) 1-5 U Epithel Cells (Auto) >30 H Urine Bacteria (Auto) Negative COVID-19 Eval Order Covid19 at [facility] SARS-CoV-2 (PCR) NEGATIVE 04/02/21 19:46 WBC RBC Hgb Hct MCV MCH MCHC RDW Std Deviation RDW Coeff of Linda Plt Count MPV Immature Gran % (Auto) Neut % (Auto) Lymph % (Auto) Harding % (Auto) Eos % (Auto) Baso % (Auto) Neut # (Auto) Lymph # (Auto) Harding # (Auto) Eos # (Auto) Baso # (Auto) Immature Gran # (Auto) PT 12.5 H INR 1.3 H APTT 26.5 PTT Ratio 1.0 Sodium Potassium Chloride Carbon Dioxide Anion Gap BUN Creatinine Est Cr Clr Drug Dosing Est GFR ( Amer) Est GFR (Non-Af Amer) BUN/Creatinine Ratio Glucose Calcium Total Bilirubin AST ALT Alkaline Phosphatase Total Protein Albumin Globulin Albumin/Globulin Ratio Lipase Urine Color Urine Appearance Urine pH Ur Specific Dunbar Urine Protein Urine Glucose (UA) Urine Ketones Urine Blood Urine Nitrite Urine Bilirubin Urine Urobilinogen Ur Leukocyte Esterase Urine WBC (Auto) Urine RBC (Auto) U Hyaline Cast (Auto) U Epithel Cells (Auto) Urine Bacteria (Auto) COVID-19 Eval Order SARS-CoV-2 (PCR) Diagnostic Findings Abdomen/Pelvis CT 04/02/21 09:[address] WITH IV CONTRAST CT DOSE: 607.14 mGycm HISTORY: N/V, left lower quadrant pain, recent hernia surgery TECHNIQUE: Multiaxial CT images of the abdomen and pelvis were performed following the use of intravenous contrast. A dose lowering technique was utilized adhering to the principles of ALARA. COMPARISON STUDY: Abdomen and pelvis CT 03/23/2021. FINDINGS: Patchy densities within the lungs posteriorly favor dependent change. There are poststernotomy changes. The heart remains mildly enlarged. Tricuspid valve prosthesis is noted. Dense mitral anus calcifications are present. No pneumoperitoneum. No pneumatosis. No suspicious lytic or blastic osseous lesions. The liver, gallbladder, spleen, adrenal glands, and pancreas unremarkable. Stable right renal cyst. No hydronephrosis. Normal left kidney. Calcified plaque within the normal caliber abdominal aorta. The main portal vein is patent. The bladder is unremarkable. Small amount of ascites is present. Colonic diverticulosis. No evidence for acute diverticulitis. Mildly dilated gas and fluid-filled loops of proximal to mid small bowel seen within the abdomen. Focal transition point within the left mid abdomen on image 284. The distal loops of small bowel are decompressed. The small bowel loops are dilated up to 3.6 cm. There is trace fluid adjacent to the but dilated small bowel. Therefore, this is consistent with a high-grade small bowel obstruction. Small irregular focus of hemorrhage within the left lower quadrant omental fat which is likely expected given the postoperative changes of repair of the left lower quadrant fat-containing hernia. There is hemorrhage and fluid deep to the incision site within the subcutaneous left lower quadrant abdominal wall. This likely represents the recent postoperative change. This area measures approximately 9 x 3 cm. IMPRESSION: 1. Focal transition point within the mid to distal jejunum within the left midabdomen as described above resulting in a high-grade small bowel obstruction. The exact etiology is not clearly identified but favors an internal hernia. 2. Small amount of irregular density within the left lower quadrant omentum likely representing a small amount of hemorrhage from the interval reduction of the left lower quadrant hernia. 3. A focal area of subcutaneous gas and hemorrhage within the left lower quadrant deep to the incision site likely due to the postoperative change. 4. Trace ascites. 5. These findings were discussed with Dr. Gutierrez at 12:15 PM on 04/02/2021. ACT 112: Negative or not required by law. Electronically signed by: Wilbert Horvath M.D. 04/02/2021 12:20 PM Resident Activity Tracking Resident Involvement: Resident Care Provided Care Provided: [facility]
[2021-04-02] MEDS ORDERED: Heparin IV Adult Wt-Based Standard *NO* Bolus Protocol ONE (18:42)
[2021-04-02 20:05] LABS: INR 1.3 (0.9-1.1); Partial Thromboplastin Time 26.5 Seconds (21.0-31.0); Prothrombin Time 12.5 Seconds (9.0-12.0)
[2021-04-02] MEDS: METOPROLOL SUCC 25MG EXT REL TAB PO SCH (20:45)
[2021-04-02] MEDS: HEPARIN SODIUM/DEXTROSE 25,000 UNITS/500 ML BAG IV SCH (21:10)
[2021-04-02] MEDS ORDERED: PANTOprazole 40 MG in SYRINGE 0 ML IV ONE (22:45)
--- NOTE | 2021-04-02 22:50 | Billing Data ---
Date of Service April 02, 2021 Coding Level of Care Code 45680 Subseq Hosp Care Lvl 3
[2021-04-03] MEDS: NSS + 20MEQ KCL 20 MEQ/1,000 ML BAG IV SCH ×2 (03:12→12:54)
[2021-04-03 03:35] LABS: Basophils # (auto) 0.02 K/uL (0-0.2); Basophils % (auto) 0.3 %; Eosinophils # (auto) 0.11 K/uL (0-0.5); Eosinophils % (auto) 1.5 %; Hematocrit (blood only) 33.8 % (37-47); Hemoglobin 11.4 g/dL (12.0-16.0); Immature Granulocytes # (auto) 0.01 K/uL (0.00-0.02); Immature Granulocytes % (auto) 0.1 %; Lymphocytes # (auto) 1.37 K/uL (1.2-3.4); Lymphocytes % (auto) 18.2 %; Mean Corpuscular Hemoglobin 28.6 pg (25-34); Mean Corpuscular Hgb Conc 33.7 g/dL (32-36); Mean Corpuscular Volume 84.9 fL (80-100); Mean Platelet Volume 9.6 fL (7.4-10.4); Monocytes # (auto) 1.05 K/uL (0.11-0.59); Neutrophils # (auto) 4.96 K/uL (1.4-6.5); Neutrophils % (auto) 65.9 %; Platelet Count 247 K/uL (130-400); RDW Coefficient of Variation 14.1 % (11.5-14.5); RDW Standard Deviation 44.2 fL (36.4-46.3); Red Blood Count 3.98 M/uL (4.2-5.4); White Blood Count 7.52 K/uL (4.8-10.8)
[2021-04-03 03:55] LABS: Partial Thromboplastin Ratio 2.3
[2021-04-03 04:06] LABS: Partial Thromboplastin Time 60.2 Seconds (21.0-31.0)
[2021-04-03 04:29] LABS: Calcium 7.6 mg/dl (8.5-10.1); Creatinine Clr Calc Pharmacy 68.6 ml/min; Est GFR (African American) 100.3 ml/min; Est GFR (Non-African American) 86.6 ml/min; Magnesium 1.8 mg/dl (1.8-2.4); Potassium 3.5 mmol/L (3.5-5.1)
--- NOTE | 2021-04-03 07:43 | Surgery Progress Note ---
Date of Service April 03, 2021 Assessment & Plan (1) Abdominal pain: Plan: 04/03/21 Overall she is improved status keeping her n.p.o. we will start her on some ice chips and some obstacles we will repeat the KUB this morning I did mention to her that we may get an upper GI with small bowel follow-through to further evaluate was likely an intermittent obstruction likely from adhesions Lab noted All question answered Will admit for possible SBO vs post op ileus. N/V have improved, will hold on NG for now but place if she has further N/V. INR is 1.2, will ask hospitalist to see also. Could be started on heparin drip if needed--will be NPO, further surg jaxson may be possible but nothing planned at this time. Admission and Anticipated Discharge Date Admission Date: April 02, 2021 Subjective She feels much better this morning had a bowel movement last night minimal abdominal discomfort except the operative site no further nausea she would like to have some ice chips Physical Exam Physical Exam: Is alert coherent resting comfortably The abdomen is much softer there is no localized tenderness incision unchanged Results & Data ([facility]) Vital Signs (Past 12 Hours) Vital Signs Temp Pulse Resp BP Pulse Ox 04/03/21 07:29 36.7 C 70 18 150/82 H 90 04/02/21 23:14 36.9 C 71 16 149/78 H 92 04/02/21 20:46 71 155/80 H PG Care Time/CCT Total # of Minutes Spent Total Time Spent with Patient: Total time spent is greater than 50% in coordination of care (as documented) at patient's floor/unit and/or counseling patient: Coding Level of Care Code 63657 Subseq Hosp Care Lvl 3 Diagnoses Abdominal pain R10.9 Abdominal location: unspecified location (1) Abdominal pain Abdominal location: unspecified location Qualified Code(s): R10.9 - Unspecified abdominal pain
[2021-04-03] MEDS: METOPROLOL SUCC 25MG EXT REL TAB PO SCH (07:55)
--- NOTE | 2021-04-03 08:38 | XRay Report ---
KUB HISTORY: Follow up study in a patient with small bowel distention follow up bowel obstruction COMPARISON: CT abdomen and pelvis 04/02/2021 FINDINGS: Prior median sternotomy with cardiac valvular prosthesis and leads overlying the mediastinu m and upper abdomen. There is persistent small bowel distention with dilated loops measuring up to 5. 8 cm transversely which appears unchanged from yesterday's study. Contrast is noted within the urinar y bladder lumen. Surgical clips of the left lower abdominal wall. No renal calculi. No ureteral calc nithin. No pneumoperitoneum or pneumatosis. No fracture. IMPRESSION: 1. Persistent small bowel obstruction. 2. No pneumoperitoneum. ACT 112: Negative or not required by law. The above report was generated using voice recognition software. It may contain grammatical, syntax o r spelling errors. Electronically signed by: Morris Whelan M.D. 04/03/2021 8:37 AM
--- NOTE | 2021-04-03 09:00 | Electrocardiogram Report ---
Test Reason : Blood Pressure : / mmHG Vent. Rate : 072 BPM Atrial Rate : 072 BPM P-R Int : 192 ms QRS Dur : 084 ms QT Int : 430 ms P-R-T Axes : 000 023 -24 degrees QTc Int : 470 ms Normal sinus rhythm Low voltage QRS T wave abnormality, consider anterior ischemia Prolonged QT Abnormal ECG When compared with ECG of 27-MAR-2021 21:07, QRS axis Shifted left Borderline criteria for Anterior infarct are no longer Present Borderline criteria for Anterolateral infarct are no longer Present Confirmed by Jalil Wynn ([id number]) on 04/03/2021 9:00:20 AM Referred By: REFERRED SELF Confirmed By:Raul Wynn
[2021-04-03] MEDS: FLUTICASONE/VILANTEROL 200/25MCG 14 PUFFS/INHALER INH SCH (09:47)
[2021-04-03] MEDS: PANTOprazole 40 MG in SYRINGE 0 ML IV SCH (11:39)
[2021-04-03] MEDS ORDERED: ACETAMINOPHEN 1,000 MG/100 ML VIAL IV PRN (13:57)
[2021-04-03] MEDS ORDERED: MoRPHine SULFATE 2 MG/ML CARP IV PRN (14:01)
--- NOTE | 2021-04-03 14:11 | Hospitalist Progress Note ---
Date of Service April 03, 2021 Assessment & Plan (1) SBO (small bowel obstruction): Plan: Surgery following, no plan for procedural intervention at this time. -NGT inserted today for gastric decompression - Adjusted pain medications. IV Ofirmev q8h for pain 1-5 and Morphine 2mg IV q3h prn pain 6-10 (2) Atrial flutter with controlled response: Plan: EKG obtained demonstrated NSR Patient normally on warfarin 6 mg daily. Hold while n.p.o. Heparin gtt on board to maintain therapeutic anticoagulation while n.p.o. / in case of need for surgery Continue home metoprolol succinate for now - can transition to IV if poorly tolerated (2.5mg b.i.d.) however will need to transition to monitored bed to initiate IV Lopressor Maintain K>4 - will give a K Ignacio today 10 meq IV x1 - Maintain Mg>2 Monitor H&H (3) Asthma: Plan: No acute issues, continue home inhaler, duonebs as needed (4) HTN (hypertension): Plan: At home, on metoprolol succinate 12.5 mg twice daily, triamterenehydrochlorothiazide 37.5-25 mg every other day Continue home metoprolol though NGT and clamp x 30-60 min after administration - triamterenehydrochlorothiazide on hold (5) S/P mitral valve replacement with bioprosthetic valve: (6) S/P tricuspid valve repair: (7) Total bilirubin, elevated: Plan: Trend TB Admission and Anticipated Discharge Date Admission Date: April 02, 2021 Subjective Patient seen on rounds this morning. Remains hospitalized under general surgery's service for high grade SBO following an incisional hernia repair on 03/27. She reports that her abdominal pain is a 3-4/10. She notes that her daughter was extremely upset that she was receiving Morphine for her abdominal pain because it can "shut down all of your organs." Otherwise, she is tolerating ice chips. ordered NGT to be inserted today d/t persistent small bowel distention noted on KUB this morning to 5cm. She did pass small amount of flatus this AM. She is doing well otherwise and denies chest pain, palpitations, dyspnea, fever, chills, headache, n/v or gu symptoms. Review of Systems Review of Systems: All systems reviewed & are unremarkable except as noted in HPI & below Respiratory: no dyspnea Cardiovascular: no chest pain Gastrointestinal: no nausea and no vomiting Physical Exam Constitutional: WD/WN, vitals as above Respiratory: normal respiratory effort, lungs clear to auscultation Cardiovascular: RRR, no murmur, no edema Gastrointestinal (Abdomen): Inspection/Auscultation: + abdomen distended and + hyperactive bowel sounds (x 4 quadrants) Percussion/Palpation: abdomen soft; abdomen nontender surgical incision in LLQ dressing intact Musculoskeletal: no cyanosis or clubbing, extremities motor strength 5/5 Skin: no rashes, warm and dry Psychiatric: A+Ox3, euthymic affect Results & Data Results & Data ([facility]) Vital Signs (Past 12 Hours) Vital Signs Temp Pulse Resp BP Pulse Ox 04/03/21 07:29 36.7 C 70 18 150/82 H 90 Laboratory Results Laboratory Results - last 24 hr 04/02/21 04/03/21 04/03/21 19:46 03:18 03:18 WBC 7.52 RBC 3.98 L Hgb 11.4 L Hct 33.8 L MCV 84.9 MCH 28.6 MCHC 33.7 RDW Std Deviation 44.2 RDW Coeff of Linda 14.1 Plt Count 247 MPV 9.6 Immature Gran % (Auto) 0.1 Neut % (Auto) 65.9 Lymph % (Auto) 18.2 [place] % (Auto) 14.0 Eos % (Auto) 1.5 Baso % (Auto) 0.3 Neut # (Auto) 4.96 Lymph # (Auto) 1.37 [place] # (Auto) 1.05 H Eos # (Auto) 0.11 Baso # (Auto) 0.02 Immature Gran # (Auto) 0.01 PT 12.5 H INR 1.3 H APTT 26.5 60.2 H* PTT Ratio 1.0 2.3 Sodium Potassium Chloride Carbon Dioxide Anion Gap BUN Creatinine Est Cr Clr Drug Dosing Est GFR ( Amer) Est GFR (Non-Af Amer) BUN/Creatinine Ratio Glucose Calcium Magnesium 04/03/21 03:18 WBC RBC Hgb Hct MCV MCH MCHC RDW Std Deviation RDW Coeff of Linda Plt Count MPV Immature Gran % (Auto) Neut % (Auto) Lymph % (Auto) [place] % (Auto) Eos % (Auto) Baso % (Auto) Neut # (Auto) Lymph # (Auto) [place] # (Auto) Eos # (Auto) Baso # (Auto) Immature Gran # (Auto) PT INR APTT PTT Ratio Sodium 135 L Potassium 3.5 Chloride 105 Carbon Dioxide 23 Anion Gap 7.0 BUN 14 Creatinine 0.53 L Est Cr Clr Drug Dosing 68.6 Est GFR ( Amer) 100.3 Est GFR (Non-Af Amer) 86.6 BUN/Creatinine Ratio 26.0 H Glucose 95 Calcium 7.6 L Magnesium 1.8 Diagnostic Findings KUB X-Ray 04/03/21 07:38 KUB HISTORY: Follow up study in a patient with small bowel distention follow up bowel obstruction COMPARISON: CT abdomen and pelvis 04/02/2021 FINDINGS: Prior median sternotomy with cardiac valvular prosthesis and leads overlying the mediastinum and upper abdomen. There is persistent small bowel distention with dilated loops measuring up to 5.8 cm transversely which appears unchanged from yesterday's study. Contrast is noted within the urinary bladder lumen. Surgical clips of the left lower abdominal wall. No renal calculi. No ureteral calculi. No pneumoperitoneum or pneumatosis. No fracture. IMPRESSION: 1. Persistent small bowel obstruction. 2. No pneumoperitoneum. ACT 112: Negative or not required by law. The above report was generated using voice recognition software. It may contain grammatical, syntax or spelling errors. Electronically signed by: Morris Whelan M.D. 04/03/2021 8:37 AM Medications Administered Current Medications Albuterol (Albuterol Hfa 8 Gm Inhaler) 2 puffs INH Q4 PRN PRN Reason: Shortness Of Breath Or Wheezing Stop: 05/02/21 16:37 Fluticasone/Vilanterol (Fluticasone/Vilanterol 200/25mcg 14 Puffs/Inhaler) 1 puffs INH DAILY RANDOLPH Stop: 05/03/21 08:59 Last Admin: 04/03/21 09:47 Dose: 1 puffs Potassium Chloride/Sodium Chloride (Normal Saline W/20 Meq Kcl) 20 meq in 1,000 mls @ 100 mls/hr IV .Q10H RANDOLPH Stop: 05/02/21 16:37 Last Admin: 04/03/21 12:54 Dose: 100 mls/hr Heparin Sodium/Dextrose (Heparin Sodium/Dextrose) 25,000 units in 500 mls @ 20 mls/hr IV .Q24H [facility]; Protocol Stop: 05/02/21 18:59 Last Titration: 04/03/21 07:14 Dose: 1,000 units/hr, 20 mls/hr Pantoprazole Sodium 40 mg/ (Syringe) 10 mls @ 5 mls/min IV DAILY@1100 RANDOLPH Stop: 05/03/21 10:59 Last Admin: 04/03/21 11:39 Dose: 5 mls/min Acetaminophen (Ofirmev) 1,000 mg in 100 mls @ 400 mls/hr IV Q8H PRN PRN Reason: pain (1-5) Stop: 04/06/21 13:56 Potassium Chloride (K Ignacio / Wtr) 10 meq in 100 mls @ 100 mls/hr IV ONE ONE Stop: 04/03/21 17:04 Metoprolol Succinate (Metoprolol Succ 25mg Ext Rel Tab) 12.5 mg PO QAM [facility] Stop: 05/02/21 18:44 Last Admin: 04/03/21 07:55 Dose: 12.5 mg Morphine Sulfate (Morphine Sulfate 2 Mg/Ml Carp) 2 mg IV Q3H PRN PRN Reason: pain (6-10) Stop: 04/16/21 16:37 Ondansetron HCl (Ondansetron Inj 2 Mg/Ml 2 Ml Vial) 4 mg IV Q4H PRN PRN Reason: Nausea And Vomiting Stop: 05/02/21 16:37 Last Admin: 04/02/21 16:54 Dose: 4 mg PG Care Time/CCT Total # of Minutes Spent Total Time Spent with Patient: Total time spent is greater than 50% in coordination of care (as documented) at patient's floor/unit and/or counseling patient: Coding [place] [address] Subseq Hosp Care Lvl 2 Patient Type Established History Expanded Problem Focused Exam Expanded Problem Focused Medical Decision Making Moderate Complexity Diagnoses SBO (small bowel obstruction) K56.609 Atrial flutter with controlled response I48.92 Asthma J45.909 HTN (hypertension) I10 S/P mitral valve replacement with bioprosthetic valve Z95.3 S/P tricuspid valve repair Z98.890 Total bilirubin, elevated R17
[2021-04-03] MEDS ORDERED: POTASSIUM CHLORIDE / WTR 10 MEQ/100 ML PLCT IV ONE (16:10)
[2021-04-03] MEDS: HEPARIN SODIUM/DEXTROSE 25,000 UNITS/500 ML BAG IV SCH (21:04)
[2021-04-04] MEDS: NSS + 20MEQ KCL 20 MEQ/1,000 ML BAG IV SCH ×2 (00:09→09:39)
--- NOTE | 2021-04-04 06:54 | Surgery Progress Note ---
Date of Service April 04, 2021 Assessment & Plan (1) Abdominal pain: Plan: 04/04/21 NG is drained approximately 1000 cc since insertion the patient has had a few bowel movements We will repeat a KUB this morning We will have PICC line inserted and start hyperalimentation since the patient has virtually had nothing to eat for about a week according to her We will most likely need an upper GI with small bowel follow-through and given the size of the small bowel distention I suspect the patient will eventually need explored I would like to avoid that if at all possible 04/03/21 Overall she is improved status keeping her n.p.o. we will start her on some ice chips and some obstacles we will repeat the KUB this morning I did mention to her that we may get an upper GI with small bowel follow-through to further evaluate was likely an intermittent obstruction likely from adhesions Lab noted All question answered Will admit for possible SBO vs post op ileus. N/V have improved, will hold on NG for now but place if she has further N/V. INR is 1.2, will ask hospitalist to see also. Could be started on heparin drip if needed--will be NPO, further surgery may be possible but nothing planned at this time. Admission and Anticipated Discharge Date Admission Date: April 02, 2021 Subjective Denies any abdominal pain stating that she has had a few bowel movements Physical Exam Physical Exam: 04/04/[address] some bloody drainage likely from trauma noted in the tube The abdomen softly distended is nontender No change in the incision in left lower quadrant 04/03/21 Is alert coherent resting comfortably The abdomen is much softer there is no localized tenderness incision unchanged Results & Data ([facility]) Vital Signs (Past 12 Hours) Vital Signs Temp Pulse Resp BP Pulse Ox 04/03/21 22:20 36.8 C 80 16 157/84 H 94 PG Care Time/CCT Total # of Minutes Spent Total Time Spent with Patient: Total time spent is greater than 50% in coordination of care (as documented) at patient's floor/unit and/or counseling patient: Coding Level of Care Code 59437 Subseq Hosp Care Lvl 3 Diagnoses Abdominal pain R10.9 Abdominal location: unspecified location (1) Abdominal pain Abdominal location: unspecified location Qualified Code(s): R10.9 - Unspecified abdominal pain
[2021-04-04] MEDS ORDERED: TPN/PPN CONSULT PHARMACY PRN (07:44)
[2021-04-04 07:59] LABS: Basophils # (auto) 0.03 K/uL (0-0.2); Basophils % (auto) 0.4 %; Eosinophils # (auto) 0.07 K/uL (0-0.5); Eosinophils % (auto) 0.9 %; Hematocrit (blood only) 38.8 % (37-47); Immature Granulocytes # (auto) 0.02 K/uL (0.00-0.02); Immature Granulocytes % (auto) 0.2 %; Lymphocytes # (auto) 1.27 K/uL (1.2-3.4); Lymphocytes % (auto) 15.8 %; Mean Corpuscular Hemoglobin 29.1 pg (25-34); Mean Corpuscular Hgb Conc 33.5 g/dL (32-36); Mean Platelet Volume 10.2 fL (7.4-10.4); Monocytes # (auto) 1.28 K/uL (0.11-0.59); Monocytes % (auto) 15.9 %; Neutrophils # (auto) 5.37 K/uL (1.4-6.5); Neutrophils % (auto) 66.8 %; Platelet Count 286 K/uL (130-400); RDW Coefficient of Variation 14.4 % (11.5-14.5); RDW Standard Deviation 45.6 fL (36.4-46.3); Red Blood Count 4.46 M/uL (4.2-5.4); White Blood Count 8.04 K/uL (4.8-10.8)
[2021-04-04 08:21] LABS: Partial Thromboplastin Ratio 5.1
[2021-04-04 08:23] LABS: Partial Thromboplastin Time 134.3 Seconds (21.0-31.0)
[2021-04-04 08:28] LABS: Albumin Level 2.5 gm/dl (3.4-5.0); BUN Creatinine Ratio 25.2 (10-20); Bilirubin Direct 0.4 mg/dl (0-0.2); Calcium 7.8 mg/dl (8.5-10.1); Creatinine Clr Calc Pharmacy 74.2 ml/min; Est GFR (Non-African American) 88.8 ml/min; Magnesium 1.8 mg/dl (1.8-2.4); Potassium 3.5 mmol/L (3.5-5.1)
[2021-04-04 08:31] LABS: Bilirubin,Total 1.7 mg/dl (0.2-1); Total Protein 5.6 gm/dl (6.4-8.2)
[2021-04-04] MEDS ORDERED: DEXTROSE 10% 1,000 ML IV PRN (08:48)
[2021-04-04] MEDS ORDERED: TPN/PPN CONSULT PHARMACY STA (08:48)
--- NOTE | 2021-04-04 08:57 | Hospitalist Progress Note ---
Date of Service April 04, 2021 Assessment & Plan (1) SBO (small bowel obstruction): Plan: NGT inserted yesterday for gastric decompression. Despite that, pt continued to have persistent HGSBO. Pain control on board with IV APAP for mild-mod pain and IV Morphine for mod-severe pain. Discussed cased with Dr. Gutierrez who felt pt required surgical intervention. Susbequently, pt taken to OR today and underwent exploratory lap w/ MONALISA. F/U imaging as per surgical team. (2) Atrial flutter with controlled response: Plan: EKG obtained on rounds due to tachycardia on exam. EKG demonstrating sinus tach. Apparently, pt is to be on Toprol XL 12.5mg twice daily but was already receiving once daily here. This has been adjusted. However, in light of her tachycardia, will need transitioned to telemetry bed. Will then be able to administer PRN IV Lopressor while NPO. Patient normally on warfarin 6 mg daily which is on hold and she is currently on Heparin gtt (which has been held since she went to the OR). Can resume 8 hours post op. Keep K+ >4.0, despite K Ignacio yesterday, no change in K+ today. Will provide another 20meq K Ignacio x1. Repeat labs in AM. (3) Asthma: Plan: No acute issues, continue home inhaler, duonebs as needed (4) HTN (hypertension): Plan: At home, on metoprolol succinate 12.5 mg twice daily, triamterenehydrochlorothiazide 37.5-25 mg every other day. Continue home metoprolol though NGT and clamp x 30-60 min after administration. Tria mterenehydrochlorothiazide on hold. BP acceptable. (5) S/P mitral valve replacement with bioprosthetic valve: (6) S/P tricuspid valve repair: (7) Total bilirubin, elevated: Plan: Downtrending, ? etiology (8) Encounter for pre-operative examination: Admission and Anticipated Discharge Date Admission Date: April 02, 2021 Subjective Patient was seen on rounds this morning. She was resting semi-comfortably in bed. NGT inserted yesterday. Canister this AM had a total of 250 mL dark brown with some blood tinged output. Canister was not marked to note over what period of time the output was from. Pt was told by surgery that she was to have a feeding tube placed, however, further clarification by RN noted that she was to have a PICC line/midline inserted with initiation of TPN. Pt asking if she was going to have to have another surgery at which time that was not certain. She denies chest pain, dyspnea, palpitations, n/v, or gu symptoms. She did pass a few small soft pieces of stool today. She denies passing flatus. She noted the NGT was uncomfortable. Pt was also questioning that her bandage from her surgical site had not been changed since she was at [facility]. No issues reported by RN. Review of Systems Constitutional: as per Subjective / HPI Gastrointestinal: + abdominal pain (mild) and + bloating; no nausea NGT causing discomfort. Psychiatric: + anxiety Physical Exam Constitutional: WD/WN, vitals as above Respiratory: normal respiratory effort, lungs clear to auscultation Cardiovascular: Rate/Rhythm: + tachycardic Heart Sounds: normal S1 and normal S2; no click, no gallop and no murmur Gastrointestinal (Abdomen): Inspection/Auscultation: + abdomen distended, + abdominal wall ecchymosis (at surgical incision site), + abdominal surgical incision (ash intact, no erythema, edema, or active drainage or bleeding.) and + hypoactive bowel sounds (BS absent) Percussion/Palpation: + abdomen tender (LLQ) and abdomen soft Musculoskeletal: no cyanosis or clubbing, extremities motor strength 5/5 Skin: no rashes, warm and dry Psychiatric: A+Ox3, euthymic affect Results & Data Results & Data ([facility]) Vital Signs (Past 12 Hours) Vital Signs Temp Pulse Resp BP Pulse Ox 04/04/21 08:11 36.4 C L 110 H 16 136/90 95 04/03/21 22:20 36.8 C 80 16 157/84 H 94 Laboratory Results Laboratory Results - last 24 hr 04/04/21 04/04/21 04/04/21 07:23 07:23 07:23 WBC 8.04 RBC 4.46 Hgb 13.0 Hct 38.8 MCV 87.0 MCH 29.1 MCHC 33.5 RDW Std Deviation 45.6 RDW Coeff of Linda 14.4 Plt Count 286 MPV 10.2 Immature Gran % (Auto) 0.2 Neut % (Auto) 66.8 Lymph % (Auto) 15.8 [place] % (Auto) 15.9 Eos % (Auto) 0.9 Baso % (Auto) 0.4 Neut # (Auto) 5.37 Lymph # (Auto) 1.27 [place] # (Auto) 1.28 H Eos # (Auto) 0.07 Baso # (Auto) 0.03 Immature Gran # (Auto) 0.02 APTT 134.3 H* PTT Ratio 5.1 Sodium 136 Potassium 3.5 Chloride 108 H Carbon Dioxide 19 L Anion Gap 9.0 BUN 12 Creatinine 0.49 L Est Cr Clr Drug Dosing 74.2 Est GFR ( Amer) 103.0 Est GFR (Non-Af Amer) 88.8 BUN/Creatinine Ratio 25.2 H Glucose 93 Calcium 7.8 L Phosphorus Magnesium 1.8 Total Bilirubin 1.7 H Direct Bilirubin 0.4 H AST 19 ALT 17 Alkaline Phosphatase 67 Total Protein 5.6 L Albumin 2.5 L 04/04/21 07:23 WBC RBC Hgb Hct MCV MCH MCHC RDW Std Deviation RDW Coeff of Linda Plt Count MPV Immature Gran % (Auto) Neut % (Auto) Lymph % (Auto) [place] % (Auto) Eos % (Auto) Baso % (Auto) Neut # (Auto) Lymph # (Auto) [place] # (Auto) Eos # (Auto) Baso # (Auto) Immature Gran # (Auto) APTT PTT Ratio Sodium Potassium Chloride Carbon Dioxide Anion Gap BUN Creatinine Est Cr Clr Drug Dosing Est GFR ( Amer) Est GFR (Non-Af Amer) BUN/Creatinine Ratio Glucose Calcium Phosphorus 1.8 L Magnesium Total Bilirubin Direct Bilirubin AST ALT Alkaline Phosphatase Total Protein Albumin Diagnostic Findings KUB X-Ray 04/04/21 06:22 KUB HISTORY: Follow up study in a patient with small bowel obstruction f/u bowel obstruction vs ileus COMPARISON: KUB 04/03/2021 FINDINGS: An enteric tube is again noted with distal tip overlying the gastric body. Persistent small bowel obstruction with dilated loops measuring up to approximately 5.5 cm transversely, previously 5.8 cm. Surgical clips of the lateral lower left abdominal wall. No renal calculi. No ureteral calculi. No pneumoperitoneum or pneumatosis. No fracture. IMPRESSION: 1. Unchanged appearance of the persistent small bowel obstruction. 2. Enteric tube terminates in the stomach. ACT 112: Negative or not required by law. The above report was generated using voice recognition software. It may contain grammatical, syntax or spelling errors. Electronically signed by: Morris Whelan M.D. 04/04/2021 9:34 AM Medications Administered Current Medications Albuterol (Albuterol Hfa 8 Gm Inhaler) 2 puffs INH Q4 PRN PRN Reason: Shortness Of Breath Or Wheezing Stop: 05/02/21 16:37 Atropine Sulfate (Atropine Sulfate 0.1 Mg/Ml 10ml Syr) 0.5 mg IV Q1M PRN PRN Reason: PACU Use-HR<40 &/or Bradycardi Ephedrine Sulfate (Ephedrine Sulfate 50 Mg/Ml Amp) 5 mg IV Q5M PRN PRN Reason: PACU Use Only-SBP<90 mmHg Stop: 05/04/21 13:12 Fentanyl Citrate (Fentanyl Citrate 100 Mcg/2 Ml Vial) 25 mcg IV Q5M PRN PRN Reason: PACU Use Only-Pain Stop: 04/18/21 13:12 Last Admin: 04/04/21 14:55 Dose: 25 mcg Documented by: Fluticasone/Vilanterol (Fluticasone/Vilanterol 200/25mcg 14 Puffs/Inhaler) 1 puffs INH DAILY RANDOLPH Stop: 05/03/21 08:59 Last Admin: 04/04/21 09:41 Dose: 1 puffs Documented by: Pantoprazole Sodium 40 mg/ (Syringe) 10 mls @ 5 mls/min IV DAILY@1100 RANDOLPH Stop: 05/03/21 10:59 Last Admin: 04/04/21 12:34 Dose: 5 mls/min Acetaminophen (Ofirmev) 1,000 mg in 100 mls @ 400 mls/hr IV Q8H PRN PRN Reason: pain (1-5) Stop: 04/06/21 13:56 Dextrose (D10w) 1,000 mls @ 0 mls/hr IV .Q0M PRN PRN Reason: protocol (see label comments) Stop: 05/04/21 08:47 Potassium Phosphate 24 mmol/ (Sodium Chloride) 508 mls @ 88 mls/hr IV ONE ONE Stop: 04/04/21 16:31 Last Admin: 04/04/21 11:57 Dose: 88 mls/hr Documented by: Nutrition (Parenteral) 1,600 (ml/ TPN BAG) 1,600 mls @ 62.5 mls/hr IV .Q24H RANDOLPH; Protocol Stop: 04/05/21 15:59 Cefazolin Sodium (Ancef 2000mg) 2,000 mg in 15 mls @ 3.75 mls/min IV PREOP RANDOLPH Stop: 04/04/21 18:00 Potassium Chloride/Sodium Chloride (Normal Saline W/20 Meq Kcl) 20 meq in 1,000 mls @ 62.5 mls/hr IV .Q16H RANDOLPH Stop: 05/04/21 15:59 Metoprolol Succinate (Metoprolol Succ 25mg Ext Rel Tab) 12.5 mg PO BID RANDOLPH Stop: 05/04/21 09:14 Last Admin: 04/04/21 09:40 Dose: 12.5 mg Miscellaneous Information (Tpn/Ppn Consult Pharmacy) 1 ea N/A UD PRN PRN Reason: Consult Stop: 05/04/21 07:43 Morphine Sulfate (Morphine Sulfate 2 Mg/Ml Carp) 2 mg IV Q3H PRN PRN Reason: pain (6-10) Stop: 04/16/21 16:37 Ondansetron HCl (Ondansetron Inj 2 Mg/Ml 2 Ml Vial) 4 mg IV Q4H PRN PRN Reason: Nausea And Vomiting Stop: 05/02/21 16:37 Last Admin: 04/02/21 16:54 Dose: 4 mg Ondansetron HCl (Ondansetron Inj 2 Mg/Ml 2 Ml Vial) 4 mg IV ONCE PRN PRN Reason: PACU Use Only-Nausea/Vomiting Stop: 05/04/21 13:12 Last Admin: 04/04/21 14:31 Dose: 4 mg Phenylephrine HCl (Phenylephrine 100mcg/Ml 5ml Syr) 100 mcg IV Q5M PRN PRN Reason: PACU Use Only-SBP<90 or HR>70 Stop: 05/04/21 13:12 PG Care Time/CCT Total # of Minutes Spent Total Time Spent with Patient: Total time spent is greater than 50% in coordination of care (as documented) at patient's floor/unit and/or counseling patient: Coding [place] [address] Subseq Hosp Care Lvl 2 Patient Type Established Medical Decision Making Moderate Complexity Diagnoses SBO (small bowel obstruction) K56.609 Atrial flutter with controlled response I48.92 Asthma J45.909 HTN (hypertension) I10 S/P mitral valve replacement with bioprosthetic valve Z95.3 S/P tricuspid valve repair Z98.890 Total bilirubin, elevated R17 Encounter for pre-operative examination Z01.818
--- NOTE | 2021-04-04 09:35 | XRay Report ---
KUB HISTORY: Follow up study in a patient with small bowel obstruction f/u bowel obstruction vs ileus COMPARISON: KUB 04/03/2021 FINDINGS: An enteric tube is again noted with distal tip overlying the gastric body. Persistent small bowel obstruction with dilated loops measuring up to approximately 5.5 cm transversely, previously 5 .8 cm. Surgical clips of the lateral lower left abdominal wall. No renal calculi. No ureteral calcul i. No pneumoperitoneum or pneumatosis. No fracture. IMPRESSION: 1. Unchanged appearance of the persistent small bowel obstruction. 2. Enteric tube terminates in the stomach. ACT 112: Negative or not required by law. The above report was generated using voice recognition software. It may contain grammatical, syntax o r spelling errors. Electronically signed by: Morris Whelan M.D. 04/04/2021 9:34 AM
[2021-04-04] MEDS: METOPROLOL SUCC 25MG EXT REL TAB PO SCH ×2 (09:40→23:24)
[2021-04-04] MEDS: FLUTICASONE/VILANTEROL 200/25MCG 14 PUFFS/INHALER INH SCH (09:41)
[2021-04-04] MEDS ORDERED: POTASSIUM PHOSPHATE 24 MMOL in SODIUM CHLORIDE 0.9% 500 ML IV ONE (10:45)
--- NOTE | 2021-04-04 10:52 | Pharmacy Report ---
Pharmacy PN Initial Consult - Date of Service April 04, 2021 - Scope Pharmacy has been consulted to manage parenteral nutrition orders and order appropriate labs. As part of the Nutrition Support Team guidelines, pharmacy will work in conjunction with dietary when determining the patients caloric needs. - Subjective The patient is a 86 year old F admitted on 04/02/21 13:05 for ABDOMINAL PAIN. Patient is to receive parenteral nutrition for NPO x 7 days. - Objective Height: 5 ft 1 in Weight: 68.2 kg Diet: NPO Intake & Output (Last 24Hrs): Intake & Output 04/02/21 04/03/21 04/04/21 04/05/21 06:59 06:59 06:59 06:59 Intake Total 1485.000 / 1264.540 6386.000 / 2570.000 1178.666 / 1178.666 Output Total 1003 / 1003 Balance 1485.000 / 1537.930 0895.000 / 9444.173 7167.666 / 1178.666 Weight 68.2 kg 68.2 kg Laboratory Data (Last 24 Hrs):: 04/04/21 04/04/21 07:23 07:23 Sodium 136 Potassium 3.5 Chloride 108 H Carbon Dioxide 19 L BUN 12 Creatinine 0.49 L Glucose 93 Calcium 7.8 L Phosphorus 1.8 L Magnesium 1.8 Total Bilirubin 1.7 H AST 19 ALT 17 Alkaline Phosphatase 67 Albumin 2.5 L Nutrition Assessment:: Please refer to the Notes section of the EMR for the most recent bone glue maker note. - Assessment Muna is ordered to start parenteral nutrition today due to prolonged NPO with SBO vs. post op ileus: * PICC line ordered to be placed today --> as of 1314, PICC line has yet to be placed and RN reports patient may be going back to OR, therefore today's bag will be made for infusion via peripheral line, will switch to central on 04/05 if able * Hypophosphatemia on am labs (phos 1.8) - ordered Kphos 24 mmol IV x 1 for replacement * Surgery requests 125 ml/hr of fluid. Will continue NS + 20 kcl @ 62.5 ml/hr in addition to PPN @ 62.5 ml.hr for total of 125. * Patient is at high risk for refeeding syndrome, therefore thiamine will be added to the formula. Potassium, magnesium, and phosphorous will be increased to account for this. - Plan For day 1 of PN administration, the following will be ordered: Macronutrients Amino acids 85 grams/day Dextrose 90 grams/day Lipids 50 grams/day Micronutrients Sodium acetate 24 mEq Potassium phosphate 24 mMol Potassium acetate 30 mEq Magnesium sulfate 12.18 mEq Multivitamins 10 mL Trace Elements 10 mL Additional additives: folic acid 1 mg, thiamine 100 mg Total volume 1600 mL to be infused over 24 hrs will provide 1196 kcal/day Final osmolarity 900 mOsm/L (maximum for PPN is 900 mOsm/L) Labs to be ordered per PN order protocol Pharmacy will follow and adjust parenteral nutrition orders on a daily basis. Thank you.
[2021-04-04] MEDS: POTASSIUM CHLORIDE / WTR 10 MEQ/100 ML PLCT IV SCH ×2 (11:26→12:34)
[2021-04-04] MEDS ORDERED: LIDOCAINE 2% 2 ML VIAL/AMP(20MG/ML) INFIL ONE (12:25)
[2021-04-04] MEDS ORDERED: PROPOFOL IV EMULSION 10 MG/ML 20 ML VIAL IV ONE (12:25)
[2021-04-04] MEDS ORDERED: SUCCINYLCHOLINE CHLORIDE 20 MG/ML 10 ML VIAL IV ONE (12:25)
[2021-04-04] MEDS ORDERED: fentaNYL citrate 100 MCG/2 ML VIAL ONE (12:25)
[2021-04-04] MEDS ORDERED: ROCURONIUM BROMIDE 10 MG/ML 5 ML VIAL IV ONE (12:25)
[2021-04-04] MEDS: PANTOprazole 40 MG in SYRINGE 0 ML IV SCH (12:34)
[2021-04-04] MEDS ORDERED: BUPIVACAINE 0.5 % 5 MG/1 ML MPF 30ML VIAL ONE (12:35)
[2021-04-04] MEDS ORDERED: CALCIUM CHLORIDE 10% 10 ML SYR IV ONE (12:37)
[2021-04-04] MEDS ORDERED: ALBUMIN HUMAN 5% 12.5 GM/250 ML VIAL IV ONE (12:38)
--- NOTE | 2021-04-04 12:49 | Anesthesiology Consultation ---
Date of Service April 04, 2021 Assessment & Plan (1) Encounter for pre-operative examination: Chart Review Chart Review: Acceptable Risk for Surgery and Patient NOT seen in Pre Admission Testing covid neg 04/02/21 Consults Requested none History Surgery Operation Date: 04/04/21 11:30 Proposed Procedures p Exploratory Laparotomy - Abhishek Gutierrez MD, FACS Height/Weight Height: 5 ft 1 in Weight: 68.2 kg Allergies Allergy/AdvReac Type Severity Reaction Status Date / Time Bactrim Allergy Severe RASH AND Verified 12/25/17 10:05 FACIAL SWELLING bee venom protein (honey bee) Allergy Severe ANAPHYLAXIS Verified 04/02/21 16:44 clarithromycin Allergy Intermediate RASH AND Verified 04/02/21 16:44 FACIAL SWELLING fluconazole Allergy Intermediate INCREASED Verified 04/02/21 16:44 HEART RATE moxifloxacin Allergy Intermediate RASH AND Verified 04/02/21 16:44 FACIAL SWELLING nitrofurantoin Allergy Intermediate RASH Verified 04/02/21 16:44 Quinolones Allergy Intermediate RASH AND Verified 04/02/21 16:44 FACIAL SWELLING sulfamethoxazole Allergy Intermediate RASH AND Verified 04/02/21 16:44 FACIAL SWELLING trimethoprim Allergy Intermediate RASH AND Verified 04/02/21 16:44 FACIAL SWELLING ampicillin Allergy Unknown Unknown Verified 04/02/21 16:44 NSAIDS (Non-Steroidal AdvReac Intermediate Pt had Unverified 04/02/21 10:23 Anti-Inflamma Open Heart Surgery ketamine AdvReac Mild VOMITING Verified 04/02/21 16:44 Medications Home Medications Medication Instructions Recorded Confirmed Last Taken albuterol sulfate 90 mcg/actuation 2 puff INHALATION Q4 PRN 03/24/18 04/02/21 Unknown aerosol inhaler (Ventolin HFA) ascorbic acid (vitamin C) 500 mg 500 mg PO DAILY 03/24/18 04/02/21 03/22/21 tablet (Vitamin C) calcium carbonate 500 mg (1,250 1 tab PO DAILY 03/24/18 04/02/21 03/22/21 mg)-vitamin D3 200 unit tablet (Calcium 500 + D) cholecalciferol (vitamin D3) 125 5,000 unit PO Q2D 03/24/18 04/02/21 03/22/21 mcg (5,000 unit) tablet (Vitamin D3) multivitamin (Multiple Vitamins) 1 tab PO DAILY 03/24/18 04/02/21 03/22/21 psyllium husk 3.4 gram/5.4 gram 1 - 2 tbsp PO DAILY@1600 03/24/18 04/02/21 03/22/21 oral powder (Metamucil) pantoprazole 40 mg tablet,delayed 40 mg PO QAM #90 tab 11/28/20 04/02/21 03/22/21 release (Protonix) atorvastatin 40 mg tablet (Lipitor) 40 mg PO HS #90 tab 12/07/20 04/02/21 03/22/21 triamterene 37.5 1 tab PO Q2D #45 tab 12/21/20 04/02/21 03/22/21 mg-hydrochlorothiazide 25 mg tablet aspirin 81 mg tablet,delayed 81 mg PO DAILY 03/23/21 04/02/21 03/22/21 release epinephrine 0.3 mg/0.3 mL 0.3 mg IM UD PRN 03/23/21 04/02/21 Unknown injection, auto-injector warfarin 6 mg tablet 6 mg PO DAILY 03/23/21 04/02/21 03/22/21 metoprolol succinate 25 mg 12.5 mg PO BID #90 tab 03/27/21 04/02/21 Unknown tablet,extended release 24 hr (Toprol XL) fluticasone furoate 200 1 inh INHALATION DAILY 04/02/21 04/02/21 Unknown mcg-vilanterol 25 mcg/dose inhalation powder Active Medications Generic Name Dose Route Start Last Admin Trade Name Freq PRN Reason Stop Dose Admin Fluticasone/Vilanterol 1 puffs 04/03/21 09:00 04/04/21 09:41 Fluticasone/Vilanterol 200/25mcg 14 Puffs/Inhaler INH 05/03/21 08:59 1 puffs DAILY RANDOLPH Administration Potassium Chloride/Sodium Chloride 20 meq in 1,000 mls @ 100 mls/hr 04/02/21 16:38 04/04/21 09:39 Normal Saline W/20 Meq Kcl IV 05/02/21 16:37 100 mls/hr .Q10H RANDOLPH Administration Pantoprazole Sodium 40 mg/ 10 mls @ 5 mls/min 04/03/21 11:00 04/04/21 12:34 Syringe IV 05/03/21 10:59 5 mls/min DAILY@1100 RANDOLPH Administration Potassium Phosphate 24 mmol/ 508 mls @ 88 mls/hr 04/04/21 10:45 04/04/21 11:57 Sodium Chloride IV 04/04/21 16:31 88 mls/hr ONE ONE Administration Metoprolol Succinate 12.5 mg 04/04/21 09:15 04/04/21 09:40 Metoprolol Succ 25mg Ext Rel Tab PO 05/04/21 09:14 12.5 mg BID RANDOLPH Administration Ondansetron HCl 4 mg 04/02/21 16:38 04/02/21 16:54 Ondansetron Inj 2 Mg/Ml 2 Ml Vial IV 05/02/21 16:37 4 mg Q4H PRN Administration Nausea And Vomiting Past Medical History Medical History Anticoagulant long-term use Asthma Atrial flutter with rapid ventricular response Biopsy of breast (2012) Cystocele surgically repaired Dysphagia H/O Goiter H/O gastroesophageal reflux (GERD) Hiatal hernia History of esophageal dilatation Hypertension Migraines Osteoarthritis Osteoporosis Severe mitral regurgitation 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 MVR/MAZE. 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 Past Family History Family History Aunt Breast cancer Brother Diabetes Sister Breast cancer Myocardial infarction Ovarian cancer Diabetes Father Myocardial infarction Mother Myocardial infarction Diabetes Past Surgical History Surgical History H/O hemorrhoidectomy H/O knee surgery LEFT KNEE H/O maze procedure for a fib H/O shoulder surgery LEFT History of back surgery History of bilateral tubal ligation History of bladder surgery History of breast biopsy History of cardiac cath History of carpal tunnel release History of cataract surgery History of colonoscopy History of esophagogastroduodenoscopy (EGD) History of foot surgery History of hand surgery History of hysterectomy History of incisional hernia repair (03/27/21) Open Incarcerated Incisional Hernia Repair -Abhishek Gutierrez MD, FACS 03/27/2021 History of oophorectomy History of rectocele History of total abdominal hysterectomy History of tricuspid valve replacement S/P cervical spinal fusion (1999) UNSURE OF LEVELS. FULL ROM. S/P hysterectomy (2013) S/P Maze operation for atrial fibrillation (2017) S/P STERLING-BSO 03/27/21: Hernia repair. [facility]. MAC 3, grade 1 view. 7.0 ETT. Social History Smoking Status: Never smoker Hx Alcohol Use: No Hx Substance Use: No substance use type: does not use Physical Exam Vital Signs Last Vital Signs Temp 37.1 C 04/04/21 12:53 Pulse 126 H 04/04/21 12:53 Resp 20 04/04/21 12:53 BP 150/94 H 04/04/21 12:53 Pulse Ox 97 04/04/21 12:53 Testing Laboratory Results 04/04/21 07:23 04/04/21 07:23 PT 12.5 Seconds (9.0-12.0) H 04/02/21 19:46 INR 1.3 (0.9-1.1) H 04/02/21 19:46 APTT 134.3 Seconds (21.0-31.0) H* 04/04/21 07:23 Urine Color Dark Yellow 04/02/21 11:10 Urine Appearance Clear (Clear) 04/02/21 11:10 Urine pH 6.0 (4.5-7.5) 04/02/21 11:10 Ur Specific [place] 1.036 (1.000-1.030) H 04/02/21 11:10 Urine Protein Trace (Negative) H 04/02/21 11:10 Urine Glucose (UA) Negative (Negative) 04/02/21 11:10 Urine Ketones Trace (Negative) H 04/02/21 11:10 Urine Nitrite Negative (Negative) 04/02/21 11:10 Ur Leukocyte Esterase Trace (Negative) H 04/02/21 11:10 Urine WBC (Auto) 1-5 /hpf (0-5) 04/02/21 11:10 Urine RBC (Auto) 0-4 /hpf (0-4) 04/02/21 11:10 U Hyaline Cast (Auto) 1-5 /lpf (0-5) 04/02/21 11:10 U Epithel Cells (Auto) >30 /lpf (0-5) H 04/02/21 11:10 Urine Bacteria (Auto) Negative (Negative) 04/02/21 11:10 Electrocardiogram Date: 04/02/21 DICTATED BY:Jalil Wynn MD Test Reason : Blood Pressure : / mmHG Vent. Rate : 072 BPM Atrial Rate : 072 BPM P-R Int : 192 ms QRS Dur : 084 ms QT Int : 430 ms P-R-T Axes : 000 023 -24 degrees QTc Int : 470 ms Normal sinus rhythm Low voltage QRS T wave abnormality, consider anterior ischemia Prolonged QT Abnormal ECG When compared with ECG of 27-MAR-2021 21:07, QRS axis Shifted left Borderline criteria for Anterior infarct are no longer Present Borderline criteria for Anterolateral infarct are no longer Present Confirmed by Jalil Wynn ([id number]) on 04/03/2021 9:00:20 AM Chest X-Ray Date: 03/27/21 XR chest 1V portable CLINICAL HISTORY: Preoperative evaluation. COMPARISON STUDY: Chest radiograph December 27, 2020. FINDINGS: Moderate cardiomegaly is noted. There is no evidence for pulmonary edema. Left basilar opacity favors atelectasis. There are median sternotomy wires, prosthetic tricuspid valve and postoperative findings within the cervical spine. IMPRESSION: 1. No acute cardiopulmonary findings. 2. Stable cardiomegaly without evidence for pulmonary edema. 3. Left basilar opacity suggestive of atelectasis. Other Testing KUB HISTORY: Follow up study in a patient with small bowel obstruction f/u bowel obstruction vs ileus COMPARISON: KUB 04/03/2021 FINDINGS: An enteric tube is again noted with distal tip overlying the gastric body. Persistent small bowel obstruction with dilated loops measuring up to approximately 5.5 cm transversely, previously 5.8 cm. Surgical clips of the lateral lower left abdominal wall. No renal calculi. No ureteral calculi. No pneumoperitoneum or pneumatosis. No fracture. IMPRESSION: 1. Unchanged appearance of the persistent small bowel obstruction. 2. Enteric tube terminates in the stomach.
[2021-04-04] MEDS ORDERED: ATROPINE SULFATE 0.1 MG/ML 10ML SYR IV PRN (13:13)
[2021-04-04] MEDS ORDERED: PHENYLEPHRINE 100MCG/ML 5ML SYR IV PRN (13:13)
[2021-04-04] MEDS ORDERED: ONDANSETRON INJ 2 MG/ML 2 ML VIAL IV PRN (13:13)
[2021-04-04] MEDS ORDERED: ePHEDrine sulfate 50 MG/ML AMP IV PRN (13:13)
[2021-04-04] MEDS ORDERED: fentaNYL citrate 100 MCG/2 ML VIAL IV PRN (13:13)
[2021-04-04] MEDS ORDERED: ceFAZolin 2000MG 2,000 MG/15 ML SYR IV SCH (13:30)
[2021-04-04] MEDS ORDERED: SUGAMMADEX SODIUM 200 MG/2 ML VIAL IV ONE (13:50)
[2021-04-04] MEDS ORDERED: METOPROLOL TARTRATE 1 MG/ML VIAL IV ONE (13:57)
[2021-04-04] MEDS ORDERED: PHENYLEPHRINE HCL 10 MG/ML VIAL ONE (13:57)
[2021-04-04] MEDS ORDERED: ePHEDrine sulfate 50 MG/ML SYR ONE (13:57)
--- NOTE | 2021-04-04 14:12 | Post Operative Brief Note ---
PG Immediate Post Op with CF Date of Surgery April 04, 2021 Pre & Post Diagnosis Operation Date: 04/04/21 11:30 Pre-Op Diagnosis: Abdominal pain Post-Op Diagnosis: Bowel obstruction secondary to adhesions I identified the patient and participated in the time-out.: Yes Procedure Operation Date: 04/04/21 11:30 Actual Procedures p Exploratory Laparotomy(Not Applicable) - Abhishek Gutierrez MD, FACS Surgeon Abhishek Gutierrez MD, FACS Background Investigator b miriam camp Estimated Blood Loss 10 Findings Consistent with Post-Op Diagnosis Specimens Specimen Description: 1.urine culture sent under separate order Pathology: A. Abdominal Adhesion Drains Jain Catheter (Placed in OR)
--- NOTE | 2021-04-04 14:28 | Operative Report ---
Post Operative Report Pre & Post Diagnosis Operation Date: 04/04/21 11:30 Pre-Op Diagnosis: Abdominal pain Post-Op Diagnosis: Bowel obstruction secondary to adhesions I identified the patient and participated in the time-out.: Yes Procedure Operation Date: 04/04/21 11:30 Actual Procedures p Exploratory Laparotomy(Not Applicable) - Abhishek Gutierrez MD, FACS Lysis of adhesion The patient was brought into the operating room theater general endotracheal anesthesia the abdomen was prepped Betadine solution and properly draped Jain catheter had been inserted systemic antibiotics on board a timeout was had the patient was identified we made about a 3 inch incision above and below the umbilicus to the left nipple through subcutaneous tissue in the midline we entered the peritoneal cavity or some free fluid was appreciated it was not bloody we then enlarged the incision further towards the previous scar in the infraumbilical area this point we could visualize the bowel that appeared to be distended a viable slightly cyanotic we then extended the incision is more cephalad to the point that we were able then to extract the dilated bowels out of the abdomen again the fluid in the abdomen was nonbloody and as we extracted out and all the way from the ligament of Treitz we start freeing it up and were able to identify the transition point which was done into the sigmoid colon area appeared to be inflammation from a appendiceal epiploic to the small bowel loop we were able to free this up and divide part of the epiploic with the small charles wel to avoid entry into the small bowel this is significantly narrowed we did not enter the lumen or the wall once we had freed this up we could easily milk it through and this is definitely was the transition point we further went down and evaluated the rest of the small bowel towards the cecum what we identified was another loop of bowel that was adherent what appeared to be the hernial sac in the left lower quadrant but it was nonobstructed we freed this up from the angy wall and remnant of the hernial sac of note when I repaired the left lower quadrant hernia we had resected part of the hernial sac and was able to suture it closure of the peritoneum with a chromic suture we had identified a loop of small bowel as we pulled out the herniated fat through the abdominal wall on the hernial defect but the small bowel loop which was a small bowel did not appear to be involved with any protrusion through the abdominal wall into the hernial sac at the time neck manipulating and pulling up the hernia contents which was fat we pulled up a loop of bowel but this had returned all intra- abdominally at the time and there was no evidence of any obstruction. We then continue milking the small bowel all the way down to the ileocecal valve which there was further obstruction noted the colon had some stool that was prominent around the hepatic flexure the liver was palpated there was no masses the gallbladder did not appear to have any stones by palpation we position the NG tube approximately 56 cm palpated directly into the stomach we then closed the abdominal wall using #1 PDS in a continuous fashion starting one cephalad and 1 code then 5/8 an inch [place] was placed in the subcu and ash closed over the [place] was tied distally approximately 2-0 silk dressing was applied procedure was tolerated well by the patient estimate blood loss 10 cc at the end of the procedure heart rate has come down to about 100 she had received a liter of of IV fluid and 12.5 of albumin AddendumB Christianne camp was present throughout the procedure and helped the retraction exposure and wound closure Talked with daughter Susannah at [phone] Surgeon Abhishek Gutierrez MD, FACS Metalizing Machine Operator kortney camp Estimated Blood Loss 2 Findings Consistent with Post-Op Diagnosis Obstruction secondary to adhesion Specimens Adhesion Drains 5/8 inch [place] and subcutaneous tissue Description of Procedure merda I attest to the content of the Intraoperative Record and any orders documented therein. Any exceptions are noted below.
--- NOTE | 2021-04-04 14:38 | Anesthesiology Progress Note ---
Date of Service April 04, 2021 Anesthesia Post Procedure Vital Signs Vital Signs: Temp Pulse Pulse Resp BP BP Pulse Ox 04/04/21 12:53 37.1 C 126 H 20 150/94 H 97 04/04/21 11:14 130 H 123/89 04/04/21 08:11 36.4 C L 110 H 16 136/90 95 04/03/21 22:20 36.8 C 80 16 157/84 H 94 04/03/21 15:37 36.9 C 83 17 177/100 H 95 Transfer of Care Handoff Completed per policy Notes Mental Status: alert / awake / arousable and participated in evaluation Patient Amnestic to Procedure: Yes Nausea / Vomiting: adequately controlled Pain: adequately controlled Airway Patency, RR, SpO2: stable & adequate BP & HR: stable & adequate Hydration State: stable & adequate Anesthetic Complications: no major complications apparent and Pt Satisfied with anesthetic care Notes: Patient HR improved after metoprolol intraoperatively. Plan to go to PCU/tele once she meets PACU discharge criteria.
--- NOTE | 2021-04-04 14:49 | Electrocardiogram Report ---
Test Reason : Blood Pressure : / mmHG Vent. Rate : 118 BPM Atrial Rate : 127 BPM P-R Int : 246 ms QRS Dur : 090 ms QT Int : 210 ms P-R-T Axes : -22 -13 190 degrees QTc Int : 294 ms Atrial flutter with rapid ventricular response Abnormal ECG When compared with ECG of 02-APR-2021 20:30, Atrial flutter has replaced sinus rhythm Vent. rate has increased BY [address] now depressed in Lateral leads Nonspecific T wave abnormality, worse in Lateral leads Confirmed by Jalil Wynn ([id number]) on 04/04/2021 2:48:55 PM Referred By: REFERRED SELF Confirmed By:Raul Wynn
[2021-04-04] MEDS ORDERED: MoRPHine SULFATE 2 MG/ML CARP IV PRN (19:16)
[2021-04-04] MEDS ORDERED: MoRPHine SULFATE 4 MG/ML 1 ML CARP\\VIAL IV PRN (19:16)
[2021-04-04] MEDS: ACETAMINOPHEN 1,000 MG/100 ML VIAL IV SCH (20:10)
[2021-04-04] MEDS ORDERED: METOPROLOL TARTRATE 1 MG/ML VIAL IV PRN (20:11)
[2021-04-04] MEDS: Custom Peripheral Pn 1,600 ML in TPN BAG 0 ML IV SCH (23:22)
[2021-04-05] MEDS: NSS + 20MEQ KCL 20 MEQ/1,000 ML BAG IV SCH ×2 (02:53→06:21)
[2021-04-05] MEDS: ACETAMINOPHEN 1,000 MG/100 ML VIAL IV SCH ×3 (04:04→19:35)
[2021-04-05] MEDS: Custom Peripheral Pn 1,600 ML in TPN BAG 0 ML IV SCH (06:20)
[2021-04-05 07:53] LABS: Hematocrit (blood only) 33.3 % (37-47); Hemoglobin 11.2 g/dL (12.0-16.0); Mean Corpuscular Hemoglobin 29.1 pg (25-34); Mean Corpuscular Hgb Conc 33.6 g/dL (32-36); Mean Corpuscular Volume 86.5 fL (80-100); Mean Platelet Volume 9.9 fL (7.4-10.4); Platelet Count 249 K/uL (130-400); RDW Standard Deviation 47.4 fL (36.4-46.3); Red Blood Count 3.85 M/uL (4.2-5.4); White Blood Count 6.04 K/uL (4.8-10.8)
[2021-04-05] MEDS: FLUTICASONE/VILANTEROL 200/25MCG 14 PUFFS/INHALER INH SCH (07:58)
[2021-04-05 08:00] LABS: Partial Thromboplastin Ratio 1.2; Partial Thromboplastin Time 32.5 Seconds (21.0-31.0)
--- NOTE | 2021-04-05 08:03 | Surgery Progress Note ---
Date of Service April 05, 2021 Assessment & Plan (1) Abdominal pain: Plan: 04/05/21 POD #1 Patient is status post laparotomy lysis of adhesion band in the left lower quadrant mid jejunal area likely secondary to the previous surgery as she had years ago since the band was very tight longstanding At this point will restart heparinization continue NG drainage for today Suspect will take another 2 or 3 days minimum until GI function returns for continue with the hyperalimentation at this time No need to continue antibiotic from the surgical point of view Lab noted All question answered 04/04/21 NG is drained approximately 1000 cc since insertion the patient has had a few bowel movements We will repeat a KUB this morning We will have PICC line inserted and start hyperalimentation since the patient has virtually had nothing to eat for about a week according to her We will most likely need an upper GI with small bowel follow-through and given the size of the small bowel distention I suspect the patient will eventually need explored I would like to avoid that if at all possible 04/03/21 Overall she is improved status keeping her n.p.o. we will start her on some ice chips and some obstacles we will repeat the KUB this morning I did mention to her that we may get an upper GI with small bowel follow-through to further evaluate was likely an intermittent obstruction likely from adhesions Lab noted All question answered Will admit for possible SBO vs post op ileus. N/V have improved, will hold on NG for now but place if she has further N/V. INR is 1.2, will ask hospitalist to see also. Could be started on heparin drip if needed--will be NPO, further surgery may be possible but nothing planned at this time. Admission and Anticipated Discharge Date Admission Date: April 02, 2021 Subjective Patient was seen on rounds this morning. She was resting semi-comfortably in bed. NGT inserted yesterday. Canister this AM had a total of 250 mL dark brown with some blood tinged output. Canister was not marked to note over what period of time the output was from. Pt was told by surgery that she was to have a feeding tube placed, however, further clarification by RN noted that she was to have a PICC line/midline inserted with initiation of TPN. Pt asking if she was going to have to have another surgery at which time that was not certain. She denies chest pain, dyspnea, palpitations, n/v, or gu symptoms. She did pass a few small soft pieces of stool today. She denies passing flatus. She noted the N GT was uncomfortable. Pt was also questioning that her bandage from her surgical site had not been changed since she was at [facility]. No issues reported by RN. Physical Exam Physical Exam: Alert coherent no distress no significant abdominal discomfort Oropharyngeal moist NG tube in place bilious in nature amounts noted The abdomen is soft with the expected postoperative discomfort dressing on the incision is intact some drainage from the distal aspect of the dressing related to the [place] drain in the subcu No pedal edema Urine clear Results & Data ([facility]) Vital Signs (Past 12 Hours) Vital Signs Temp Pulse Pulse Resp BP Pulse Ox 04/05/21 07:59 36.4 C L 107 H 18 95/62 L 92 04/05/21 06:59 36.7 C 98 H 18 112/61 96 04/05/21 03:20 36.8 C 92 H 18 113/77 97 04/04/21 23:06 36.5 C 99 H 18 101/63 96 04/04/21 23:00 95 H PG Care Time/CCT Total # of Minutes Spent Total Time Spent with Patient: Total time spent is greater than 50% in coordination of care (as documented) at patient's floor/unit and/or counseling patient: Coding Level of Care Code None Diagnoses Abdominal pain R10.9 Abdominal location: unspecified location (1) Abdominal pain Abdominal location: unspecified location Qualified Code(s): R10.9 - Unspecified abdominal pain
[2021-04-05] MEDS ORDERED: Heparin IV Adult Wt-Based Standard *NO* Bolus Protocol IV ONE (08:12)
[2021-04-05 09:02] LABS: Calcium 6.9 mg/dl (8.5-10.1); Creatinine Clr Calc Pharmacy 69.2 ml/min; Est GFR (African American) 99.7 ml/min; Magnesium 1.7 mg/dl (1.8-2.4); Phosphorus 2.3 mg/dl (2.5-4.9)
[2021-04-05] MEDS ORDERED: HEPARIN SODIUM/DEXTROSE 25,000 UNITS/500 ML BAG IV SCH (10:00)
[2021-04-05] MEDS: MAGNESIUM SULFATE / D5W 1 GM/100 ML BAG IV SCH ×2 (10:20→12:15)
[2021-04-05] MEDS: PANTOprazole 40 MG in SYRINGE 0 ML IV SCH (10:21)
--- NOTE | 2021-04-05 11:08 | Pharmacy Report ---
PHA: Parenteral Nutrition Con - Date of Service April 05, 2021 - Subjective The patient is currently on day 2 of central parenteral nutrition for prolonged NPO, SBO vs. post op ileus - Objective Height: 5 ft 1 in Weight: 72.2 kg Diet: NPO Intake & Output (24hrs):: Intake & Output 04/03/21 04/04/21 04/05/21 04/06/21 06:59 06:59 06:59 06:59 Intake Total 1485.000 / 9454.982 7858.000 / 2570.000 4036.666 / 4036.666 1000 / 1000 Output Total 1003 / 1003 1137 / 1137 Balance 1485.000 / 7613.028 4516.000 / 7062.878 7329.666 / 2899.666 1000 / 1000 Weight 68.2 kg 72.2 kg Laboratory Data (Last 24 Hr):: 04/05/21 06:59 Sodium 140 Potassium 4.0 Chloride 113 H Carbon Dioxide 18 L BUN 14 Creatinine 0.54 L Glucose 93 Calcium 6.9 L Phosphorus 2.3 L Magnesium 1.7 L Triglycerides 75 Nutrition Assessment:: Please refer to the Notes section of the EMR for the most recent land development manager note. - Assessment Muna is ordered parenteral nutrition due to prolonged NPO with SBO vs. post op ileus: * PICC line was not placed yesterday. Confirmed with IV team that it will be placed today. * Will change formulation from peripheral to central nutrition. Of note, PPN bag made for the evening of 04/04 was not started until 04/05 @ 0600, therefore AM labs are not indicative of electrolytes that were added to yesterday's bag. * Mag level of 1.7 this morning - patient ordered Mg 1 gm IV x 2 bags * Discussed fluid requirements with surgery - will decrease total fluids and eliminate NS + 20 meq KCL due to elevated chloride. * Patient is at high risk for refeeding syndrome. - Plan For day #2 of PN administration, the following will be ordered: Macronutrients Amino acids 85 grams/day Dextrose 100 grams/day Lipids 50 grams/day Micronutrients Sodium acetate 50 mEq Potassium phosphate 27 mMol Potassium acetate 30 mEq Magnesium sulfate 12.18 mEq Calcium gluconate 4.65 mEq Multivitamins 10 mL Trace Elements 1 mL Additional additives: thiamine 100 mg and folic acid 1 mg Labs, as indicated, will be ordered per protocol Pharmacy will continue to follow and adjust parenteral nutrition orders on a daily basis. Thank you for allowing us to participate in the care of this patient.
--- NOTE | 2021-04-05 12:11 | XRay Report ---
XR chest 1V portable CLINICAL HISTORY: CHECK PICC LINE PLACEMENT TECHNIQUE: Single frontal radiograph of the chest was obtained. Comparison: Comparison is made to chest one view 03/27/2021 FINDINGS: Median sternotomy wires are seen. Enteric tube is seen with the side-port in the proximal stomach. A right PICC line has been placed with the tip at the cavoatrial junction. Calcified aortic knob is see n. Lungs are underinflated but clear. No evidence of pleural effusion or pneumothorax. IMPRESSION: Satisfactory position of PICC line. ACT 112: Negative or not required by law. Electronically signed by: Fernando Dietrich M.D. 04/05/2021 12:10 PM
[2021-04-05] MEDS ORDERED: Custom Central Pn 2,000 ML in TPN BAG 0 ML IV SCH (16:00)
--- NOTE | 2021-04-05 16:04 | Hospitalist Progress Note ---
Date of Service April 05, 2021 Assessment & Plan (1) SBO (small bowel obstruction): Plan: HGSBO s/p exploratory lap with MONALISA, POD#1. Continue NGT to low intermittent or continuous suction as ordered by surgery. TPN initiated due to ongoing NPO status. F/U imaging as ordered by surgery. Continue pain control. (2) Atrial flutter with controlled response: Plan: Pt with h/o paroxysmal afib. Maintain on tele monitor, since NPO, cannot receive her oral Toprol. Has PRN Lopressor IV ordered if needed. Patient normally on LTAC w/ warfarin which has been on hold since admission. Was on Heparin which was held d/t surgery and has since been resumed. Keep K+ >4.0. Phosphorus replaced yesterday and improved. Keep Mg >2.0, currently 1.7 on AM labs, replacement ordered by pharmacy. Repeat labs in AM. (3) Asthma: Plan: No acute issues, continue home inhaler, duonebs as needed (4) HTN (hypertension): Plan: At home, on metoprolol succinate 12.5 mg twice daily, triamterenehydrochlorothiazide 37.5-25 mg every other day. PO meds on hold d/t NPO status. BP acceptable right now, will continue to monitor. (5) S/P mitral valve replacement with bioprosthetic valve: (6) S/P tricuspid valve repair: (7) Total bilirubin, elevated: Plan: Downtrending, ? etiology (8) Encounter for pre-operative examination: Plan: Trend labs, AM cbc, cmp, mg and phos. Will continue to follow along. Admission and Anticipated Discharge Date Admission Date: April 02, 2021 Subjective Patient was seen on rounds this morning. She is s/p exploratory lap with MONALISA POD#1. She was resting comfortably in bedside recliner. NGT remains in place, 250 cc out since 7A. PICC line/midline inserted today in order to initiate TPN this morning. She notes that her abdominal pain is controlled, currently rating 3-4/10. She states her daughter is traveling [place] from [place] to see her. She denies chest pain, dyspnea, palpitations, n/v, or gu symptoms. She denies passing flatus. No issues reported by RN. Review of Systems Constitutional: as per Subjective / HPI Gastrointestinal: + abdominal pain (mild) and + bloating; no nausea Physical Exam Constitutional: WD/WN, vitals as above Respiratory: normal respiratory effort, lungs clear to auscultation Cardiovascular: Rate/Rhythm: regular rate; + abnormal rhythm (afib) Heart Sounds: no click, no gallop and no murmur Gastrointestinal (Abdomen): Inspection/Auscultation: + abdominal wall ecchymosis (at surgical incision site), + abdominal surgical incision (LLQ incision: ash intact. Midline incision is dressed. No binder) and + hypoactive bowel sounds (RLQ) Percussion/Palpation: + abdomen tender (LLQ) and abdomen soft Musculoskeletal: no cyanosis or clubbing, extremities motor strength 5/5 Skin: no rashes, warm and dry Psychiatric: A+Ox3, euthymic affect Genitourinary: coe Results & Data Results & Data ([facility]) Vital Signs (Past 12 Hours) Vital Signs Temp Pulse Pulse Resp BP Pulse Ox 04/05/21 12:29 80 18 131/72 95 04/05/21 12:03 36.7 C 101 H 18 137/78 97 04/05/21 09:26 101 H 04/05/21 07:59 36.4 C L 107 H 18 95/62 L 92 04/05/21 06:59 36.7 C 98 H 18 112/61 96 PG Care Time/CCT Total # of Minutes Spent Total Time Spent with Patient: Total time spent is greater than 50% in coordination of care (as documented) at patient's floor/unit and/or counseling patient: Coding [place] [address] Subseq Hosp Care Lvl 2 Patient Type Established History Expanded Problem Focused Exam Expanded Problem Focused Medical Decision Making Moderate Complexity Diagnoses SBO (small bowel obstruction) K56.609 Atrial flutter with controlled response I48.92 Asthma J45.909 HTN (hypertension) I10 S/P mitral valve replacement with bioprosthetic valve Z95.3 S/P tricuspid valve repair Z98.890 Total bilirubin, elevated R17 Encounter for pre-operative examination Z01.818
[2021-04-05 16:49] LABS: Partial Thromboplastin Ratio 2.4
[2021-04-05 16:54] LABS: Partial Thromboplastin Time 62.3 Seconds (21.0-31.0)
[2021-04-06] MEDS: ACETAMINOPHEN 1,000 MG/100 ML VIAL IV SCH ×3 (03:46→20:38)
[2021-04-06 07:36] LABS: Partial Thromboplastin Ratio 2.2
[2021-04-06 07:38] LABS: Partial Thromboplastin Time 58.3 Seconds (21.0-31.0)
[2021-04-06] MEDS: FLUTICASONE/VILANTEROL 200/25MCG 14 PUFFS/INHALER INH SCH (08:08)
[2021-04-06 08:12] LABS: Albumin Level 2.1 gm/dl (3.4-5.0); BUN Creatinine Ratio 35.7 (10-20); Bilirubin Direct 0.3 mg/dl (0-0.2); Creatinine Clr Calc Pharmacy 98.4 ml/min; Est GFR (Non-African American) 96.6 ml/min; Magnesium 2.4 mg/dl (1.8-2.4); Phosphorus 0.6 mg/dl (2.5-4.9); Potassium 3.6 mmol/L (3.5-5.1)
[2021-04-06] MEDS ORDERED: POTASSIUM PHOS 3 MMOL/1 ML INFUSION IV STA ×2 (08:15→22:22)
--- NOTE | 2021-04-06 08:15 | Surgery Progress Note ---
Date of Service April 06, 2021 Assessment & Plan (1) Abdominal pain: Plan: POD 2 ex lap MONALISA stop heparin drip, consider restarting tomorrow CBC pending continue NG/TPN d/c coe seen with Dr. Gutierrez Admission and Anticipated Discharge Date Admission Date: April 02, 2021 Subjective concerned about blood on dressing, scant flatus, OOB to chair, pain better Physical Exam Gastrointestinal (Abdomen): Inspection/Auscultation: + abdomen distended (slight) and + abdominal surgical incision (bloody evelyn drainage) Percussion/Palpation: abdomen soft UOP 250 overnight NG output 75 cc overnight down from 600 yesterday Results & Data ([facility]) Vital Signs (Past 12 Hours) Vital Signs Temp Pulse Pulse Resp BP Pulse Ox 04/06/21 03:48 37.0 C 93 H 17 136/79 93 04/06/21 00:00 36.7 C 99 H 19 132/73 94 04/05/21 23:29 96 H 04/05/21 20:34 36.7 C 99 H 19 148/90 H 95 PG Care Time/CCT Total # of Minutes Spent Total Time Spent with Patient: Total time spent is greater than 50% in coordination of care (as documented) at patient's floor/unit and/or counseling patient: Coding Level of Care Code None Diagnoses Abdominal pain R10.9 Abdominal location: unspecified location (1) Abdominal pain Abdominal location: unspecified location Qualified Code(s): R10.9 - Unspecified abdominal pain
[2021-04-06] MEDS ORDERED: POTASSIUM PHOSPHATE 30 MMOL in SODIUM CHLORIDE 0.9% 500 ML IV ONE ×2 (08:30→22:30)
[2021-04-06 08:44] LABS: Basophils # (auto) 0.02 K/uL (0-0.2); Basophils % (auto) 0.2 %; Eosinophils # (auto) 0.33 K/uL (0-0.5); Eosinophils % (auto) 3.9 %; Hematocrit (blood only) 31.1 % (37-47); Hemoglobin 10.5 g/dL (12.0-16.0); Immature Granulocytes # (auto) 0.02 K/uL (0.00-0.02); Immature Granulocytes % (auto) 0.2 %; Lymphocytes # (auto) 1.21 K/uL (1.2-3.4); Lymphocytes % (auto) 14.3 %; Mean Corpuscular Hgb Conc 33.8 g/dL (32-36); Mean Corpuscular Volume 85.9 fL (80-100); Mean Platelet Volume 10.1 fL (7.4-10.4); Monocytes # (auto) 1.24 K/uL (0.11-0.59); Monocytes % (auto) 14.7 %; Neutrophils # (auto) 5.64 K/uL (1.4-6.5); Neutrophils % (auto) 66.7 %; Platelet Count 249 K/uL (130-400); RDW Coefficient of Variation 14.9 % (11.5-14.5); RDW Standard Deviation 46.6 fL (36.4-46.3); Red Blood Count 3.62 M/uL (4.2-5.4); White Blood Count 8.46 K/uL (4.8-10.8)
[2021-04-06] MEDS: PANTOprazole 40 MG in SYRINGE 0 ML IV SCH (12:14)
--- NOTE | 2021-04-06 16:40 | Hospitalist Progress Note ---
Date of Service April 06, 2021 Assessment & Plan (1) SBO (small bowel obstruction): Plan: HGSBO s/p exploratory lap with MONALISA, POD#2. Continue NGT to low intermittent suction. TPN initiated due to ongoing NPO status. F/U imaging as ordered by surgery. Continue pain control. D/W surgery PA, hopefully planning to remove NGT tomorrow. Heparin on hold d/t some bleeding at incision site and in zacarias drain. Agree with holding ACT for now, can restart tomorrow if hemostasis achieved and can resume Coumadin tomorrow. D/W patient's telephone solicitor supervisor, Dr. Sutton who will follow up as an outpatient. (2) Atrial flutter with controlled response: Plan: Pt with h/o paroxysmal afib. Maintain on tele monitor, since NPO, cannot receive her oral Toprol. Will change PRN IV Lopressor to routine/scheduled 5mg q4h and hold for SBP<100 or HR<70. Plan to resume ACT as outlined in #1. Keep K+ >4.0. Phosphorus replaced yesterday and improved. Keep Mg >2.0. Repeat labs in AM. (3) Asthma: Plan: No acute issues, continue home inhaler, duonebs as needed (4) HTN (hypertension): Plan: At home, on metoprolol succinate 12.5 mg twice daily, triamterenehydrochlorothiazide 37.5-25 mg every other day. PO meds on hold d/t NPO status. BP acceptable right now, will continue to monitor. (5) S/P mitral valve replacement with bioprosthetic valve: (6) S/P tricuspid valve repair: (7) Total bilirubin, elevated: Plan: normalized. (8) Encounter for pre-operative examination: Plan: Trend labs, AM cbc, cmp, mg and phos. Will continue to follow along. Admission and Anticipated Discharge Date Admission Date: April 02, 2021 Subjective Mrs. Young was seen on rounds this morning. She is s/p exploratory lap with MONALISA POD#2. She was resting comfortably in bedside recliner. NGT remains in place, scant output. PICC line/midline inserted yesterday in order to initiate TPN this morning. TPN is on hold due to critically low phosphorus level this AM. Repeat level to be drawn this afternoon. She notes that her abdominal pain is adequately controlled. She denies chest pain, dyspnea, palpitations, n/v, or gu symptoms. She passed flatus today when she got up to do PT. Coe still in place. RN notified that patient had some incision bleeding and blood in zacarias drain, Heparin is on hold. Review of Systems Review of Systems: CONSTITUTIONAL: Denies weight loss/gain, fever and chills, fatigue, malaise, generalized weakness. HEENT: Denies changes in vision and hearing. RESPIRATORY: Denies SOB, cough, wheezing. CV: Denies palpitations, CP, lower extremity edema, orthopnea, PND. GI: +mild abdominal pain, denies nausea, vomiting. No BM yet. +flatus : (coe) MUSCULOSKELETAL: Denies myalgia and joint pain. SKIN: Denies rash and pruritus. NEUROLOGICAL: Denies headache, syncope, focal weakness, numbness, tingling. PSYCHIATRIC: Denies recent changes in mood. Denies anxiety and depression. Physical Exam Physical Exam: GENERAL: 86 yo elderly cooperative WF. Well-developed, well-nourished. NAD. HENT: NGT in place with scant drainage in canister. LUNGS: Clear to auscultation bilaterally. No accessory muscle use. No W/R/R. CARDIOVASCULAR: Regular rate and rhythm. No M/G/R. No JVD. ABDOMEN: Soft, minimal tenderness at incision site. Bowel sounds present but hypoactive. Zacarias drain in place. Previous incision site in LLQ is intact, ash in place. EXTREMITIES: No edema. Non-tender. Peripheral pulses +2/4. NEUROLOGIC: A&O x3. SKIN: Warm, dry, intact. No rashes or lesions. Results & Data Results & Data ([facility]) Vital Signs (Past 12 Hours) Vital Signs Temp Pulse Pulse Resp BP BP Pulse Ox 04/06/21 16:00 36.6 C 97 H 18 146/86 H 93 04/06/21 12:03 36.6 C 97 H 18 120/78 951 H 04/06/21 08:23 83 04/06/21 08:00 36.8 C 98 H 16 156/78 H 93 Laboratory Results Laboratory Results - last 24 hr 04/05/21 04/05/21 04/06/21 16:19 23:58 05:56 WBC RBC Hgb Hct MCV MCH MCHC RDW Std Deviation RDW Coeff of Linda Plt Count MPV Immature Gran % (Auto) Neut % (Auto) Lymph % (Auto) [place] % (Auto) Eos % (Auto) Baso % (Auto) Neut # (Auto) Lymph # (Auto) [place] # (Auto) Eos # (Auto) Baso # (Auto) Immature Gran # (Auto) APTT 62.3 H* PTT Ratio 2.4 Sodium Potassium Chloride Carbon Dioxide Anion Gap BUN Creatinine Est Cr Clr Drug Dosing Est GFR ( Amer) Est GFR (Non-Af Amer) BUN/Creatinine Ratio Glucose POC Glucose 129 H 136 H Calcium Phosphorus Magnesium Total Bilirubin Direct Bilirubin AST ALT Alkaline Phosphatase Total Protein Albumin 04/06/21 04/06/21 04/06/21 06:13 06:13 06:16 WBC 8.46 RBC 3.62 L Hgb 10.5 L Hct 31.1 L MCV 85.9 MCH 29.0 MCHC 33.8 RDW Std Deviation 46.6 H RDW Coeff of Linda 14.9 H Plt Count 249 MPV 10.1 Immature Gran % (Auto) 0.2 Neut % (Auto) 66.7 Lymph % (Auto) 14.3 [place] % (Auto) 14.7 Eos % (Auto) 3.9 Baso % (Auto) 0.2 Neut # (Auto) 5.64 Lymph # (Auto) 1.21 [place] # (Auto) 1.24 H Eos # (Auto) 0.33 Baso # (Auto) 0.02 Immature Gran # (Auto) 0.02 APTT 58.3 H* PTT Ratio 2.2 Sodium 136 Potassium 3.6 Chloride 105 Carbon Dioxide 26 Anion Gap 5.0 BUN 13 Creatinine 0.38 L Est Cr Clr Drug Dosing 98.4 Est GFR ( Amer) 112.0 Est GFR (Non-Af Amer) 96.6 BUN/Creatinine Ratio 35.7 H Glucose 133 H POC Glucose Calcium 7.0 L Phosphorus 0.6 L* D Magnesium 2.4 Total Bilirubin 1.0 D Direct Bilirubin 0.3 H AST 19 ALT 15 Alkaline Phosphatase 54 Total Protein 5.0 L Albumin 2.1 L 04/06/21 11:47 WBC RBC Hgb Hct MCV MCH MCHC RDW Std Deviation RDW Coeff of Linda Plt Count MPV Immature Gran % (Auto) Neut % (Auto) Lymph % (Auto) [place] % (Auto) Eos % (Auto) Baso % (Auto) Neut # (Auto) Lymph # (Auto) [place] # (Auto) Eos # (Auto) Baso # (Auto) Immature Gran # (Auto) APTT PTT Ratio Sodium Potassium Chloride Carbon Dioxide Anion Gap BUN Creatinine Est Cr Clr Drug Dosing Est GFR ( Amer) Est GFR (Non-Af Amer) BUN/Creatinine Ratio Glucose POC Glucose 105 H Calcium Phosphorus Magnesium Total Bilirubin Direct Bilirubin AST ALT Alkaline Phosphatase Total Protein Albumin Medications Administered Current Medications Atropine Sulfate (Atropine Sulfate 0.1 Mg/Ml 10ml Syr) 0.5 mg IV Q1M PRN PRN Reason: PACU Use-HR<40 &/or Bradycardi Ephedrine Sulfate (Ephedrine Sulfate 50 Mg/Ml Amp) 5 mg IV Q5M PRN PRN Reason: PACU Use Only-SBP<90 mmHg Stop: 05/04/21 13:12 Fentanyl Citrate (Fentanyl Citrate 100 Mcg/2 Ml Vial) 25 mcg IV Q5M PRN PRN Reason: PACU Use Only-Pain Stop: 04/18/21 13:12 Last Admin: 04/04/21 14:55 Dose: 25 mcg Fluticasone/Vilanterol (Fluticasone/Vilanterol 200/25mcg 14 Puffs/Inhaler) 1 puffs INH DAILY [facility] Stop: 05/03/21 08:59 Last Admin: 04/06/21 08:08 Dose: 1 puffs Heparin Sodium (Beef Lung) (Heparin 10 Unit/Ml 5 Ml Flush) 5 ml FLUSH PRN PRN PRN Reason: Flush Stop: 05/06/21 00:28 Pantoprazole Sodium 40 mg/ (Syringe) 10 mls @ 5 mls/min IV DAILY@1100 [facility] Stop: 05/03/21 10:59 Last Admin: 04/06/21 12:14 Dose: 5 mls/min Dextrose (D10w) 1,000 mls @ 0 mls/hr IV .Q0M PRN PRN Reason: protocol (see label comments) Stop: 05/04/21 08:47 Acetaminophen (Ofirmev) 1,000 mg in 100 mls @ 400 mls/hr IV Q8H [facility] Stop: 04/07/21 19:59 Last Infusion: 04/06/21 13:46 Dose: Infused Nutrition (Parenteral) 2,000 (ml/ TPN BAG) 2,000 mls @ 83.3 mls/hr IV .Q24H R[facility]OLPH; Protocol Stop: 04/07/21 19:59 Metoprolol Succinate (Metoprolol Succ 25mg Ext Rel Tab) 12.5 mg PO BID [facility] Stop: 05/04/21 09:14 Last Admin: 04/04/21 09:40 Dose: 12.5 mg Metoprolol Tartrate (Metoprolol Tartrate 1 Mg/Ml Vial) 5 mg IV Q5M PRN PRN Reason: Tachycardia Stop: 05/04/21 20:10 Miscellaneous Information (Tpn/Ppn Consult Pharmacy) 1 ea N/A UD PRN PRN Reason: Consult Stop: 05/04/21 07:43 Morphine Sulfate (Morphine Sulfate 2 Mg/Ml Carp) 2 mg IV Q1H PRN PRN Reason: Pain Stop: 04/18/21 19:15 Morphine Sulfate (Morphine Sulfate 4 Mg/Ml 1 Ml Carp\Vial) 4 mg IV Q1H PRN PRN Reason: Pain Stop: 04/18/21 19:15 Ondansetron HCl (Ondansetron Inj 2 Mg/Ml 2 Ml Vial) 4 mg IV Q4H PRN PRN Reason: Nausea And Vomiting Stop: 05/02/21 16:37 Last Admin: 04/02/21 16:54 Dose: 4 mg Ondansetron HCl (Ondansetron Inj 2 Mg/Ml 2 Ml Vial) 4 mg IV ONCE PRN PRN Reason: PACU Use Only-Nausea/Vomiting Stop: 05/04/21 13:12 Last Admin: 04/04/21 14:31 Dose: 4 mg Phenylephrine HCl (Phenylephrine 100mcg/Ml 5ml Syr) 100 mcg IV Q5M PRN PRN Reason: PACU Use Only-SBP<90 or HR>70 Stop: 05/04/21 13:12 PG Care Time/CCT Total # of Minutes Spent Total Time Spent with Patient: Total time spent is greater than 50% in coordination of care (as documented) at patient's floor/unit and/or counseling patient: Coding Level of Care Code 31869 Subseq Hosp Care Lvl 2 Diagnoses SBO (small bowel obstruction) K56.609 Atrial flutter with controlled response I48.92 Asthma J45.909 HTN (hypertension) I10 S/P mitral valve replacement with bioprosthetic valve Z95.3 S/P tricuspid valve repair Z98.890 Total bilirubin, elevated R17 Encounter for pre-operative examination Z01.818
[2021-04-06] MEDS ORDERED: Custom Central Pn 2,000 ML in TPN BAG 0 ML IV SCH (20:00)
[2021-04-06] MEDS ORDERED: FUROSEMIDE INJ 20 MG/2 ML VIAL IV ONE (20:31)
[2021-04-06] MEDS: METOPROLOL TARTRATE 1 MG/ML VIAL IV SCH (20:35)
[2021-04-06] MEDS ORDERED: LORazepam 0.5 MG/1 ML VIAL IV STA (20:35)
[2021-04-06 22:06] LABS: BUN Creatinine Ratio 29.7 (10-20); Calcium 6.9 mg/dl (8.5-10.1); Creatinine Clr Calc Pharmacy 101.1 ml/min; Est GFR (African American) 112.9 ml/min; Est GFR (Non-African American) 97.4 ml/min; Magnesium 2.1 mg/dl (1.8-2.4); Potassium 3.9 mmol/L (3.5-5.1)
[2021-04-06 22:19] LABS: Phosphorus 1.3 mg/dl (2.5-4.9)
[2021-04-07] MEDS: METOPROLOL TARTRATE 1 MG/ML VIAL IV SCH ×6 (00:02→19:54)
[2021-04-07] MEDS: ACETAMINOPHEN 1,000 MG/100 ML VIAL IV SCH ×2 (03:56→12:00)
--- NOTE | 2021-04-07 05:07 | Surgery Progress Note ---
Date of Service April 07, 2021 Assessment & Plan (1) SBO (small bowel obstruction): Plan: Status post exploratory laparotomy with lysis of adhesions on 04/04/2021 (POD #3) Continue n.p.o. status and NG tube until improved bowel function Continue TPN until oral intake is adequate to maintain caloric needs (supplement electrolytes as needed and TPN) Encourage use of incentive spirometry Continue analgesics Continue antiemetics Increase ambulation as able Follow-up on a.m. labs are available Patient was previously on heparin drip; will discuss with attending to this should be resumed and if so no additional DVT prevention will be required Admission and Anticipated Discharge Date Admission Date: April 02, 2021 Supervising Physician Co-Signing Physician Notes I personally saw and evaluated the patient with Wes Zaman PA-C and agree with the assessment and plan. Clamp trial NGT Hgb is stable Ok to restart heparin gtt, monitor any bleeding from incision with evelyn Continue TPN for now Subjective Patient is resting comfortably in bed. She denies chest pain or shortness of breath. Patient notes she has some abdominal pain but is improved since surgery. She denies any nausea or vomiting. She denies any bowel movement since surgery but has passed a small amount of flatus. She notes that she does not have much in the way of an appetite. She states that she has been out of bed since her surgery. Physical Exam Gastrointestinal (Abdomen): Patient's abdomen has minimal to mild distention. Bowel sounds are hypoactive. She is appropriate tenderness near her surgical incision. Her incision is intact with ash over a Evelyn drain which is draining some serosanguineous fluid. Results & Data ([facility]) Vital Signs (Past 12 Hours) Vital Signs Temp Pulse Pulse Resp BP BP Pulse Ox 04/07/21 03:57 91 H 124/81 04/07/21 03:45 36.4 C L 91 H 18 124/81 93 04/07/21 00:37 82 04/07/21 00:02 74 110/70 04/06/21 23:58 36.7 C 74 18 110/70 92 04/06/21 20:35 81 154/80 H 04/06/21 19:54 36.5 C 81 18 154/80 H 93 PG Care Time/CCT Total # of Minutes Spent Total Time Spent with Patient: Total time spent is greater than 50% in coordination of care (as documented) at patient's floor/unit and/or counseling patient: Coding Level of Care Code None Diagnoses SBO (small bowel obstruction) K56.609
[2021-04-07 06:40] LABS: Basophils # (auto) 0.01 K/uL (0-0.2); Basophils % (auto) 0.1 %; Eosinophils # (auto) 0.39 K/uL (0-0.5); Eosinophils % (auto) 4.2 %; Hematocrit (blood only) 29.5 % (37-47); Hemoglobin 9.8 g/dL (12.0-16.0); Immature Granulocytes # (auto) 0.02 K/uL (0.00-0.02); Immature Granulocytes % (auto) 0.2 %; Lymphocytes # (auto) 1.14 K/uL (1.2-3.4); Lymphocytes % (auto) 12.3 %; Mean Corpuscular Hemoglobin 28.5 pg (25-34); Mean Corpuscular Hgb Conc 33.2 g/dL (32-36); Mean Corpuscular Volume 85.8 fL (80-100); Mean Platelet Volume 9.6 fL (7.4-10.4); Monocytes # (auto) 1.23 K/uL (0.11-0.59); Monocytes % (auto) 13.2 %; Platelet Count 228 K/uL (130-400); RDW Coefficient of Variation 15.1 % (11.5-14.5); RDW Standard Deviation 47.6 fL (36.4-46.3); Red Blood Count 3.44 M/uL (4.2-5.4); White Blood Count 9.29 K/uL (4.8-10.8)
[2021-04-07 06:48] LABS: Partial Thromboplastin Ratio 1.1; Partial Thromboplastin Time 29.7 Seconds (21.0-31.0)
[2021-04-07 07:08] LABS: BUN Creatinine Ratio 30.2 (10-20); Calcium 6.6 mg/dl (8.5-10.1); Creatinine Clr Calc Pharmacy 109.5 ml/min; Est GFR (African American) 116.1 ml/min; Est GFR (Non-African American) 100.2 ml/min; Potassium 4.1 mmol/L (3.5-5.1)
[2021-04-07 07:26] LABS: Phosphorus 2.2 mg/dl (2.5-4.9)
--- NOTE | 2021-04-07 08:00 | XRay Report ---
XR chest 1V portable HISTORY: 86 years-old Female SOB acute shortness of breath COMPARISON: Chest radiograph 04/05/2021 TECHNIQUE: Portable AP view of the chest FINDINGS: Cardiac silhouette is enlarged, unchanged. Calcified plaque of the thoracic aorta. Pulmonary vascular congestion with interstitial coarsening is mildly progressed. Prior median sternotomy with mitral an nular calcifications and cardiac valvular prosthesis. Mild left greater than right bibasilar opacitie s are redemonstrated. Enteric tube distal tip overlies the gastric body. A right-sided PICC distal ti p overlies the right atrium. Cervical spinal fusion hardware. Degenerative changes of the shoulders a nd spine. IMPRESSION: 1. Cardiomegaly with pulmonary vascular congestion and progressed interstitial coarsening suggestive of pulmonary edema. 2. Persistent mild left greater than right bibasilar opacities 3. Unchanged positioning of the right-sided PICC and enteric tube. ACT 112: Negative or not required by law. The above report was generated using voice recognition software. It may contain grammatical, syntax o r spelling errors. Electronically signed by: Morris Whelan M.D. 04/07/2021 7:59 AM
[2021-04-07] MEDS ORDERED: FUROSEMIDE 40 MG/4 ML VIAL IV ONE (08:30)
[2021-04-07] MEDS: FLUTICASONE/VILANTEROL 200/25MCG 14 PUFFS/INHALER INH SCH (09:09)
--- NOTE | 2021-04-07 11:30 | Hospitalist Progress Note ---
Date of Service April 07, 2021 Assessment & Plan (1) SBO (small bowel obstruction): Plan: HGSBO s/p exploratory lap with MONALISA, POD#3. TPN initiated due to ongoing NPO status which was held yesterday due to hypophosphatemia. Surgery clamped NGT and pt allowed ice chips. Heparin held yesterday due to some bleeding from zacarias/oozing at incision site. Surgery agreeable to resume Heparin, will do so today. 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 Sutton who will follow up as an outpatient. Possible removal of NGT tomorrow and dietary advancement. (2) Atrial flutter with controlled response: Plan: Pt with h/o paroxysmal afib. Maintain on tele monitor, since NPO, continue scheduled Lopressor IV 5mg q4h and hold for SBP<100 or HR<70. Plan to resume ACT as outlined in #1. Keep K+ >4.0. Keep Mg >2.0. Repeat labs in AM. (3) Asthma: Plan: No acute issues, continue home inhaler, duonebs as needed (4) HTN (hypertension): Plan: At home, on metoprolol succinate 12.5 mg twice daily, triamterenehydrochlorothiazide 37.5-25 mg every other day. PO meds on hold d/t NPO status. BP acceptable right now, will continue to monitor. Hoping to resume oral meds tomorrow. (5) Hypophosphatemia: Plan: Replaced and improved. Level 2.2 today, given resumption of TPN, will order another 15 mmol of Kphos. Follow levels. 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 She has been NPO and receiving IVF on and off for days. In addition, her Triametere HCTZ has been on hold. Phos level yesterday critically low at 0.6. Received dose of IV Lasix yesterday 20mg x1 but still with +fluid balance. Another single dose of IV Lasix 40mg x1 ordered. Monitor output. Sx improved. F/U CXR. Plan: Trend labs, AM cbc, cmp, mg and phos. Will continue to follow along. Admission and Anticipated Discharge Date Admission Date: April 02, 2021 Subjective Patient seen on rounds this morning. S/P Exp lap with MONALISA by Dr. Gutierrez, POD#3. Resting in bedside recliner, reports minimal abdominal pain. She has had a BM this morning, passing flatus. Denies n/v. Had episode of SOB yesterday, CXR ordered with findings of PVC, ordered a dose of IV Lasix 20mg with favorable response but still +fluid balance. Pt reports when she takes Lasix she gets "weak." She denies chest pain, dyspnea this morning. Denies cough, fever, chills. Jain removed yesterday and she is voiding without issue. Surgery rounded this morning, agreeable to resumption of Heparin. NGT clamped and tolerating ice chips. Review of Systems Review of Systems: CONSTITUTIONAL: +legs feel weak. Denies weight loss/gain, fever and chills, fatigue, malaise. HEENT: Denies changes in vision and hearing. RESPIRATORY: +SOB yesterday, none today. Denies cough, wheezing. CV: Denies palpitations, CP, lower extremity edema, orthopnea, PND. GI: +mild abdominal pain, denies nausea, vomiting. No BM yet. +flatus MUSCULOSKELETAL: Denies myalgia and joint pain. SKIN: Denies rash and pruritus. NEUROLOGICAL: Denies headache, syncope, focal weakness, numbness, tingling. PSYCHIATRIC: Denies recent changes in mood. Denies anxiety and depression. Physical Exam Physical Exam: GENERAL: 86 yo elderly cooperative WF. Well-developed, well-nourished. NAD. HENT: NGT remains in place but clamped. LUNGS: Clear to auscultation bilaterally. No accessory muscle use. No W/R/R. CARDIOVASCULAR: Regular rate and rhythm. No M/G/R. No JVD. ABDOMEN: Soft, minimal tenderness at incision site. Zacarias drain at top of incision, no active bleeding. +BS but hypoactive. Telma intact. Previous incision site in LLQ is intact, telma in place. EXTREMITIES: No edema. Non-tender. Peripheral pulses +2/4. NEUROLOGIC: A&O x3. SKIN: Warm, dry, intact. No rashes or lesions. Results & Data Results & Data ([facility]) Vital Signs (Past 12 Hours) Vital Signs Temp Pulse Pulse Resp BP BP Pulse Ox 04/07/21 09:09 78 114/72 04/07/21 08:30 83 04/07/21 06:12 36.4 C L 72 18 114/72 92 04/07/21 03:57 91 H 124/81 04/07/21 03:45 36.4 C L 91 H 18 124/81 93 04/07/21 00:37 82 04/07/21 00:02 74 110/70 04/06/21 23:58 36.7 C 74 18 110/70 92 Laboratory Results Laboratory Results - last 24 hr 04/06/21 04/06/21 04/06/21 11:47 18:31 21:08 WBC RBC Hgb Hct MCV MCH MCHC RDW Std Deviation RDW Coeff of Linda Plt Count MPV Immature Gran % (Auto) Neut % (Auto) Lymph % (Auto) [place] % (Auto) Eos % (Auto) Baso % (Auto) Neut # (Auto) Lymph # (Auto) [place] # (Auto) Eos # (Auto) Baso # (Auto) Immature Gran # (Auto) APTT PTT Ratio Sodium 134 L Potassium 3.9 Chloride 107 Carbon Dioxide 21 Anion Gap 6.0 BUN 11 Creatinine 0.37 L Est Cr Clr Drug Dosing 101.1 Est GFR ( Amer) 112.9 Est GFR (Non-Af Amer) 97.4 BUN/Creatinine Ratio 29.7 H Glucose 95 POC Glucose 105 H 91 Calcium 6.9 L Phosphorus 1.3 L* Magnesium 2.1 04/07/21 04/07/21 04/07/21 00:00 05:41 06:16 WBC RBC Hgb Hct MCV MCH MCHC RDW Std Deviation RDW Coeff of Linda Plt Count MPV Immature Gran % (Auto) Neut % (Auto) Lymph % (Auto) [place] % (Auto) Eos % (Auto) Baso % (Auto) Neut # (Auto) Lymph # (Auto) [place] # (Auto) Eos # (Auto) Baso # (Auto) Immature Gran # (Auto) APTT 29.7 PTT Ratio 1.1 Sodium Potassium Chloride Carbon Dioxide Anion Gap BUN Creatinine Est Cr Clr Drug Dosing Est GFR ( Amer) Est GFR (Non-Af Amer) BUN/Creatinine Ratio Glucose POC Glucose 97 90 Calcium Phosphorus Magnesium 04/07/21 04/07/21 06:16 06:16 WBC 9.29 RBC 3.44 L Hgb 9.8 L Hct 29.5 L MCV 85.8 MCH 28.5 MCHC 33.2 RDW Std Deviation 47.6 H RDW Coeff of Linda 15.1 H Plt Count 228 MPV 9.6 Immature Gran % (Auto) 0.2 Neut % (Auto) 70.0 Lymph % (Auto) 12.3 [place] % (Auto) 13.2 Eos % (Auto) 4.2 Baso % (Auto) 0.1 Neut # (Auto) 6.50 Lymph # (Auto) 1.14 L [place] # (Auto) 1.23 H Eos # (Auto) 0.39 Baso # (Auto) 0.01 Immature Gran # (Auto) 0.02 APTT PTT Ratio Sodium 136 Potassium 4.1 Chloride 107 Carbon Dioxide 24 Anion Gap 5.0 BUN 10 Creatinine 0.34 L Est Cr Clr Drug Dosing 109.5 Est GFR ( Amer) 116.1 Est GFR (Non-Af Amer) 100.2 BUN/Creatinine Ratio 30.2 H Glucose 87 POC Glucose Calcium 6.6 L Phosphorus 2.2 L Magnesium 2.0 Diagnostic Findings Chest X-Ray 04/06/21 20:34 XR chest 1V portable HISTORY: 86 years-old Female SOB acute shortness of breath COMPARISON: Chest radiograph 04/05/2021 TECHNIQUE: Portable AP view of the chest FINDINGS: Cardiac silhouette is enlarged, unchanged. Calcified plaque of the thoracic aorta. Pulmonary vascular congestion with interstitial coarsening is mildly progressed. Prior median sternotomy with mitral annular calcifications and cardiac valvular prosthesis. Mild left greater than right bibasilar opacities are redemonstrated. Enteric tube distal tip overlies the gastric body. A right- sided PICC distal tip overlies the right atrium. Cervical spinal fusion hardware. Degenerative changes of the shoulders and spine. IMPRESSION: 1. Cardiomegaly with pulmonary vascular congestion and progressed interstitial coarsening suggestive of pulmonary edema. 2. Persistent mild left greater than right bibasilar opacities 3. Unchanged positioning of the right-sided PICC and enteric tube. ACT 112: Negative or not required by law. The above report was generated using voice recognition software. It may contain grammatical, syntax or spelling errors. Electronically signed by: Morris Whelan M.D. 04/07/2021 7:59 AM Medications Administered Current Medications Atropine Sulfate (Atropine Sulfate 0.1 Mg/Ml 10ml Syr) 0.5 mg IV Q1M PRN PRN Reason: PACU Use-HR<40 &/or Bradycardi Fluticasone/Vilanterol (Fluticasone/Vilanterol 200/25mcg 14 Puffs/Inhaler) 1 puffs INH DAILY [facility] Stop: 05/03/21 08:59 Last Admin: 04/07/21 09:09 Dose: 1 puffs Pantoprazole Sodium 40 mg/ (Syringe) 10 mls @ 5 mls/min IV DAILY@1100 [facility] Stop: 05/03/21 10:59 Last Admin: 04/06/21 12:14 Dose: 5 mls/min Acetaminophen (Ofirmev) 1,000 mg in 100 mls @ 400 mls/hr IV Q8H [facility] Stop: 04/07/21 19:59 Last Infusion: 04/07/21 04:17 Dose: Infused Nutrition (Parenteral) 2,000 (ml/ TPN BAG) 2,000 mls @ 0 mls/hr IV .Q0M [facility]; Protocol Stop: 04/07/21 19:59 Last Infusion: 04/06/21 22:35 Dose: 0 mls/hr Potassium Phosphate 15 mmol/ (Sodium Chloride) 255 mls @ 88 mls/hr IV ONE ONE; Protocol Stop: 04/07/21 14:53 Metoprolol Succinate (Metoprolol Succ 25mg Ext Rel Tab) 12.5 mg PO BID [facility] Stop: 05/04/21 09:14 Last Admin: 04/04/21 09:40 Dose: 12.5 mg Metoprolol Tartrate (Metoprolol Tartrate 1 Mg/Ml Vial) 5 mg IV Q4 [facility] Stop: 05/06/21 19:59 Last Admin: 04/07/21 09:09 Dose: 5 mg Miscellaneous Information (Tpn/Ppn Consult Pharmacy) 1 ea N/A UD PRN PRN Reason: Consult Stop: 05/04/21 07:43 Morphine Sulfate (Morphine Sulfate 2 Mg/Ml Carp) 2 mg IV Q1H PRN PRN Reason: Pain Stop: 04/18/21 19:15 Morphine Sulfate (Morphine Sulfate 4 Mg/Ml 1 Ml Carp\\Vial) 4 mg IV Q1H PRN PRN Reason: Pain Stop: 04/18/21 19:15 Ondansetron HCl (Ondansetron Inj 2 Mg/Ml 2 Ml Vial) 4 mg IV Q4H PRN PRN Reason: Nausea And Vomiting Stop: 05/02/21 16:37 Last Admin: 04/02/21 16:54 Dose: 4 mg Ondansetron HCl (Ondansetron Inj 2 Mg/Ml 2 Ml Vial) 4 mg IV ONCE PRN PRN Reason: PACU Use Only-Nausea/Vomiting Stop: 05/04/21 13:12 Last Admin: 04/04/21 14:31 Dose: 4 mg Phenylephrine HCl (Phenylephrine 100mcg/Ml 5ml Syr) 100 mcg IV Q5M PRN PRN Reason: PACU Use Only-SBP<90 or HR>70 Stop: 05/04/21 13:12 PG Care Time/CCT Total # of Minutes Spent Total Time Spent with Patient: Total time spent is greater than 50% in coordination of care (as documented) at patient's floor/unit and/or counseling patient: Coding Level of Care Code 86972 Subseq Hosp Care Lvl 2 Diagnoses SBO (small bowel obstruction) K56.609 Atrial flutter with controlled response I48.92 Asthma J45.909 HTN (hypertension) I10 Hypophosphatemia E83.39 CHF (congestive heart failure) I50.9
[2021-04-07] MEDS ORDERED: POTASSIUM PHOSPHATE 15 MMOL in SODIUM CHLORIDE 0.9% 250 ML IV ONE (12:00)
[2021-04-07] MEDS: PANTOprazole 40 MG in SYRINGE 0 ML IV SCH (12:02)
[2021-04-08] MEDS: METOPROLOL TARTRATE 1 MG/ML VIAL IV SCH ×3 (00:09→08:20)
[2021-04-08] MEDS: Custom Central Pn 2,000 ML in TPN BAG 0 ML IV SCH ×2 (03:37→16:50)
--- NOTE | 2021-04-08 05:34 | Surgery Progress Note ---
Date of Service April 08, 2021 Assessment & Plan (1) SBO (small bowel obstruction): Plan: Status post exploratory laparotomy with lysis of adhesions on 04/04/2021 (POD #4) NG tube was removed yesterday; bowel function has returned so we will discuss with attending if we can advance patient to clear liquids. Continue TPN with electrolyte supplementation until oral intake is deemed adequate Continue use of incentive spirometry Continue analgesics Continue antiemetics Ambulate as able We will discuss with attending if heparin drip should be resumed Admission and Anticipated Discharge Date Admission Date: April 02, 2021 Supervising Physician Co-Signing Physician Notes I personally saw and evaluated the patient with Wes Zaman PA-C and agree with the assessment and plan. NGT removed yesterday, has large BM Start clears Ok to restart heparin gtt, monitor any bleeding from incision with evelyn Continue TPN for now, may be able to stop TPN tomorrow Subjective Patient is resting comfortably in bed. She notes her pain is well controlled. She denies any cough or shortness of breath. She denies any fevers, shakes, chills. She denies any nausea or vomiting. She notes that she had a large bowel movement this morning. Physical Exam Gastrointestinal (Abdomen): Abdomen is soft with minimal distention. Bowel sounds are hypoactive. Patient's incision is intact with ash closed over [place] drain. There are no signs of surgical incision infection. Results & Data ([facility]) Vital Signs (Past 12 Hours) Vital Signs Temp Pulse Pulse Pulse Resp BP BP 04/08/21 03:36 36.6 C 89 20 123/68 04/07/21 23:07 37.0 C 84 16 98/61 L 04/07/21 20:05 36.7 C 77 16 107/68 04/07/21 19:54 78 135/78 Pulse Ox 04/08/21 03:36 92 04/07/21 23:07 94 04/07/21 20:05 04/07/21 19:54 PG Care Time/CCT Total # of Minutes Spent Total Time Spent with Patient: Total time spent is greater than 50% in coordination of care (as documented) at patient's floor/unit and/or counseling patient: Coding Level of Care Code None Diagnoses SBO (small bowel obstruction) K56.609
[2021-04-08 06:06] LABS: Basophils # (auto) 0.03 K/uL (0-0.2); Basophils % (auto) 0.3 %; Eosinophils # (auto) 0.33 K/uL (0-0.5); Eosinophils % (auto) 3.2 %; Hematocrit (blood only) 29.6 % (37-47); Hemoglobin 9.8 g/dL (12.0-16.0); Immature Granulocytes # (auto) 0.07 K/uL (0.00-0.02); Immature Granulocytes % (auto) 0.7 %; Lymphocytes % (auto) 13.6 %; Mean Corpuscular Hemoglobin 28.9 pg (25-34); Mean Corpuscular Hgb Conc 33.1 g/dL (32-36); Mean Corpuscular Volume 87.3 fL (80-100); Mean Platelet Volume 9.5 fL (7.4-10.4); Monocytes # (auto) 0.94 K/uL (0.11-0.59); Monocytes % (auto) 9.2 %; Neutrophils # (auto) 7.49 K/uL (1.4-6.5); Platelet Count 234 K/uL (130-400); RDW Coefficient of Variation 15.1 % (11.5-14.5); RDW Standard Deviation 48.6 fL (36.4-46.3); Red Blood Count 3.39 M/uL (4.2-5.4); White Blood Count 10.26 K/uL (4.8-10.8)
[2021-04-08 06:20] LABS: Partial Thromboplastin Ratio 1.1; Partial Thromboplastin Time 29.9 Seconds (21.0-31.0)
[2021-04-08] MEDS ORDERED: Heparin IV Adult Wt-Based Standard *NO* Bolus Protocol IV SCH (08:15)
[2021-04-08] MEDS: FLUTICASONE/VILANTEROL 200/25MCG 14 PUFFS/INHALER INH SCH (08:20)
[2021-04-08] MEDS: HEPARIN SODIUM/DEXTROSE 25,000 UNITS/500 ML BAG IV SCH (08:41)
[2021-04-08 08:50] LABS: BUN Creatinine Ratio 23.7 (10-20); Creatinine Clr Calc Pharmacy 80.9 ml/min; Est GFR (African American) 105.1 ml/min; Est GFR (Non-African American) 90.7 ml/min; Phosphorus 1.6 mg/dl (2.5-4.9); Potassium 3.6 mmol/L (3.5-5.1)
[2021-04-08] MEDS ORDERED: POTASSIUM PHOS 3 MMOL/1 ML INFUSION IV STA (10:53)
[2021-04-08] MEDS ORDERED: COUGH DROP (SUGAR FREE) LOZ 24 LOZ/1 BOX BUCCAL PRN (11:17)
--- NOTE | 2021-04-08 11:29 | Hospitalist Progress Note ---
Date of Service April 08, 2021 Assessment & Plan (1) SBO (small bowel obstruction): Plan: HGSBO s/p exploratory lap with MONALISA, POD#4. NGT removed yesterday, diet advanced to clear liquids which she is tolerating well. Surgery mentioned some bleeding at incision site but is ok with Heparin and resuming Coumadin this evening. Will check INR on 11. Monitor for bleeding. Cut TPN. (2) Atrial flutter with controlled response: Plan: Pt with h/o paroxysmal afib. While NPO was placed on scheduled IV Lopressor. Will d/c IV Lopressor and resume her oral Toprol XL 12.5mg BID, first dose now. Would monitor on tele until at least tomorrow to ensure she remains stable, then could consider transfer her to med/surg. Heparin restarted, resume Coumadin this evening. Check INR in 48 hours. K+ this AM 3.6, will replace to maintain K+>4.0. (3) Asthma: Plan: No acute issues, continue home inhaler, duonebs as needed (4) HTN (hypertension): Plan: At home, on metoprolol succinate 12.5 mg twice daily, triamterenehydrochlorothiazide 37.5-25 mg every other day. Resume Toprol today, will monitor BP. May not need to resume Triamterene HCTZ at d/c. (5) Hypophosphatemia: Plan: Phos down again this AM to 1.6. TPN cut. Replacement ordered. F/U in AM. 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 She has been NPO and receiving IVF on and off for days. In addition, her Triametere HCTZ has been on hold. She has received two doses of Lasix, despite that, still with +fluid balance. Pulse ox 91% on room air. No crackles on exam. Good air exchange, no JVD or LE edema. Obtain f/u CXR today. Plan: Trend labs, AM cbc, cmp, mg and phos. Will continue to closely follow along. Discussed case with Dr. Singleton, surgeon, who was following patient this weekend and was in agreement with adjustments made in her care. Admission and Anticipated Discharge Date Admission Date: April 02, 2021 Subjective Patient seen on rounds this morning. S/P Exp lap with MONALISA by Dr. Gutierrez, POD#4. Resting in bedside recliner, reports minimal abdominal pain. She had large BM this morning, passing flatus. Denies n/v. Denies further episodes of dyspnea. She denies chest pain, palpitations, cough, fever, chills, headache, or symptoms. NGT removed yesterday, diet advanced to clears, she is tolerating well. Some bleeding at incision site noted by surgery. Pt has no quest ions/concerns at this time. Review of Systems Review of Systems: CONSTITUTIONAL: Denies weight loss/gain, fever and chills, fatigue, malaise. HEENT: Denies changes in vision and hearing. RESPIRATORY: Denies shortness of breath, cough, wheezing. CV: Denies palpitations, CP, lower extremity edema, orthopnea, PND. GI: +mild abdominal pain, denies nausea, vomiting, diarrhea. MUSCULOSKELETAL: Denies myalgia and joint pain. SKIN: Denies rash and pruritus. NEUROLOGICAL: Denies headache, syncope, focal weakness, numbness, tingling. PSYCHIATRIC: Denies recent changes in mood. Denies anxiety and depression. Physical Exam Physical Exam: GENERAL: 86 yo elderly cooperative WF. Well-developed, well-nourished. NAD. LUNGS: Diminished in bases but otherwise CTAB. No accessory muscle use. No W/R/R. CARDIOVASCULAR: Regular rate and rhythm. No M/G/R. No JVD. ABDOMEN: Soft, minimal tenderness at incision site. Zacarias drain noted, no active bleeding. +BS. Telma intact. Previous incision site in LLQ is intact, telma in place. EXTREMITIES: No edema. Non-tender. Peripheral pulses +2/4. NEUROLOGIC: A&O x3. SKIN: Warm, dry, intact. No rashes or lesions. Results & Data Results & Data ([facility]) Vital Signs (Past 12 Hours) Vital Signs Temp Pulse Pulse Pulse Resp BP BP 04/08/21 08:20 85 120/68 04/08/21 08:15 86 04/08/21 07:00 36.7 C 85 18 120/68 04/08/21 03:36 36.6 C 89 20 123/68 Pulse Ox 04/08/21 08:20 04/08/21 08:15 04/08/21 07:00 91 04/08/21 03:36 92 Laboratory Results 04/08/21 05:47 04/08/21 05:51 phos: 1.6 M.0 Diagnostic Findings None in last 24 hrs Medications Administered Current Medications Fluticasone/Vilanterol (Fluticasone/Vilanterol 200/25mcg 14 Puffs/Inhaler) 1 puffs INH DAILY [facility] Stop: 05/03/21 08:59 Last Admin: 04/08/21 08:20 Dose: 1 puffs Documented by: Pantoprazole Sodium 40 mg/ (Syringe) 10 mls @ 5 mls/min IV DAILY@1100 [facility] Stop: 05/03/21 10:59 Last Admin: 04/07/21 12:02 Dose: 5 mls/min Nutrition (Parenteral) 2,000 (ml/ TPN BAG) 2,000 mls @ 83 mls/hr IV .Q24H [facility]; Protocol Stop: 04/08/21 15:59 Last Admin: 04/08/21 03:37 Dose: 83.3 mls/hr Documented by: Heparin Sodium/Dextrose (Heparin Sodium/Dextrose) 25,000 units in 500 mls @ 21 mls/hr IV .[id number] [facility]; Protocol Stop: 05/08/21 08:29 Last Admin: 04/08/21 08:41 Dose: 1,050 units/hr, 21 mls/hr Potassium Phosphate 30 mmol/ (Sodium Chloride) 510 mls @ 88 mls/hr IV ONE ONE Stop: 04/08/21 17:17 Menthol (Cough Drop (Sugar Free) Natalia 24 Natalia/1 Box) 1 natalia BUCCAL NOW PRN PRN Reason: Sore Throat Metoprolol Succinate (Metoprolol Succ 25mg Ext Rel Tab) 12.5 mg PO BID [facility] Stop: 05/04/21 09:14 Last Admin: 04/04/21 09:40 Dose: 12.5 mg Morphine Sulfate (Morphine Sulfate 2 Mg/Ml Carp) 2 mg IV Q1H PRN PRN Reason: Pain Stop: 04/18/21 19:15 Morphine Sulfate (Morphine Sulfate 4 Mg/Ml 1 Ml Carp\Vial) 4 mg IV Q1H PRN PRN Reason: Pain Stop: 04/18/21 19:15 Ondansetron HCl (Ondansetron Inj 2 Mg/Ml 2 Ml Vial) 4 mg IV Q4H PRN PRN Reason: Nausea And Vomiting Stop: 05/02/21 16:37 Last Admin: 04/02/21 16:54 Dose: 4 mg PG Care Time/CCT Total # of Minutes Spent Total Time Spent with Patient: Total time spent is greater than 50% in coordination of care (as documented) at patient's floor/unit and/or counseling patient: Coding Level of Care Code 70253 Subseq Hosp Care Lvl 2 Diagnoses SBO (small bowel obstruction) K56.609 Atrial flutter with controlled response I48.92 Asthma J45.909 HTN (hypertension) I10 Hypophosphatemia E83.39 CHF (congestive heart failure) I50.9
[2021-04-08] MEDS ORDERED: POTASSIUM PHOSPHATE 30 MMOL in SODIUM CHLORIDE 0.9% 500 ML IV ONE (11:30)
[2021-04-08] MEDS ORDERED: POTASSIUM CHLORIDE CRTAB 20 MEQ TABCR PO STA (11:47)
[2021-04-08] MEDS: PANTOprazole 40 MG in SYRINGE 0 ML IV SCH (11:47)
--- NOTE | 2021-04-08 12:26 | XRay Report ---
XR chest 2V PA/lateral CLINICAL HISTORY: f/u chf COMPARISON STUDY: Chest radiograph April 06, 2021. FINDINGS: Postoperative findings within the anterior cervical spine, median sternotomy wires and pros thetic cardiac valve are noted. There is no pneumothorax. There are trace bilateral pleural effusions . Mild bibasilar opacities favor atelectasis. Pulmonary edema has resolved. Cardiomegaly is unchanged . IMPRESSION: 1. Resolution of pulmonary edema. 2. Trace bilateral pleural effusions with associated opacities suggestive of atelectasis. ACT 112: Negative or not required by law. Electronically signed by: Rob Mackay M.D. 04/08/2021 12:25 PM
[2021-04-08 15:07] LABS: Partial Thromboplastin Ratio 1.8
[2021-04-08 15:12] LABS: Partial Thromboplastin Time 47.3 Seconds (21.0-31.0)
[2021-04-08] MEDS: WARFARIN SOD 6 MG TAB PO SCH (17:49)
[2021-04-08] MEDS: METOPROLOL SUCC 25MG EXT REL TAB PO SCH (20:47)
[2021-04-08] MEDS: ACETAMINOPHEN 325 MG TAB PO PRN (21:30)
[2021-04-08] MEDS: ONDANSETRON INJ 2 MG/ML 2 ML VIAL IV PRN (23:27)
[2021-04-09 07:28] LABS: Basophils # (auto) 0.02 K/uL (0-0.2); Basophils % (auto) 0.2 %; Hematocrit (blood only) 30.3 % (37-47); Hemoglobin 10.1 g/dL (12.0-16.0); Immature Granulocytes # (auto) 0.13 K/uL (0.00-0.02); Immature Granulocytes % (auto) 1.6 %; Lymphocytes # (auto) 1.19 K/uL (1.2-3.4); Lymphocytes % (auto) 14.7 %; Mean Corpuscular Hemoglobin 29.1 pg (25-34); Mean Corpuscular Hgb Conc 33.3 g/dL (32-36); Mean Corpuscular Volume 87.3 fL (80-100); Monocytes # (auto) 0.89 K/uL (0.11-0.59); Neutrophils # (auto) 5.44 K/uL (1.4-6.5); Neutrophils % (auto) 67.5 %; Platelet Count 237 K/uL (130-400); RDW Coefficient of Variation 15.2 % (11.5-14.5); RDW Standard Deviation 48.3 fL (36.4-46.3); Red Blood Count 3.47 M/uL (4.2-5.4); White Blood Count 8.07 K/uL (4.8-10.8)
[2021-04-09 07:54] LABS: Partial Thromboplastin Ratio 2.9
[2021-04-09 07:59] LABS: BUN Creatinine Ratio 15.6 (10-20); Calcium 6.9 mg/dl (8.5-10.1); Creatinine Clr Calc Pharmacy 95.5 ml/min; Est GFR (Non-African American) 95.8 ml/min; Potassium 3.9 mmol/L (3.5-5.1)
[2021-04-09 08:13] LABS: Phosphorus 1.4 mg/dl (2.5-4.9)
[2021-04-09] MEDS: HEPARIN SODIUM/DEXTROSE 25,000 UNITS/500 ML BAG IV SCH (08:23)
[2021-04-09] MEDS ORDERED: POTASSIUM PHOS 3 MMOL/1 ML INFUSION IV STA (08:24)
[2021-04-09] MEDS: FLUTICASONE/VILANTEROL 200/25MCG 14 PUFFS/INHALER INH SCH (08:35)
[2021-04-09] MEDS: METOPROLOL SUCC 25MG EXT REL TAB PO SCH ×2 (08:36→20:45)
[2021-04-09] MEDS ORDERED: POTASSIUM PHOSPHATE 15 MMOL in SODIUM CHLORIDE 0.9% 250 ML IV ONE (09:00)
[2021-04-09] MEDS: POT PHOSPHATE MONOBASIC W/ SOD TAB PO SCH ×4 (10:14→20:45)
--- NOTE | 2021-04-09 11:09 | Surgery Progress Note ---
Date of Service April 09, 2021 Assessment & Plan (1) SBO (small bowel obstruction): Plan: POD 5 ex lap/MONALISA replacing phos advance to full liquids transfer to floor will check incision when back in bed Admission and Anticipated Discharge Date Admission Date: April 02, 2021 Supervising Physician Co-Signing Physician Notes I personally saw and evaluated the patient with Rajat Faust PA-C and agree with the assessment and plan. She is tolerating clears, advance to fulls Continue to hold TPN Replace lytes PRN Subjective multiple BMs, loose, minimal pain, tolerating liquids Physical Exam Gastrointestinal (Abdomen): Inspection/Auscultation: abdomen not distended Percussion/Palpation: abdomen soft Results & Data ([facility]) Vital Signs (Past 12 Hours) Vital Signs Temp Pulse Pulse Pulse Resp BP Pulse Ox 04/09/21 08:48 36.7 C 102 H 16 127/83 96 04/09/21 07:48 88 04/09/21 04:00 36.7 C 89 16 118/77 92 PG Care Time/CCT Total # of Minutes Spent Total Time Spent with Patient: Total time spent is greater than 50% in coordination of care (as documented) at patient's floor/unit and/or counseling patient: Coding Level of Care Code None Diagnoses SBO (small bowel obstruction) K56.609
[2021-04-09] MEDS ORDERED: FUROSEMIDE 40 MG/4 ML VIAL IV ONE (11:13)
[2021-04-09 11:40] LABS: Prothrombin Time 10.3 Seconds (9.0-12.0)
--- NOTE | 2021-04-09 12:20 | Hospitalist Progress Note ---
Date of Service April 09, 2021 Assessment & Plan (1) SBO (small bowel obstruction): Plan: Admitted for small bowel obstruction status post exploratory laparotomy with MONALISA 04/04/2021 NGT removed 04/07 Patient doing well with advancing diet, no abdominal pain on assessment Management per primary team, TPN previously discontinued Pending INR check tomorrow No bleeding at incision site this morning (2) Atrial flutter with controlled response: Plan: Paroxysmal A. fib Coumadin resumed, continue heparin bridge, INR check 04/10 Potassium 3.9, 10 M EQ's repletion ordered Adequately rate controlled, continue oral Toprol 12.5 mg twice daily (3) Asthma: Plan: No acute exacerbation Continue home inhalers (4) HTN (hypertension): Plan: Continue metoprolol as above Trihydrochlorothiazide held, patient remains normotensive Clinically with some volume overload today, likely 2/2 high volume of infusions especially with phosphate repletion. 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 Will continue to closely follow along. Discussed case with Dr. Singleton, surgeon, who was following patient this weekend and was in agreement with adjustments made in her care. Admission and Anticipated Discharge Date Admission Date: April 02, 2021 Subjective Seen the bedside this morning. Feels mostly well, but has noticed increased swelling and shininess of her legs. Denies difficulty breathing, shortness of breath, cough. Feels like she has extra fluid. No fever/chills/sweats. Has had loose BMs. No additional questions or concerns at time of evaluation Review of Systems Review of Systems: All systems reviewed & are unremarkable except as noted in Subjective Physical Exam Physical Exam: General: A&Ox3. NAD. Cooperative. HEENT: Atraumatic, normocephalic. Visual acuity and hearing grossly intact. Pupils equal and reactive to light and accommodation. Pulm: Trace bibasilar crackles, otherwise -wheezes, -rales, -rhonchi. Symmetrical chest rise. No increase work of breathing. No respiratory distress. Cardiac: RRR, -mrg. Radial pulses intact and symmetrical. Abdominal: No abdominal distention, C/D/I. No tenderness on palpation, no rebound Extremities: Moving all extremities equally. Bilateral lower extremities with 1+ edema, PT pulse intact and symmetrical bilaterally, no lower extremity warmth/ulceration/erythema/pain. Results & Data Results & Data ([facility]) Vital Signs (Past 12 Hours) Vital Signs Temp Pulse Pulse Pulse Resp BP Pulse Ox 04/09/21 12:02 36.7 C 87 18 121/77 98 04/09/21 08:48 36.7 C 102 H 16 127/83 96 04/09/21 07:48 88 04/09/21 04:00 36.7 C 89 16 118/77 92 PG Care Time/CCT Total # of Minutes Spent Total Time Spent with Patient: Total time spent is greater than 50% in coordination of care (as documented) at patient's floor/unit and/or counseling patient: Coding Level of Care Code 72908 Subseq Hosp Care Lvl 2 Diagnoses SBO (small bowel obstruction) K56.609 Atrial flutter with controlled response I48.92 Asthma J45.909 HTN (hypertension) I10 Hypophosphatemia E83.39 CHF (congestive heart failure) I50.9
[2021-04-09] MEDS: PANTOprazole 40 MG in SYRINGE 0 ML IV SCH (15:07)
[2021-04-09 16:50] LABS: Partial Thromboplastin Ratio 2.1
[2021-04-09 16:51] LABS: Partial Thromboplastin Time 56.4 Seconds (21.0-31.0)
[2021-04-09] MEDS: WARFARIN SOD 6 MG TAB PO SCH (17:23)
[2021-04-10] MEDS: HEPARIN SODIUM/DEXTROSE 25,000 UNITS/500 ML BAG IV SCH (05:51)
[2021-04-10 06:31] LABS: Basophils # (auto) 0.03 K/uL (0-0.2); Basophils % (auto) 0.3 %; Eosinophils # (auto) 0.34 K/uL (0-0.5); Eosinophils % (auto) 3.3 %; Hematocrit (blood only) 27.7 % (37-47); Hemoglobin 9.4 g/dL (12.0-16.0); Immature Granulocytes # (auto) 0.11 K/uL (0.00-0.02); Immature Granulocytes % (auto) 1.1 %; Lymphocytes # (auto) 1.64 K/uL (1.2-3.4); Lymphocytes % (auto) 15.9 %; Mean Corpuscular Hemoglobin 29.1 pg (25-34); Mean Corpuscular Hgb Conc 33.9 g/dL (32-36); Mean Corpuscular Volume 85.8 fL (80-100); Mean Platelet Volume 9.8 fL (7.4-10.4); Monocytes # (auto) 1.29 K/uL (0.11-0.59); Monocytes % (auto) 12.5 %; Neutrophils # (auto) 6.92 K/uL (1.4-6.5); Neutrophils % (auto) 66.9 %; Platelet Count 235 K/uL (130-400); RDW Coefficient of Variation 15.4 % (11.5-14.5); RDW Standard Deviation 48.2 fL (36.4-46.3); Red Blood Count 3.23 M/uL (4.2-5.4); White Blood Count 10.33 K/uL (4.8-10.8)
[2021-04-10 07:02] LABS: INR 1.2 (0.9-1.1); Partial Thromboplastin Ratio 2.8; Prothrombin Time 12.4 Seconds (9.0-12.0)
[2021-04-10 07:09] LABS: Albumin Level 2.2 gm/dl (3.4-5.0); BUN Creatinine Ratio 10.3 (10-20); Calcium 6.7 mg/dl (8.5-10.1); Creatinine Clr Calc Pharmacy 66.5 ml/min; Est GFR (African American) 98.5 ml/min; Potassium 3.4 mmol/L (3.5-5.1)
[2021-04-10 07:15] LABS: Albumin Globulin Ratio 0.8 (0.9-2); Bilirubin,Total 0.9 mg/dl (0.2-1); Globulin 2.8 gm/dl (2.5-4.0); Phosphorus 2.4 mg/dl (2.5-4.9)
--- NOTE | 2021-04-10 08:47 | Surgery Progress Note ---
Date of Service April 10, 2021 Assessment & Plan (1) SBO (small bowel obstruction): Plan: POD 6 ex lap/MONALISA add boost between meals, advance diet later today or tomorrow will remove evelyn when back in bed K+ ordered by med serviceana cristina improved Admission and Anticipated Discharge Date Admission Date: April 02, 2021 Subjective sitting in chair, tolerating full liquids but small amounts Physical Exam Gastrointestinal (Abdomen): Inspection/Auscultation: abdomen not distended Percussion/Palpation: abdomen soft Results & Data ([facility]) Vital Signs (Past 12 Hours) Vital Signs Temp Pulse Resp BP Pulse Ox 04/10/21 07:43 37 C 93 H 18 117/80 95 04/09/21 22:58 36.4 C L 84 15 120/75 95 PG Care Time/CCT Total # of Minutes Spent Total Time Spent with Patient: Total time spent is greater than 50% in coordination of care (as documented) at patient's floor/unit and/or counseling patient: Coding Level of Care Code None Diagnoses SBO (small bowel obstruction) K56.609
[2021-04-10] MEDS ORDERED: FUROSEMIDE 40 MG/4 ML VIAL IV ONE (09:00)
[2021-04-10] MEDS ORDERED: POTASSIUM CHLORIDE 10 MEQ TABCR PO SCH (09:00)
[2021-04-10] MEDS: FLUTICASONE/VILANTEROL 200/25MCG 14 PUFFS/INHALER INH SCH (09:06)
[2021-04-10] MEDS: METOPROLOL SUCC 25MG EXT REL TAB PO SCH ×2 (09:07→19:44)
[2021-04-10] MEDS: POT PHOSPHATE MONOBASIC W/ SOD TAB PO SCH ×4 (09:07→19:45)
[2021-04-10] MEDS: PANTOprazole 40 MG TAB PO SCH (09:07)
[2021-04-10 13:47] LABS: Partial Thromboplastin Ratio 2.3
[2021-04-10 13:56] LABS: Partial Thromboplastin Time 60.8 Seconds (21.0-31.0)
[2021-04-10] MEDS: POTASSIUM CHLORIDE CRTAB 20 MEQ TABCR PO SCH ×2 (14:04→19:46)
--- NOTE | 2021-04-10 16:38 | Hospitalist Progress Note ---
Date of Service April 10, 2021 Assessment & Plan (1) SBO (small bowel obstruction): Plan: Admitted for small bowel obstruction status post exploratory laparotomy with MONALISA 04/04/2021 NGT removed 04/07 Patient doing well with advancing diet, no abdominal pain on assessment Management per primary team, TPN previously discontinued INR as below No bleeding at incision site this morning (2) Atrial flutter with controlled response: Plan: Paroxysmal A. fib Coumadin resumed, continue heparin bridge, INR check 04/10 1.2. Plus one-time additional warfarin dose 3 mg. Recheck INR in 36 hours Potassium 3.4, repletion increased for hypokalemia and with Lasix as below Adequately rate controlled, continue oral Toprol (3) Asthma: Plan: No acute exacerbation Continue home inhalers (4) HTN (hypertension): Plan: Continue metoprolol as above Trihydrochlorothiazide held, patient remains normotensive Clinically with some volume overload today, likely 2/2 high volume of infusions especially with phosphate repletion. 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 Admission and Anticipated Discharge Date Admission Date: April 02, 2021 Alverto Toro is seen at the bedside this morning. She is sitting up in a chair at time of visit. She reports she feels well. After her Lasix dose yesterday she peed "a ton ", and thinks her legs improved slightly but they remain swollen compared to normal. She denies pain, fever, chills, sweats today. Review of Systems Review of Systems: All systems reviewed & are unremarkable except as noted in Subjective Physical Exam Physical Exam: General: A&Ox3. NAD. Cooperative. HEENT: Atraumatic, normocephalic. Visual acuity and hearing grossly intact. Pupils equal and reactive to light and accommodation. Pulm: Trace bibasilar crackles, otherwise -wheezes, -rales, -rhonchi. Symmetrical chest rise. No increase work of breathing. No respiratory distress. Cardiac: RRR, -mrg. Radial pulses intact and symmetrical. Abdominal: No abdominal distention, C/D/I. No tenderness on palpation, no rebound Extremities: Moving all extremities equally. Bilateral lower extremities with 1+ edema, PT pulse intact and symmetrical bilaterally, no lower extremity warmth/ulceration/erythema/pain. Results & Data Results & Data ([facility]) Vital Signs (Past 12 Hours) Vital Signs Temp Pulse Resp BP Pulse Ox 04/10/21 15:17 36.8 C 96 H 18 124/75 97 04/10/21 07:43 37 C 93 H 18 117/80 95 PG Care Time/CCT Total # of Minutes Spent Total Time Spent with Patient: Total time spent is greater than 50% in coordination of care (as documented) at patient's floor/unit and/or counseling patient: Coding Level of Care Code 74747 Subseq Hosp Care Lvl 2 Diagnoses SBO (small bowel obstruction) K56.609 Atrial flutter with controlled response I48.92 Asthma J45.909 HTN (hypertension) I10 Hypophosphatemia E83.39 CHF (congestive heart failure) I50.9
[2021-04-10] MEDS: WARFARIN SOD 6 MG TAB PO SCH (17:22)
[2021-04-10] MEDS ORDERED: WARFARIN SOD 3 MG TAB PO ONE (18:00)
[2021-04-10] MEDS: ONDANSETRON INJ 2 MG/ML 2 ML VIAL IV PRN (19:39)
[2021-04-10] MEDS: THIAMINE HCL 100 MG TAB PO SCH (19:46)
[2021-04-11 05:12] LABS: Basophils # (auto) 0.02 K/uL (0-0.2); Basophils % (auto) 0.2 %; Eosinophils # (auto) 0.38 K/uL (0-0.5); Eosinophils % (auto) 4.5 %; Hematocrit (blood only) 27.8 % (37-47); Hemoglobin 9.1 g/dL (12.0-16.0); Immature Granulocytes # (auto) 0.14 K/uL (0.00-0.02); Immature Granulocytes % (auto) 1.6 %; Lymphocytes # (auto) 1.49 K/uL (1.2-3.4); Lymphocytes % (auto) 17.6 %; Mean Corpuscular Hemoglobin 28.7 pg (25-34); Mean Corpuscular Hgb Conc 32.7 g/dL (32-36); Mean Corpuscular Volume 87.7 fL (80-100); Mean Platelet Volume 9.7 fL (7.4-10.4); Monocytes # (auto) 1.12 K/uL (0.11-0.59); Monocytes % (auto) 13.2 %; Neutrophils # (auto) 5.34 K/uL (1.4-6.5); Neutrophils % (auto) 62.9 %; Platelet Count 240 K/uL (130-400); RDW Coefficient of Variation 15.5 % (11.5-14.5); RDW Standard Deviation 49.6 fL (36.4-46.3); Red Blood Count 3.17 M/uL (4.2-5.4); White Blood Count 8.49 K/uL (4.8-10.8)
[2021-04-11 05:36] LABS: INR 1.9 (0.9-1.1); Prothrombin Time 18.2 Seconds (9.0-12.0)
[2021-04-11 05:38] LABS: BUN Creatinine Ratio 8.1 (10-20); Calcium 6.9 mg/dl (8.5-10.1); Creatinine Clr Calc Pharmacy 52.4 ml/min; Est GFR (Non-African American) 77.7 ml/min; Potassium 3.3 mmol/L (3.5-5.1)
[2021-04-11] MEDS: HEPARIN SODIUM/DEXTROSE 25,000 UNITS/500 ML BAG IV SCH (06:20)
[2021-04-11 06:40] LABS: Partial Thromboplastin Time 104.7 Seconds (21.0-31.0)
[2021-04-11] MEDS: METOPROLOL SUCC 25MG EXT REL TAB PO SCH ×2 (08:26→20:19)
[2021-04-11] MEDS: POT PHOSPHATE MONOBASIC W/ SOD TAB PO SCH ×4 (08:27→20:19)
[2021-04-11] MEDS: PANTOprazole 40 MG TAB PO SCH (08:27)
[2021-04-11] MEDS: THIAMINE HCL 100 MG TAB PO SCH ×2 (08:28→20:25)
--- NOTE | 2021-04-11 08:40 | Hospitalist Progress Note ---
Date of Service April 11, 2021 Assessment & Plan (1) SBO (small bowel obstruction): Plan: Admitted for small bowel obstruction status post exploratory laparotomy with MONALISA 04/04/2021 NGT removed 04/07 Patient with some increased pain and distention with solids, patient will hold at full liquid diet at this time Management per primary team, TPN previously discontinued INR as below (2) Atrial flutter with controlled response: Plan: Paroxysmal A. fib Coumadin resumed, continue heparin bridge, INR check 04/10 1.2. 04/11 INR 1.9. Moving into therapeutic range, d/c heparin gtt today Potassium 3.3. KCL PO 20meq TID + 1 time 40meq syrup ordered - Mg recheck in AM, 2.0 at last check Adequately rate controlled, continue oral Toprol (3) Asthma: Plan: No acute exacerbation Continue home inhalers (4) HTN (hypertension): Plan: Continue metoprolol as above Trihydrochlorothiazide held, patient remains normotensive Clinically with some volume overload today,greatly improved from prior likely 2/2 high volume of infusions especially with phosphate repletion. 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 Additional dose of Lasix ordered Admission and Anticipated Discharge Date Admission Date: April 02, 2021 Alverto Toro is seen at the bedside today. She is somewhat tearful and frustrated by her slow progression and is worried that she is not doing everything she can to get better quickly. She reports she is discouraged as she has had increased pain when eating solids last night and this morning, and feels her appetite has decreased. She continues to pass a lot of gas, and has had small bowel movements but feels that she is not tolerating solids well in the last 12 hours. Otherwise feels her abdomen is not distended. Feels the swelling in her legs is not quite back to normal, but greatly improved from prior. Denies chest pain, chest pressure, difficulty breathing, shortness of breath, fever, chills today. Review of Systems Review of Systems: All systems reviewed & are unremarkable except as noted in Subjective Physical Exam Physical Exam: General: A&Ox3. NAD. Cooperative. HEENT: Atraumatic, normocephalic. Visual acuity and hearing grossly intact. Pupils equal and reactive to light Pulm: Moderate air movement-wheezes, -rales, -rhonchi. Symmetrical chest rise. No increase work of breathing. No respiratory distress. Cardiac: RRR, -mrg. Radial pulses intact and symmetrical. Abdominal: No abdominal distention, C/D/I. No tenderness on palpation, no rebound Extremities: Moving all extremities equally. Bilateral lower extremities with 1+ edema, greatly improved from prior. PT pulse intact and symmetrical bilaterally, no lower extremity warmth/ulceration/erythema/pain. Results & Data Results & Data ([facility]) Vital Signs (Past 12 Hours) Vital Signs Temp Pulse Resp BP Pulse Ox 04/11/21 07:44 36.6 C 88 18 147/82 H 95 04/10/21 22:36 36.9 C 81 16 124/82 96 PG Care Time/CCT Total # of Minutes Spent Total Time Spent with Patient: Total time spent is greater than 50% in coordination of care (as documented) at patient's floor/unit and/or counseling patient: Coding Level of Care Code 32177 Subseq Hosp Care Lvl 2 Diagnoses SBO (small bowel obstruction) K56.609 Atrial flutter with controlled response I48.92 Asthma J45.909 HTN (hypertension) I10 Hypophosphatemia E83.39 CHF (congestive heart failure) I50.9
[2021-04-11] MEDS ORDERED: POTASSIUM CHLORIDE 20 MEQ/15 ML UDC PO STA (08:48)
[2021-04-11] MEDS: POTASSIUM CHLORIDE CRTAB 20 MEQ TABCR PO SCH ×3 (09:04→20:19)
[2021-04-11] MEDS: FLUTICASONE/VILANTEROL 200/25MCG 14 PUFFS/INHALER INH SCH (09:13)
--- NOTE | 2021-04-11 09:16 | Surgery Progress Note ---
Date of Service April 11, 2021 Assessment & Plan (1) SBO (small bowel obstruction): Plan: POD 7 ex lap/MONALISA back to full liquids for now ambulating INR 1.[address] Singleton Admission and Anticipated Discharge Date Admission Date: April 02, 2021 Supervising Physician Co-Signing Physician Notes I personally saw and evaluated the patient with Rajat Faust PA-C and agree with the assessment and plan. Full liquids today, she had some nausea with regular food Ok to d/c heparin gtt D/c planning for next 1-2 days Subjective bloated after dinner/overnight, increasing flatus, not able to eat much Physical Exam Gastrointestinal (Abdomen): Inspection/Auscultation: abdomen not distended Percussion/Palpation: abdomen soft Results & Data ([facility]) Vital Signs (Past 12 Hours) Vital Signs Temp Pulse Resp BP Pulse Ox 04/11/21 07:44 36.6 C 88 18 147/82 H 95 04/10/21 22:36 36.9 C 81 16 124/82 96 PG Care Time/CCT Total # of Minutes Spent Total Time Spent with Patient: Total time spent is greater than 50% in coordination of care (as documented) at patient's floor/unit and/or counseling patient: Coding Level of Care Code None Diagnoses SBO (small bowel obstruction) K56.609
[2021-04-11] MEDS ORDERED: FUROSEMIDE INJ 20 MG/2 ML VIAL IV ONE (10:54)
[2021-04-11] MEDS: WARFARIN SOD 6 MG TAB PO SCH (17:24)
[2021-04-12] MEDS: ACETAMINOPHEN 325 MG TAB PO PRN (01:24)
[2021-04-12 01:45] LABS: Partial Thromboplastin Ratio 1.4; Partial Thromboplastin Time 35.8 Seconds (21.0-31.0)
[2021-04-12 05:30] LABS: INR 2.3 (0.9-1.1); Prothrombin Time 21.5 Seconds (9.0-12.0)
[2021-04-12 05:58] LABS: BUN Creatinine Ratio 13.5 (10-20); Calcium 8.1 mg/dl (8.5-10.1); Creatinine Clr Calc Pharmacy 62.1 ml/min; Est GFR (African American) 96.3 ml/min; Est GFR (Non-African American) 83.1 ml/min; Phosphorus 4.7 mg/dl (2.5-4.9)
[2021-04-12] MEDS: HEPARIN SODIUM/DEXTROSE 25,000 UNITS/500 ML BAG IV SCH ×2 (07:27→07:28)
--- NOTE | 2021-04-12 08:16 | Hospitalist Progress Note ---
Date of Service April 12, 2021 Assessment & Plan (1) SBO (small bowel obstruction): Plan: Summary Muna is an 86-year-old female with incidental bowel obstruction, medicine was consulted for medical management including lower extremity edema and electrolyte abnormalities. Her edema is near normal, may use spot doses of Lasix as needed, suspect will be at/near baseline tomorrow. Her phosphate levels have returned to normal, she is improving in terms of diet. If again normal tomorrow or elevated may discontinue oral phosphate repletion. At this point medicine will sign off, however if there are any further questions or concerns please feel free to reconsult. Admitted for small bowel obstruction status post exploratory laparotomy with MONALISA 04/04/2021 NGT removed 04/07 Patient with some increased pain and distention with solids, patient will hold at full liquid diet at this time Management per primary team, TPN previously discontinued INR as below (2) Atrial flutter with controlled response: Plan: Paroxysmal A. fib Coumadin resumed, c 1 heparin bridge, INR check 04/10 1.2. 04/11 INR 1.9. 04/12 INR therapeutic Potassium normal today - Mg recheck in AM, 2.0 at last check Adequately rate controlled, continue oral Toprol (3) Asthma: Plan: No acute exacerbation Continue home inhalers (4) HTN (hypertension): Plan: Continue metoprolol as above Trihydrochlorothiazide held, patient remains normotensive Normotensive today, some residual edema of the legs (5) Hypophosphatemia: Plan: Phosphate normalized Phosphate repletion IV discontinued, 4 times daily decreased to daily Patient was requiring approximately 30 mEQ in TPN -Trend phosphate a.m. 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 She reports she feels well, better than yesterday. Her leg swelling is almost back to normal. She feels her diet is again improving, and her pain is reduced. She has discussed with surgery that is progressing towards discharge, potentially tomorrow or Friday depending on her diet progression. No fever/chills/sweats, no pain at surgical site, no shortness of breath, no chest pain/chest pressure. Review of Systems Review of Systems: 10 point review of systems negative except as noted in HPI Physical Exam Physical Exam: General: A&Ox3. NAD. Cooperative. HEENT: Atraumatic, normocephalic. Visual acuity and hearing grossly intact. Pupils equal and reactive to light Pulm: Good air movement-wheezes, -rales, -rhonchi. Symmetrical chest rise. No increase work of breathing. No respiratory distress. Cardiac: RRR, -mrg. Radial pulses intact and symmetrical. Abdominal: No abdominal distention, C/D/I. No tenderness on palpation, no rebo und. Surgical incisions well-healing without discharge/erythema. Telma/drain removed by surgery 04/11 Extremities: Moving all extremities equally. Bilateral lower extremities with 1+ edema, near but not quite at baseline. PT pulse intact and symmetrical bilaterally, no lower extremity warmth/ulceration/erythema/pain. Results & Data Results & Data ([facility]) Vital Signs (Past 12 Hours) Vital Signs Temp Pulse Resp BP Pulse Ox 04/12/21 07:42 36.8 C 85 18 127/72 95 04/11/21 22:43 36.8 C 87 18 142/78 H 94 PG Care Time/CCT Total # of Minutes Spent Total Time Spent with Patient: Total time spent is greater than 50% in coordination of care (as documented) at patient's floor/unit and/or counseling patient: Coding Level of Care Code 49653 Subseq Hosp Care Lvl 2 Diagnoses SBO (small bowel obstruction) K56.609 Atrial flutter with controlled response I48.92 Asthma J45.909 HTN (hypertension) I10 Hypophosphatemia E83.39 CHF (congestive heart failure) I50.9
--- NOTE | 2021-04-12 08:46 | Surgery Progress Note ---
Date of Service April 12, 2021 Assessment & Plan (1) SBO (small bowel obstruction): Plan: POD 8 ex lap/MONALISA soft diet ambulating INR 2.[address] Singleton Admission and Anticipated Discharge Date Admission Date: April 02, 2021 Supervising Physician Co-Signing Physician Notes I personally saw and evaluated the patient with Rajat Faust PA-C and agree with the assessment and plan. Soft diet today Tentative discharge tomorrow Subjective bowels moving, tolerating full liquids Physical Exam Gastrointestinal (Abdomen): Inspection/Auscultation: abdomen not distended Percussion/Palpation: abdomen soft Results & Data ([facility]) Vital Signs (Past 12 Hours) Vital Signs Temp Pulse Resp BP Pulse Ox 04/12/21 07:42 36.8 C 85 18 127/72 95 04/11/21 22:43 36.8 C 87 18 142/78 H 94 PG Care Time/CCT Total # of Minutes Spent Total Time Spent with Patient: Total time spent is greater than 50% in coordination of care (as documented) at patient's floor/unit and/or counseling patient: Coding Level of Care Code None Diagnoses SBO (small bowel obstruction) K56.609
[2021-04-12] MEDS: METOPROLOL SUCC 25MG EXT REL TAB PO SCH ×2 (09:24→20:55)
[2021-04-12] MEDS: PANTOprazole 40 MG TAB PO SCH (09:25)
[2021-04-12] MEDS: POTASSIUM CHLORIDE CRTAB 20 MEQ TABCR PO SCH ×3 (09:25→20:53)
[2021-04-12] MEDS: THIAMINE HCL 100 MG TAB PO SCH ×2 (09:26→20:53)
[2021-04-12] MEDS: FLUTICASONE/VILANTEROL 200/25MCG 14 PUFFS/INHALER INH SCH (10:04)
[2021-04-12] MEDS: POT PHOSPHATE MONOBASIC W/ SOD TAB PO SCH (10:36)
[2021-04-12] MEDS ORDERED: FUROSEMIDE INJ 20 MG/2 ML VIAL IV ONE (12:32)
[2021-04-12] MEDS: WARFARIN SOD 6 MG TAB PO SCH (17:41)
[2021-04-13] MEDS: THIAMINE HCL 100 MG TAB PO SCH ×2 (08:15→20:37)
[2021-04-13] MEDS: FUROSEMIDE 20 MG TAB PO SCH (08:15)
[2021-04-13] MEDS: PANTOprazole 40 MG TAB PO SCH (08:15)
[2021-04-13] MEDS: FLUTICASONE/VILANTEROL 200/25MCG 14 PUFFS/INHALER INH SCH (08:15)
[2021-04-13] MEDS: METOPROLOL SUCC 25MG EXT REL TAB PO SCH ×2 (08:15→20:34)
[2021-04-13] MEDS: POTASSIUM CHLORIDE CRTAB 20 MEQ TABCR PO SCH ×3 (08:15→20:36)
[2021-04-13] MEDS: POT PHOSPHATE MONOBASIC W/ SOD TAB PO SCH (08:16)
--- NOTE | 2021-04-13 14:26 | Surgery Progress Note ---
Date of Service April 13, 2021 Assessment & Plan (1) SBO (small bowel obstruction): Plan: POD 9 ex lap/MONALISA KUB with air in colon, some small bowel air as well continue to increase diet as kem may need another 1-2 days in hospital seen with Dr. Gutierrez Admission and Anticipated Discharge Date Admission Date: April 02, 2021 Subjective bowels moving but not much appetite and some postprandial bloating Physical Exam Gastrointestinal (Abdomen): Inspection/Auscultation: + abdominal surgical incision (dressing dry); abdomen not distended Percussion/Palpation: abdomen soft Results & Data ([facility]) Vital Signs (Past 12 Hours) Vital Signs Temp Pulse Pulse Resp BP Pulse Ox 04/13/21 14:12 36.8 C 89 17 95/63 L 94 04/13/21 07:37 36.9 C 83 17 123/79 95 04/13/21 06:01 36.7 C 91 H 16 124/79 97 PG Care Time/CCT Total # of Minutes Spent Total Time Spent with Patient: Total time spent is greater than 50% in coordination of care (as documented) at patient's floor/unit and/or counseling patient: Coding Level of Care Code None Diagnoses SBO (small bowel obstruction) K56.609
--- NOTE | 2021-04-13 14:32 | XRay Report ---
KUB CLINICAL HISTORY: Abdominal distention. FINDINGS: An AP supine abdominal radiograph is compared to study dated 04/04/2021 and correlated with abdominal CT dated 04/02/2021. There is a nonobstructed abdominal bowel gas pattern. Moderate colonic fecal retention is seen throughout the colon. Midline skin clips are in place. No evidence of intrape ritoneal free air is seen on this supine image. There are no abnormal abdominal calcifications. Cardi al pacing leads project over the lower chest. Vascular calcifications are noted in the pelvis. The sk eletal structures are osteopenic and appear intact. There is moderate to advanced sacral spondylosis. IMPRESSION: 1. Nonobstructed abdominal bowel gas pattern. 2. Moderate fecal retention is seen throughout the colon. Electronically signed by: Jorje Quispe M.D. 04/13/2021 2:31 PM
[2021-04-13] MEDS ORDERED: POLYETHYLENE (MIRALAX) 17 GM PACK PO PRN (15:27)
[2021-04-13] MEDS: WARFARIN SOD 6 MG TAB PO SCH (17:29)
[2021-04-14] MEDS: FLUTICASONE/VILANTEROL 200/25MCG 14 PUFFS/INHALER INH SCH (09:00)
[2021-04-14] MEDS: THIAMINE HCL 100 MG TAB PO SCH ×2 (09:01→20:45)
[2021-04-14] MEDS: FUROSEMIDE 20 MG TAB PO SCH (09:01)
[2021-04-14] MEDS: METOPROLOL SUCC 25MG EXT REL TAB PO SCH ×2 (09:01→20:45)
[2021-04-14] MEDS: POTASSIUM CHLORIDE CRTAB 20 MEQ TABCR PO SCH ×3 (09:01→20:44)
[2021-04-14] MEDS: PANTOprazole 40 MG TAB PO SCH (09:01)
[2021-04-14] MEDS: POT PHOSPHATE MONOBASIC W/ SOD TAB PO SCH (09:01)
--- NOTE | 2021-04-14 10:35 | Surgery Progress Note ---
Date of Service April 14, 2021 Assessment & Plan Admission and Anticipated Discharge Date Admission Date: April 02, 2021 Supervising Physician Co-Signing Physician Notes I personally saw and evaluated the patient with Rajat Faust PA-C and agree with the assessment and plan. Soft diet today Tentative discharge tomorrow 04/14/2021 10 : 37AM doing better, no nausea, no vomiting, continue miralax will F/U Subjective bowels moving but not much appetite and some postprandial bloating 04/14/2021 10 : 33AM pt feels better today, passed gas and BM, no nausea, no vomiting, no fever, KUB 04/13/2021-IMPRESSION: 1. Nonobstructed abdominal bowel gas pattern. 2. Moderate fecal retention is seen throughout the colon. Physical Exam Constitutional: WD/WN, vitals as above Eyes: PERRL, conjunctivae normal, anicteric sclerae Respiratory: normal respiratory effort, lungs clear to auscultation Cardiovascular: RRR, no murmur, no edema Gastrointestinal (Abdomen): soft, mild distend, no tendetness, BS + Neurologic: patellar DTR's 2+ bilat, sensation intact Psychiatric: A+Ox3, euthymic affect Results & Data ([facility]) Vital Signs (Past 12 Hours) Vital Signs Temp Pulse Pulse Resp BP Pulse Ox 04/14/21 07:04 36.8 C 78 16 121/80 94 04/13/21 22:51 36.7 C 86 17 120/71 95
[2021-04-14 10:56] LABS: INR 1.9 (0.9-1.1); Prothrombin Time 18.2 Seconds (9.0-12.0)
[2021-04-14] MEDS: WARFARIN SOD 6 MG TAB PO SCH (17:20)
[2021-04-15] MEDS: ACETAMINOPHEN 325 MG TAB PO PRN (01:42)
[2021-04-15] MEDS: METOPROLOL SUCC 25MG EXT REL TAB PO SCH (10:01)
[2021-04-15] MEDS: POTASSIUM CHLORIDE CRTAB 20 MEQ TABCR PO SCH (10:01)
[2021-04-15] MEDS: FLUTICASONE/VILANTEROL 200/25MCG 14 PUFFS/INHALER INH SCH (10:01)
[2021-04-15] MEDS: THIAMINE HCL 100 MG TAB PO SCH (10:01)
[2021-04-15] MEDS: PANTOprazole 40 MG TAB PO SCH (10:02)
[2021-04-15] MEDS: FUROSEMIDE 20 MG TAB PO SCH (10:02)
--- NOTE | 2021-04-15 13:10 | Surgery Progress Note ---
Date of Service April 15, 2021 Assessment & Plan Admission and Anticipated Discharge Date Admission Date: April 02, 2021 Supervising Physician Co-Signing Physician Notes I personally saw and evaluated the patient with Rajat Faust PA-C and agree with the assessment and plan. Soft diet today Tentative discharge tomorrow 04/14/2021 10 : 37AM doing better, no nausea, no vomiting, continue miralax will F/U 04/15/2021 1:08PM doing fine, tolerated diet, discharge today , post-op care instruction was given, Subjective bowels moving but not much appetite and some postprandial bloating 04/14/2021 10 : 33AM pt feels better today, passed gas and BM, no nausea, no vomiting, no fever, KUB 04/13/2021-IMPRESSION: 1. Nonobstructed abdominal bowel gas pattern. 2. Moderate fecal retention is seen throughout the colon. 04/15/2021 1:08PM doing better, tolerated diet, no nausea, no vomiting, Physical Exam Constitutional: WD/WN, vitals as above Eyes: PERRL, conjunctivae normal, anicteric sclerae Respiratory: normal respiratory effort, lungs clear to auscultation Cardiovascular: RRR, no murmur, no edema Gastrointestinal (Abdomen): soft, NT, ND Neurologic: patellar DTR's 2+ bilat, sensation intact Psychiatric: A+Ox3, euthymic affect Results & Data ([facility]) Vital Signs (Past 12 Hours) Vital Signs Temp Pulse Resp BP Pulse Ox 04/15/21 07:45 36.7 C 52 L 16 114/71 95
--- NOTE | 2021-04-16 10:58 | Discharge Summary ---
Date of Service April 16, 2021 Admission HPI Per Admitting Provider 86 y/o female 6 days s/p LLQ incisional hernia repair with increasing pain, N/V over the weekend. Dr. Gutierrez was contacted this morning and recommended the patient come to the ED for further evaluation. Principal Diagnosis Small bowel obstruction Discharge Exam Constitutional WD/WN, vitals as above Gastrointestinal (Abdomen) Inspection/Auscultation: + abdominal surgical incision (LLQ healed, steri-strips intact, midline ash remain in place); abdomen not distended Percussion/Palpation: abdomen soft Discharge Data Allergies Allergy/AdvReac Type Severity Reaction Status Date / Time Bactrim Allergy Severe RASH AND Verified 12/25/17 10:05 FACIAL SWELLING bee venom protein (honey bee) Allergy Severe ANAPHYLAXIS Verified 04/02/21 16:44 clarithromycin Allergy Intermediate RASH AND Verified 04/02/21 16:44 FACIAL SWELLING fluconazole Allergy Intermediate INCREASED Verified 04/02/21 16:44 HEART RATE moxifloxacin Allergy Intermediate RASH AND Verified 04/02/21 16:44 FACIAL SWELLING nitrofurantoin Allergy Intermediate RASH Verified 04/02/21 16:44 Quinolones Allergy Intermediate RASH AND Verified 04/02/21 16:44 FACIAL SWELLING sulfamethoxazole Allergy Intermediate RASH AND Verified 04/02/21 16:44 FACIAL SWELLING trimethoprim Allergy Intermediate RASH AND Verified 04/02/21 16:44 FACIAL SWELLING ampicillin Allergy Unknown Unknown Verified 04/02/21 16:44 NSAIDS (Non-Steroidal AdvReac Intermediate Pt had Unverified 04/02/21 10:23 Anti-Inflamma Open Heart Surgery ketamine AdvReac Mild VOMITING Verified 04/02/21 16:44 Consultations 04/02/21 12:31 ED Decision to Admit Stat 04/02/21 16:38 Consult Hospitalist Routine Procedures Performed Operation Date: 04/04/21 11:30 Actual Procedures p Exploratory Laparotomy, lysis of adhesions(Not Applicable) - Abhishek Gutierrez MD, FACS Ordered Studies 04/02/21 09:38 CT abd pelvis IV con only Stat Hospital Course (1) SBO (small bowel obstruction): 86 y/o female recently had repair of LLQ incarcerated incisional hernia and was discharged to rehab. She returned to the ED a few days later for persistent vomiting. She was admitted to the surgical service, NG was placed for ileus vs SBO. After two days there was not much improvement in radiographs and she also became tachycardic. At that time she was taken back to the OR for exploration. A second and separate area of adhesion was identified near the prior area that had been involved with the hernia. She was returned to the telemetry unit postop. She was started on TPN. Heparin drip was resumed until her INR was therapeutic. NG tube was removed on POD 3. Clear liquids were began on day 4. Diet was slowly advanced over the next several days although she did have some nausea and bloating initially when solids were introduced. Her appetite improved slowly over post op days 8 thru 10. On POD 11 she was stable for transfer back to rehab. The hospitalist service was also assisting throughout admission with anticoagulation, fluid balance (extremity edema), and replacement of phosphorus and potassium. Total Time Total Time Spent Total Time Spent (In Minutes): 20 Discharge Plan Discharge Items Patient Disposition: Transfer Inpatient Rehab Fac Reason For Visit: ABDOMINAL PAIN Discharge Diagnosis: small bowel obstruction exploratory laparotomy with lysis of adhesions Activity: Per Instructions section Lifting: No more than 10 pounds Bathing Comment: may shower; no soaking in tubs/pools Exercise/Sports: Wait until after follow-up appointment Driving/Machine Use: no driving while taking narcotics for pain Non-emergency contact: Surgeon Call non-emergency contact if: you have any medication questions, your symptoms worsen, your pain is not controlled, your pain is worsening, your pain is concerning for you, you have a fever, your temperature is above 101.5, your wound has increased redness, your wound has increased drainage and your wound pain has increased Follow-up/Referrals: Jeff Mensah III, MD [Primary Care Provider] - Abhishek Gutierrez MD, FACS [Surgeon] - (Please call to schedule follow up in clinic within 1 week) Diet: Low Fiber Diet Texture: Easy to Chew Addtl Attending Provider Instructions: Addtl Anthropology Department Chair Provider Instructions: You were looking for a new primary care provider due to your outpatient provider retiring this coming week. A follow-up appointment is being made for you with Dr. Mensah's office as above, you are also here to have other providers in the area. The [facility] family mediator clinic on [facility] available at [phone], and the [facility] medicine group available at [phone] are accepting patients and may be a good fit. You have been prescribed a medication, Lasix. You experienced lower extremity edema which improved with Lasix during admission, your legs were improving but not yet quite at baseline at time of discharge. Please take Lasix 20 mg by mouth daily and follow-up with your primary care physician regarding whether this should be continued or adjusted. While on this medication you have been prescribed a potassium supplement as Lasix may make you lose potassium. You also have chronic venous stasis, please continue to elevate your legs at least 3 times a day for 20 minutes/day. You may take Tylenol for pain. Tylenol 650mg orally every 4-6 hours, as needed for pain. Continue to take Nutritional Supplements such as Boost shakes at least twice daily between meals. Please follow up in surgical clinic within 1 week for staple removal Pending Studies at Discharge: No Stand-Alone Forms: My wali, Smoking Cessation Skilled Items Patient informed of condition?: Yes DNR: No Discharge Level of Care: Acute rehab Communicable Disease: No Discharge Prognosis: Improving Lines: None Urinary Catheter: No Medications and DC Order Prescriptions: New furosemide [Lasix] 20 mg tablet 20 mg PO DAILY Qty: 30 RF: 0 potassium chloride 10 mEq tablet extended release 10 meq PO DAILY Qty: 30 RF: 0 Continued atorvastatin [Lipitor] 40 mg tablet 40 mg PO HS Qty: 90 RF: 3 triamterene-hydrochlorothiazid 37.5-25 mg tablet 1 tab PO Q2D Qty: 45 RF: 3 metoprolol succinate [Toprol XL] 25 mg tablet extended release 24 hr 12.5 mg PO BID Qty: 90 RF: 3 pantoprazole [Protonix] 40 mg tablet,delayed release (DR/EC) 40 mg PO QAM Qty: 90 RF: 3 multivitamin [Multiple Vitamins] Tablet 1 tab PO DAILY RF: 0 ascorbic acid (vitamin C) [Vitamin C] 500 mg Tablet 500 mg PO DAILY RF: 0 albuterol sulfate [Ventolin HFA] 90 mcg/actuation Hfa Aerosol Inhaler 2 puff INHALATION Q4 PRN (Reason: Shortness Of Breath Or Wheezing) RF: 0 calcium carbonate-vitamin D3 [Calcium 500 + D] 500 mg(1,250mg) -200 unit Tablet 1 tab PO DAILY RF: 0 cholecalciferol (vitamin D3) [Vitamin D3] 5,000 unit Tablet 5,000 unit PO Q2D RF: 0 aspirin 81 mg Tablet,Delayed Release (Dr/Ec) 81 mg PO DAILY RF: 0 epinephrine 0.3 mg/0.3 mL auto-injector 0.3 mg IM UD PRN (Reason: Allergic Reaction) RF: 0 warfarin 6 mg tablet 6 mg PO DAILY RF: 0 fluticasone furoate-vilanterol 200-25 mcg/dose Blister With Device 1 inh INHALATION DAILY RF: 0 Discontinued Metamucil 3.4 gram/5.4 gram Powder 1 - 2 tbsp PO DAILY@1600 RF: 0 Discharge Orders: Discharge Order (Routine); Ordered 04/15/21 Ordered By: Kristopher Barron/Other Patient Handouts: Low-Fiber Diet Admission Data Admit Date/Time: 04/02/21 13:05 Attending Provider: Abhishek Gutierrez Admit Provider: Abhishek Gutierrez Primary Care Provider: Jeff Mensah III Other Providers: [facility] ; Arturo Ayala ; Abhishek Gutierrez ; Roverto Swartz Other Interventions: Discharge Summary Assessment (RN) Last Done: 04/15/21 14:02 Coding Level of Care Code D/C DAY MANAGEMENT <30 MINS Diagnoses SBO (small bowel obstruction) K56.609
--- NOTE | 2021-04-17 06:51 | Discharge Summary ---
Date of Service April 17, 2021 Admission HPI Per Admitting Provider 86 y/o female 6 days s/p LLQ incisional hernia repair with increasing pain, N/V over the weekend. Dr. Gutierrez was contacted this morning and recommended the patient come to the ED for further evaluation. Principal Diagnosis small bowel obstruction from adhesions Discharge Data Allergies Allergy/AdvReac Type Severity Reaction Status Date / Time Bactrim Allergy Severe RASH AND Verified 12/25/17 10:05 FACIAL SWELLING bee venom protein (honey bee) Allergy Severe ANAPHYLAXIS Verified 04/02/21 16:44 clarithromycin Allergy Intermediate RASH AND Verified 04/02/21 16:44 FACIAL SWELLING fluconazole Allergy Intermediate INCREASED Verified 04/02/21 16:44 HEART RATE moxifloxacin Allergy Intermediate RASH AND Verified 04/02/21 16:44 FACIAL SWELLING nitrofurantoin Allergy Intermediate RASH Verified 04/02/21 16:44 Quinolones Allergy Intermediate RASH AND Verified 04/02/21 16:44 FACIAL SWELLING sulfamethoxazole Allergy Intermediate RASH AND Verified 04/02/21 16:44 FACIAL SWELLING trimethoprim Allergy Intermediate RASH AND Verified 04/02/21 16:44 FACIAL SWELLING ampicillin Allergy Unknown Unknown Verified 04/02/21 16:44 NSAIDS (Non-Steroidal AdvReac Intermediate Pt had Unverified 04/02/21 10:23 Anti-Inflamma Open Heart Surgery ketamine AdvReac Mild VOMITING Verified 04/02/21 16:44 Consultations 04/02/21 12:31 ED Decision to Admit Stat 04/02/21 16:38 Consult Hospitalist Routine Procedures Performed Operation Date: 04/04/21 11:30 Actual Procedures p Exploratory Laparotomy, lysis of adhesions(Not Applicable) - Abhishek Gutierrez MD, FACS Ordered Studies 04/02/21 09:38 CT abd pelvis IV con only Stat Total Time Total Time Spent Total Time Spent (In Minutes): 35 Discharge Plan Discharge Items Patient Disposition: Transfer Inpatient Rehab Fac Reason For Visit: ABDOMINAL PAIN Discharge Diagnosis: small bowel obstruction exploratory laparotomy with lysis of adhesions Activity: Per Instructions section Lifting: No more than 10 pounds Bathing Comment: may shower; no soaking in tubs/pools Exercise/Sports: Wait until after follow-up appointment Driving/Machine Use: no driving while taking narcotics for pain Non-emergency contact: Surgeon Call non-emergency contact if: you have any medication questions, your symptoms worsen, your pain is not controlled, your pain is worsening, your pain is concerning for you, you have a fever, your temperature is above 101.5, your wound has increased redness, your wound has increased drainage and your wound pain has increased Follow-up/Referrals: Jeff Mensah III, MD [Primary Care Provider] - Abhsihek Gutierrez MD, FACS [Surgeon] - (Please call to schedule follow up in clinic within 1 week) Diet: Low Fiber Diet Texture: Easy to Chew Addtl Attending Provider Instructions: Addtl Belting Inspector Provider Instructions: You were looking for a new primary care provider due to your outpatient provider retiring this coming week. A follow-up appointment is being made for you with Dr. Mensah's office as above, you are also here to have other providers in the area. The [facility] family protection specialist clinic on [facility] available at [phone], and the [facility] group available at [phone] are accepting patients and may be a good fit. You have been prescribed a medication, Lasix. You experienced lower extremity edema which improved with Lasix during admission, your legs were improving but not yet quite at baseline at time of discharge. Please take Lasix 20 mg by mouth daily and follow-up with your primary care physician regarding whether this should be continued or adjusted. While on this medication you have been prescribed a potassium supplement as Lasix may make you lose potassium. You also have chronic venous stasis, please continue to elevate your legs at least 3 times a day for 20 minutes/day. You may take Tylenol for pain. Tylenol 650mg orally every 4-6 hours, as needed for pain. Continue to take Nutritional Supplements such as Boost shakes at least twice daily between meals. Please follow up in surgical clinic within 1 week for staple removal Pending Studies at Discharge: No Stand-Alone Forms: My POS on CLOUD, Smoking Cessation Skilled Items Patient informed of condition?: Yes DNR: No Discharge Level of Care: Acute rehab Communicable Disease: No Discharge Prognosis: Improving Lines: None Urinary Catheter: No Medications and DC Order Prescriptions: New furosemide [Lasix] 20 mg tablet 20 mg PO DAILY Qty: 30 RF: 0 potassium chloride 10 mEq tablet extended release 10 meq PO DAILY Qty: 30 RF: 0 Continued atorvastatin [Lipitor] 40 mg tablet 40 mg PO HS Qty: 90 RF: 3 triamterene-hydrochlorothiazid 37.5-25 mg tablet 1 tab PO Q2D Qty: 45 RF: 3 metoprolol succinate [Toprol XL] 25 mg tablet extended release 24 hr 12.5 mg PO BID Qty: 90 RF: 3 pantoprazole [Protonix] 40 mg tablet,delayed release (DR/EC) 40 mg PO QAM Qty: 90 RF: 3 multivitamin [Multiple Vitamins] Tablet 1 tab PO DAILY RF: 0 ascorbic acid (vitamin C) [Vitamin C] 500 mg Tablet 500 mg PO DAILY RF: 0 albuterol sulfate [Ventolin HFA] 90 mcg/actuation Hfa Aerosol Inhaler 2 puff INHALATION Q4 PRN (Reason: Shortness Of Breath Or Wheezing) RF: 0 calcium carbonate-vitamin D3 [Calcium 500 + D] 500 mg(1,250mg) -200 unit Tablet 1 tab PO DAILY RF: 0 cholecalciferol (vitamin D3) [Vitamin D3] 5,000 unit Tablet 5,000 unit PO Q2D RF: 0 aspirin 81 mg Tablet,Delayed Release (Dr/Ec) 81 mg PO DAILY RF: 0 epinephrine 0.3 mg/0.3 mL auto-injector 0.3 mg IM UD PRN (Reason: Allergic Reaction) RF: 0 warfarin 6 mg tablet 6 mg PO DAILY RF: 0 fluticasone furoate-vilanterol 200-25 mcg/dose Blister With Device 1 inh INHALATION DAILY RF: 0 Discontinued Metamucil 3.4 gram/5.4 gram Powder 1 - 2 tbsp PO DAILY@1600 RF: 0 Discharge Orders: Discharge Order (Routine); Ordered 04/15/21 Ordered By: Kristopher Barron/Other Patient Handouts: Low-Fiber Diet Admission Data Admit Date/Time: 04/02/21 13:05 Attending Provider: Abhishek Gutierrez Admit Provider: Abhishek Gutierrez Primary Care Provider: Jeff Mensah III Other Providers: [facility] ; Arturo Ayala ; Abhishek Gutierrez ; Roverto Swartz Other Interventions: Discharge Summary Assessment (RN) Last Done: 04/15/21 14:02 Coding Level of Care Code D/C DAY MANAGEMENT >30 MINS
== END 2021-04-15 16:04 | DRG 336 ==
LOC: ED 09:29 → 3N 13:05 → PACUINP 04-04 11:25 → 2S 04-04 19:13 → 3E 04-09 11:14
DX: K56.50 Intestinal adhesions [bands], unspecified as to partial versus complete obstruction; Z88.1 Allergy status to other antibiotic agents; Z88.2 Allergy status to sulfonamides; E83.39 Other disorders of phosphorus metabolism; E87.6 Hypokalemia; I48.92 Unspecified atrial flutter; Z98.890 Other specified postprocedural states; Z86.79 Personal history of other diseases of the circulatory system; T50.3X5A Adverse effect of electrolytic, caloric and water-balance agents, initial encounter; I48.0 Paroxysmal atrial fibrillation; Z88.4 Allergy status to anesthetic agent; J45.909 Unspecified asthma, uncomplicated; Z79.01 Long term (current) use of anticoagulants; Z88.3 Allergy status to other anti-infective agents; Z95.2 Presence of prosthetic heart valve; E87.1 Hypo-osmolality and hyponatremia; Z88.6 Allergy status to analgesic agent; E80.7 Disorder of bilirubin metabolism, unspecified; Z88.0 Allergy status to penicillin; Z79.51 Long term (current) use of inhaled steroids; Z91.030 Bee allergy status; Z79.82 Long term (current) use of aspirin; Z79.899 Other long term (current) drug therapy; I50.9 Heart failure, unspecified; I11.0 Hypertensive heart disease with heart failure

== ENCOUNTER 2021-11-19 10:44 | Inpatient (IN) ==
[2021-11-19] MEDS ORDERED: SODIUM CHLORIDE 0.9% 500 ML IV ONE (11:08)
[2021-11-19] MEDS ORDERED: ONDANSETRON INJ 2 MG/ML 2 ML VIAL IV STA (11:22)
[2021-11-19] MEDS ORDERED: FAMOTIDINE 20MG IV PUSH 20 MG/5 ML SYR IV STA (11:22)
[2021-11-19 11:33] LABS: Basophils # (auto) 0.02 K/uL (0-0.2); Basophils % (auto) 0.2 %; Eosinophils # (auto) 0.14 K/uL (0-0.5); Eosinophils % (auto) 1.5 %; Hematocrit (blood only) 44.1 % (37-47); Hemoglobin 14.8 g/dL (12.0-16.0); Immature Granulocytes # (auto) 0.04 K/uL (0.00-0.02); Immature Granulocytes % (auto) 0.4 %; Lymphocytes # (auto) 1.76 K/uL (1.2-3.4); Lymphocytes % (auto) 18.2 %; Mean Corpuscular Hemoglobin 28.4 pg (25-34); Mean Corpuscular Hgb Conc 33.6 g/dL (32-36); Mean Corpuscular Volume 84.5 fL (80-100); Monocytes # (auto) 0.89 K/uL (0.11-0.59); Monocytes % (auto) 9.2 %; Neutrophils % (auto) 70.5 %; Platelet Count 207 K/uL (130-400); RDW Coefficient of Variation 15.3 % (11.5-14.5); RDW Standard Deviation 47.6 fL (36.4-46.3); Red Blood Count 5.22 M/uL (4.2-5.4); White Blood Count 9.65 K/uL (4.8-10.8)
[2021-11-19 11:54] LABS: Albumin Globulin Ratio 1.5 (0.9-2); Albumin Level 4.2 gm/dl (3.4-5.0); BUN Creatinine Ratio 14.7 (10-20); Bilirubin,Total 1.5 mg/dl (0.2-1.0); Calcium 9.5 mg/dl (8.5-10.1); Creatinine Clr Calc Pharmacy 46.6 ml/min; Est GFR (African American) 84.2 ml/min; Est GFR (Non-African American) 72.7 ml/min; Globulin 2.8 gm/dl (2.5-4.0); Magnesium 1.8 mg/dl (1.7-2.4); Phosphorus 3.6 mg/dl (2.5-4.9)
[2021-11-19 12:12] LABS: INR 3.4 (0.9-1.1); Prothrombin Time 33.8 Seconds (9.0-12.0)
[2021-11-19 12:45] LABS: Influenza A virus by PCR Negative (Neg); Influenza B virus by PCR Negative (Neg); RSV by PCR Negative (Neg); SARS CoV2 RNA(COVID-19) InHosp NEGATIVE (Negative)
[2021-11-19] MEDS ORDERED: OPTIRAY 320 100ml IV ONE (12:56)
[2021-11-19 13:09] LABS: Appearance Urine Clear (Clear); Bilirubin Urine Negative (Negative); Blood Urine Negative (Negative); Color Urine Yellow; Glucose Urine UA Negative (Negative); Ketones Urine Negative (Negative); Leukocyte Esterase Urine Negative (Negative); Nitrite Urine Negative (Negative); Protein Urine Negative (Negative); Specific Gravity Urine 1.012 (1.000-1.030); Urobilinogen Urine Negative (Negative); pH Urine >= 9.0 (4.5-7.5)
--- NOTE | 2021-11-19 13:21 | CT Scan Report ---
CT OF THE ABDOMEN AND PELVIS WITH CONTRAST CLINICAL HISTORY: Abdominal pain, nausea and vomiting. COMPARISON STUDY: CT of the abdomen and pelvis September 27, 2021. TECHNIQUE: Following IV administration of 94 mL of Optiray, axial images of the abdomen and pelvis we re obtained from the lung bases to the proximal femurs. Images were reviewed in the axial, sagittal, and coronal planes. IV contrast was administered without complication. Automated exposure control wa s utilized for the study. A dose lowering technique was utilized adhering to the principles of ALARA . CT DOSE: 318.88 mGy.cm FINDINGS: Cardiomegaly is noted. There is extensive mitral annular calcification. Prosthetic tricuspi d valve is noted. No pneumatosis, free air or portal venous gas is present. Borderline biliary ductal dilatation has developed since prior CT. Common bile duct measures 7 mm in caliber. Gallbladder is m ildly distended. Several small densities within the dependent aspect of the gallbladder noted. There is mild gallbladder wall thickening versus trace pericholecystic fluid. A cyst within the upper pole the right kidney is noted. There is no hydronephrosis. A 1.1 cm cystic lesion within the pancreatic h ead is unchanged from earlier exams. 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 Extensive sigmoid diver ticulosis is noted. Of note, there is a 3.8 cm linear radiodensity within the mid sigmoid colon shown on axial image 322 of 441. There is mild associated wall thickening and pericolonic stranding. No fr ee air is present. No abscess is identified. No additional sites of bowel wall thickening are noted. There is no lymphadenopathy. IMPRESSION: 1. 3.8 cm transversely oriented linear radiodensity within the sigmoid colon with mild associated col onic wall thickening and pericolonic stranding. Although nonspecific, this may reflect an ingested charles ne. No evidence for perforation at this time however GI consultation might be considered given potent ial risk for perforation. 2. Suspected cholelithiasis. Mild gallbladder distention with gallbladder wall thickening versus herman cholecystic fluid. Right upper quadrant ultrasound could be obtained for further evaluation. 3. Interval development of slight biliary ductal dilatation which could be correlated with obstructiv e liver function tests. ACT 112: Negative or not required by law. Electronically signed by: Rob Mackay M.D. 11/19/2021 1:20 PM
--- NOTE | 2021-11-19 13:39 | Emergency Department Note ---
Impression & Plan Cholelithiases, Acute upper abdominal pain, Intractable vomiting with nausea ED Provider Note NAME: SHIREEN DOMINGUEZ AGE: 86 SEX: F ARRIVES VIA: Ambulance INFORMANT: Patient ED PROVIDER(S): Lamont Ross MD CHIEF COMPLAINT: Abd pain, n/v PLAN: Disposition: Admit MEDICAL DECISION MAKING: The patient is a pleasant 86-year-old woman with a past medical history of hypertension, osteoporosis, atrial flutter on warfarin, who presents to the emergency department for acute onset abdominal pain with nausea and vomiting that began this morning. Patient reports feeling healthy prior to today and denies any fevers, chills, cough, congestion, urinary symptoms. On arrival patient is uncomfortable no acute distress, afebrile with heart rate that fluctuates from the 60-70s down to the 30s in the setting of her abdominal pain and nausea with vomiting likely related to increased vagal tone without overt high-grade block. She appears clinically dry. She has mild epigastric tenderness without guarding or rebound. WBC, H/H and platelets within normal limits. INR 3.4 without evidence of bleeding. Chemistry without metabolic acidosis. Total bilirubin 1.5 with direct bilirubin 0.3, nonspecific and similar to prior range of values. LFTs are otherwise unremarkable. Lipase is not elevated. UA without convincing evidence of infection. Covid-19 PCR negative. Influenza and RSV PCR negative. CT of the abdomen pelvis was performed and demonstrates cholelithiasis with gallbladder distention and gallbladder wall thickening with possible pericho lecystic fluid. CT also suggest possible slight biliary ductal dilatation. Additional note is made of a 3.8 cm transversely oriented linear radiodensity within the sigmoid colon with mild associated colonic wall thickening and pericolonic stranding which is nonspecific and may reflect ingested bone however discussion with the patient and does not reveal any recent oral intake that would be consistent with this. Thus, unclear significance of this finding at this time. Importantly, the patient has no lower abdominal tenderness. Formal gallbladder ultrasound was performed to further characterize his biliary findings with stones in the gallbladder neck with mild wall thickening and edema. No pericholecystic fluid is seen ultrasound. CBD measures 0.4-0.6 cm. Upon reevaluation patient was feeling improved after IV fluid hydration, famotidine, Zofran and Reglan. Findings were reviewed with the patient and she did agree with plan for admission for further evaluation and management. Dr. Swartz, [facility] [place], to evaluate the patient for admission. Triage Nursing notes reviewed and agree them. Prior medical records reviewed Vital Signs: reviewed and remarkable for bradycardia. Differential diagnosis: Gastroenteritis, food borne illness, infections, appendicitis, diverticulitis, inflammatory bowel disease, obstruction, GI bleed, biliary pathology, volvulus, as well as other pathologies. ER treatment provided: See below. Diagnostics interpreted by me: ECG: Atrial flutter versus atrial ectopic rhythm, 57 bpm, no overt ST elevation depression QTC 414, QRS 96. Cardiac Monitoring: An order for continuous cardiac monitoring was placed and demonstrated atrial flutter versus atrial ectopic rhythm, 77 bpm, Laboratory studies: See below Imaging studies: See below Consultation(s): Dr. Swartz [facility] [place], to evaluate the patient for admission. HPI: The patient is a pleasant 86-year-old woman with a past medical history of hypertension, osteoporosis, atrial flutter on warfarin, who presents to the emergency department for acute onset abdominal pain with nausea and vomiting that began this morning. Patient reports feeling healthy prior to today and denies any fevers, chills, cough, congestion, urinary symptoms. ROS: See above HPI for pertinent positives & negatives. A total of 10 systems reviewed and were otherwise negative. VITALS:See Below PHYSICAL EXAMINATION: GENERAL: Awake, alert, uncomfortable-appearing, in no distress HENT: Normocephalic, atraumatic. Oropharynx with dry mucous membranes and o therwise unremarkable. EYES: Normal conjunctiva. Sclera non-icteric. NECK: Supple. No nuchal rigidity. FROM. No JVD. RESPIRATORY: Clear to auscultation. CARDIAC: Regular rate, normal rhythm. Extremities warm and well perfused. Pulses equal. ABDOMEN: Soft, non-distended. Mild epigastric tenderness to palpation. Negative kang's sign. No rebound or guarding. No masses. RECTAL: Deferred. MUSCULOSKELETAL: Chest examination reveals no tenderness. The back is symmetrical on inspection without obvious abnormality. There is no CVA tenderness to palpation. No joint edema. LOWER EXTREMITIES: Calves are equal size bilaterally and non-tender. No edema. No discoloration. NEURO: Normal sensorium. No sensory or motor deficits noted. SKIN: No rash or jaundice noted. Lamont Ross MD Past Med/Surg History Medical History Anticoagulant long-term use Asthma Atrial flutter with rapid ventricular response Biopsy of breast (2012) Cystocele surgically repaired Dysphagia H/O Goiter H/O gastroesophageal reflux (GERD) Hiatal hernia History of esophageal dilatation Hypertension Migraines Osteoarthritis Osteoporosis Severe mitral regurgitation 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 MVR/MAZE. 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 Surgical History H/O exploratory laparotomy p Exploratory Laparotomy- Abhishek Gutierrez MD, FACS Lysis of adhesion 04/04/2021 H/O hemorrhoidectomy H/O knee surgery LEFT KNEE H/O maze procedure for a fib H/O shoulder surgery LEFT History of back surgery History of bilateral tubal ligation History of bladder surgery History of breast biopsy History of cardiac cath History of carpal tunnel release History of cataract surgery History of colonoscopy History of esophagogastroduodenoscopy (EGD) History of foot surgery History of hand surgery History of hysterectomy History of incisional hernia repair (03/27/21) Open Incarcerated Incisional Hernia Repair -Abhishek Gutierrez MD, FACS 03/27/2021 History of oophorectomy History of rectocele History of total abdominal hysterectomy History of tricuspid valve replacement S/P cervical spinal fusion (1999) UNSURE OF LEVELS. FULL ROM. S/P hysterectomy (2012) S/P Maze operation for atrial fibrillation (2017) S/P STERLING-BSO Family History Aunt Breast cancer Brother Diabetes Sister Breast cancer Myocardial infarction Ovarian cancer Diabetes Father Myocardial infarction Mother Myocardial infarction Diabetes Social History Smoking Status: Never smoker Second Hand Exposure: No; Hx Alcohol Use: No Hx Substance Use: No Preferred Language: Icelandic Communication Ability: Effective Visual Impairment: No Limitations Hearing Ability: Normal Software Configuration Manager Required: No Beliefs That Will Affect Care: None marital status: Current Living Situation: Alone current occupation: Retired How many Children do You have: 1 Feels Safe at Home: Yes Safety Concerns: Feels Safe At This Time Seatbelt Use: always Assistive Devices: Denture - Upper, Denture - Lower and Hearing Aid - Bilateral Allergies Allergies Allergy/AdvReac Type Severity Reaction Status Date / Time Bactrim Allergy Severe RASH AND Verified 12/25/17 10:05 FACIAL SWELLING bee venom protein (honey bee) Allergy Severe ANAPHYLAXIS Verified 11/01/21 12:51 clarithromycin Allergy Intermediate RASH AND Verified 11/01/21 12:51 FACIAL SWELLING fluconazole Allergy Intermediate INCREASED Verified 11/01/21 12:51 HEART RATE moxifloxacin Allergy Intermediate RASH AND Verified 11/01/21 12:51 FACIAL SWELLING nitrofurantoin Allergy Intermediate RASH Verified 11/01/21 12:51 Quinolones Allergy Intermediate RASH AND Verified 11/01/21 12:51 FACIAL SWELLING sulfamethoxazole Allergy Intermediate RASH AND Verified 11/01/21 12:51 FACIAL SWELLING trimethoprim Allergy Intermediate RASH AND Verified 11/01/21 12:51 FACIAL SWELLING cefuroxime [From Ceftin] Allergy Verified 11/01/21 12:51 NSAIDS (Non-Steroidal AdvReac Intermediate Pt had Verified 11/01/21 12:51 Anti-Inflamma Open Heart Surgery ketamine AdvReac Mild VOMITING Verified 11/01/21 12:51 Home Meds Home Medications Medication Instructions Recorded Confirmed ascorbic acid (vitamin C) 500 mg 500 mg PO DAILY 03/24/18 11/19/21 tablet (Vitamin C) calcium carbonate 500 mg-vitamin 1 tab PO DAILY 03/24/18 11/19/21 D3 5 mcg (200 unit) tablet (Calcium 500 + D) cholecalciferol (vitamin D3) 125 5,000 unit PO DAILY 03/24/18 11/19/21 mcg (5,000 unit) tablet (Vitamin D3) multivitamin (Multiple Vitamins) 1 tab PO DAILY 03/24/18 11/19/21 aspirin 81 mg tablet,delayed 81 mg PO DAILY 03/23/21 11/19/21 release epinephrine 0.3 mg/0.3 mL 0.3 mg IM UD PRN 03/23/21 11/19/21 injection, auto-injector biotin 2,500 mcg capsule 2,500 mcg PO DAILY 09/19/21 11/19/21 denosumab 60 mg/mL subcutaneous 60 mg SUBCUT .Q6M 06/20/22 06/20/22 syringe (Prolia) warfarin 6 mg tablet 6 mg PO QPM 11/19/21 11/19/21 Previous Rx's Medication Instructions Recorded metoprolol succinate 25 mg 12.5 mg PO BID #90 tab 03/27/21 tablet,extended release 24 hr (Toprol XL) triamterene 37.5 1 tab PO Q2D #45 tab 05/03/21 mg-hydrochlorothiazide 25 mg tablet fluticasone 250 mcg-salmeterol 50 1 inh INHALATION DAILY #60 ea 08/21/21 mcg/dose blistr powdr for inhalation (Advair Diskus) ipratropium bromide 0.02 % 2.5 ml INHALATION Q6H PRN #75 ml 10/08/21 solution for inhalation albuterol sulfate 90 mcg/actuation 2 puff INHALATION Q4H PRN #6.7 g 10/09/21 aerosol inhaler (ProAir HFA) pantoprazole 40 mg tablet,delayed 40 mg PO QAM #90 tab 10/16/21 release (Protonix) atorvastatin 40 mg tablet (Lipitor) 40 mg PO HS #90 tab 11/02/21 Results & Data (ED) Vital Signs Vital Signs - 24 hr 11/19/21 11:06 11/19/21 11:11 11/19/21 13:34 Temperature 36.8 C Temperature Source Oral Pulse Rate 44 L Pulse Rate [Apical] 33 L 59 L Pulse Rhythm [Apical] Regular Respiratory Rate 16 16 17 Respiratory Depth Normal Blood Pressure 162/85 H Blood Pressure [Left Arm] 155/89 H Blood Pressure Mean 110 Blood Pressure Mean [Left Arm] 111 Pulse Oximetry 99 99 96 Oxygen Delivery Method Room Air Room Air Sepsis Recent Fever Within 48 Hours No Sepsis New/Unexplained Change in Mental Status No Sepsis Action Taken by Nursing No Action Required 11/19/21 15:15 Temperature Temperature Source Pulse Rate Pulse Rate [Apical] 65 Pulse Rhythm [Apical] Respiratory Rate 18 Respiratory Depth Blood Pressure Blood Pressure [Left Arm] 141/71 H Blood Pressure Mean Blood Pressure Mean [Left Arm] 94 Pulse Oximetry 95 Oxygen Delivery Method Room Air Sepsis Recent Fever Within 48 Hours Sepsis New/Unexplained Change in Mental Status Sepsis Action Taken by Nursing Laboratory Data Attestation: I reviewed the patient's lab results. Result diagrams: 11/19/21 11:00 11/19/21 11:00 Lab Results 11/19/21 11/19/2122 Range/Units 11:00 11:00 11:00 WBC 9.65 (4.8-10.8) K/uL RBC 5.22 (4.2-5.4) M/uL Hgb 14.8 (12.0-16.0) g/dL Hct 44.1 (37-47) % MCV 84.5 (80-100) fL MCH 28.4 (25-34) pg MCHC 33.6 (32-36) g/dL RDW Std Deviation 47.6 H (36.4-46.3) fL RDW Coeff of Linda 15.3 H (11.5-14.5) % Plt Count 207 (130-400) K/uL MPV 10.0 (7.4-10.4) fL Immature Gran % (Auto) 0.4 % Neut % (Auto) 70.5 % Lymph % (Auto) 18.2 % Redwood % (Auto) 9.2 % Eos % (Auto) 1.5 % Baso % (Auto) 0.2 % Neut # (Auto) 6.80 H (1.4-6.5) K/uL Lymph # (Auto) 1.76 (1.2-3.4) K/uL Redwood # (Auto) 0.89 H (0.11-0.59) K/uL Eos # (Auto) 0.14 (0-0.5) K/uL Baso # (Auto) 0.02 (0-0.2) K/uL Immature Gran # (Auto) 0.04 H (0.00-0.02) K/uL PT 33.8 H (9.0-12.0) Seconds INR 3.4 H (0.9-1.1) Sodium 132 L (136-145) mmol/L Potassium 4.0 (3.5-5.1) mmol/L Chloride 95 L (98-107) mmol/L Carbon Dioxide 31 (21-32) mmol/L Anion Gap 6 (3-11) BUN 11 (6-23) mg/dl Creatinine 0.75 (0.6-1.2) mg/dl Est Cr Clr Drug Dosing 46.6 ml/min Est GFR ( Amer) 84.2 ml/min Est GFR (Non-Af Amer) 72.7 ml/min BUN/Creatinine Ratio 14.7 (10-20) Glucose 113 H (70-99(Fasting)) mg/dl Calcium 9.5 (8.5-10.1) mg/dl Phosphorus 3.6 (2.5-4.9) mg/dl Magnesium 1.8 (1.7-2.4) mg/dl Total Bilirubin 1.5 H (0.2-1.0) mg/dl Direct Bilirubin (0-0.2) mg/dl AST 30 (13-39) U/L ALT 20 (7-52) U/L Alkaline Phosphatase 76 (34-104) U/L Total Protein 7.0 (6.0-8.3) gm/dl Albumin 4.2 (3.4-5.0) gm/dl Globulin 2.8 (2.5-4.0) gm/dl Albumin/Globulin Ratio 1.5 (0.9-2) Lipase 13 (11-82) U/L Urine Color Urine Appearance (Clear) Urine pH (4.5-7.5) Ur Specific [place] (1.000-1.030) Urine Protein (Negative) Urine Glucose (UA) (Negative) Urine Ketones (Negative) Urine Blood (Negative) Urine Nitrite (Negative) Urine Bilirubin (Negative) Urine Urobilinogen (Negative) Ur Leukocyte Esterase (Negative) SARS-CoV-2 (PCR) (Negative) Influenza Type A (PCR) (Neg) Influenza Type B (PCR) (Neg) RSV (RT-PCR) (Neg) 11/19/21 11/19/21 11/19/21 Range/Units 11:00 11:48 12:49 WBC (4.8-10.8) K/uL RBC (4.2-5.4) M/uL Hgb (12.0-16.0) g/dL Hct (37-47) % MCV (80-100) fL MCH (25-34) pg MCHC (32-36) g/dL RDW Std Deviation (36.4-46.3) fL RDW Coeff of Linda (11.5-14.5) % Plt Count (130-400) K/uL MPV (7.4-10.4) fL Immature Gran % (Auto) % Neut % (Auto) % Lymph % (Auto) % Redwood % (Auto) % Eos % (Auto) % Baso % (Auto) % Neut # (Auto) (1.4-6.5) K/uL Lymph # (Auto) (1.2-3.4) K/uL Redwood # (Auto) (0.11-0.59) K/uL Eos # (Auto) (0-0.5) K/uL Baso # (Auto) (0-0.2) K/uL Immature Gran # (Auto) (0.00-0.02) K/uL PT (9.0-12.0) Seconds INR (0.9-1.1) Sodium (136-145) mmol/L Potassium (3.5-5.1) mmol/L Chloride (98-107) mmol/L Carbon Dioxide (21-32) mmol/L Anion Gap (3-11) BUN (6-23) mg/dl Creatinine (0.6-1.2) mg/dl Est Cr Clr Drug Dosing ml/min Est GFR ( Amer) ml/min Est GFR (Non-Af Amer) ml/min BUN/Creatinine Ratio (10-20) Glucose (70-99(Fasting)) mg/dl Calcium (8.5-10.1) mg/dl Phosphorus (2.5-4.9) mg/dl Magnesium (1.7-2.4) mg/dl Total Bilirubin (0.2-1.0) mg/dl Direct Bilirubin 0.3 H (0-0.2) mg/dl AST (13-39) U/L ALT (7-52) U/L Alkaline Phosphatase (34-104) U/L Total Protein (6.0-8.3) gm/dl Albumin (3.4-5.0) gm/dl Globulin (2.5-4.0) gm/dl Albumin/Globulin Ratio (0.9-2) Lipase (11-82) U/L Urine Color Yellow Urine Appearance Clear (Clear) Urine pH >= 9.0 H (4.5-7.5) Ur Specific [place] 1.012 (1.000-1.030) Urine Protein Negative (Negative) Urine Glucose (UA) Negative (Negative) Urine Ketones Negative (Negative) Urine Blood Negative (Negative) Urine Nitrite Negative (Negative) Urine Bilirubin Negative (Negative) Urine Urobilinogen Negative (Negative) Ur Leukocyte Esterase Negative (Negative) SARS-CoV-2 (PCR) NEGATIVE (Negative) Influenza Type A (PCR) Negative (Neg) Influenza Type B (PCR) Negative (Neg) RSV (RT-PCR) Negative (Neg) Administered Medications Atorvastatin Calcium (Atorvastatin 40 Mg Tab) 40 mg PO HS RANDOLPH Stop: 12/19/21 20:59 Last Admin: 11/19/21 21:32 Dose: 40 mg Documented by: [id number] Sodium Chloride (Nss 1000ml) 1,000 mls @ 80 mls/hr IV .[id number] RANDOLPH Stop: 12/19/21 20:02 Last Admin: 11/19/21 21:32 Dose: 80 mls/hr Documented by: [id number] Ampicillin Sodium/Sulbactam Sodium 3,000 mg/ Sodium Chloride 108 mls @ 200 mls/hr IV Q6H [facility]; Protocol Stop: 11/29/21 20:29 Last Admin: 11/19/21 23:03 Dose: Not Given Documented by: [id number] Metoprolol Succinate (Metoprolol Succ 25mg Ext Rel Tab) 12.5 mg PO BID RANDOLPH Stop: 12/19/21 20:59 Last Admin: 11/19/21 21:32 Dose: Not Given Documented by: [id number] Discontinued Medications Sodium Chloride (Nss) 500 mls @ 999 mls/hr IV .Q31M ONE Stop: 11/19/21 11:38 Last Infusion: 11/19/21 11:57 Dose: 0 mls/hr Documented by: [id number] Admin: 11/19/21 11:19 Dose: 999 mls/hr Documented by: [id number] Famotidine (Pepcid 20mg Iv Push) 20 mg in 5 mls @ 2.5 mls/min IV NOW STA Stop: 11/19/21 11:23 Last Admin: 11/19/21 11:48 Dose: 2.5 mls/min Documented by: [id number] Phytonadione 10 mg/ Dextrose 51 mls @ 102 mls/hr IV ONE ONE Stop: 11/19/21 17:01 Last Infusion: 11/19/21 18:07 Dose: 0 mls/hr Documented by: [id number] Admin: 11/19/21 17:23 Dose: 102 mls/hr Documented by: [id number] Ioversol (Optiray 320 100ml) 94 ml IV ONCE ONE Stop: 11/19/21 12:57 Last Admin: 11/19/21 12:57 Dose: 94 ml Documented by: [id number] Metoclopramide HCl (Metoclopramide Hcl Inj 5 Mg/Ml 2 Ml Vial) 5 mg IV ONE STA Stop: 11/19/21 14:17 Last Admin: 11/19/21 14:28 Dose: 5 mg Documented by: [id number] Ondansetron HCl (Ondansetron Inj 2 Mg/Ml 2 Ml Vial) 4 mg IV NOW STA Stop: 11/19/21 11:23 Last Admin: 11/19/21 11:48 Dose: 4 mg Documented by: [id number] Imaging Data Radiologist's Impression: Gallbladder Ultrasound 11/19/21 13:48 US gallbladder CLINICAL HISTORY: abd pain, n/v TECHNIQUE: Multiple real-time sonographic images of the right upper quadrant were obtained. Comparison: None available at the time of this dictation. FINDINGS: The liver is diffusely homogenous with normal contour and echogenicity. No focal mass lesions are seen. No intrahepatic ductal dilatation is seen. Gallstones are seen in the neck. The anterior gallbladder wall appears edematous measuring up to 0.3 cm. No pericholecystic fluid is seen at this time. Kang's sign cannot be assessed as the patient received pain medication. The common duct measures 0.4-0.6 cm in diameter at the level of the hepatic artery. The visualized portions of the pancreas appear normal. The right kidney shows normal echogenicity, cortical thickness and renal co ntour. The right kidney shows no evidence of hydronephrosis. A upper pole cyst measures 4.3 x 4.4 x 3.9 cm. No ascites or free fluid is seen in Renee's pouch. IMPRESSION: Stones are seen at the gallbladder neck with gallbladder wall thickening and edema. No pericholecystic fluid is seen and sonographic Kang's sign is indeterminate. Findings are concerning for acute cholecystitis, if clinical uncertainty persists, nuclear medicine HIDA study can be performed. ACT 112: Negative or not required by law. Electronically signed by: Fernando Dietrich M.D. 11/19/2021 3:20 PM Abdomen/Pelvis CT 11/19/21 11:23 CT OF THE ABDOMEN AND PELVIS WITH CONTRAST CLINICAL HISTORY: Abdominal pain, nausea and vomiting. COMPARISON STUDY: CT of the abdomen and pelvis September 27, 2021. TECHNIQUE: Following IV administration of 94 mL of Optiray, axial images of the abdomen and pelvis were obtained from the lung bases to the proximal femurs. Images were reviewed in the axial, sagittal, and coronal planes. IV contrast was administered without complication. Automated exposure control was utilized for the study. A dose lowering technique was utilized adhering to the principles of ALARA. CT DOSE: 318.88 mGy.cm FINDINGS: Cardiomegaly is noted. There is extensive mitral annular calcification. Prosthetic tricuspid valve is noted. No pneumatosis, free air or portal venous gas is present. Borderline biliary ductal dilatation has developed since prior CT. Common bile duct measures 7 mm in caliber. Gallbladder is mildly distended. Several small densities within the dependent aspect of the gallbladder noted. There is mild gallbladder wall thickening versus trace pericholecystic fluid. A cyst within the upper pole the right kidney is noted. There is no hydronephrosis. A 1.1 cm cystic lesion within the pancreatic head is unchanged from earlier exams. 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 Extensive sigmoid diverticulosis is noted. Of note, there is a 3.8 cm linear radiodensity within the mid sigmoid colon shown on axial image 322 of 441. There is mild associated wall thickening and pericolonic stranding. No free air is present. No abscess is identified. No additional sites of bowel wall thickening are noted. There is no lymphadenopathy. IMPRESSION: 1. 3.8 cm transversely oriented linear radiodensity within the sigmoid colon with mild associated colonic wall thickening and pericolonic stranding. Although nonspecific, this may reflect an ingested bone. No evidence for perforation at this time however GI consultation might be considered given potential risk for perforation. 2. Suspected cholelithiasis. Mild gallbladder distention with gallbladder wall thickening versus pericholecystic fluid. Right upper quadrant ultrasound could be obtained for further evaluation. 3. Interval development of slight biliary ductal dilatation which could be correlated with obstructive liver function tests. ACT 112: Negative or not required by law. Electronically signed by: Rob Mackay M.D. 11/19/2021 1:20 PM Gallbladder Ultrasound 11/19/21 13:48 US gallbladder CLINICAL HISTORY: abd pain, n/v TECHNIQUE: Multiple real-time sonographic images of the right upper quadrant were obtained. Comparison: None available at the time of this dictation. FINDINGS: The liver is diffusely homogenous with normal contour and echogenicity. No focal mass lesions are seen. No intrahepatic ductal dilatation is seen. Gallstones are seen in the neck. The anterior gallbladder wall appears edematous measuring up to 0.3 cm. No pericholecystic fluid is seen at this time. Kang's sign cannot be assessed as the patient received pain medication. The common duct measures 0.4-0.6 cm in diameter at the level of the hepatic artery. The visualized portions of the pancreas appear normal. The right kidney shows normal echogenicity, cortical thickness and renal contour. The right kidney shows no evidence of hydronephrosis. A upper pole cyst measures 4.3 x 4.4 x 3.9 cm. No ascites or free fluid is seen in Renee's pouch. IMPRESSION: Stones are seen at the gallbladder neck with gallbladder wall thickening and edema. No pericholecystic fluid is seen and sonographic Kang's sign is ind eterminate. Findings are concerning for acute cholecystitis, if clinical uncertainty persists, nuclear medicine HIDA study can be performed. ACT 112: Negative or not required by law. Electronically signed by: Fernando Dietrich M.D. 11/19/2021 3:20 PM Discharge Plan Visit Data Chief Complaint: Abdominal Pain ED Provider: Lamont Ross Discharge Problem: Cholelithiases, Acute upper abdominal pain, Intractable vomiting with nausea Patient Disposition: Admitted As Inpatient Discharge Instructions Interventions: ED Discharge Assessment Last Done: 11/19/21 19:09 Discharge Problem: Cholelithiases Qualifiers: Cholelithiasis location: gallbladder Cholecystitis presence: without cholecystitis Biliary obstruction: without biliary obstruction Qualified Code(s): K80.20 - Calculus of gallbladder without cholecystitis without obstruction
[2021-11-19] MEDS ORDERED: METOCLOPRAMIDE HCL INJ 5 MG/ML 2 ML VIAL IV STA (14:16)
--- NOTE | 2021-11-19 15:22 | Ultrasound Report ---
US gallbladder CLINICAL HISTORY: abd pain, n/v TECHNIQUE: Multiple real-time sonographic images of the right upper quadrant were obtained. Comparison: None available at the time of this dictation. FINDINGS: The liver is diffusely homogenous with normal contour and echogenicity. No focal mass lesions are se en. No intrahepatic ductal dilatation is seen. Gallstones are seen in the neck. The anterior gall bladder wall appears edematous measuring up to 0.3 cm. No pericholecystic fluid is seen at this time. Kang's sign cannot be assessed as the patient received pain medication. The common duct measures 0 .4-0.6 cm in diameter at the level of the hepatic artery. The visualized portions of the pancreas ap pear normal. The right kidney shows normal echogenicity, cortical thickness and renal contour. The right kidney sh ows no evidence of hydronephrosis. A upper pole cyst measures 4.3 x 4.4 x 3.9 cm. No ascites or free fluid is seen in Renee's pouch. IMPRESSION: Stones are seen at the gallbladder neck with gallbladder wall thickening and edema. No pericholecysti c fluid is seen and sonographic Kang's sign is indeterminate. Findings are concerning for acute cho lecystitis, if clinical uncertainty persists, nuclear medicine HIDA study can be performed. ACT 112: Negative or not required by law. Electronically signed by: Fernando Dietrich M.D. 11/19/2021 3:20 PM
--- NOTE | 2021-11-19 16:24 | History & Physical Report ---
Date of Service November 19, 2021 Assessment & Plan (1) Choledocholithiasis: Plan: - With associated acute onset abdominal pain, nausea, vomiting. Stones are seen at the gallbladder neck with gallbladder wall thickening and edema. - Will make n.p.o, given vitamin K in ED for reversal of Coumadin in anticipation of possible upcoming procedure. - Consult GI and general surgery for further treatment recommendations. - IVF, IV pain medications, Zofran prn. - Unasyn q6h. (2) Foreign body in colon: Plan: - 3.8 cm transversely oriented linear radiodensity within the sigmoid colon with mild associated colonic wall thickening and pericolonic stranding. Without perforation. - This was not seen on previous CT A/P in August, patient states she does not eat chicken wings or anything with bones and it, last evening she had salmon with a salad. - Unsure what this may be, however will consult both GI and general surgery for further treatment recommendations. (3) Bradycardia: Plan: - Prolonged in ED, with HR 30-40s, not captured on EKG, however was associated with epigastric pain that went to back. - May have been a vagal episode due to association with pain. - EKG reviewed by Dr. Sandhu, felt to be PACs with prolonged CO interval, no complete heart block. - Will place in PCU for tonight for ongoing monitoring. - On low dose metoprolol 12.5 mg BID, continue this but hold for HR < 60. (4) Atrial flutter with controlled response: Plan: - S/p maze. - Continue metoprolol as above. - Holding Coumadin in anticipation of upcoming procedures. (5) Hypertension: Plan: - Holding triamterene/HCTZ - Continue metoprolol succinate 12.5 mg twice daily but hold for HR < 60. (6) Asthma: Plan: - Chronic, stable. No acute issues today. - Continue Advair, albuterol as needed. (7) GERD (gastroesophageal reflux disease): Plan: - Continue pantoprazole 40 mg daily. (8) S/P mitral valve replacement with bioprosthetic valve: Plan: - No acute issues. (9) S/P tricuspid valve repair: Plan: - No acute issues. Plan: - Admit to PCU given bradycardic event in ED. - SCDs for VTE ppx. - Full Code. History of Present Illness Chief Complaint: abdominal pain Primary Care Provider: Ally Serna MD Muna Young is an 86 y/o female with past medical history significant for atrial flutter on Coumadin, hypertension, asthma, dyslipidemia, GERD, osteoporosis, s/p mitral valve replacement and tricuspid valve repair and 8 months s/p incarcerated hernia repair and subsequent laparotomy with lysis of adhesions who presents today with abdominal pain. Patient woke up this morning, was able to eat her regular breakfast (coffee, cereal, banana), noticed she was belching a lot and had some central abdominal pain. Her physical therapist came to the house for physical therapy, she was able to participate in this, however shortly after her abdominal pain became worse, she felt weak in her legs, and thinks she passed out, as she woke up on her kitchen floor without any recollection of tripping or falling. She called her neighbor for assistance, by the time her neighbor was there she had vomited several times. She presented to our ED for further evaluation. Her abdominal pain is mostly in her periumbilical region with episodes where it radiates to her back. She has been afebrile at home, having normal bowel movements, and eating normally. She did not have any immediate pain after her breakfast. In ED, vital signs initially significant for heart rate of 44, 33 during initial hour in ED, improved to 60s with fluids. Otherwise, she is hypertensive with SBP 140s to 160s, afebrile and SPO2 >95% on room air. Labs significant for PT 33.8, INR 3.4. Sodium 132. T bili 1.5, direct bili 0.3. AST, ALT, alk phos within normal limits. UA unremarkable. COVID/flu/RSV negative. CT A/P showed 3.8 cm transversely oriented linear radiodensity within sigmoid colon with mild associated colonic wall thickening and pericolonic stranding. No evidence of perforation. Suspect cholelithiasis with mild gallbladder distention and gallbladder wall thickening versus fluid, a follow-up gallbladder ultrasound was obtained which revealed stones in the gallbladder neck with gallbladder wall thickening and edema without pericholecystic fluid seen. Allergies Allergy/AdvReac Type Severity Reaction Status Date / Time Bactrim Allergy Severe RASH AND Verified 12/25/17 10:05 FACIAL SWELLING bee venom protein (honey bee) Allergy Severe ANAPHYLAXIS Verified 11/01/21 12:51 clarithromycin Allergy Intermediate RASH AND Verified 11/01/21 12:51 FACIAL SWELLING fluconazole Allergy Intermediate INCREASED Verified 11/01/21 12:51 HEART RATE moxifloxacin Allergy Intermediate RASH AND Verified 11/01/21 12:51 FACIAL SWELLING nitrofurantoin Allergy Intermediate RASH Verified 11/01/21 12:51 Quinolones Allergy Intermediate RASH AND Verified 11/01/21 12:51 FACIAL SWELLING sulfamethoxazole Allergy Intermediate RASH AND Verified 11/01/21 12:51 FACIAL SWELLING trimethoprim Allergy Intermediate RASH AND Verified 11/01/21 12:51 FACIAL SWELLING cefuroxime [From Ceftin] Allergy Verified 11/01/21 12:51 NSAIDS (Non-Steroidal AdvReac Intermediate Pt had Verified 11/01/21 12:51 Anti-Inflamma Open Heart Surgery ketamine AdvReac Mild VOMITING Verified 11/01/21 12:51 Home Medications Medication Instructions Recorded Confirmed Type ascorbic acid (vitamin C) 500 mg 500 mg PO DAILY 03/24/18 11/19/21 History tablet (Vitamin C) calcium carbonate 500 mg-vitamin 1 tab PO DAILY 03/24/18 11/19/21 History D3 5 mcg (200 unit) tablet (Calcium 500 + D) cholecalciferol (vitamin D3) 125 5,000 unit PO DAILY 03/24/18 11/19/21 History mcg (5,000 unit) tablet (Vitamin D3) multivitamin (Multiple Vitamins) 1 tab PO DAILY 03/24/18 11/19/21 History aspirin 81 mg tablet,delayed 81 mg PO DAILY 03/23/21 11/19/21 History release epinephrine 0.3 mg/0.3 mL 0.3 mg IM UD PRN 03/23/21 11/19/21 History injection, auto-injector metoprolol succinate 25 mg 12.5 mg PO BID #90 tab 03/27/21 11/19/21 Rx tablet,extended release 24 hr (Toprol XL) triamterene 37.5 1 tab PO Q2D #45 tab 05/03/21 11/19/21 Rx mg-hydrochlorothiazide 25 mg tablet warfarin 6 mg tablet 6 mg PO DAILY #90 tab 05/03/21 11/01/21 Rx fluticasone 250 mcg-salmeterol 50 1 inh INHALATION DAILY #60 ea 08/21/21 11/19/21 Rx mcg/dose blistr powdr for inhalation (Advair Diskus) biotin 2,500 mcg capsule 2,500 mcg PO DAILY 09/19/21 11/01/21 History ipratropium bromide 0.02 % 2.5 ml INHALATION Q6H PRN #75 ml 10/08/21 11/19/21 Rx solution for inhalation albuterol sulfate 90 mcg/actuation 2 puff INHALATION Q4H PRN #6.7 g 10/09/21 11/19/21 Rx aerosol inhaler (ProAir HFA) pantoprazole 40 mg tablet,delayed 40 mg PO QAM #90 tab 10/16/21 11/19/21 Rx release (Protonix) atorvastatin 40 mg tablet (Lipitor) 40 mg PO HS #90 tab 11/02/21 11/19/21 Rx Past Med/Surg History Medical History Anticoagulant long-term use Asthma Atrial flutter with rapid ventricular response Biopsy of breast (2012) Cystocele surgically repaired Dysphagia H/O Goiter H/O gastroesophageal reflux (GERD) Hiatal hernia History of esophageal dilatation Hypertension Migraines Osteoarthritis Osteoporosis Severe mitral regurgitation 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 MVR/MAZE. 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 Surgical History H/O exploratory laparotomy p Exploratory Laparotomy- Abhishek Gutierrez MD, FACS Lysis of adhesion 04/04/2021 H/O hemorrhoidectomy H/O knee surgery LEFT KNEE H/O maze procedure for a fib H/O shoulder surgery LEFT History of back surgery History of bilateral tubal ligation History of bladder surgery History of breast biopsy History of cardiac cath History of carpal tunnel release History of cataract surgery History of colonoscopy History of esophagogastroduodenoscopy (EGD) History of foot surgery History of hand surgery History of hysterectomy History of incisional hernia repair (03/27/21) Open Incarcerated Incisional Hernia Repair -Abhishek Gutierrez MD, FACS 03/27/2021 History of oophorectomy History of rectocele History of total abdominal hysterectomy History of tricuspid valve replacement S/P cervical spinal fusion (1999) UNSURE OF LEVELS. FULL ROM. 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: No Beliefs That Will Affect Care: None marital status: Current Living Situation: Alone current occupation: Retired How many Children do You have: 1 Feels Safe at Home: Yes Seatbelt Use: always Assistive Devices: Walker Review of Systems Review of Systems: Constitutional: Chills today; no fevers at home weakness, fatigue, myalgias, anorexia, night sweats Eyes: No diplopia, no worsening or blurred vision ENT: normal hearing, no trouble swallowing Respiratory: No cough, sputum, dyspnea at rest or on exertion Cardiovascular: No chest pain, tightness or palpitations Abdomen: Abdominal pain with nausea, vomiting since this a.m.; no diarrhea or constipation : Denies dysuria, hematuria, increased urgency/frequency, urinary retention Musculoskeletal: No joint pain, calf pain, swelling Neurologic: No weakness, numbness/tingling, or balance problems Psychiatric: No anxiety or depression Skin: No rash or itch Physical Exam Physical Exam: General: awake, alert, no apparent distress Head: Normocephalic, atraumatic ENT: PERRL, EOMI, no pharyngeal exudate, mucous membranes moist Chest: Clear to auscultation, on room air, no adventitious breath sounds Cardiac: Regular rate and rhythm, no murmur, no JVD, normal peripheral pulses, good capillary refill Abdominal: Epigastric/periumbilical pain without radiation, rebound, guarding; NABS x 4 quadrants, soft Extremities: Normal inspection, no peripheral edema or erythema, calfs nontender to palpation Psych: Normal mood and affect Neuro: AAO x 3, strength intact bilaterally and rated 5/5, no motor deficits, speech is clear, no peripheral sensory deficits Skin: no rash or erythema Results & Data Results & Data ([facility]) Vital Signs (Past 12 Hours) Vital Signs Temp Pulse Pulse Resp BP BP Pulse Ox 11/19/21 15:15 65 18 141/71 H 95 11/19/21 13:34 59 L 17 155/89 H 96 11/19/21 11:11 33 L 16 99 11/19/21 11:06 36.8 C 44 L 16 162/85 H 99 Laboratory Results Abnormal lab results 11/19/21 11/19/21 11/19/21 Range/Units 11:00 11:00 11:00 RDW Std Deviation 47.6 H (36.4-46.3) fL RDW Coeff of Linda 15.3 H (11.5-14.5) % Neut # (Auto) 6.80 H (1.4-6.5) K/uL [place] # (Auto) 0.89 H (0.11-0.59) K/uL Immature Gran # (Auto) 0.04 H (0.00-0.02) K/uL PT 33.8 H (9.0-12.0) Seconds INR 3.4 H (0.9-1.1) Sodium 132 L (136-145) mmol/L Chloride 95 L (98-107) mmol/L Glucose 113 H (70-99(Fasting)) mg/dl Total Bilirubin 1.5 H (0.2-1.0) mg/dl Direct Bilirubin (0-0.2) mg/dl Urine pH (4.5-7.5) 11/19/21 11/19/21 Range/Units 11:00 12:49 RDW Std Deviation (36.4-46.3) fL RDW Coeff of Linda (11.5-14.5) % Neut # (Auto) (1.4-6.5) K/uL [place] # (Auto) (0.11-0.59) K/uL Immature Gran # (Auto) (0.00-0.02) K/uL PT (9.0-12.0) Seconds INR (0.9-1.1) Sodium (136-145) mmol/L Chloride (98-107) mmol/L Glucose (70-99(Fasting)) mg/dl Total Bilirubin (0.2-1.0) mg/dl Direct Bilirubin 0.3 H (0-0.2) mg/dl Urine pH >= 9.0 H (4.5-7.5) Diagnostic Findings Abdomen/Pelvis CT 11/19/21 11:23 CT OF THE ABDOMEN AND PELVIS WITH CONTRAST CLINICAL HISTORY: Abdominal pain, nausea and vomiting. COMPARISON STUDY: CT of the abdomen and pelvis September 27, 2021. TECHNIQUE: Following IV administration of 94 mL of Optiray, axial images of the abdomen and pelvis were obtained from the lung bases to the proximal femurs. Images were reviewed in the axial, sagittal, and coronal planes. IV contrast was administered without complication. Automated exposure control was utilized for the study. A dose lowering technique was utilized adhering to the principles of ALARA. CT DOSE: 318.88 mGy.cm FINDINGS: Cardiomegaly is noted. There is extensive mitral annular calcification. Prosthetic tricuspid valve is noted. No pneumatosis, free air or portal venous gas is present. Borderline biliary ductal dilatation has developed since prior CT. Common bile duct measures 7 mm in caliber. Gallbladder is mildly distended. Several small densities within the dependent aspect of the gallbladder noted. There is mild gallbladder wall thickening versus trace pericholecystic fluid. A cyst within the upper pole the right kidney is noted. There is no hydronephrosis. A 1.1 cm cystic lesion within the pancreatic head is unchanged from earlier exams. 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 Extensive sigmoid diverticulosis is noted. Of note, there is a 3.8 cm linear radiodensity within the mid sigmoid colon shown on axial image 322 of 441. There is mild associated wall thickening and pericolonic stranding. No free air is present. No abscess is identified. No additional sites of bowel wall thickening are noted. There is no lymphadenopathy. IMPRESSION: 1. 3.8 cm transversely oriented linear radiodensity within the sigmoid colon with mild associated colonic wall thickening and pericolonic stranding. Although nonspecific, this may reflect an ingested bone. No evidence for perforation at this time however GI consultation might be considered given potential risk for perforation. 2. Suspected cholelithiasis. Mild gallbladder distention with gallbladder wall thickening versus pericholecystic fluid. Right upper quadrant ultrasound could be obtained for further evaluation. 3. Interval development of slight biliary ductal dilatation which could be correlated with obstructive liver function tests. ACT 112: Negative or not required by law. Electronically signed by: Rob Mackay M.D. 11/19/2021 1:20 PM Gallbladder Ultrasound 11/19/21 13:48 US gallbladder CLINICAL HISTORY: abd pain, n/v TECHNIQUE: Multiple real-time sonographic images of the right upper quadrant were obtained. Comparison: None available at the time of this dictation. FINDINGS: The liver is diffusely homogenous with normal contour and echogenicity. No focal mass lesions are seen. No intrahepatic ductal dilatation is seen. Gallstones are seen in the neck. The anterior gallbladder wall appears edematous measuring up to 0.3 cm. No pericholecystic fluid is seen at this time. Kang's sign cannot be assessed as the patient received pain medication. The common duct measures 0.4-0.6 cm in diameter at the level of the hepatic artery. The visualized portions of the pancreas appear normal. The right kidney shows normal echogenicity, cortical thickness and renal contour. The right kidney shows no evidence of hydronephrosis. A upper pole cyst measures 4.3 x 4.4 x 3.9 cm. No ascites or free fluid is seen in Renee's pouch. IMPRESSION: Stones are seen at the gallbladder neck with gallbladder wall thickening and edema. No pericholecystic fluid is seen and sonographic Kang's sign is indeterminate. Findings are concerning for acute cholecystitis, if clinical uncertainty persists, nuclear medicine HIDA study can be performed. ACT 112: Negative or not required by law. Electronically signed by: Fernando Dietrich M.D. 11/19/2021 3:20 PM Code Status & VTE Plan Code Status Full code. Supervising Physician Co-Signing Physician Notes I supervised Makenna Felder PA-C on the care of this patient. I interviewed and examined the patient independently of her. The plan is as written in her note except for any following changes/exceptions: None 86yo F w/ hx of hernia repair, bowel adhesions, and prior ovarian cyst removal who presents with abdominal pain. Had normal breakfast, but then had increasing pain and belching. In the ER, CT shows gallstones and concern for acute cholecystitis. Additionally, CT scan shows a possible bone(?) in the sigmoid colon without evidence of perforation. Seen in the ER. Comfortable at the time of exam. Minimal, diffuse abdominal pain. Will plan for consults with GI and gen surgery for gallbladder and retai faiza item. Will start empiric abx in case of cholecystitis. NPO at present until evaluated by specialists. Reversed INR today as her INR is 3.4. Will recheck in the AM. PG Care Time/CCT Total # of Minutes Spent Total Time Spent with Patient: Total time spent is greater than 50% in coordination of care (as documented) at patient's floor/unit and/or counseling patient: Coding Level of Care Code 98705 Initial Inpt Care Lvl 3 Diagnoses Choledocholithiasis K80.50 Foreign body in colon T18.4XXA Atrial flutter with controlled response I48.92 Hypertension I10 Asthma J45.909 GERD (gastroesophageal reflux disease) K21.9 S/P mitral valve replacement with bioprosthetic valve Z95.3 S/P tricuspid valve repair Z98.890 Bradycardia R00.1
[2021-11-19] MEDS ORDERED: PHYTONADIONE 10 MG in DEXTROSE 5% 50 ML IV ONE (16:32)
--- NOTE | 2021-11-19 19:37 | Surgery Consultation ---
Date of Consultation November 19, 2021 Assessment & Plan (1) Cholecystitis: (2) Foreign body in colon: Patient has been admitted to the medical service. We recommend proceeding as follows: Keep the patient n.p.o. for the present time Provide IV fluid for gentle hydration Initiate antibiotics. Unasyn has already been ordered Provide analgesics Provide antiemetics Hold the patient's Coumadin and follow serial labs. Medical services already ordered vitamin K to reverse her Coumadin so that if any procedural intervention is required this can be done safely minimizing the risk of bleeding Follow serial labs It appears by imaging the patient may be suffering from cholecystitis. The primary service has requested a GI consultation for this problem as well as the foreign body in patient's colon. Will await their recommendations and then proceed accordingly. Prior to any procedure intervention her INR will need to be in an acceptable range, preferably less than 2. Additional recommendations be forthcoming based on her clinical course as unfolds as well as when recommendations are made by the gastroenterology service History of Present Illness Reason for Consultation: Abdominal pain Cholecystitis Foreign body in colon History of Present Illness This is an 86-year-old female well-known to Dr. Oswaldo lerner of [facility] physician group general surgery. In March 2000 21 Doctor Greg Dial performed surgery on this patient secondary to an incarcerated left flank hernia which was felt to potentially be related to a trocar site from her previous surgery. Approximate 3 weeks later in April 2021 she developed a small bowel obstruction which required exploratory laparotomy with lysis of adhesions. Patient notes that she was doing reasonably well following that procedure. The patient does report in addition to the [address] Greg Dial she has had a hysterectomy in the past and also an ovarian mass removed. To the best of her knowledge this was not cancerous. Patient has recently seen Dr. Oswaldo lrener in August 2021 most recently on the of that month secondary to abdominal pain. Patient notes that the pain was primarily in the lower abdomen at that time and she was having frequent bowel movements. Dr. Oswaldo lerner was concerned about diverticular disease so a CT scan of the abdomen and pelvis was performed at that time on September 27 which showed no evidence of diverticulitis. There were no hernias noted there were also no infectious or inflammatory changes noted. The patient presented to the emergency department today secondary to severe abdominal pain. She notes that the pain began approximately 10:00 AM this morning and to the best of her knowledge is not really related to anything she ate. She said the pain was located in the epigastric area as well as the right upper quadrant pain and she had associated nausea and vomiting. She said that she did not vomit any blood. She said that she is having some loose bowel movements but denies any bright red blood per rectum or melena. With her pain symptomatology today she became lightheaded with some blurry vision and found her self on the kitchen floor. She is not sure if she suffered a significant fall. Other than her abdominal pain she does not report any additional pain. She notes that her pain does not radiate and other than Zofran does not note any other palliative factors. Since arrival to the emergency department today the patient has had labs and imaging which independently reviewed. A gallbladder ultrasound showed the patient had gallstones in the gallbladder neck with gallbladder wall thickening. CT scan of the abdomen pelvis showed the patient had a radiodensity in the sigmoid colon without evidence of perforation. Patient was also noted to have gallstones with distention and thickening of the gallbladder wall and some dilatation of the biliary system. Labs include CBC her white blood cell count, hemoglobin, hematocrit, and platelet count were normal. Her INR is noted to be 3.4. Chemistry profile showed sodium was 132 with a potassium in the normal range. BUN and creatinine were both normal. Her total bilirubin is 1.5 with a direct bilirubin of 0.3 which were both slightly elevated. Her transaminases, alkaline phosphatase, and lipase were all normal. Urinalysis was not indicative of infection. She was tested for COVID, RSV, as well as influenza a and B all of which were negative. It is nowhere the mention that the patient does have a history of open heart surgery. She said that she had a bioprosthetic valve placed and she also said that she had her left atrial appendage excluded due to history of atrial fibrillation for which she takes Coumadin. As noted above her INR was 3.4. At the time of my interview her pain had improved somewhat and she was in no distress. Allergies Allergy/AdvReac Type Severity Reaction Status Date / Time Bactrim Allergy Severe RASH AND Verified 12/25/17 10:05 FACIAL SWELLING bee venom protein (honey bee) Allergy Severe ANAPHYLAXIS Verified 11/01/21 12:51 clarithromycin Allergy Intermediate RASH AND Verified 11/01/21 12:51 FACIAL SWELLING fluconazole Allergy Intermediate INCREASED Verified 11/01/21 12:51 HEART RATE moxifloxacin Allergy Intermediate RASH AND Verified 11/01/21 12:51 FACIAL SWELLING nitrofurantoin Allergy Intermediate RASH Verified 11/01/21 12:51 Quinolones Allergy Intermediate RASH AND Verified 11/01/21 12:51 FACIAL SWELLING sulfamethoxazole Allergy Intermediate RASH AND Verified 11/01/21 12:51 FACIAL SWELLING trimethoprim Allergy Intermediate RASH AND Verified 11/01/21 12:51 FACIAL SWELLING cefuroxime [From Ceftin] Allergy Verified 11/01/21 12:51 NSAIDS (Non-Steroidal AdvReac Intermediate Pt had Verified 11/01/21 12:51 Anti-Inflamma Open Heart Surgery ketamine AdvReac Mild VOMITING Verified 11/01/21 12:51 Home Medications Medication Instructions Recorded Confirmed Type ascorbic acid (vitamin C) 500 mg 500 mg PO DAILY 03/24/18 11/19/21 History tablet (Vitamin C) calcium carbonate 500 mg-vitamin 1 tab PO DAILY 03/24/18 11/19/21 History D3 5 mcg (200 unit) tablet (Calcium 500 + D) cholecalciferol (vitamin D3) 125 5,000 unit PO DAILY 03/24/18 11/19/21 History mcg (5,000 unit) tablet (Vitamin D3) multivitamin (Multiple Vitamins) 1 tab PO DAILY 03/24/18 11/19/21 History aspirin 81 mg tablet,delayed 81 mg PO DAILY 03/23/21 11/19/21 History release epinephrine 0.3 mg/0.3 mL 0.3 mg IM UD PRN 03/23/21 11/19/21 History injection, auto-injector metoprolol succinate 25 mg 12.5 mg PO BID #90 tab 03/27/21 11/19/21 Rx tablet,extended release 24 hr (Toprol XL) triamterene 37.5 1 tab PO Q2D #45 tab 05/03/21 11/19/21 Rx mg-hydrochlorothiazide 25 mg tablet fluticasone 250 mcg-salmeterol 50 1 inh INHALATION DAILY #60 ea 08/21/21 11/19/21 Rx mcg/dose blistr powdr for inhalation (Advair Diskus) biotin 2,500 mcg capsule 2,500 mcg PO DAILY 09/19/21 11/01/21 History ipratropium bromide 0.02 % 2.5 ml INHALATION Q6H PRN #75 ml 10/08/21 11/19/21 Rx solution for inhalation albuterol sulfate 90 mcg/actuation 2 puff INHALATION Q4H PRN #6.7 g 10/09/21 11/19/21 Rx aerosol inhaler (ProAir HFA) pantoprazole 40 mg tablet,delayed 40 mg PO QAM #90 tab 10/16/21 11/19/21 Rx release (Protonix) atorvastatin 40 mg tablet (Lipitor) 40 mg PO HS #90 tab 11/02/21 11/19/21 Rx denosumab 60 mg/mL subcutaneous 60 mg SUBCUT .Q6M 11/19/21 11/19/21 History syringe (Prolia) warfarin 6 mg tablet 6 mg PO QPM 11/19/21 11/19/21 History Patient History Medical History Anticoagulant long-term use Asthma Atrial flutter with rapid ventricular response Biopsy of breast (2012) Cystocele surgically repaired Dysphagia H/O Goiter H/O gastroesophageal reflux (GERD) Hiatal hernia History of esophageal dilatation Hypertension Migraines Osteoarthritis Osteoporosis Severe mitral regurgitation 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 MVR/MAZE. 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 Surgical History H/O exploratory laparotomy p Exploratory Laparotomy- Abhishek Gutierrez MD, FACS Lysis of adhesion 04/04/2021 H/O hemorrhoidectomy H/O knee surgery LEFT KNEE H/O maze procedure for a fib H/O shoulder surgery LEFT History of back surgery History of bilateral tubal ligation History of bladder surgery History of breast biopsy History of cardiac cath History of carpal tunnel release History of cataract surgery History of colonoscopy History of esophagogastroduodenoscopy (EGD) History of foot surgery History of hand surgery History of hysterectomy History of incisional hernia repair (03/27/21) Open Incarcerated Incisional Hernia Repair -Abhishek Gutierrez MD, FACS 03/27/2021 History of oophorectomy History of rectocele History of total abdominal hysterectomy History of tricuspid valve replacement S/P cervical spinal fusion (1999) UNSURE OF LEVELS. FULL ROM. S/P hysterectomy (2013) S/P Maze operation for atrial fibrillation (2018) S/P STERLING-BSO Family History Aunt Breast cancer Brother Diabetes Sister Breast cancer Myocardial infarction Ovarian cancer Diabetes Father Myocardial infarction Mother Myocardial infarction Diabetes Social History Smoking Status: Never smoker Second Hand Exposure: No; Hx Alcohol Use: No Hx Substance Use: No Preferred Language: [place] Communication Ability: Effective Visual Impairment: No Limitations Hearing Ability: Normal Gastroenterologist Required: No Beliefs That Will Affect Care: None marital status: Current Living Situation: Alone current occupation: Retired How many Children do You have: 1 Feels Safe at Home: Yes Seatbelt Use: always Assistive Devices: Walker Review of Systems Constitutional: no fever and no chills Eyes: as per Subjective / HPI Ear, Nose, Mouth, Throat: no ear pain Respiratory: no cough and no dyspnea Cardiovascular: no chest pain Gastrointestinal: as per Subjective / HPI, + abdominal pain, + nausea and + vomiting Genitourinary: no dysuria Musculoskeletal: no back pain Integumentary: no rash Neurologic: no localized weakness Physical Exam Constitutional: well developed and well nourished; no acute distress Eyes: + anicteric sclerae ENMT: Ears: no hearing impairment and no external ear abnormality Sublingual jaundice is absent Neck: trachea midline Respiratory: normal respiratory effort; no respiratory distress and no labored breathing Cardiovascular: Rate/Rhythm: + irregularly irregular Vessels: dorsalis pedis pulses present Gastrointestinal (Abdomen): Abdomen is soft, nonrigid, and nondistended. Bowel sounds are present. There is no rebound tenderness or guarding. I did not appreciate any hernias on exam. She had a well-healed midline incision. Pain was noted in the right upper quadrant and to a lesser degree the epigastric region with deep palpation. There is no pain in the left lower quadrant. Musculoskeletal: No calf tenderness Skin: no rashes and no jaundice Neurologic: moves all extremities Psychiatric: A+Ox3, euthymic affect Results & Data ([facility]) Vital Signs (Past 12 Hours) Vital Signs Temp Pulse Pulse Resp BP BP Pulse Ox 06/20/22 19:09 68 16 137/88 96 11/19/21 17:44 95 11/19/21 17:23 69 23 142/61 H 93 11/19/21 15:15 65 18 141/71 H 95 11/19/21 13:34 59 L 17 155/89 H 96 11/19/21 11:11 33 L 16 99 11/19/21 11:06 36.8 C 44 L 16 162/85 H 99 PG Care Time/CCT Total # of Minutes Spent Total Time Spent with Patient: Total time spent is greater than 50% in coordination of care (as documented) at patient's floor/unit and/or counseling patient: Coding Level of Care Code 21131 Inpt Consult Level 5 Diagnoses Cholecystitis K81.9 Foreign body in colon T18.4XXA
[2021-11-19] MEDS ORDERED: HYDROmorphone INJ 0.5 MG/0.5 ML SYR IV PRN ×2 (20:03)
[2021-11-19] MEDS ORDERED: ONDANSETRON INJ 2 MG/ML 2 ML VIAL IV PRN (20:03)
[2021-11-19] MEDS ORDERED: ALBUTEROL HFA 8 GM INHALER INH PRN (20:28)
[2021-11-19] MEDS: SODIUM CHLORIDE 0.9% 1000ML 1,000 ML IV SCH (21:32)
[2021-11-19] MEDS: METOPROLOL SUCC 25MG EXT REL TAB PO SCH (21:32)
[2021-11-19] MEDS: ATORVASTATIN 40 MG TAB PO SCH (21:32)
[2021-11-19] MEDS: AMPICILLIN/SULBACTAM SOD 3,000 MG in 0.9 % SODIUM CHLORIDE 100 ML IV SCH (23:03)
[2021-11-20] MEDS: AMPICILLIN/SULBACTAM SOD 3,000 MG in 0.9 % SODIUM CHLORIDE 100 ML IV SCH ×3 (02:17→13:54)
[2021-11-20 06:44] LABS: Hematocrit (blood only) 39.4 % (37-47); Hemoglobin 13.1 g/dL (12.0-16.0); Mean Corpuscular Hemoglobin 27.9 pg (25-34); Mean Corpuscular Hgb Conc 33.2 g/dL (32-36); Mean Corpuscular Volume 83.8 fL (80-100); Mean Platelet Volume 10.1 fL (7.4-10.4); Platelet Count 198 K/uL (130-400); RDW Coefficient of Variation 15.6 % (11.5-14.5); RDW Standard Deviation 48.1 fL (36.4-46.3); White Blood Count 11.81 K/uL (4.8-10.8)
[2021-11-20 06:46] LABS: INR 1.3 (0.9-1.1); Prothrombin Time 13.3 Seconds (9.0-12.0)
[2021-11-20 07:02] LABS: Albumin Globulin Ratio 1.5 (0.9-2); Albumin Level 3.5 gm/dl (3.4-5.0); BUN Creatinine Ratio 15.8 (10-20); Bilirubin,Total 2.2 mg/dl (0.2-1.0); Calcium 8.5 mg/dl (8.5-10.1); Creatinine Clr Calc Pharmacy 45.9 ml/min; Est GFR (African American) 82.9 ml/min; Est GFR (Non-African American) 71.5 ml/min; Globulin 2.3 gm/dl (2.5-4.0); Magnesium 1.7 mg/dl (1.7-2.4); Potassium 3.7 mmol/L (3.5-5.1); Total Protein 5.8 gm/dl (6.0-8.3)
--- NOTE | 2021-11-20 07:50 | Hospitalist Progress Note ---
Date of Service November 20, 2021 Assessment & Plan Admission and Anticipated Discharge Date Admission Date: November 19, 2021 Results & Data Results & Data ([facility]) Vital Signs (Past 12 Hours) Vital Signs Temp Pulse Pulse Resp BP Pulse Ox 11/20/21 03:27 36.9 C 78 18 122/63 92 11/19/21 22:51 36.6 C 64 20 108/67 95 11/19/21 22:20 72 11/19/21 20:15 87
--- NOTE | 2021-11-20 08:32 | Surgery Progress Note ---
Date of Service November 20, 2021 Assessment & Plan (1) Acute upper abdominal pain: Plan: Patient likely with acute cholecystitis/biliary colic Her gallbladder is much more distended than it was 2 months ago on the CT scan She is stable at the present time but I do feel she should have laparoscopic cholecystectomy within the next 24 to 48 hours May consider combined procedure with GI depending on their thoughts of the foreign body in her rectosigmoid I have tentatively added her on for tomorrow/Friday for lap shanthi Admission and Anticipated Discharge Date Admission Date: November 19, 2021 Subjective Awake and alert Much less pain Review of Systems Review of Systems: All systems reviewed & are unremarkable except as noted in HPI & below Physical Exam Physical Exam: Patient awake and alert-no distress Sclera anicteric Neck is supple Breathing comfortably Abdomen is flat and soft with minimal tenderness Skin is warm and dry Results & Data ([place]) Vital Signs (Past 12 Hours) Vital Signs Temp Pulse Pulse Resp BP Pulse Ox 11/20/21 07:51 36.8 C 75 19 128/70 90 11/20/21 03:27 36.9 C 78 18 122/63 92 11/19/21 22:51 36.6 C 64 20 108/67 95 11/19/21 22:20 72 PG Care Time/CCT Total # of Minutes Spent Total Time Spent with Patient: Total time spent is greater than 50% in coordination of care (as documented) at patient's floor/unit and/or counseling patient: Coding Level of Care Code 33804 Inpt Consult Level 3 Diagnoses Acute upper abdominal pain R10.10
[2021-11-20] MEDS: SODIUM CHLORIDE 0.9% 1000ML 1,000 ML IV SCH ×2 (08:45→22:20)
[2021-11-20] MEDS: FLUTICASONE/VILANTEROL 200/25MCG 14 PUFFS/INHALER INH SCH (08:46)
[2021-11-20] MEDS: PANTOprazole 40 MG TAB PO SCH (08:46)
[2021-11-20] MEDS: METOPROLOL SUCC 25MG EXT REL TAB PO SCH ×2 (08:46→22:19)
--- NOTE | 2021-11-20 09:55 | Medical Student Progress Note ---
Date of Service November 20, 2021 Assessment & Plan (1) Cholelithiases: Plan: Patient is an 86-year-old woman with a history of atrial flutter on Coumadin, HTN, dyslipidemia, GERD, osteoporosis, asthma, mitral valve replacement, tricuspid valve repair, incarcerated hernia repair with lysis of adhesions who presented to the ED on 11/19 with several hours of radiating, periumbilical pain and an episode of syncope. Gallbladder concerns: - gallbladder U/S 11/19: stones at neck with wall thickening and edema - CT scan 11/19: - Suspected cholelithiasis. Mild gallbladder distention with gallbladder wall thickening versus pericholecystic fluid. - Interval development of slight biliary ductal dilatation which could be correlated with obstructive liver function tests. - GI consult - EUS this afternoon 11/20 - if evidence of choledocolithiasis, will have an ERCP - INR < 2 per surgery (3.4--> 1.3) - hold Coumadin - Vitamin K to reverse Coumadin for planned surgery - lap shanthi scheduled tenatively for 11/[address] Bell - EUS pending ERCP depending on EUS results - NPO at this time - continue IV fluids, Unasyn, Zofran PRN, analgesics PRN - start Gentamycin and metronidazole - Trend bilirubin: 1.5 --> 2.2 - AST:30--> 51 - ALT: 20--> 60 - WBC: 9.65--> 11.8 Foreign Body in colon - CT abd 11/19: - 3.8 cm radiodensity in sigmoid colon, colonic wall thickening, pericolonic stranding and risk for perforation - Although nonspecific, this may reflect an ingested bone. No evidence for perforation at this time however GI consultation might be considered given potential risk for perforation. - Colonoscopy depending on results of EUS/ERCP - KUB exam depending on results of EUS - if has not passed s/p surgery, consider Miralax - appreciate surgery and GI recommendations - NPO at this time HTN: - hold triamterene/HCTZ - BP stable 11/20: 128/70 Atrial flutter with controlled response: - s/p MAZE procedure - continue metoprolol, hold if HR <60 - hold coumadin Osteoporosis: - stable, on Prolia - she did not hit her head or have any trauma to extremities during syncopal episode and she has no other recent falls Asthma: - chronic, stable - continue Advair, albuterol as needed valve replacements and repairs: - no acute issues - continue with cardiology outpatient GERD: - continue pantoprazole 40 mg QD Dyslipidemia: - continue atorvastatin 40 mg QD Relative hypoxia: - pulse ox to 90 this morning 11/20 - b/l rales in lower lung lobes - likely due to atelectasis from decreased breathing 2/2 abdominal pain - consider incentive spirometry Bacteremia: - blood culture showed Gram negative bacilli - start Gentamycin and metronidazole Multiple antibiotic allergies: - pt with history of reactions to many antibiotics - Cipro reaction: anaphylaxis requiring hospitalization - Cefdin and pencillin reactions: burning, pruritic facial rash - plan to see immunology/allergy in December ppx: JACIEL stockings diet: NPO code: full dispo: PCU Biliary obstruction: without biliary obstruction Cholecystitis presence: without cholecystitis Cholelithiasis location: gallbladder Qualified Code(s): K80.20 - Calculus of gallbladder without cholecystitis without obstruction (2) Foreign body in colon: (3) Hypertension: (4) Atrial flutter with controlled response: (5) Osteoporosis: (6) Asthma: (7) GERD (gastroesophageal reflux disease): (8) Dyslipidemia: (9) Hypoxia: (10) Bacteremia: (11) Drug allergy, antibiotic: Admission and Anticipated Discharge Date Admission Date: November 19, 2021 Supervising Attestation I personally examined the patient and verified all smyth points of history and exam, discussed case, and agree with decision making with Mina José MS2 Feeling okay right now. For EUS later today, cholecystectomy tomorrow. Notes that pain is under good control right now. In discussing antibiotic reactions, she notes that with Cipro she had what she believes to be anaphylaxissimilar to what she has had with bee stingsand required epinephrine at that time. Relates that cephalosporins and penicillins both caused red hot very painful facial flushing and rash. Notes that she was actually scheduled to see allergy/immunology in the near future because of all of her antibiotic reactions. Vitals noted, in general she is awake and alert pleasant no distress. HEENT normocephalic atraumatic mucous membranes moist. Breathing unlabored no accessory muscle use good effort. Skin shows no rashes no pallor or icterus. Neuro shows no focal deficits. Cholecystitis/choledocholithiasis/gram-negative bacteremia present on admission given her multitude of allergiesmost of which sound to be legitimate reactionsfor now gentamicin given that is significantly different than the other antibiotics she has had. Have reached out to allergy/immunology to try to help discern what is truly allergic/what may be safe to use. For EUS/possible ERCP later today, cholecystectomy tomorrow. Anticoagulation has been reversed. Otherwise as above Subjective Patient is an 86-year-old woman with a history of atrial flutter on Coumadin, HTN, dyslipidemia, GERD, osteoporosis, asthma, mitral valve replacement, tricuspid valve repair, incarcerated hernia repair with lysis of adhesions who presented to the ED on 11/19 with several hours of radiating, periumbilical pain and an episode of syncope. Overnight, she slept well and had no acute events. She is feeling much better this morning, with pain at a 3-4/10 vs yesterday 10/10. Some tenderness remains in her lower and upper abdomen, R side> L side. Her nausea is also well controlled this morning and she has not vomited since the ED yesterday. She had 2 bowel movements yesterday but none today, though she is NPO. She did share that since her prior GI surgeries her appetite has been down but without noticeable weight loss and that she has been having some leakage and looser stools. She denies black or tarry stools, blood from rectum, blood in vomit, issues with urination, or diarrhea. She has no headaches, lightheadedness, or weakness this morning. This morning, she stated she had some lower R calf pain without erythema or edema. Of note, she was treated outpatient for bronchitis 3 weeks ago, which has since resolved. Last , patient was mildly more fatigued than usual. Review of Systems Constitutional: as per Subjective / HPI; no fever, no chills, no sweats, no body aches, no fatigue, no weakness and no anorexia Eyes: no changes to vision Ear, Nose, Mouth, Throat: no dizziness, no sore throat and no dysphagia no neck or throat discomfort pt having minor difficulty with hearing, hearing aids not in at this time Respiratory: no cough Cardiovascular: as per Subjective / HPI and + palpitations (pt has known persistent atrial flutter); no chest pain Gastrointestinal: + abdominal pain and + bloating Genitourinary: as per Subjective / HPI Musculoskeletal: as per Subjective / HPI Neurologic: no generalized weakness, no tingling and no numbness Hematologic / Lymphatic: no lymphadenopathy Physical Exam Constitutional: well developed and well nourished Eyes: PERRL, conjunctivae normal, anicteric sclerae ENMT: external ear and nose normal, oropharynx normal Neck: trachea midline, no thyromegaly neck nontender Respiratory: normal respiratory effort and symmetric chest movement; does not use accessory muscles Auscultation: + crackles (some crackles b/l lower lobes) Cardiovascular: Rate/Rhythm: + irregularly irregular Vessels: no JVD and no carotid bruit Extremities: normal capillary refill and + calf tenderness (mild R-sided calf tenderness); no edema Gastrointestinal (Abdomen): Inspection/Auscultation: + abdomen distended (mildly distended) and + hypoactive bowel sounds Percussion/Palpation: + abdomen tender (upper and lower abdomen, R sided mid abdominal tenderness ) and abdomen soft did not appreciate any masses on deep palpation of abdomen Musculoskeletal: no cyanosis or clubbing, extremities motor strength 5/5 Skin: no rashes, warm and dry Neurologic: PERRL, EOMI, accommodation nl, no face palsy, no dysarthria Psychiatric: A+Ox3, euthymic affect Lymphatic: no preauricular lymphadenopathy, no cervical lymphadenopathy and no subclavicular lymphadenopathy Results & Data ([facility]) Vital Signs (Past 12 Hours) Vital Signs Temp Pulse Pulse Resp BP Pulse Ox 11/20/21 07:51 36.8 C 75 19 128/70 90 11/20/21 03:27 36.9 C 78 18 122/63 92 11/19/21 22:51 36.6 C 64 20 108/67 95 11/19/21 22:20 72 Laboratory Results Laboratory Results WBC 11.81 K/uL (4.8-10.8) H 11/20/21 06:06 RBC 4.70 M/uL (4.2-5.4) 11/20/21 06:06 Hgb 13.1 g/dL (12.0-16.0) 11/20/21 06:06 Hct 39.4 % (37-47) 11/20/21 06:06 MCV 83.8 fL (80-100) 11/20/21 06:06 MCH 27.9 pg (25-34) 11/20/21 06:06 MCHC 33.2 g/dL (32-36) 11/20/21 06:06 RDW Std Deviation 48.1 fL (36.4-46.3) H 11/20/21 06:06 RDW Coeff of Linda 15.6 % (11.5-14.5) H 11/20/21 06:06 Plt Count 198 K/uL (130-400) 11/20/21 06:06 MPV 10.1 fL (7.4-10.4) 11/20/21 06:06 Immature Gran % (Auto) 0.4 % 11/19/21 11:00 Neut % (Auto) 70.5 % 11/19/21 11:00 Lymph % (Auto) 18.2 % 11/19/21 11:00 Alexander % (Auto) 9.2 % 11/19/21 11:00 Eos % (Auto) 1.5 % 11/19/21 11:00 Baso % (Auto) 0.2 % 11/19/21 11:00 Neut # (Auto) 6.80 K/uL (1.4-6.5) H 11/19/21 11:00 Lymph # (Auto) 1.76 K/uL (1.2-3.4) 11/19/21 11:00 Alexander # (Auto) 0.89 K/uL (0.11-0.59) H 11/19/21 11:00 Eos # (Auto) 0.14 K/uL (0-0.5) 11/19/21 11:00 Baso # (Auto) 0.02 K/uL (0-0.2) 11/19/21 11:00 Immature Gran # (Auto) 0.04 K/uL (0.00-0.02) H 11/19/21 11:00 PT 13.3 Seconds (9.0-12.0) H 11/20/21 06:06 INR 1.3 (0.9-1.1) H 11/20/21 06:06 Sodium 132 mmol/L (136-145) L 11/20/21 06:06 Potassium 3.7 mmol/L (3.5-5.1) 11/20/21 06:06 Chloride 99 mmol/L (98-107) 11/20/21 06:06 Carbon Dioxide 28 mmol/L (21-32) 11/20/21 06:06 Anion Gap 5 (3-11) 11/20/21 06:06 BUN 12 mg/dl (6-23) 11/20/21 06:06 Creatinine 0.76 mg/dl (0.6-1.2) 11/20/21 06:06 Est Cr Clr Drug Dosing 45.9 ml/min 11/20/21 06:06 Est GFR ( Amer) 82.9 ml/min 11/20/21 06:06 Est GFR (Non-Af Amer) 71.5 ml/min 11/20/21 06:06 BUN/Creatinine Ratio 15.8 (10-20) 11/20/21 06:06 Glucose 101 mg/dl (70-99(Fasting)) H 11/20/21 06:06 Calcium 8.5 mg/dl (8.5-10.1) 11/20/21 06:06 Phosphorus 3.6 mg/dl (2.5-4.9) 11/19/21 11:00 Magnesium 1.7 mg/dl (1.7-2.4) 11/20/21 06:06 Total Bilirubin 2.2 mg/dl (0.2-1.0) H 11/20/21 06:06 Direct Bilirubin 0.3 mg/dl (0-0.2) H 11/19/21 11:00 AST 51 U/L (13-39) H 11/20/21 06:06 ALT 60 U/L (7-52) H 11/20/21 06:06 Alkaline Phosphatase 79 U/L (34-104) 11/20/21 06:06 Total Protein 5.8 gm/dl (6.0-8.3) L 11/20/21 06:06 Albumin 3.5 gm/dl (3.4-5.0) 11/20/21 06:06 Globulin 2.3 gm/dl (2.5-4.0) L 11/20/21 06:06 Albumin/Globulin Ratio 1.5 (0.9-2) 11/20/21 06:06 Lipase 13 U/L (11-82) 11/19/21 11:00 Urine Color Yellow 11/19/21 12:49 Urine Appearance Clear (Clear) 11/19/21 12:49 Urine pH >= 9.0 (4.5-7.5) H 11/19/21 12:49 Ur Specific [place] 1.012 (1.000-1.030) 11/19/21 12:49 Urine Protein Negative (Negative) 11/19/21 12:49 Urine Glucose (UA) Negative (Negative) 11/19/21 12:49 Urine Ketones Negative (Negative) 11/19/21 12:49 Urine Blood Negative (Negative) 11/19/21 12:49 Urine Nitrite Negative (Negative) 11/19/21 12:49 Urine Bilirubin Negative (Negative) 11/19/21 12:49 Urine Urobilinogen Negative (Negative) 11/19/21 12:49 Ur Leukocyte Esterase Negative (Negative) 11/19/21 12:49 SARS-CoV-2 (PCR) NEGATIVE (Negative) 11/19/21 11:48 Influenza Type A (PCR) Negative (Neg) 11/19/21 11:48 Influenza Type B (PCR) Negative (Neg) 11/19/21 11:48 RSV (RT-PCR) Negative (Neg) 11/19/21 11:48 Impressions Abdomen/Pelvis CT 11/19/21 11:23 CT OF THE ABDOMEN AND PELVIS WITH CONTRAST CLINICAL HISTORY: Abdominal pain, nausea and vomiting. COMPARISON STUDY: CT of the abdomen and pelvis September 27, 2021. TECHNIQUE: Following IV administration of 94 mL of Optiray, axial images of the abdomen and pelvis were obtained from the lung bases to the proximal femurs. Images were reviewed in the axial, sagittal, and coronal planes. IV contrast was administered without complication. Automated exposure control was utilized for the study. A dose lowering technique was utilized adhering to the principles of ALARA. CT DOSE: 318.88 mGy.cm FINDINGS: Cardiomegaly is noted. There is extensive mitral annular calcification. Prosthetic tricuspid valve is noted. No pneumatosis, free air or portal venous gas is present. Borderline biliary ductal dilatation has developed since prior CT. Common bile duct measures 7 mm in caliber. Gallbladder is mildly distended. Several small densities within the dependent aspect of the gallbladder noted. There is mild gallbladder wall thickening versus trace pericholecystic fluid. A cyst within the upper pole the right kidney is noted. There is no hydronephrosis. A 1.1 cm cystic lesion within the pancreatic head is unchanged from earlier exams. 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 Extensive sigmoid diverticulosis is noted. Of note, there is a 3.8 cm linear radiodensity within the mid sigmoid colon shown on axial image 322 of 441. There is mild associated wall thickening and pericolonic stranding. No free air is present. No abscess is identified. No additional sites of bowel wall thickening are noted. There is no lymphadenopathy. IMPRESSION: 1. 3.8 cm transversely oriented linear radiodensity within the sigmoid colon with mild associated colonic wall thickening and pericolonic stranding. Although nonspecific, this may reflect an ingested bone. No evidence for perforation at this time however GI consultation might be considered given potential risk for perforation. 2. Suspected cholelithiasis. Mild gallbladder distention with gallbladder wall thickening versus pericholecystic fluid. Right upper quadrant ultrasound could be obtained for further evaluation. 3. Interval development of slight biliary ductal dilatation which could be correlated with obstructive liver function tests. ACT 112: Negative or not required by law. Electronically signed by: Rob Mackay M.D. 11/19/2021 1:20 PM Gallbladder Ultrasound 11/19/21 13:48 US gallbladder CLINICAL HISTORY: abd pain, n/v TECHNIQUE: Multiple real-time sonographic images of the right upper quadrant were obtained. Comparison: None available at the time of this dictation. FINDINGS: The liver is diffusely homogenous with normal contour and echogenicity. No focal mass lesions are seen. No intrahepatic ductal dilatation is seen. Gallstones are seen in the neck. The anterior gallbladder wall appears edematous measuring up to 0.3 cm. No pericholecystic fluid is seen at this time. Kang's sign cannot be assessed as the patient received pain medication. The common duct measures 0.4-0.6 cm in diameter at the level of the hepatic artery. The visualized portions of the pancreas appear normal. The right kidney shows normal echogenicity, cortical thickness and renal contour. The right kidney shows no evidence of hydronephrosis. A upper pole cyst measures 4.3 x 4.4 x 3.9 cm. No ascites or free fluid is seen in Renee's pouch. IMPRESSION: Stones are seen at the gallbladder neck with gallbladder wall thickening and edema. No pericholecystic fluid is seen and sonographic Kang's sign is indeterminate. Findings are concerning for acute cholecystitis, if clinical uncertainty persists, nuclear medicine HIDA study can be performed. ACT 112: Negative or not required by law. Electronically signed by: Fernando Dietrich M.D. 11/19/2021 3:20 PM
--- NOTE | 2021-11-20 11:20 | Gastrointestinal Consultation ---
Date of Consultation November 20, 2021 Assessment & Plan (1) Elevated LFTs: Plan is for EUS today and if evidence of choledocholithiasis, then ERCP. Please keep NPO and continue to hold warfarin. Please continue broad spectrum antibiotics. Further recommendations to follow EUS +/- ERCP. (2) Dilated intrahepatic bile duct: Supervising Physician Co-Signing Physician Notes I performed a history and physical examination of the patient today, including specifically on physical exam - soft abdomen. I have discussed the patient's management with the advanced practitioner. Please refer to the nurse practitioner's note for the documented findings and plan of care. Likely has CBD stones. Plan for EUS/ERCP. Also will do Flex Sig to remove the chicken bone stuck in the sigmoid colon. Patient was explained in detail regarding risks, benefits, limitations and alternatives of the above endoscopic procedure. Risks of intravenous sedation used for procedure were also explained. Risks include, but not limited to perfo ration, bleeding, infection, respiratory distress, cardiac arrest and . Patient is also aware about the possibility of missed lesion. Patient's questions were answered. The patient verbalized understanding the information and agreed to undergo the procedure. History of Present Illness Reason for Consultation: Choledocolithiasis & possible foreign body in colon Requesting Physician: Dr. Roverto Swartz Attending Physician: Judson Knapp, History of Present Illness Ms. Young is an 86 yr old female pt of Dr. Ally Serna with a hx of A flutter, (On warfarin, held and INR at 1.3 at Vit K given yesterday), hypertension, asthma, GERD who presented to the ED yesterday for abd pain. She had experienced the onset of severe upper abdomen pain with nausea and vomiting on Friday evening then presented to [facility] yesterday. Ultrasound with stones in the gallbladder and concern for acute cholecystitis. CT scan with mild biliary ductal dilation and T bili yesterday was 1.5->2.[address] also suggests a 3.8 cm linear density in the transverse colon likely a chicken bone or other foreign body. She is unaware of any foreign body ingestion. She is awake, alert, oriented, afebrile but now w mild leukocytosis. Severe pain is resolved but she continues to have some mild upper abdomen pain. Allergies Allergy/AdvReac Type Severity Reaction Status Date / Time Bactrim Allergy Severe RASH AND Verified 12/25/17 10:05 FACIAL SWELLING bee venom protein (honey bee) Allergy Severe ANAPHYLAXIS Verified 11/01/21 12:51 clarithromycin Allergy Intermediate RASH AND Verified 11/01/21 12:51 FACIAL SWELLING fluconazole Allergy Intermediate INCREASED Verified 11/01/21 12:51 HEART RATE moxifloxacin Allergy Intermediate RASH AND Verified 11/01/21 12:51 FACIAL SWELLING nitrofurantoin Allergy Intermediate RASH Verified 11/01/21 12:51 Quinolones Allergy Intermediate RASH AND Verified 11/01/21 12:51 FACIAL SWELLING sulfamethoxazole Allergy Intermediate RASH AND Verified 11/01/21 12:51 FACIAL SWELLING trimethoprim Allergy Intermediate RASH AND Verified 11/01/21 12:51 FACIAL SWELLING cefuroxime [From Ceftin] Allergy Verified 11/01/21 12:51 NSAIDS (Non-Steroidal AdvReac Intermediate Pt had Verified 11/01/21 12:51 Anti-Inflamma Open Heart Surgery ketamine AdvReac Mild VOMITING Verified 11/01/21 12:51 Home Medications Medication Instructions Recorded Confirmed Type ascorbic acid (vitamin C) 500 mg 500 mg PO DAILY 03/24/18 11/19/21 History tablet (Vitamin C) calcium carbonate 500 mg-vitamin 1 tab PO DAILY 03/24/18 11/19/21 History D3 5 mcg (200 unit) tablet (Calcium 500 + D) cholecalciferol (vitamin D3) 125 5,000 unit PO DAILY 03/24/18 11/19/21 History mcg (5,000 unit) tablet (Vitamin D3) multivitamin (Multiple Vitamins) 1 tab PO DAILY 03/24/18 11/19/21 History aspirin 81 mg tablet,delayed 81 mg PO DAILY 03/23/21 11/19/21 History release epinephrine 0.3 mg/0.3 mL 0.3 mg IM UD PRN 03/23/21 11/19/21 History injection, auto-injector metoprolol succinate 25 mg 12.5 mg PO BID #90 tab 03/27/21 11/19/21 Rx tablet,extended release 24 hr (Toprol XL) triamterene 37.5 1 tab PO Q2D #45 tab 05/03/21 11/19/21 Rx mg-hydrochlorothiazide 25 mg tablet fluticasone 250 mcg-salmeterol 50 1 inh INHALATION DAILY #60 ea 08/21/21 11/19/21 Rx mcg/dose blistr powdr for inhalation (Advair Diskus) biotin 2,500 mcg capsule 2,500 mcg PO DAILY 09/19/21 11/19/21 History ipratropium bromide 0.02 % 2.5 ml INHALATION Q6H PRN #75 ml 10/08/21 11/19/21 Rx solution for inhalation albuterol sulfate 90 mcg/actuation 2 puff INHALATION Q4H PRN #6.7 g 10/09/21 11/19/21 Rx aerosol inhaler (ProAir HFA) pantoprazole 40 mg tablet,delayed 40 mg PO QAM #90 tab 10/16/21 11/19/21 Rx release (Protonix) atorvastatin 40 mg tablet (Lipitor) 40 mg PO HS #90 tab 11/02/21 11/19/21 Rx denosumab 60 mg/mL subcutaneous 60 mg SUBCUT .Q6M 11/19/21 11/19/21 History syringe (Prolia) warfarin 6 mg tablet 6 mg PO QPM 11/19/21 11/19/21 History Patient History Medical History Anticoagulant long-term use Asthma Atrial flutter with rapid ventricular response Biopsy of breast (2012) Cystocele surgically repaired Dysphagia H/O Goiter H/O gastroesophageal reflux (GERD) Hiatal hernia History of esophageal dilatation Hypertension Migraines Osteoarthritis Osteoporosis Severe mitral regurgitation 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 MVR/MAZE. 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 Surgical History H/O exploratory laparotomy p Exploratory Laparotomy- Abhishek Gutierrez MD, FACS Lysis of adhesion 04/04/2021 H/O hemorrhoidectomy H/O knee surgery LEFT KNEE H/O maze procedure for a fib H/O shoulder surgery LEFT History of back surgery History of bilateral tubal ligation History of bladder surgery History of breast biopsy History of cardiac cath History of carpal tunnel release History of cataract surgery History of colonoscopy History of esophagogastroduodenoscopy (EGD) History of foot surgery History of hand surgery History of hysterectomy History of incisional hernia repair (03/27/21) Open Incarcerated Incisional Hernia Repair -Abhishek Gutierrez MD, FACS 03/27/2021 History of oophorectomy History of rectocele History of total abdominal hysterectomy History of tricuspid valve replacement S/P cervical spinal fusion (1999) UNSURE OF LEVELS. FULL ROM. S/P hysterectomy (2013) S/P Maze operation for atrial fibrillation (2018) S/P STERLING-BSO Family History Aunt Breast cancer Brother Diabetes Sister Breast cancer Myocardial infarction Ovarian cancer Diabetes Father Myocardial infarction Mother Myocardial infarction Diabetes Social History Smoking Status: Never smoker Second Hand Exposure: No; Hx Alcohol Use: No Hx Substance Use: No Preferred Language: Sami Communication Ability: Effective Visual Impairment: No Limitations Hearing Ability: Normal Prototype Fabricator Required: No Beliefs That Will Affect Care: None marital status: Current Living Situation: Alone current occupation: Retired How many Children do You have: 1 Feels Safe at Home: Yes Seatbelt Use: always Assistive Devices: None Review of Systems Review of Systems: ROS: Gen: Denies weakness, fevers, weight loss Eyes: No eye redness, or pain, no recent vision changes Resp: No SOB, no cough Cardio: No palpitations/irregular beats, no chest pain GI: As per HPI, otherwise negative : Denies pain on urination Skin: No jaundice, itching or new rashes Physical Exam Constitutional: well developed, + ill appearing, + thin and cooperative Eyes: PERRL, conjunctivae normal, anicteric sclerae ENMT: external ear and nose normal, oropharynx normal Neck: trachea midline, no thyromegaly Respiratory: normal respiratory effort, lungs clear to auscultation Cardiovascular: Rate/Rhythm: + irregularly irregular Heart Sounds: no murmur Gastrointestinal (Abdomen): Inspection/Auscultation: abdomen normal to inspection and normal bowel sounds; abdomen not distended and no abdominal edema Percussion/Palpation: + abdomen tender (Mild upper abdomen tenderness. No signs of acute abdomen.) and abdomen soft; no guarding and abdomen not rigid Skin: no rashes, warm and dry normal turgor and + pallor Neurologic: PERRL, EOMI, accommodation nl, no face palsy, no dysarthria awake; not confused Psychiatric: A+Ox3, euthymic affect Lymphatic: no cervical or axillary lymphadenopathy Results & Data ([facility]) Vital Signs (Past 12 Hours) Vital Signs Temp Pulse Resp BP Pulse Ox 11/20/21 07:51 36.8 C 75 19 128/70 90 11/20/21 03:27 36.9 C 78 18 122/63 92 Diagnostic Findings CTAP 11/19/21: 1. 3.8 cm transversely oriented linear radiodensity within the sigmoid colon with mild associated colonic wall thickening and pericolonic stranding. Although nonspecific, this may reflect an ingested bone. No evidence for perforation at this time however GI consultation might be considered given potential risk for perforation. 2. Suspected cholelithiasis. Mild gallbladder distention with gallbladder wall thickening versus pericholecystic fluid. Right upper quadrant ultrasound could be obtained for further evaluation. 3. Interval development of slight biliary ductal dilatation which could be correlated with obstructive liver function tests. GB US 11/19/21: Stones are seen at the gallbladder neck with gallbladder wall thickening and edema. No pericholecystic fluid is seen and sonographic Kang's sign is indeterminate. Findings are concerning for acute cholecystitis, if clinical uncertainty persists, nuclear medicine HIDA study can be performed.
--- NOTE | 2021-11-20 13:16 | Electrocardiogram Report ---
Test Reason : Blood Pressure : / mmHG Vent. Rate : 057 BPM Atrial Rate : 054 BPM P-R Int : 000 ms QRS Dur : 096 ms QT Int : 426 ms P-R-T Axes : 000 -14 -16 degrees QTc Int : 414 ms Sinus bradycardia with occasional Premature atrial complexes Low voltage QRS Nonspecific T wave abnormality Abnormal ECG When compared with ECG of 04-APR-2021 10:58, ST no longer depressed in Anterolateral leads Nonspecific T wave abnormality has replaced inverted T waves in Anterior leads Confirmed by Jaswinder Narayanan ([id number]) on 11/20/2021 1:16:23 PM Referred By: REFERRED SELF Confirmed By:Jaswinder Narayanan
--- NOTE | 2021-11-20 14:55 | Anesthesiology Consultation ---
Date of Service November 20, 2021 Assessment & Plan Chart Review Chart Review: Acceptable Risk for Surgery History Surgery Operation Date: 11/20/21 10:35 Proposed Procedures p Endoscopic Ultrasonography Upper - Guru Wilson MD s Endoscopic Retrograde Cholangiopancreatogram - Guru Wilson MD s Esophagogastroduodenoscopy - Guru Wilson MD Operation Date: 11/21/21 07:15 Proposed Procedures p Laparoscopic Cholecystectomy - Neri Bell MD, FACS Height/Weight Height: 5 ft 1 in Weight: 62.7 kg Allergies Allergy/AdvReac Type Severity Reaction Status Date / Time Bactrim Allergy Severe RASH AND Verified 12/25/17 10:05 FACIAL SWELLING bee venom protein (honey bee) Allergy Severe ANAPHYLAXIS Verified 11/01/21 12:51 clarithromycin Allergy Intermediate RASH AND Verified 11/01/21 12:51 FACIAL SWELLING fluconazole Allergy Intermediate INCREASED Verified 11/01/21 12:51 HEART RATE moxifloxacin Allergy Intermediate RASH AND Verified 11/01/21 12:51 FACIAL SWELLING nitrofurantoin Allergy Intermediate RASH Verified 11/01/21 12:51 Quinolones Allergy Intermediate RASH AND Verified 11/01/21 12:51 FACIAL SWELLING sulfamethoxazole Allergy Intermediate RASH AND Verified 11/01/21 12:51 FACIAL SWELLING trimethoprim Allergy Intermediate RASH AND Verified 11/01/21 12:51 FACIAL SWELLING cefuroxime [From Ceftin] Allergy Verified 11/01/21 12:51 NSAIDS (Non-Steroidal AdvReac Intermediate Pt had Verified 11/01/21 12:51 Anti-Inflamma Open Heart Surgery ketamine AdvReac Mild VOMITING Verified 11/01/21 12:51 Medications Home Medications Medication Instructions Recorded Confirmed Last Taken ascorbic acid (vitamin C) 500 mg 500 mg PO DAILY 03/24/18 11/19/21 03/22/21 tablet (Vitamin C) calcium carbonate 500 mg-vitamin 1 tab PO DAILY 03/24/18 11/19/21 03/22/21 D3 5 mcg (200 unit) tablet (Calcium 500 + D) cholecalciferol (vitamin D3) 125 5,000 unit PO DAILY 03/24/18 11/19/21 03/22/21 mcg (5,000 unit) tablet (Vitamin D3) multivitamin (Multiple Vitamins) 1 tab PO DAILY 03/24/18 11/19/21 03/22/21 aspirin 81 mg tablet,delayed 81 mg PO DAILY 03/23/21 11/19/21 03/22/21 release epinephrine 0.3 mg/0.3 mL 0.3 mg IM UD PRN 03/23/21 11/19/21 Unknown injection, auto-injector metoprolol succinate 25 mg 12.5 mg PO BID #90 tab 03/27/21 11/19/21 Unknown tablet,extended release 24 hr (Toprol XL) triamterene 37.5 1 tab PO Q2D #45 tab 05/03/21 11/19/21 Unknown mg-hydrochlorothiazide 25 mg tablet fluticasone 250 mcg-salmeterol 50 1 inh INHALATION DAILY #60 ea 08/21/21 11/19/21 Unknown mcg/dose blistr powdr for inhalation (Advair Diskus) biotin 2,500 mcg capsule 2,500 mcg PO DAILY 09/19/21 11/19/21 Unknown ipratropium bromide 0.02 % 2.5 ml INHALATION Q6H PRN #75 ml 10/08/21 11/19/21 Unknown solution for inhalation albuterol sulfate 90 mcg/actuation 2 puff INHALATION Q4H PRN #6.7 g 10/09/21 11/19/21 Unknown aerosol inhaler (ProAir HFA) pantoprazole 40 mg tablet,delayed 40 mg PO QAM #90 tab 10/16/21 11/19/21 Unknown release (Protonix) atorvastatin 40 mg tablet (Lipitor) 40 mg PO HS #90 tab 11/02/21 11/19/21 U nknown denosumab 60 mg/mL subcutaneous 60 mg SUBCUT .Q6M 11/19/21 11/19/21 10/23/21 syringe (Prolia) warfarin 6 mg tablet 6 mg PO QPM 11/19/21 11/19/21 Unknown Active Medications Generic Name Dose Route Start Last Admin Trade Name Freq PRN Reason Stop Dose Admin Atorvastatin Calcium 40 mg 11/19/21 21:00 11/19/21 21:32 Atorvastatin 40 Mg Tab PO 12/19/21 20:59 40 mg HS RANDOLPH Administration Fluticasone/Vilanterol 1 puffs 11/20/21 09:00 11/20/21 08:46 Fluticasone/Vilanterol 200/25mcg 14 Puffs/Inhaler INH 12/20/21 08:59 1 puffs DAILY RANDOLPH Administration Sodium Chloride 1,000 mls @ 80 mls/hr 11/19/21 20:03 11/20/21 08:45 Nss 1000ml IV 12/19/21 20:02 80 mls/hr .[id number] RANDOLPH Administration Ampicillin Sodium/Sulbactam 108 mls @ 200 mls/hr 11/19/21 20:30 11/20/21 13:54 Sodium 3,000 mg/ Sodium IV 11/29/21 20:29 Not Given Chloride Q6H RANDOLPH Protocol Metoprolol Succinate 12.5 mg 11/19/21 21:00 11/20/21 08:46 Metoprolol Succ 25mg Ext Rel Tab PO 12/19/21 20:59 12.5 mg BID RANDOLPH Administration Pantoprazole Sodium 40 mg 11/20/21 09:00 11/20/21 08:46 Pantoprazole 40 Mg Tab PO 12/20/21 08:59 40 mg QAM RANDOLPH Administration NPO Date Last Intake of Fluids: 11/20/21 Time Last Intake of Fluids: 08:45 Last Intake of Fluids Comment: Sip with meds. Past Medical History Medical History Anticoagulant long-term use Asthma Atrial flutter with rapid ventricular response Biopsy of breast (2012) Cystocele surgically repaired Dysphagia H/O Goiter H/O gastroesophageal reflux (GERD) Hiatal hernia History of esophageal dilatation Hypertension Migraines Osteoarthritis Osteoporosis Severe mitral regurgitation 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 MVR/MAZE. 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 Past Family History Family History Aunt Breast cancer Brother Diabetes Sister Breast cancer Myocardial infarction Ovarian cancer Diabetes Father Myocardial infarction Mother Myocardial infarction Diabetes Past Surgical History Surgical History H/O exploratory laparotomy p Exploratory Laparotomy- Abhishek Gutierrez MD, FACS Lysis of adhesion 04/04/2021 H/O hemorrhoidectomy H/O knee surgery LEFT KNEE H/O maze procedure for a fib H/O shoulder surgery LEFT History of back surgery History of bilateral tubal ligation History of bladder surgery History of breast biopsy History of cardiac cath History of carpal tunnel release History of cataract surgery History of colonoscopy History of esophagogastroduodenoscopy (EGD) History of foot surgery History of hand surgery History of hysterectomy History of incisional hernia repair (03/27/21) Open Incarcerated Incisional Hernia Repair -Abhishek Gutierrez MD, FACS 03/27/2021 History of oophorectomy History of rectocele History of total abdominal hysterectomy History of tricuspid valve replacement S/P cervical spinal fusion (1999) UNSURE OF LEVELS. FULL ROM. S/P hysterectomy (2012) S/P Maze operation for atrial fibrillation (2017) S/P STERLING-BSO Social History Smoking Status: Never smoker Hx Alcohol Use: No Hx Substance Use: No substance use type: does not use Physical Exam Vital Signs Last Vital Signs Temp 36.5 C 11/20/21 11:53 Pulse 81 11/20/21 11:53 Resp 18 11/20/21 11:53 BP 130/76 11/20/21 11:53 Pulse Ox 94 11/20/21 11:53 Testing Laboratory Results 11/20/21 06:06 11/20/21 06:06 PT 13.3 Seconds (9.0-12.0) H 11/20/21 06:06 INR 1.3 (0.9-1.1) H 11/20/21 06:06 Urine Color Yellow 11/19/21 12:49 Urine Appearance Clear (Clear) 11/19/21 12:49 Urine pH >= 9.0 (4.5-7.5) H 11/19/21 12:49 Ur Specific [place] 1.012 (1.000-1.030) 11/19/21 12:49 Urine Protein Negative (Negative) 11/19/21 12:49 Urine Glucose (UA) Negative (Negative) 11/19/21 12:49 Urine Ketones Negative (Negative) 11/19/21 12:49 Urine Nitrite Negative (Negative) 11/19/21 12:49 Ur Leukocyte Esterase Negative (Negative) 11/19/21 12:49 Electrocardiogram Date: 11/19/21 Findings: + NSST changes and + SB @ (57) Other Testing Patient had recenbt mitral valve replacement - no echo results available - prior o surgery she had a cath which showed clean coronaries.
[2021-11-20 15:04] LABS: A calco-baum cmplx NotReported Not Detected (NotDetected); Bact fragilis Not Reported Not Detected (NotDetected); C auris Not Reported Not Detected (NotDetected); CTX-M Resistant Gene Not Detected (NotDetected); Calbicans Not Reported Not Detected (NotDetected); Candida glabrata Not Reported Not Detected (NotDetected); Candida krusei Not Reported Not Detected (NotDetected); Cneoformans/gatti Not Reported Not Detected (NotDetected); Cparapsilosis Not Reported Not Detected (NotDetected); Ctropicalis Not Reported Not Detected (NotDetected); E cloacae compx Not Reported Not Detected (NotDetected); Efaecalis Not Reported Not Detected (NotDetected); Efaecium Not Reported Not Detected (NotDetected); Enterobacterales DETECTED (NotDetected); Enterobacterales Not Reported DETECTED (NotDetected); Escherichia coli Not Reported DETECTED (NotDetected); H influenzae Not Reported Not Detected (NotDetected); IMP Resistant Gene Not Detected (NotDetected); K aerogenes Not Reported Not Detected (NotDetected); KPC Resistant Gene Not Detected (NotDetected); Koxytoca Not Reported Not Detected (NotDetected); Kpneumoniae grp Not Reported Not Detected (NotDetected); Lmonocyt Not Reported Not Detected (NotDetected); N meningitidis Not Reported Not Detected (NotDetected); NDM Resistant Gene Not Detected (NotDetected); OXA 48 Like Resistant Gene Not Detected (NotDetected); P aeruginosa Not Reported Not Detected (NotDetected); Proteus spp Not Reported Not Detected (NotDetected); Salmonella spp Not Reported Not Detected (NotDetected); Smarcescens Not Reported Not Detected (NotDetected); Staph lugdunensis Not Reported Not Detected (NotDetected); Staph spp. Not Reported Not Detected (NotDetected); Staphaureus Not Reported Not Detected (NotDetected); Staphepi Not Reported Not Detected (NotDetected); Stenmaltophilia Not Reported Not Detected (NotDetected); Strep agal(GrpB) Not Reported Not Detected (NotDetected); Strep pneum Not Reported Not Detected (NotDetected); Strep pyog (GrpA) Not Reported Not Detected (NotDetected); Strep spp Not Reported Not Detected (NotDetected); VIM Resistant Gene Not Detected (NotDetected); mcr-1 Colistin Resistant Gene Not Detected (NotDetected)
[2021-11-20] MEDS ORDERED: GENTAMICIN CONSULT ACTIVE PRN (16:06)
[2021-11-20] MEDS ORDERED: SOD PHOSPHATE/SOD BIPHOSPHATE ENEMA 132 ML BTL PR STA (16:07)
[2021-11-20] MEDS ORDERED: GENTAMICIN SULFATE 440 MG in DEXTROSE 5% 100 ML IV ONE (17:00)
[2021-11-20] MEDS: metroNIDAZOLE 500 MG/100 ML BAG IV SCH (17:27)
--- NOTE | 2021-11-20 17:39 | Billing Data ---
Date of Service November 20, 2021 Coding Level of Care Code 75876 Subseq Hosp Care Lvl 3
[2021-11-20] MEDS ORDERED: ePHEDrine sulfate 50 MG/ML AMP IV PRN (19:17)
[2021-11-20] MEDS ORDERED: ONDANSETRON INJ 2 MG/ML 2 ML VIAL IV PRN (19:17)
[2021-11-20] MEDS ORDERED: fentaNYL citrate 100 MCG/2 ML VIAL IV PRN (19:17)
[2021-11-20] MEDS ORDERED: PROMETHAZINE HCL 12.5 MG in SODIUM CHLORIDE 0.9% 50 ML IV PRN (19:17)
[2021-11-20] MEDS ORDERED: ATROPINE SULFATE 0.1 MG/ML 10ML SYR IV PRN (19:17)
[2021-11-20] MEDS ORDERED: NALOXONE HCL 0.4 MG/1 ML VIAL/CARP IV PRN (19:17)
[2021-11-20] MEDS ORDERED: LABETALOL HCL IV 5 MG/ML 20ML IV PRN (19:17)
[2021-11-20] MEDS ORDERED: INDOMETHACIN 50 MG SUPP PR ONE (19:28)
[2021-11-20] MEDS ORDERED: PROPOFOL IV EMULSION 10 MG/ML 20 ML VIAL IV ONE (19:35)
[2021-11-20] MEDS ORDERED: MIDAZOLAM HCL 1 MG/ML 2ML VIAL ONE (19:35)
[2021-11-20] MEDS ORDERED: fentaNYL citrate 100 MCG/2 ML VIAL ONE ×2 (19:35→20:20)
[2021-11-20] MEDS ORDERED: LIDOCAINE 2% 2 ML VIAL/AMP(20MG/ML) INFIL ONE (19:35)
[2021-11-20] MEDS ORDERED: ONDANSETRON INJ 2 MG/ML 2 ML VIAL ONE (20:03)
--- NOTE | 2021-11-20 20:57 | Operative Report ---
Post Operative Report Pre & Post Diagnosis Operation Date: 11/20/21 10:35 Pre-Op Diagnosis: Cholecystitis; Elevated LFTs; Possible Foreign Body in Colon Post-Op Diagnosis: Cholecystitis; Elevated LFTs; Foreign Body in Colon Operation Date: 11/21/21 07:15 <No data on this case meets the specified criteria> I identified the patient and participated in the time-out.: Yes Procedure Operation Date: 11/20/21 10:35 Actual Procedures p Endoscopic Ultrasonography Upper(Not Applicable) - Guru Wilson MD s Endoscopic Retrograde Cholangiopancreatogram(Not Applicable) - Guru Wilson MD s Esophagogastroduodenoscopy(Not Applicable) - MD magali Keene Colonoscopy(Not Applicable) - Guru Wilson MD Operation Date: 11/21/21 07:15 <No data on this case meets the specified criteria> Surgeon Guru Wilson MD New Product Trainer None Estimated Blood Loss 0 Findings See Below (CBD stones removed, CBD stent placed. Chicken bone impacted in the sigmoid colon with extensive diverticulosis, this was removed, both sites of the colonic wall penetration were closed used Padlock clip due to concern for contained microperforation on imaging.) Specimens Foreign body Description of Procedure EUS/ERCP/Flex sig I attest to the content of the Intraoperative Record and any orders documented therein. Any exceptions are noted below.
--- NOTE | 2021-11-20 21:02 | GI REPORT ---
Patient Name: Muna Young Procedure Date: 11/20/2021 7:54 PM Date of : 1935 Admit Type: Inpatient Age: 86 Gender: Female Attending MD: Guru Wilson MD Procedure: Upper GI endoscopy Providers: Guru Wilson MD Referring MD: Judson Knapp Indications: Abdominal pain Medicines: General Anesthesia Complications: No immediate complications. Estimated Blood Loss: Estimated blood loss: none. Procedure: Pre-Anesthesia Assessment: - Prior to the procedure, a History and Physical was performed, and patient medications, allergies and sensitivities were reviewed. The patient's tolerance of previous anesthesia was reviewed. - The risks and benefits of the procedure and the sedation options and risks were discussed with the patient. All questions were answered and informed consent was obtained. - Patient identification and proposed procedure were verified prior to the procedure by the physician and the nurse. The procedure was verified in the procedure room. - Pre-procedure physical examination revealed no contraindications to sedation. After obtaining informed consent, the endoscope was passed under direct vision. Throughout the procedure, the patient's blood pressure, pulse, and oxygen saturations were monitored continuously. The Endoscope was introduced through the mouth, and advanced to the second part of duodenum. The upper GI endoscopy was accomplished without difficulty. The patient tolerated the procedure well. Findings: The examined esophagus was normal. The entire examined stomach was normal. The duodenal bulb and second portion of the duodenum were normal. Impression: - Normal esophagus. - Normal stomach. - Normal duodenal bulb and second portion of the duodenum. Recommendation: - Perform an upper endoscopic ultrasound (UEUS) today. Guru Wilson MD 11/20/2021 9:01:55 PM This report has been signed electronically. Note Initiated On: 11/20/2021 7:54 PM Number of Addenda: 0 I attest to the content of the Intraoperative Record and orders documented therein, exceptions below {[id number]}
--- NOTE | 2021-11-20 21:04 | Fluoroscopy Report ---
[place] ERCP biliary ductal CLINICAL HISTORY: ERCP COMPARISON STUDY: CT of the abdomen and pelvis and right upper quadrant ultrasound November 19, 2021. FLUOROSCOPY TIME: 1 minute and 19 seconds. FLUOROSCOPIC IMAGES: 7 FINDINGS: Fluoroscopy was provided during ERCP. These images demonstrate cannulation of the common bi le duct. Filling defects within the common bile duct may reflect calculi. Subsequent images demonstra te placement of a common bile duct stent. IMPRESSION: Fluoroscopy provided during ERCP with placement of a common bile duct stent. ACT 112: Negative or not required by law. Electronically signed by: Rob Mackay M.D. 11/20/2021 9:03 PM
--- NOTE | 2021-11-20 21:04 | GI REPORT ---
Patient Name: Muna Young Procedure Date: 11/20/2021 7:55 PM Date of : 1935 Admit Type: Inpatient Age: 86 Gender: Female Attending MD: Guru Wilson MD Procedure: Upper EUS Providers: Guru Wilson MD Referring MD: Judson Knapp Indications: Common bile duct dilation (acquired) seen on CT scan, Elevated liver enzymes Medicines: General Anesthesia Complications: No immediate complications. Estimated Blood Loss: Estimated blood loss: none. Procedure: Pre-Anesthesia Assessment: - Prior to the procedure, a History and Physical was performed, and patient medications, allergies and sensitivities were reviewed. The patient's tolerance of previous anesthesia was reviewed. - The risks and benefits of the procedure and the sedation options and risks were discussed with the patient. All questions were answered and informed consent was obtained. - Patient identification and proposed procedure were verified prior to the procedure by the physician and the nurse. The procedure was verified in the procedure room. - Pre-procedure physical examination revealed no contraindications to sedation. After obtaining informed consent, the endoscope was passed under direct vision. Throughout the procedure, the patient's blood pressure, pulse, and oxygen saturations were monitored continuously. The scope was introduced through the mouth, and advanced to the second part of duodenum. The upper EUS was accomplished without difficulty. The patient tolerated the procedure well. Findings: ENDOSONOGRAPHIC FINDING: : There was no sign of significant endosonographic abnormality in the ampulla. No masses were identified. There was dilation in the common bile duct which measured up to 8 mm. One stone was visualized endosonographically in the common bile duct. It was hyperechoic and characterized by shadowing. Multiple stones were visualized endosonographically in the gallbladder. They were hyperechoic and characterized by shadowing. The was thickened consistent with cholecystitis. There was no sign of significant endosonographic abnormality in the visualized portion of the liver. Homogeneous parenchyma was identified. Pancreatic parenchymal abnormalities were noted in the entire pancreas. These consisted of diffuse echogenicity. There was no sign of significant endosonographic abnormality in the visualized portion of the left adrenal gland. There was no sign of significant endosonographic abnormality involving the celiac trunk. Impression: - There was no sign of significant pathology in the ampulla. - There was dilation in the common bile duct which measured up to 8 mm. - One stone was visualized endosonographically in the common bile duct. - Multiple stones were visualized endosonographically in the gallbladder. - There was no evidence of significant pathology in the visualized portion of the liver. - Fatty pancreas. - Endosonographic images of the left adrenal gland were unremarkable. - The celiac trunk was endosonographically normal. Recommendation: - Perform an ERCP today. Guru Wilson MD 11/20/2021 9:04:22 PM This report has been signed electronically. Note Initiated On: 11/20/2021 7:55 PM Number of Addenda: 0 I attest to the content of the Intraoperative Record and orders documented therein, exceptions below {[id number]}
--- NOTE | 2021-11-20 21:08 | GI REPORT ---
Patient Name: Muna Young Procedure Date: 11/20/2021 8:06 PM Date of : 1935 Admit Type: Inpatient Age: 86 Gender: Female Attending MD: Guru Wilson MD Procedure: ERCP Providers: Guru Wilson MD Referring MD: Neri Mccabe Indications: For therapy of bile duct stone(s), Elevated liver enzymes Medicines: General Anesthesia Complications: No immediate complications. Estimated Blood Loss: Estimated blood loss: none. Procedure: Pre-Anesthesia Assessment: - Prior to the procedure, a History and Physical was performed, and patient medications, allergies and sensitivities were reviewed. The patient's tolerance of previous anesthesia was reviewed. - The risks and benefits of the procedure and the sedation options and risks were discussed with the patient. All questions were answered and informed consent was obtained. - Patient identification and proposed procedure were verified prior to the procedure by the physician and the nurse. The procedure was verified in the procedure room. - Pre-procedure physical examination revealed no contraindications to sedation. After obtaining informed consent, the scope was passed under direct vision. Throughout the procedure, the patient's blood pressure, pulse, and oxygen saturations were monitored continuously. The Duodenoscope was introduced through the mouth, and advanced to the duodenum and used to inject contrast into the bile duct. The ERCP was accomplished without difficulty. The patient tolerated the procedure well. Findings: The crop scout film was normal. The esophagus was successfully intubated under direct vision. The scope was advanced to a normal major papilla in the descending duodenum without detailed examination of the pharynx, larynx and associated structures, and upper GI tract. The upper GI tract was grossly normal. A 0.025 inch x 270 cm angled Visiglide wire was passed into the biliary tree. The Fusion OMNI sphincterotome was passed over the guidewire and the bile duct was then deeply cannulated. Contrast was injected. I personally interpreted the bile duct images. Ductal flow of contrast was adequate. Image quality was adequate. Contrast extended to the main bile duct. Opacification of the entire biliary tree except for the gallbladder was successful. The maximum diameter of the ducts was 9 mm. Biliary sphincterotomy was made with a monofilament traction (standard) sphincterotome using ERBE electrocautery. There was no post-sphincterotomy bleeding. The biliary tree was swept with a 12 mm balloon starting at the bifurcation. One stone was removed. No stones remained. One 10 Fr by 8 cm plastic biliary stent with a single external flap and a single internal flap was placed into the common bile duct. Bile flowed through the stent. The stent was in good position. Impression: - Choledocholithiasis was found. Complete removal was accomplished by biliary sphincterotomy and balloon extraction. - One plastic biliary stent was placed into the common bile duct. Recommendation: - Repeat ERCP in 8 weeks to remove stent. - Proceed with Lap shanthi tomorrow. Guru Wilson MD 11/20/2021 9:07:50 PM This report has been signed electronically. Note Initiated On: 11/20/2021 8:06 PM Number of Addenda: 0 I attest to the content of the Intraoperative Record and orders documented therein, exceptions below {[id number]}
--- NOTE | 2021-11-20 21:16 | GI REPORT ---
Patient Name: Muna Young Procedure Date: 11/20/2021 8:21 PM Date of : 1935 Admit Type: Inpatient Age: 86 Gender: Female Attending MD: Guru Wilson MD Procedure: Flexible Sigmoidoscopy Providers: Guru Wilson MD Referring MD: Judson Knapp Indications: Foreign body in the colon, Abnormal CT of the GI tract Medicines: General Anesthesia Complications: No immediate complications. Estimated Blood Loss: Estimated blood loss: none. Procedure: Pre-Anesthesia Assessment: - Prior to the procedure, a History and Physical was performed, and patient medications, allergies and sensitivities were reviewed. The patient's tolerance of previous anesthesia was reviewed. - The risks and benefits of the procedure and the sedation options and risks were discussed with the patient. All questions were answered and informed consent was obtained. - Patient identification and proposed procedure were verified prior to the procedure by the physician and the nurse. The procedure was verified in the procedure room. - Pre-procedure physical examination revealed no contraindications to sedation. After obtaining informed consent, the endoscope was passed under direct vision. Throughout the procedure, the patient's blood pressure, pulse, and oxygen saturations were monitored continuously. The Endoscope was introduced through the anus and advanced to the descending colon. The flexible sigmoidoscopy was accomplished without difficulty. The patient tolerated the procedure well. The quality of the bowel preparation was fair. Findings: The perianal and digital rectal examinations were normal. Scattered small and large-mouthed diverticula were found in the sigmoid colon. A foreign body (chicken bone) was found in the sigmoid colon. Removal of chicken bone was accomplished with a rat-toothed forceps. To close the penetration sites, two Padlock clips were successfully placed (MR conditional). The scope could easily advance as the lumen remained wide open after clips deployement. Impression: - Foreign body in the sigmoid colon (Impacted long, linear chicken bone on both sides of the colon wall with surrounding inflammation. Removal was successful. Due to concern for microperforation, both sites were closed using Padlock clips. - Diverticulosis in the sigmoid colon. Recommendation: - [facility] patient [facility] care. - Clear liquid diet for 2 days after cholecystectomy, then advance as tolerated to low residue diet for 2 weeks. - PO Miralax daily for 4 weeks. Guru Wilson MD 11/20/2021 9:16:22 PM This report has been signed electronically. Note Initiated On: 11/20/2021 8:21 PM Number of Addenda: 0 I attest to the content of the Intraoperative Record and orders documented therein, exceptions below {[id number]}
--- NOTE | 2021-11-20 21:42 | Anesthesiology Progress Note ---
Date of Service November 20, 2021 Anesthesia Post Procedure Vital Signs Vital Signs: Temp Pulse Pulse Resp BP Pulse Ox 11/20/21 21:38 98.6 F 78 22 143/77 H 93 11/20/21 21:28 97.9 F 73 19 153/71 H 93 11/20/21 21:18 97.7 F 69 18 142/79 H 97 11/20/21 21:08 97.0 F L 74 16 106/67 95 11/20/21 18:50 99.7 F H 83 19 151/65 H 91 11/20/21 15:34 98.2 F 80 18 145/69 H 96 11/20/21 15:02 94 H 11/20/21 11:53 97.7 F 81 18 130/76 94 11/20/21 07:51 98.2 F 75 19 128/70 90 11/20/21 07:15 72 11/20/21 03:27 98.4 F 78 18 122/63 92 11/19/21 22:51 97.9 F 64 20 108/67 95 11/19/21 22:20 72 Pain Intensity Abdomen: Pain Intensity: 8 Transfer of Care Handoff Completed per policy Notes Mental Status: alert / awake / arousable and participated in evaluation Patient Amnestic to Procedure: Yes Nausea / Vomiting: adequately controlled Pain: adequately controlled Airway Patency, RR, SpO2: stable & adequate BP & HR: stable & adequate Hydration State: stable & adequate Anesthetic Complications: no major complications apparent and Pt Satisfied with anesthetic care
[2021-11-20] MEDS: ATORVASTATIN 40 MG TAB PO SCH (22:20)
[2021-11-21] MEDS ORDERED: GLUCAGON FOR INJ 1 MG VIAL ONE (00:01)
[2021-11-21] MEDS: metroNIDAZOLE 500 MG/100 ML BAG IV SCH ×3 (00:35→17:28)
--- NOTE | 2021-11-21 06:42 | History & Physical Bridge Note ---
Date of Service November 21, 2021 History & Physical Bridge Note I have examined the patient, reviewed the History & Physical and in the interval since the performance of the History & Physical I have noted the following changes of clinical significance: no changes noted
--- NOTE | 2021-11-21 06:49 | Anesthesiology Consultation ---
Date of Service November 21, 2021 Assessment & Plan Chart Review Chart Review: Acceptable Risk for Surgery Consults Requested none History Surgery Operation Date: 11/20/21 10:35 Proposed Procedures p Endoscopic Ultrasonography Upper - Guru Wilson MD s Endoscopic Retrograde Cholangiopancreatogram - Guru Wilson MD s Esophagogastroduodenoscopy - Guru Wilson MD Operation Date: 11/21/21 07:15 Proposed Procedures p Laparoscopic Cholecystectomy - Neri Bell MD, FACS Height/Weight Height: 5 ft 1 in Weight: 62.7 kg Allergies Allergy/AdvReac Type Severity Reaction Status Date / Time Bactrim Allergy Severe RASH AND Verified 12/25/17 10:05 FACIAL SWELLING bee venom protein (honey bee) Allergy Severe ANAPHYLAXIS Verified 11/01/21 12:51 clarithromycin Allergy Intermediate RASH AND Verified 11/01/21 12:51 FACIAL SWELLING fluconazole Allergy Intermediate INCREASED Verified 11/01/21 12:51 HEART RATE moxifloxacin Allergy Intermediate RASH AND Verified 11/01/21 12:51 FACIAL SWELLING nitrofurantoin Allergy Intermediate RASH Verified 11/01/21 12:51 Quinolones Allergy Intermediate RASH AND Verified 11/01/21 12:51 FACIAL SWELLING sulfamethoxazole Allergy Intermediate RASH AND Verified 11/01/21 12:51 FACIAL SWELLING trimethoprim Allergy Intermediate RASH AND Verified 11/01/21 12:51 FACIAL SWELLING cefuroxime [From Ceftin] Allergy Verified 11/01/21 12:51 NSAIDS (Non-Steroidal AdvReac Intermediate Pt had Verified 11/01/21 12:51 Anti-Inflamma Open Heart Surgery ketamine AdvReac Mild VOMITING Verified 11/01/21 12:51 Medications Home Medications Medication Instructions Recorded Confirmed Last Taken ascorbic acid (vitamin C) 500 mg 500 mg PO DAILY 03/24/18 11/19/21 03/22/21 tablet (Vitamin C) calcium carbonate 500 mg-vitamin 1 tab PO DAILY 03/24/18 11/19/21 03/22/21 D3 5 mcg (200 unit) tablet (Calcium 500 + D) cholecalciferol (vitamin D3) 125 5,000 unit PO DAILY 03/24/18 11/19/21 03/22/21 mcg (5,000 unit) tablet (Vitamin D3) multivitamin (Multiple Vitamins) 1 tab PO DAILY 03/24/18 11/19/21 03/22/21 aspirin 81 mg tablet,delayed 81 mg PO DAILY 03/23/21 11/19/21 03/22/21 release epinephrine 0.3 mg/0.3 mL 0.3 mg IM UD PRN 03/23/21 11/19/21 Unknown injection, auto-injector metoprolol succinate 25 mg 12.5 mg PO BID #90 tab 03/27/21 11/19/21 Unknown tablet,extended release 24 hr (Toprol XL) triamterene 37.5 1 tab PO Q2D #45 tab 05/03/21 11/19/21 Unknown mg-hydrochlorothiazide 25 mg tablet fluticasone 250 mcg-salmeterol 50 1 inh INHALATION DAILY #60 ea 08/21/21 11/19/21 Unknown mcg/dose blistr powdr for inhalation (Advair Diskus) biotin 2,500 mcg capsule 2,500 mcg PO DAILY 09/19/21 11/19/21 Unknown ipratropium bromide 0.02 % 2.5 ml INHALATION Q6H PRN #75 ml 10/08/21 11/19/21 Un known solution for inhalation albuterol sulfate 90 mcg/actuation 2 puff INHALATION Q4H PRN #6.7 g 10/09/21 11/19/21 Unknown aerosol inhaler (ProAir HFA) pantoprazole 40 mg tablet,delayed 40 mg PO QAM #90 tab 10/16/21 11/19/21 Unknown release (Protonix) atorvastatin 40 mg tablet (Lipitor) 40 mg PO HS #90 tab 11/02/21 11/19/21 Unknown denosumab 60 mg/mL subcutaneous 60 mg SUBCUT .Q6M 11/19/21 11/19/21 10/23/21 syringe (Prolia) warfarin 6 mg tablet 6 mg PO QPM 11/19/21 11/19/21 Unknown Active Medications Generic Name Dose Route Start Last Admin Trade Name Freq PRN Reason Stop Dose Admin Atorvastatin Calcium 40 mg 11/19/21 21:00 11/20/21 22:20 Atorvastatin 40 Mg Tab PO 12/19/21 20:59 40 mg HS RANDOLPH Administration Fluticasone/Vilanterol 1 puffs 11/20/21 09:00 11/20/21 08:46 Fluticasone/Vilanterol 200/25mcg 14 Puffs/Inhaler INH 12/20/21 08:59 1 puffs DAILY RANDOLPH Administration Sodium Chloride 1,000 mls @ 80 mls/hr 11/19/21 20:03 11/20/21 22:20 Nss 1000ml IV 12/19/21 20:02 80 mls/hr .[id number] RANDOLPH Administration Metronidazole 500 mg in 100 mls @ 100 mls/hr 11/20/21 17:00 11/21/21 01:39 Flagyl IV 11/30/21 16:59 Infused Q8H RANDOLPH Infusion Metoprolol Succinate 12.5 mg 11/19/21 21:00 11/20/21 22:19 Metoprolol Succ 25mg Ext Rel Tab PO 12/19/21 20:59 12.5 mg BID RANDOLPH Administration Pantoprazole Sodium 40 mg 11/20/21 09:00 11/20/21 08:46 Pantoprazole 40 Mg Tab PO 12/20/21 08:59 40 mg QAM RANDOLPH Administration NPO Date Last Intake of Fluids: 11/20/21 Time Last Intake of Fluids: 22:00 Last Intake of Fluids Comment: sip Date Last Intake of Solids: 11/19/21 Time Last Intake of Solids: 09:00 Past Medical History Medical History Anticoagulant long-term use Asthma Atrial flutter with rapid ventricular response Biopsy of breast (2012) Cystocele surgically repaired Dysphagia H/O Goiter H/O gastroesophageal reflux (GERD) Hiatal hernia History of esophageal dilatation Hypertension Migraines Osteoarthritis Osteoporosis Severe mitral regurgitation 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 MVR/MAZE. 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 Past Family History Family History Aunt Breast cancer Brother Diabetes Sister Breast cancer Myocardial infarction Ovarian cancer Diabetes Father Myocardial infarction Mother Myocardial infarction Diabetes Past Surgical History Surgical History H/O exploratory laparotomy p Exploratory Laparotomy- Abhishek Gutierrez MD, FACS Lysis of adhesion 04/04/2021 H/O hemorrhoidectomy H/O knee surgery LEFT KNEE H/O maze procedure for a fib H/O shoulder surgery LEFT History of back surgery History of bilateral tubal ligation History of bladder surgery History of breast biopsy History of cardiac cath History of carpal tunnel release History of cataract surgery History of colonoscopy History of esophagogastroduodenoscopy (EGD) History of foot surgery History of hand surgery History of hysterectomy History of incisional hernia repair (03/27/21) Open Incarcerated Incisional Hernia Repair -Abhishek Gutierrez MD, FACS 03/27/2021 History of oophorectomy History of rectocele History of total abdominal hysterectomy History of tricuspid valve replacement S/P cervical spinal fusion (1999) UNSURE OF LEVELS. FULL ROM. S/P hysterectomy (2012) S/P Maze operation for atrial fibrillation (2017) S/P STERLING-BSO Social History Smoking Status: Never smoker Hx Alcohol Use: No Hx Substance Use: No substance use type: does not use Physical Exam Vital Signs Last Vital Signs Temp 36.8 C 11/21/21 06:47 Pulse 77 11/21/21 06:47 Resp 18 11/21/21 06:47 BP 132/66 11/21/21 06:47 Pulse Ox 96 11/21/21 03:14 Testing Laboratory Results 11/20/21 06:06 11/20/21 06:06 PT 13.3 Seconds (9.0-12.0) H 11/20/21 06:06 INR 1.3 (0.9-1.1) H 11/20/21 06:06 Urine Color Yellow 11/19/21 12:49 Urine Appearance Clear (Clear) 11/19/21 12:49 Urine pH >= 9.0 (4.5-7.5) H 11/19/21 12:49 Ur Specific [place] 1.012 (1.000-1.030) 11/19/21 12:49 Urine Protein Negative (Negative) 11/19/21 12:49 Urine Glucose (UA) Negative (Negative) 11/19/21 12:49 Urine Ketones Negative (Negative) 11/19/21 12:49 Urine Nitrite Negative (Negative) 11/19/21 12:49 Ur Leukocyte Esterase Negative (Negative) 11/19/21 12:49 11/19/21 20:15 Aerobic Blood Culture - Preliminary Blood Gram negative bacilli Anaerobic Blood Culture - Preliminary No growth in Anaerobic bottle after 24 hours. 11/19/21 20:33 Aerobic Blood Culture - Preliminary Blood No growth in Aerobic bottle after 24 hours. Anaerobic Blood Culture - Preliminary No growth in Anaerobic bottle after 24 hours.
[2021-11-21] MEDS ORDERED: DEXAMETHASONE SOD INJ 4 MG/ML VIAL ONE (06:50)
[2021-11-21] MEDS ORDERED: fentaNYL citrate 100 MCG/2 ML VIAL IV PRN (06:50)
[2021-11-21] MEDS ORDERED: PROPOFOL IV EMULSION 10 MG/ML 20 ML VIAL IV ONE (06:50)
[2021-11-21] MEDS ORDERED: ONDANSETRON INJ 2 MG/ML 2 ML VIAL IV PRN (06:50)
[2021-11-21] MEDS ORDERED: MIDAZOLAM HCL 1 MG/ML 2ML VIAL ONE (06:50)
[2021-11-21] MEDS ORDERED: ATROPINE SULFATE 0.1 MG/ML 10ML SYR IV PRN (06:50)
[2021-11-21] MEDS ORDERED: ONDANSETRON INJ 2 MG/ML 2 ML VIAL ONE (06:50)
[2021-11-21] MEDS ORDERED: LIDOCAINE 2% 2 ML VIAL/AMP(20MG/ML) INFIL ONE (06:50)
[2021-11-21] MEDS ORDERED: PROMETHAZINE HCL 12.5 MG in SODIUM CHLORIDE 0.9% 50 ML IV PRN (06:50)
[2021-11-21] MEDS ORDERED: HYDROmorphone INJ 2 MG/ML SYR/VIAL IV PRN (06:50)
[2021-11-21] MEDS ORDERED: fentaNYL citrate 100 MCG/2 ML VIAL ONE ×2 (06:50)
[2021-11-21] MEDS ORDERED: ePHEDrine sulfate 50 MG/ML AMP IV PRN (06:50)
[2021-11-21] MEDS ORDERED: GLYCOPYRROLATE 0.2 MG/ML VIAL ONE (06:50)
[2021-11-21] MEDS ORDERED: NEOSTIGMINE METHYLSULFATE 1 MG/ML 10ML VIAL ONE (06:50)
[2021-11-21] MEDS ORDERED: BUPIVACAINE 0.5 % 5 MG/1 ML MPF 30ML VIAL ONE (07:04)
[2021-11-21] MEDS ORDERED: ACETAMINOPHEN 1,000 MG/100 ML VIAL IV ONE (08:07)
--- NOTE | 2021-11-21 08:07 | Post Operative Brief Note ---
PG Immediate Post Op with CF Date of Surgery November 21, 2021 Pre & Post Diagnosis Operation Date: 11/20/21 10:35 Pre-Op Diagnosis: Cholecystitis; Elevated LFTs; Possible Foreign Body in Colon Post-Op Diagnosis: Cholecystitis; Elevated LFTs; Foreign Body in Colon Operation Date: 11/21/21 07:15 Pre-Op Diagnosis: CHOLECYSTITIS Post-Op Diagnosis: CHOLECYSTITIS Acute cholecystitis with bilious ascites and small bowel adhesions I identified the patient and participated in the time-out.: Yes Procedure Operation Date: 11/20/21 10:35 Actual Procedures p Endoscopic Ultrasonography Upper(Not Applicable) - Guru Wilson MD s Endoscopic Retrograde Cholangiopancreatogram(Not Applicable) - Guru Wilson MD s Esophagogastroduodenoscopy(Not Applicable) - Guru Wilson MD s Colonoscopy(Not Applicable) - Guru Wilson MD Operation Date: 11/21/21 07:15 Actual Procedures p Laparoscopic Cholecystectomy(Not Applicable) - Neri Bell MD, FACS Enterolysis Surgeon Neri Bell MD, FACS Training Project Manager Vikas Arora Estimated Blood Loss 0 Findings Consistent with Post-Op Diagnosis Patient had bilious ascites a very dilated gallbladder with acute cholecystitis Specimens Specimen Description: A. Gall Bladder
--- NOTE | 2021-11-21 09:11 | Anesthesiology Progress Note ---
Date of Service November 21, 2021 Anesthesia Post Procedure Vital Signs Vital Signs: Temp Pulse Pulse Resp BP Pulse Ox 11/21/21 08:55 70 17 128/53 L 94 11/21/21 08:45 70 17 139/75 94 11/21/21 08:35 69 18 139/67 94 11/21/21 08:25 76 18 148/69 H 98 11/21/21 08:18 36.8 C 81 21 129/61 95 11/21/21 06:47 36.8 C 77 18 132/66 11/21/21 03:14 36.5 C 64 22 135/68 96 11/21/21 00:30 74 141/73 H 11/21/21 00:00 64 151/62 H 11/20/21 23:32 73 11/20/21 23:30 80 149/75 H 11/20/21 23:05 36.5 C 63 21 150/71 H 97 11/20/21 23:00 82 156/66 H 11/20/21 22:45 63 160/77 H 11/20/21 22:30 76 161/88 H 11/20/21 22:19 72 146/69 H 11/20/21 22:15 86 146/69 H 11/20/21 21:38 37 C 78 22 143/77 H 93 11/20/21 21:28 36.6 C 73 19 153/71 H 93 11/20/21 21:18 36.5 C 69 18 142/79 H 97 11/20/21 21:08 36.1 C L 74 16 106/67 95 11/20/21 18:50 37.6 C H 83 19 151/65 H 91 11/20/21 15:34 36.8 C 80 18 145/69 H 96 11/20/21 15:02 94 H 11/20/21 11:53 36.5 C 81 18 130/76 94 Pain Intensity Abdomen: Pain Intensity: 8 Transfer of Care Handoff Completed per policy Notes Mental Status: alert / awake / arousable and participated in evaluation Patient Amnestic to Procedure: Yes Nausea / Vomiting: adequately controlled Pain: adequately controlled Airway Patency, RR, SpO2: stable & adequate BP & HR: stable & adequate Hydration State: stable & adequate Anesthetic Complications: no major complications apparent
[2021-11-21] MEDS ORDERED: oxyCODONE HCL IR 5 MG TAB (IMMEDIATE RELEASE) PO PRN (10:22)
--- NOTE | 2021-11-21 10:37 | Medical Student Progress Note ---
Date of Service November 21, 2021 Assessment & Plan (1) Cholecystitis: Plan: Patient is an 86-year-old woman with a history of atrial flutter on Coumadin, HTN, dyslipidemia, GERD, osteoporosis, asthma, mitral valve replacement, tricuspid valve repair, incarcerated hernia repair with lysis of adhesions who presented to the ED on 11/19 with several hours of radiating, periumbilical pain and an episode of syncope 2/2 cholecystitis and choledocholithiasis. cholecystitis s/p lap shanthi 11/21: - EUS and ERCP 11/20 - choledocholithiasis completely removed by biliary sphincterectomy and balloon extraction; one biliary stent was placed into the common bile duct - repeat ERCP in 8 weeks to remove stent - hold Coumadin, defer to gen surg - continue IV fluids, Zofran PRN, analgesics PRN - Gentamicin and metronidazole started 11/20 - sensitivities pending Foreign Body in colon, resolved - flexible sigmoidoscopy 11/20: chicken bone found in sigmoid colon, was removed, penetration sites were closed with two Padlock clips - advance diet as tolerated to low residue diet for 2 weeks - PO Miralax for 4 weeks HTN: - hold triamterene/HCTZ - BP stable 11/20: 128/70 Atrial flutter with controlled response: - s/p MAZE procedure - continue metoprolol - hold Coumadin, see above Osteoporosis: - stable, on Prolia Asthma: - chronic, stable - continue Advair, albuterol as needed valve replacements and repairs: - no acute issues - continue with cardiology outpatient GERD: - continue pantoprazole 40 mg QD Dyslipidemia: - continue atorvastatin 40 mg QD Relative hypoxia, resolved: Bacteremia: - blood culture showed Gram negative bacilli, pending sensitivities - Gentamicin and metronidazole Multiple antibiotic allergies: - allergy consulted, does not suspect IgE mediated allergy - Cipro reaction: anaphylaxis requiring hospitalization - Ceftin and penicillin reactions: burning, pruritic facial rash - not likely to progress to a more dangerous reaction and we can usually treat through the rash; should be able to get any cephalosporin or penicillin family antibiotic and premedicate with cetirizine 10 mg BID throughout the abx course, +/- 10-20 mg of prednisone DVT ppx: SCDs, Coumadin held diet: clear liquid diet code: full dispo: PCU (2) Drug allergy, antibiotic: (3) Bacteremia: (4) Choledocholithiasis: (5) Osteoporosis: (6) Hypertension: (7) Atrial flutter with controlled response: (8) Asthma: (9) GERD (gastroesophageal reflux disease): (10) Dyslipidemia: (11) S/P mitral valve replacement with bioprosthetic valve: (12) S/P tricuspid valve repair: (13) Foreign body in colon: (14) Hypoxia: Admission and Anticipated Discharge Date Admission Date: November 19, 2021 Supervising Attestation I personally examined the patient and verified all smyth points of history and exam, discussed case, and agree with decision making with Mina CRYSTAL Feeling okay. Allergy input greatly appreciated. For cholecystectomy today. Vitals noted, in general she is awake and alert pleasant no distress. HEENT normocephalic atraumatic mucous membranes moist. Breathing unlabored no accessory muscle use good effort. Skin shows no rashes no pallor or icterus. Neuro shows no focal deficits. Cholecystitis/choledocholithiasis/gram-negative bacteremia present on admission. Status post ERCP yesterday, cholecystectomy today. After input from allergyswitch to ceftriaxoneZyrtec twice daily with prednisone if she develops symptoms. Continue metronidazole both for GI infection in biliary tree as well as for potential infection in colon where chicken bone was lodged. Otherwise as above Subjective Patient is an 86-year-old woman with a history of atrial flutter on Coumadin, HTN, dyslipidemia, GERD, osteoporosis, asthma, mitral valve replacement, tricuspid valve repair, incarcerated hernia repair with lysis of adhesions who presented to the ED on 11/19 with several hours of radiating, periumbilical pain and an episode of syncope 2/2 cholecystitis and choledocholithiasis. Patient had no acute events overnight. This afternoon, she is s/p cholecystectomy and resting comfortably in bed. She has been able to eat some broth, jello, and tea. She denies nausea or pain. She has a minor cough from being intubated during her procedure. Otherwise, ROS was negative. Review of Systems Review of Systems: All systems reviewed & are unremarkable except as noted in HPI & below minor cough Physical Exam Constitutional: WD/WN, vitals as above Eyes: PERRL, conjunctivae normal, anicteric sclerae ENMT: external ear and nose normal, oropharynx normal Neck: trachea midline, no thyromegaly Respiratory: normal respiratory effort and + cough (minor, with deep breaths); no respiratory distress Auscultation: + rales (b/l lower lobes) Cardiovascular: Rate/Rhythm: + irregularly irregular Vessels: no JVD Extremities: no calf tenderness and no edema Gastrointestinal (Abdomen): Percussion/Palpation: abdomen soft dressings currently on abdomen, expected minor tenderness due to recent procedure Musculoskeletal: no cyanosis or clubbing, extremities motor strength 5/5 Skin: no rashes, warm and dry Neurologic: PERRL, EOMI, accommodation nl, no face palsy, no dysarthria Psychiatric: A+Ox3, euthymic affect Results & Data ([facility]) Vital Signs (Past 12 Hours) Vital Signs Temp Pulse Pulse Pulse Resp BP BP 11/21/21 10:11 37 C 70 19 129/55 L 11/21/21 09:51 36.4 C L 60 20 120/53 L 11/21/21 09:35 59 L 19 127/49 L 11/21/21 09:20 60 17 119/54 L 11/21/21 09:05 36.1 C L 63 17 129/55 L 11/21/21 08:55 70 17 128/53 L 11/21/21 08:45 70 17 139/75 11/21/21 08:35 69 18 139/67 11/21/21 08:25 76 18 148/69 H 11/21/21 08:18 36.8 C 81 21 129/61 11/21/21 06:47 36.8 C 77 18 132/66 11/21/21 03:14 36.5 C 64 22 135/68 11/21/21 00:30 74 141/73 H 11/21/21 00:00 64 151/62 H 11/20/21 23:32 73 11/20/21 23:30 80 149/75 H 11/20/21 23:05 36.5 C 63 21 150/71 H 11/20/21 23:00 82 156/66 H 11/20/21 22:45 63 160/77 H Pulse Ox 11/21/21 10:11 95 11/21/21 09:51 95 11/21/21 09:35 93 11/21/21 09:20 94 11/21/21 09:05 93 11/21/21 08:55 94 11/21/21 08:45 94 11/21/21 08:35 94 11/21/21 08:25 98 11/21/21 08:18 95 11/21/21 06:47 11/21/21 03:14 96 11/21/21 00:30 11/21/21 00:00 11/20/21 23:32 11/20/21 23:30 11/20/21 23:05 97 11/20/21 23:00 11/20/21 22:45
[2021-11-21] MEDS: CETIRIZINE HCL 10 MG TABLET PO SCH ×2 (10:50→22:30)
[2021-11-21] MEDS: PANTOprazole 40 MG TAB PO SCH (10:50)
[2021-11-21] MEDS: FLUTICASONE/VILANTEROL 200/25MCG 14 PUFFS/INHALER INH SCH (10:50)
[2021-11-21] MEDS: METOPROLOL SUCC 25MG EXT REL TAB PO SCH ×2 (10:50→22:30)
--- NOTE | 2021-11-21 10:58 | Operative Report (OR) ---
DATE OF OPERATION: 11/21/2021. NAME OF OPERATION: Laparoscopic cholecystectomy with enterolysis. STAFF SURGEON: Neri Bell MD. BARN AND PROPERTY MANAGER: Camille Arora PA-C. ANESTHESIA: General. DESCRIPTION OF PROCEDURE: The patient was brought in the operating room and placed on the operating table in supine position. Her abdomen was prepped and draped in the usual fashion. Pneumatic stocki ngs and orogastric tube were placed. My audiology assistant helped with prepping, draping, removal of the gall bladder and closure of the wounds. Incision was made to the right of the midline just above the umbi licus as she had a large midline incision. Dissection was carried down under visualization into the abdomen. There were small bowel adherent to this area. These were gently mobilized and then a ballo on cannula placed. The camera was passed, pneumoperitoneum was produced. Three 5 mm ports were plac ed, one cephalad and two laterally under visualization. Gallbladder was very large, edematous, diste nded. There was bilious ascites. Dissection was carried out to the maria ines hepatis, identifying the cystic duct and cystic artery. Thes e were clipped and transected. Gallbladder dissected away from the liver bed in the usual fashion. There was severe edema in the posterior wall. There was also noted sludge in the gallbladder as I di d aspirate the bile. Gallbladder was placed in an Endobag. At this point, using a 5 mm scope, we we re able to examine the area near the umbilicus. The bowel appeared to be completely viable with no i njuries. At this point, the gallbladder was removed through the umbilical site. All ports were neha levy and then the umbilical fascia closed using 0 PDS suture. The skin was reapproximated using 5-0 P rolene. Dressings applied. The patient was transferred to recovery room in stable condition. Job ID: [id number]
[2021-11-21] MEDS ORDERED: COUGH DROP (SUGAR FREE) LOZ 24 LOZ/1 BOX BUCCAL ONE (12:47)
[2021-11-21] MEDS: SODIUM CHLORIDE 0.9% 1000ML 1,000 ML IV SCH ×2 (14:30→23:31)
[2021-11-21] MEDS: cefTRIAXone SODIUM 2,000 MG in DEXTROSE 5% 50 ML IV SCH (16:45)
[2021-11-21] MEDS: ATORVASTATIN 40 MG TAB PO SCH (22:31)
[2021-11-22] MEDS: metroNIDAZOLE 500 MG/100 ML BAG IV SCH ×3 (01:13→16:07)
[2021-11-22 06:33] LABS: Hemoglobin 11.9 g/dL (12.0-16.0); Mean Corpuscular Hemoglobin 28.3 pg (25-34); Mean Corpuscular Hgb Conc 33.1 g/dL (32-36); Mean Corpuscular Volume 85.5 fL (80-100); Mean Platelet Volume 10.2 fL (7.4-10.4); Platelet Count 174 K/uL (130-400); RDW Coefficient of Variation 15.9 % (11.5-14.5); RDW Standard Deviation 49.8 fL (36.4-46.3); Red Blood Count 4.21 M/uL (4.2-5.4); White Blood Count 8.89 K/uL (4.8-10.8)
--- NOTE | 2021-11-22 06:40 | Surgery Progress Note ---
Date of Service November 22, 2021 Assessment & Plan (1) Hx laparoscopic cholecystectomy: Plan: Slept relatively well Minimal pain Voiding with a small amount of retention Relatively weak from recent illness and procedures Probably needs 1-2 more days in the hospital Discharge when medically stable Follow-up in office in 2 weeks Admission and Anticipated Discharge Date Admission Date: November 19, 2021 Results & Data ([facility]) Vital Signs (Past 12 Hours) Vital Signs Temp Pulse Pulse Resp BP Pulse Ox 11/22/21 04:00 36.6 C 67 20 137/78 94 11/22/21 01:10 68 16 148/81 H 94 11/21/21 23:00 36.8 C 64 20 154/77 H 94 11/21/21 22:27 77 11/21/21 19:00 36.9 C 70 20 155/78 H 94 11/21/21 18:50 66 PG Care Time/CCT Total # of Minutes Spent Total Time Spent with Patient: Total time spent is greater than 50% in coordination of care (as documented) at patient's floor/unit and/or counseling patient: Coding Level of Care Code None Diagnoses Hx laparoscopic cholecystectomy Z90.49
[2021-11-22 06:57] LABS: Albumin Globulin Ratio 1.3 (0.9-2); Albumin Level 3.1 gm/dl (3.4-5.0); BUN Creatinine Ratio 15.9 (10-20); Bilirubin,Total 1.4 mg/dl (0.2-1.0); Calcium 7.2 mg/dl (8.5-10.1); Creatinine Clr Calc Pharmacy 56.6 ml/min; Est GFR (African American) 94.8 ml/min; Est GFR (Non-African American) 81.8 ml/min; Globulin 2.3 gm/dl (2.5-4.0); Potassium 3.4 mmol/L (3.5-5.1); Total Protein 5.4 gm/dl (6.0-8.3)
[2021-11-22] MEDS: METOPROLOL SUCC 25MG EXT REL TAB PO SCH ×2 (08:45→22:32)
[2021-11-22] MEDS: CETIRIZINE HCL 10 MG TABLET PO SCH ×2 (08:46→22:32)
[2021-11-22] MEDS: PANTOprazole 40 MG TAB PO SCH (08:46)
[2021-11-22] MEDS: FLUTICASONE/VILANTEROL 200/25MCG 14 PUFFS/INHALER INH SCH (08:47)
[2021-11-22] MEDS: HEPARIN SOD 5,000 UNIT/0.5 ML VIAL SQ SCH ×2 (08:47→22:32)
--- NOTE | 2021-11-22 10:15 | Medical Student Progress Note ---
Date of Service November 22, 2021 Assessment & Plan (1) Constipation: Plan: Patient is an 86-year-old woman with a history of atrial flutter on Coumadin, HTN, dyslipidemia, GERD, osteoporosis, asthma, mitral valve replacement, tricuspid valve repair, incarcerated hernia repair with lysis of adhesions who presented to the ED on 11/19 with several hours of radiating, periumbilical pain and an episode of syncope 2/2 cholecystitis and choledocholithiasis. Cholecystitis s/p lap shanthi 11/21: - EUS and ERCP 11/20 - choledocholithiasis completely removed by biliary sphincterectomy and balloon extraction; one biliary stent was placed into the common bile duct - repeat ERCP in 8 weeks to remove stent - restart Coumadin 11/22 - continue IV fluids, Zofran PRN, analgesics PRN - pansensitive results - Ceftriaxone started 11/21 and metronidazole day 3 Bacteremia: - blood culture showed Gram negative bacilli, pansensitive - Ceftriaxone started 11/21 and metronidazole day 3 Multiple antibiotic allergies: - allergy consulted, does not suspect IgE mediated allergy - Cipro reaction: anaphylaxis requiring hospitalization - Ceftin and penicillin reactions: burning, pruritic facial rash - not likely to progress to a more dangerous reaction and we can usually treat through the rash; should be able to get any cephalosporin or penicillin family antibiotic and premedicate with cetirizine 10 mg BID throughout the abx course, +/- 10-20 mg of prednisone - patient started on ceftriaxone 11/21, receiving zyrtec concurrently Foreign Body in colon, resolved - flexible sigmoidoscopy 11/20: chicken bone found in sigmoid colon, was removed, penetration sites were closed with two Padlock clips - advance diet as tolerated to low residue diet for 2 weeks - PO Miralax for 4 weeks Weakness: - likely 2/2 to hospital stay and procedures - continue to monitor - PT/OT consulted Calf pain: - likely 2/2 sleeping on plastic knobs on SCDs - will monitor Constipation - no bm since 11/19 - Miralax PRN HTN: - restart triamterene/HCTZ 11/22 - BP 11/22: 145/96 Atrial flutter with controlled response: - s/p MAZE procedure - rate controlled - continue metoprolol - restart Coumadin, as above Osteoporosis: - stable, on Prolia Asthma: - chronic, stable - continue Advair, albuterol as needed valve replacements and repairs: - no acute issues - continue with cardiology outpatient GERD: - continue pantoprazole 40 mg QD Dyslipidemia: - continue atorvastatin 40 mg QD Relative hypoxia, resolved: DVT ppx: heparin injections 5000 q12, Coumadin restarted 11/22 diet: clear liquid diet code: full dispo: med-tele (2) Drug allergy, antibiotic: (3) Bacteremia: (4) Hypoxia: (5) Cholecystitis: (6) Choledocholithiasis: (7) Foreign body in colon: (8) Dyslipidemia: (9) GERD (gastroesophageal reflux disease): (10) S/P mitral valve replacement with bioprosthetic valve: (11) S/P tricuspid valve repair: (12) Atrial flutter with controlled response: (13) Weakness: (14) Calf pain: Admission and Anticipated Discharge Date Admission Date: November 19, 2021 Supervising Attestation I personally examined the patient and verified all smyth points of history and exam, discussed case, and agree with decision making with Mina José MS2 Feels really good overall. Post cholecystectomy. Is a little bit discouraged because right now therapy notes that she would probably need to go to rehab, she would prefer to go home but is understanding if she does need to go to a rehab facility for the short-term Vitals noted, in general she is awake and alert pleasant no distress. HEENT normocephalic atraumatic mucous membranes moist. Breathing unlabored no accessory muscle use good effort. Skin shows no rashes no pallor or icterus. Neuro shows no focal deficits. Cholecystitis/choledocholithiasis/gram-negative bacteremia present on admission. Status post ERCP and cholecystectomy. Continue ceftriaxone and Flagyl (anaerobic coverage due to GI infection and biliary tree as well as possible infection in colon where chicken bone was lodged). Continue PT/OT eval and treatwork towards rehab, but if she shows nice improvement, could consider home instead. Otherwise as above Subjective Patient is an 86-year-old woman with a history of atrial flutter on Coumadin, HTN, dyslipidemia, GERD, osteoporosis, asthma, mitral valve replacement, tricuspid valve repair, incarcerated hernia repair with lysis of adhesions who presented to the ED on 11/19 with several hours of radiating, periumbilical pain and an episode of syncope 2/2 cholecystitis and choledocholithiasis. Overnight, patient did have several ectopic beats over 12 seconds. Otherwise, no acute overnight events. This morning, patient is resting comfortably in a chair. She reports sleeping well, and is without pain or nausea. She has a mildly decreased appetite but is eating her meals and drinking water and tea. She reports dark urine that is lightening throughout the day. She is passing flatulence, but has not had a bowel movement since arrival to the hospital. Her cough from intubation is much improved. She does have some superior, medial L calf pain that may be related to sleeping on one of the plastic knobs of her SCDs. She is inquiring about PT at home and having nursing check in on her. She does have support from [employer] but is living alone. She is concerned about having the energy and strength to prep meals. She feels she is able to ambulate. She denies headache, dizziness, fever, chills, nausea, dysphagia, chest pain, shortness of breath, numbness or tingling, and abdominal discomfort. Review of Systems Review of Systems: All systems reviewed & are unremarkable except as noted in HPI & below Physical Exam Constitutional: well developed and well nourished; no acute distress Eyes: PERRL, conjunctivae normal, anicteric sclerae ENMT: external ear and nose normal, oropharynx normal Neck: trachea midline, no thyromegaly Respiratory: normal respiratory effort, lungs clear to auscultation Auscultation: + rales (improved ) Cardiovascular: Rate/Rhythm: + irregularly irregular Extremities: + calf tenderness; no edema Gastrointestinal (Abdomen): Inspection/Auscultation: + abdominal surgical incision (clean, healing well) Percussion/Palpation: abdomen soft; abdomen nontender Musculoskeletal: no cyanosis or clubbing, extremities motor strength 5/5 Skin: no rashes, warm and dry Neurologic: PERRL, EOMI, accommodation nl, no face palsy, no dysarthria Psychiatric: A+Ox3, euthymic affect Lymphatic: no cervical or axillary lymphadenopathy Results & Data ([facility]) Vital Signs (Past 12 Hours) Vital Signs Temp Pulse Pulse Resp BP Pulse Ox 11/22/21 07:35 36.6 C 69 18 145/69 H 93 11/22/21 07:31 69 11/22/21 04:00 36.6 C 67 20 137/78 94 11/22/21 01:10 68 16 148/81 H 94 11/21/21 23:00 36.8 C 64 20 154/77 H 94 11/21/21 22:27 77 Laboratory Results Laboratory Results WBC 8.89 K/uL (4.8-10.8) 11/22/21 05:27 RBC 4.21 M/uL (4.2-5.4) 11/22/21 05:27 Hgb 11.9 g/dL (12.0-16.0) L 11/22/21 05:27 Hct 36.0 % (37-47) L 11/22/21 05:27 MCV 85.5 fL (80-100) 11/22/21 05:27 MCH 28.3 pg (25-34) 11/22/21 05:27 MCHC 33.1 g/dL (32-36) 11/22/21 05:27 RDW Std Deviation 49.8 fL (36.4-46.3) H 11/22/21 05:27 RDW Coeff of Linda 15.9 % (11.5-14.5) H 11/22/21 05:27 Plt Count 174 K/uL (130-400) 11/22/21 05:27 MPV 10.2 fL (7.4-10.4) 11/22/21 05:27 Immature Gran % (Auto) 0.4 % 11/19/21 11:00 Neut % (Auto) 70.5 % 11/19/21 11:00 Lymph % (Auto) 18.2 % 11/19/21 11:00 Blackford % (Auto) 9.2 % 11/19/21 11:00 Eos % (Auto) 1.5 % 11/19/21 11:00 Baso % (Auto) 0.2 % 11/19/21 11:00 Neut # (Auto) 6.80 K/uL (1.4-6.5) H 11/19/21 11:00 Lymph # (Auto) 1.76 K/uL (1.2-3.4) 11/19/21 11:00 Blackford # (Auto) 0.89 K/uL (0.11-0.59) H 11/19/21 11:00 Eos # (Auto) 0.14 K/uL (0-0.5) 11/19/21 11:00 Baso # (Auto) 0.02 K/uL (0-0.2) 11/19/21 11:00 Immature Gran # (Auto) 0.04 K/uL (0.00-0.02) H 11/19/21 11:00 PT 13.3 Seconds (9.0-12.0) H 11/20/21 06:06 INR 1.3 (0.9-1.1) H 11/20/21 06:06 Sodium 134 mmol/L (136-145) L 11/22/21 05:27 Potassium 3.4 mmol/L (3.5-5.1) L 11/22/21 05:27 Chloride 103 mmol/L (98-107) 11/22/21 05:27 Carbon Dioxide 26 mmol/L (21-32) 11/22/21 05:27 Anion Gap 5 (3-11) 11/22/21 05:27 BUN 10 mg/dl (6-23) 11/22/21 05:27 Creatinine 0.63 mg/dl (0.6-1.2) 11/22/21 05:27 Est Cr Clr Drug Dosing 56.6 ml/min 11/22/21 05:27 Est GFR ( Amer) 94.8 ml/min 11/22/21 05:27 Est GFR (Non-Af Amer) 81.8 ml/min 11/22/21 05:27 BUN/Creatinine Ratio 15.9 (10-20) 11/22/21 05:27 Glucose 84 mg/dl (70-99(Fasting)) 11/22/21 05:27 Calcium 7.2 mg/dl (8.5-10.1) L 11/22/21 05:27 Phosphorus 3.6 mg/dl (2.5-4.9) 11/19/21 11:00 Magnesium 1.7 mg/dl (1.7-2.4) 11/20/21 06:06 Total Bilirubin 1.4 mg/dl (0.2-1.0) H 11/22/21 05:27 Direct Bilirubin 0.3 mg/dl (0-0.2) H 11/19/21 11:00 AST 28 U/L (13-39) 11/22/21 05:27 ALT 32 U/L (7-52) 11/22/21 05:27 Alkaline Phosphatase 81 U/L (34-104) 11/22/21 05:27 Total Protein 5.4 gm/dl (6.0-8.3) L 11/22/21 05:27 Albumin 3.1 gm/dl (3.4-5.0) L 11/22/21 05:27 Globulin 2.3 gm/dl (2.5-4.0) L 11/22/21 05:27 Albumin/Globulin Ratio 1.3 (0.9-2) 11/22/21 05:27 Lipase 13 U/L (11-82) 11/19/21 11:00 Urine Color Yellow 11/19/21 12:49 Urine Appearance Clear (Clear) 11/19/21 12:49 Urine pH >= 9.0 (4.5-7.5) H 11/19/21 12:49 Ur Specific Smith 1.012 (1.000-1.030) 11/19/21 12:49 Urine Protein Negative (Negative) 11/19/21 12:49 Urine Glucose (UA) Negative (Negative) 11/19/21 12:49 Urine Ketones Negative (Negative) 11/19/21 12:49 Urine Blood Negative (Negative) 11/19/21 12:49 Urine Nitrite Negative (Negative) 11/19/21 12:49 Urine Bilirubin Negative (Negative) 11/19/21 12:49 Urine Urobilinogen Negative (Negative) 11/19/21 12:49 Ur Leukocyte Esterase Negative (Negative) 11/19/21 12:49 Random Gentamicin 3.83 mcg/ml 11/21/21 05:49 SARS-CoV-2 (PCR) NEGATIVE (Negative) 11/19/21 11:48 Enterobacterales (PCR) DETECTED (NotDetected) A 11/19/21 20:15 E. coli (PCR) DETECTED (NotDetected) A 11/19/21 20:15 Influenza Type A (PCR) Negative (Neg) 11/19/21 11:48 Influenza Type B (PCR) Negative (Neg) 11/19/21 11:48 RSV (RT-PCR) Negative (Neg) 11/19/21 11:48 mcr-1 Colistin Res Gene PCR Not Detected (NotDetected) 11/19/21 20:15 blaIMP Car res Gene PCR Not Detected (NotDetected) 11/19/21 20:15 KPC-Carbap Res Gene PCR Not Detected (NotDetected) 11/19/21 20:15 blaNDM Car Res Gene PCR Not Detected (NotDetected) 11/19/21 20:15 OXA-48 Carbapenem Resis Gene (PCR) Not Detected (NotDetected) 11/19/21 20:15 blaVIM Car Res Gene PCR Not Detected (NotDetected) 11/19/21 20:15 CTX-M Gene Resistance (PCR) Not Detected (NotDetected) 11/19/21 20:15 Bld Cult ID Panel PCR See PCR Comment (NotDetected) 11/19/21 20:15 Impressions Abdomen/Pelvis CT 11/19/21 11:23 CT OF THE ABDOMEN AND PELVIS WITH CONTRAST CLINICAL HISTORY: Abdominal pain, nausea and vomiting. COMPARISON STUDY: CT of the abdomen and pelvis September 27, 2021. TECHNIQUE: Following IV administration of 94 mL of Optiray, axial images of the abdomen and pelvis were obtained from the lung bases to the proximal femurs. Images were reviewed in the axial, sagittal, and coronal planes. IV contrast was administered without complication. Automated exposure control was utilized for the study. A dose lowering technique was utilized adhering to the principles of ALARA. CT DOSE: 318.88 mGy.cm FINDINGS: Cardiomegaly is noted. There is extensive mitral annular calcification. Prosthetic tricuspid valve is noted. No pneumatosis, free air or portal venous gas is present. Borderline biliary ductal dilatation has developed since prior CT. Common bile duct measures 7 mm in caliber. Gallbladder is mildly distended. Several small densities within the dependent aspect of the gallbladder noted. There is mild gallbladder wall thickening versus trace pericholecystic fluid. A cyst within the upper pole the right kidney is noted. There is no hydronephrosis. A 1.1 cm cystic lesion within the pancreatic head is unchanged from earlier exams. 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 Extensive sigmoid diverticulosis is noted. Of note, there is a 3.8 cm linear radiodensity within the mid sigmoid colon shown on axial image 322 of 441. There is mild associated wall thickening and pericolonic stranding. No free air is present. No abscess is identified. No additional sites of bowel wall thickening are noted. There is no lymphadenopathy. IMPRESSION: 1. 3.8 cm transversely oriented linear radiodensity within the sigmoid colon with mild associated colonic wall thickening and pericolonic stranding. Although nonspecific, this may reflect an ingested bone. No evidence for perforation at this time however GI consultation might be considered given potential risk for perforation. 2. Suspected cholelithiasis. Mild gallbladder distention with gallbladder wall thickening versus pericholecystic fluid. Right upper quadrant ultrasound could be obtained for further evaluation. 3. Interval development of slight biliary ductal dilatation which could be correlated with obstructive liver function tests. ACT 112: Negative or not required by law. Electronically signed by: Rob Mackay M.D. 11/19/2021 1:20 PM Gallbladder Ultrasound 11/19/21 13:48 US gallbladder CLINICAL HISTORY: abd pain, n/v TECHNIQUE: Multiple real-time sonographic images of the right upper quadrant were obtained. Comparison: None available at the time of this dictation. FINDINGS: The liver is diffusely homogenous with normal contour and echogenicity. No focal mass lesions are seen. No intrahepatic ductal dilatation is seen. Gallstones are seen in the neck. The anterior gallbladder wall appears edematous measuring up to 0.3 cm. No pericholecystic fluid is seen at this time. Kang's sign cannot be assessed as the patient received pain medication. The common duct measures 0.4-0.6 cm in diameter at the level of the hepatic artery. The visualized portions of the pancreas appear normal. The right kidney shows normal echogenicity, cortical thickness and renal contour. The right kidney shows no evidence of hydronephrosis. A upper pole cyst measures 4.3 x 4.4 x 3.9 cm. No ascites or free fluid is seen in Renee's pouch. IMPRESSION: Stones are seen at the gallbladder neck with gallbladder wall thickening and edema. No pericholecystic fluid is seen and sonographic Kang's sign is indeterminate. Findings are concerning for acute cholecystitis, if clinical uncertainty persists, nuclear medicine HIDA study can be performed. ACT 112: Negative or not required by law. Electronically signed by: Fernando Dietrich M.D. 11/19/2021 3:20 PM Endo Retro Cholangiopancreatogram 11/20/21 19:53 [place] ERCP biliary ductal CLINICAL HISTORY: ERCP COMPARISON STUDY: CT of the abdomen and pelvis and right upper quadrant ultrasound November 19, 2021. FLUOROSCOPY TIME: 1 minute and 19 seconds. FLUOROSCOPIC IMAGES: 7 FINDINGS: Fluoroscopy was provided during ERCP. These images demonstrate cannulation of the common bile duct. Filling defects within the common bile duct may reflect calculi. Subsequent images demonstrate placement of a common bile duct stent. IMPRESSION: Fluoroscopy provided during ERCP with placement of a common bile duct stent. ACT 112: Negative or not required by law. Electronically signed by: Rob Mackay M.D. 11/20/2021 9:03 PM
[2021-11-22] MEDS: POLYETHYLENE (MIRALAX) 17 GM PACK PO SCH (10:32)
[2021-11-22] MEDS: cefTRIAXone SODIUM 2,000 MG in DEXTROSE 5% 50 ML IV SCH (15:16)
[2021-11-22] MEDS ORDERED: WARFARIN SOD 6 MG TAB PO SCH (16:00)
--- NOTE | 2021-11-22 18:47 | Billing Data ---
Date of Service November 21, 2021 Coding Level of Care Code 00474 Subseq Hosp Care Lvl 3
--- NOTE | 2021-11-22 18:48 | Billing Data ---
Date of Service November 22, 2021 Coding Level of Care Code 96904 Subseq Hosp Care Lvl 3
[2021-11-22] MEDS: ATORVASTATIN 40 MG TAB PO SCH (22:33)
[2021-11-23] MEDS: metroNIDAZOLE 500 MG/100 ML BAG IV SCH ×2 (01:35→08:20)
--- NOTE | 2021-11-23 07:37 | Surgery Progress Note ---
Date of Service November 23, 2021 Assessment & Plan (1) Hx laparoscopic cholecystectomy: Plan: Doing much better Walked in hallway Plan for discharge home with granddaughter at home to help Patient has sutures in place-May come into the office in 1 to 2 weeks Admission and Anticipated Discharge Date Admission Date: November 19, 2021 Results & Data ([facility]) Vital Signs (Past 12 Hours) Vital Signs Temp Pulse Pulse Resp BP Pulse Ox 11/23/21 02:42 37 C 72 18 127/72 90 11/22/21 23:22 36.7 C 52 L 18 122/73 90 11/22/21 22:18 68 11/22/21 19:42 36.6 C 70 16 135/71 92 PG Care Time/CCT Total # of Minutes Spent Total Time Spent with Patient: Total time spent is greater than 50% in coordination of care (as documented) at patient's floor/unit and/or counseling patient: Coding Level of Care Code None Diagnoses Hx laparoscopic cholecystectomy Z90.49
[2021-11-23] MEDS: FLUTICASONE/VILANTEROL 200/25MCG 14 PUFFS/INHALER INH SCH (08:20)
[2021-11-23] MEDS: METOPROLOL SUCC 25MG EXT REL TAB PO SCH (08:20)
[2021-11-23] MEDS: POLYETHYLENE (MIRALAX) 17 GM PACK PO SCH (08:20)
[2021-11-23] MEDS: HEPARIN SOD 5,000 UNIT/0.5 ML VIAL SQ SCH (08:20)
[2021-11-23] MEDS: PANTOprazole 40 MG TAB PO SCH (08:20)
[2021-11-23] MEDS: CETIRIZINE HCL 10 MG TABLET PO SCH (08:21)
[2021-11-23 08:57] LABS: Hematocrit (blood only) 36.6 % (37-47); Hemoglobin 12.3 g/dL (12.0-16.0); Mean Corpuscular Hemoglobin 28.9 pg (25-34); Mean Corpuscular Hgb Conc 33.6 g/dL (32-36); Mean Corpuscular Volume 85.9 fL (80-100); Mean Platelet Volume 10.3 fL (7.4-10.4); Platelet Count 194 K/uL (130-400); RDW Coefficient of Variation 15.5 % (11.5-14.5); RDW Standard Deviation 49.2 fL (36.4-46.3); Red Blood Count 4.26 M/uL (4.2-5.4); White Blood Count 7.08 K/uL (4.8-10.8)
[2021-11-23 08:59] LABS: INR 1.1 (0.9-1.1); Prothrombin Time 12.1 Seconds (9.0-12.0)
[2021-11-23] MEDS ORDERED: DOCUSATE SODIUM/SENNA 50/8.6MG TAB PO SCH (09:00)
[2021-11-23] MEDS ORDERED: TRIAMTERENE/HCTZ 37.5/25MG TAB PO SCH (09:00)
[2021-11-23 09:05] LABS: BUN Creatinine Ratio 12.5 (10-20); Calcium 7.7 mg/dl (8.5-10.1); Creatinine Clr Calc Pharmacy 55.8 ml/min; Est GFR (African American) 94.3 ml/min; Est GFR (Non-African American) 81.4 ml/min; Potassium 3.3 mmol/L (3.5-5.1)
--- NOTE | 2021-11-23 11:12 | Medical Student Progress Note ---
Date of Service November 23, 2021 Assessment & Plan (1) Cholecystitis: Plan: Patient is an 86-year-old woman with a history of atrial flutter on Coumadin, HTN, dyslipidemia, GERD, osteoporosis, asthma, mitral valve replacement, tricuspid valve repair, incarcerated hernia repair with lysis of adhesions who presented to the ED on 11/19 with several hours of radiating, periumbilical pain and an episode of syncope 2/2 cholecystitis and choledocholithiasis. Cholecystitis s/p lap shanthi 11/21: - EUS and ERCP 11/20 - choledocholithiasis completely removed by biliary sphincterectomy and balloon extraction; one biliary stent was placed into the common bile duct - repeat ERCP in 8 weeks to remove stent - restart Coumadin 11/22 - continue IV fluids, Zofran PRN, analgesics PRN - pansensitive results - transition to Cefdinir started 11/23 and metronidazole day 4; 14 days total of abx Bacteremia: - blood culture showed Gram negative bacilli, pansensitive - Ceftriaxone started 11/21 and metronidazole day 4 - transition to Cefdinir started 11/23 and metronidazole day 4 - antibiotics for 14 days total Multiple antibiotic allergies: - allergy consulted, does not suspect IgE mediated allergy - Cipro reaction: anaphylaxis requiring hospitalization - Cefdinir and penicillin reactions: burning, pruritic facial rash - not likely to progress to a more dangerous reaction and we can usually treat through the rash; should be able to get any cephalosporin or penicillin family antibiotic and premedicate with cetirizine 10 mg BID throughout the abx course, +/- 10-20 mg of prednisone - patient started on ceftriaxone 11/21, receiving zyrtec concurrently - continue Zyrtec for abx course Foreign Body in colon, resolved - flexible sigmoidoscopy 11/20: chicken bone found in sigmoid colon, was removed, penetration sites were closed with two Padlock clips - microperforation suspected, patient is on Cefdinir and Metronidazole (14 days total) - advance diet as tolerated to low residue diet for 2 weeks - PO Miralax for 4 weeks Weakness: - improving - likely 2/2 to hospital stay and procedures - continue to monitor - PT/OT will continue outpatient at home Calf pain, resolved: - likely 2/2 sleeping on plastic knobs on SCDs - will monitor Constipation - no bm since 11/19 - is able to pas gas - Miralax PRN, pt instructed on how to use at home HTN: - restart triamterene/HCTZ 11/22 - BP 11/23: 155/77 Atrial flutter with controlled response: - s/p MAZE procedure - rate controlled - continue metoprolol - restart Coumadin, as above - check INR outpatient Friday (11/26) Osteoporosis: - stable, on Prolia Asthma: - chronic, stable - continue Advair, albuterol as needed valve replacements and repairs: - no acute issues - continue with cardiology outpatient GERD: - continue pantoprazole 40 mg QD Dyslipidemia: - continue atorvastatin 40 mg QD Relative hypoxia, resolved: DVT ppx: Coumadin restarted 11/22 diet: full diet as able code: full dispo: discharge home (2) Bacteremia: (3) Hypoxia: (4) Drug allergy, antibiotic: (5) Constipation: (6) Weakness: (7) Calf pain: (8) Foreign body in colon: (9) Choledocholithiasis: (10) Osteoporosis: (11) Hypertension: (12) Atrial flutter with controlled response: (13) Asthma: (14) Dyslipidemia: (15) GERD (gastroesophageal reflux disease): (16) S/P mitral valve replacement with bioprosthetic valve: (17) S/P tricuspid valve repair: Admission and Anticipated Discharge Date Admission Date: November 19, 2021 Supervising Attestation I personally examined the patient and verified all smyth points of history and exam, discussed case, and agree with decision making with Mina CRYSTAL Subjective Patient is an 86-year-old woman with a history of atrial flutter on Coumadin, HTN, dyslipidemia, GERD, osteoporosis, asthma, mitral valve replacement, tricuspid valve repair, incarcerated hernia repair with lysis of adhesions who presented to the ED on 11/19 with several hours of radiating, periumbilical pain and an episode of syncope 2/2 cholecystitis and choledocholithiasis. Overnight, she had no acute events. She had a little bit of trouble getting back to sleep after urinating at 2:30 am and she felt a little cold. The coldness was resolved with a warm blanket. 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 She shares that she was able to ambulate around the [place] yesterday, with one episode of "wobbliness" and she was given a walker by PT. She has a minor cough which she says she has "all the time". She is using her incentive spirometer. She shared her granddaughter can stay with her for the summer, so she would have direct support at home. She denies fever, nausea, dizziness, pain, headache, chest pain, shortness of breath, abdominal discomfort, numbness or tingling. Review of Systems Review of Systems: All systems reviewed & are unremarkable except as noted in HPI & below Physical Exam Constitutional: WD/WN, vitals as above Eyes: PERRL, conjunctivae normal, anicteric sclerae ENMT: external ear and nose normal, oropharynx normal Neck: trachea midline, no thyromegaly Respiratory: normal respiratory effort, lungs clear to auscultation Cardiovascular: Rate/Rhythm: + irregularly irregular Vessels: no JVD and no carotid bruit Gastrointestinal (Abdomen): normal bowel sounds, soft, nontender, no hepatosplenomegaly Inspection/Auscultation: + abdominal surgical incision (all incisions look clean, dry, healing well, no erythema or swelling) Musculoskeletal: no cyanosis or clubbing, extremities motor strength 5/5 Skin: no rashes, warm and dry Neurologic: PERRL, EOMI, accommodation nl, no face palsy, no dysarthria normal touch/pain/proprioception Psychiatric: A+Ox3, euthymic affect Lymphatic: no cervical or axillary lymphadenopathy Results & Data ([facility]) Vital Signs (Past 12 Hours) Vital Signs Temp Pulse Resp BP Pulse Ox 11/23/21 07:58 37.0 C 68 20 148/81 H 95 11/23/21 02:42 37 C 72 18 127/72 90 11/22/21 23:22 36.7 C 52 L 18 122/73 90 Laboratory Results Laboratory Results WBC 7.08 K/uL (4.8-10.8) 11/23/21 08:11 RBC 4.26 M/uL (4.2-5.4) 11/23/21 08:11 Hgb 12.3 g/dL (12.0-16.0) 11/23/21 08:11 Hct 36.6 % (37-47) L 11/23/21 08:11 MCV 85.9 fL (80-100) 11/23/21 08:11 MCH 28.9 pg (25-34) 11/23/21 08:11 MCHC 33.6 g/dL (32-36) 11/23/21 08:11 RDW Std Deviation 49.2 fL (36.4-46.3) H 11/23/21 08:11 RDW Coeff of Linda 15.5 % (11.5-14.5) H 11/23/21 08:11 Plt Count 194 K/uL (130-400) 11/23/21 08:11 MPV 10.3 fL (7.4-10.4) 11/23/21 08:11 Immature Gran % (Auto) 0.4 % 11/19/21 11:00 Neut % (Auto) 70.5 % 11/19/21 11:00 Lymph % (Auto) 18.2 % 11/19/21 11:00 [place] % (Auto) 9.2 % 11/19/21 11:00 Eos % (Auto) 1.5 % 11/19/21 11:00 Baso % (Auto) 0.2 % 11/19/21 11:00 Neut # (Auto) 6.80 K/uL (1.4-6.5) H 11/19/21 11:00 Lymph # (Auto) 1.76 K/uL (1.2-3.4) 11/19/21 11:00 [place] # (Auto) 0.89 K/uL (0.11-0.59) H 11/19/21 11:00 Eos # (Auto) 0.14 K/uL (0-0.5) 11/19/21 11:00 Baso # (Auto) 0.02 K/uL (0-0.2) 11/19/21 11:00 Immature Gran # (Auto) 0.04 K/uL (0.00-0.02) H 11/19/21 11:00 PT 12.1 Seconds (9.0-12.0) H 11/23/21 08:11 INR 1.1 (0.9-1.1) 11/23/21 08:11 Sodium 136 mmol/L (136-145) 11/23/21 08:11 Potassium 3.3 mmol/L (3.5-5.1) L 11/23/21 08:11 Chloride 102 mmol/L (98-107) 11/23/21 08:11 Carbon Dioxide 29 mmol/L (21-32) 11/23/21 08:11 Anion Gap 5 (3-11) 11/23/21 08:11 BUN 8 mg/dl (6-23) 11/23/21 08:11 Creatinine 0.64 mg/dl (0.6-1.2) 11/23/21 08:11 Est Cr Clr Drug Dosing 55.8 ml/min 11/23/21 08:11 Est GFR ( Amer) 94.3 ml/min 11/23/21 08:11 Est GFR (Non-Af Amer) 81.4 ml/min 11/23/21 08:11 BUN/Creatinine Ratio 12.5 (10-20) 11/23/21 08:11 Glucose 109 mg/dl (70-99(Fasting)) H 11/23/21 08:11 Calcium 7.7 mg/dl (8.5-10.1) L 11/23/21 08:11 Phosphorus 3.6 mg/dl (2.5-4.9) 11/19/21 11:00 Magnesium 1.7 mg/dl (1.7-2.4) 11/20/21 06:06 Total Bilirubin 1.4 mg/dl (0.2-1.0) H 11/22/21 05:27 Direct Bilirubin 0.3 mg/dl (0-0.2) H 11/19/21 11:00 AST 28 U/L (13-39) 11/22/21 05:27 ALT 32 U/L (7-52) 11/22/21 05:27 Alkaline Phosphatase 81 U/L (34-104) 11/22/21 05:27 Total Protein 5.4 gm/dl (6.0-8.3) L 11/22/21 05:27 Albumin 3.1 gm/dl (3.4-5.0) L 11/22/21 05:27 Globulin 2.3 gm/dl (2.5-4.0) L 11/22/21 05:27 Albumin/Globulin Ratio 1.3 (0.9-2) 11/22/21 05:27 Lipase 13 U/L (11-82) 11/19/21 11:00 Urine Color Yellow 11/19/21 12:49 Urine Appearance Clear (Clear) 11/19/21 12:49 Urine pH >= 9.0 (4.5-7.5) H 11/19/21 12:49 Ur Specific [place] 1.012 (1.000-1.030) 11/19/21 12:49 Urine Protein Negative (Negative) 11/19/21 12:49 Urine Glucose (UA) Negative (Negative) 11/19/21 12:49 Urine Ketones Negative (Negative) 11/19/21 12:49 Urine Blood Negative (Negative) 11/19/21 12:49 Urine Nitrite Negative (Negative) 11/19/21 12:49 Urine Bilirubin Negative (Negative) 11/19/21 12:49 Urine Urobilinogen Negative (Negative) 11/19/21 12:49 Ur Leukocyte Esterase Negative (Negative) 11/19/21 12:49 Random Gentamicin 3.83 mcg/ml 11/21/21 05:49 SARS-CoV-2 (PCR) NEGATIVE (Negative) 11/19/21 11:48 Enterobacterales (PCR) DETECTED (NotDetected) A 11/19/21 20:15 E. coli (PCR) DETECTED (NotDetected) A 11/19/21 20:15 Influenza Type A (PCR) Negative (Neg) 11/19/21 11:48 Influenza Type B (PCR) Negative (Neg) 11/19/21 11:48 RSV (RT-PCR) Negative (Neg) 11/19/21 11:48 mcr-1 Colistin Res Gene PCR Not Detected (NotDetected) 11/19/21 20:15 blaIMP Car res Gene PCR Not Detected (NotDetected) 11/19/21 20:15 KPC-Carbap Res Gene PCR Not Detected (NotDetected) 11/19/21 20:15 blaNDM Car Res Gene PCR Not Detected (NotDetected) 11/19/21 20:15 OXA-48 Carbapenem Resis Gene (PCR) Not Detected (NotDetected) 11/19/21 20:15 blaVIM Car Res Gene PCR Not Detected (NotDetected) 11/19/21 20:15 CTX-M Gene Resistance (PCR) Not Detected (NotDetected) 11/19/21 20:15 Bld Cult ID Panel PCR See PCR Comment (NotDetected) 11/19/21 20:15 Impressions Abdomen/Pelvis CT 11/19/21 11:23 CT OF THE ABDOMEN AND PELVIS WITH CONTRAST CLINICAL HISTORY: Abdominal pain, nausea and vomiting. COMPARISON STUDY: CT of the abdomen and pelvis September 27, 2021. TECHNIQUE: Following IV administration of 94 mL of Optiray, axial images of the abdomen and pelvis were obtained from the lung bases to the proximal femurs. Images were reviewed in the axial, sagittal, and coronal planes. IV contrast was administered without complication. Automated exposure control was utilized for the study. A dose lowering technique was utilized adhering to the principles of ALARA. CT DOSE: 318.88 mGy.cm FINDINGS: Cardiomegaly is noted. There is extensive mitral annular calcification. Prosthetic tricuspid valve is noted. No pneumatosis, free air or portal venous gas is present. Borderline biliary ductal dilatation has developed since prior CT. Common bile duct measures 7 mm in caliber. Gallbladder is mildly distended. Several small densities within the dependent aspect of the gallbladder noted. There is mild gallbladder wall thickening versus trace pericholecystic fluid. A cyst within the upper pole the right kidney is noted. There is no hydronephrosis. A 1.1 cm cystic lesion within the pancreatic head is unchanged from earlier exams. 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 Extensive sigmoid diverticulosis is noted. Of note, there is a 3.8 cm linear radiodensity within the mid sigmoid colon shown on axial image 322 of 441. There is mild associated wall thickening and pericolonic stranding. No free air is present. No abscess is identified. No additional sites of bowel wall thickening are noted. There is no lymphadenopathy. IMPRESSION: 1. 3.8 cm transversely oriented linear radiodensity within the sigmoid colon with mild associated colonic wall thickening and pericolonic stranding. Although nonspecific, this may reflect an ingested bone. No evidence for perforation at this time however GI consultation might be considered given potential risk for perforation. 2. Suspected cholelithiasis. Mild gallbladder distention with gallbladder wall thickening versus pericholecystic fluid. Right upper quadrant ultrasound could be obtained for further evaluation. 3. Interval development of slight biliary ductal dilatation which could be correlated with obstructive liver function tests. ACT 112: Negative or not required by law. Electronically signed by: Rob Mackay M.D. 11/19/2021 1:20 PM Gallbladder Ultrasound 11/19/21 13:48 US gallbladder CLINICAL HISTORY: abd pain, n/v TECHNIQUE: Multiple real-time sonographic images of the right upper quadrant were obtained. Comparison: None available at the time of this dictation. FINDINGS: The liver is diffusely homogenous with normal contour and echogenicity. No focal mass lesions are seen. No intrahepatic ductal dilatation is seen. Gallstones are seen in the neck. The anterior gallbladder wall appears edematous measuring up to 0.3 cm. No pericholecystic fluid is seen at this time. Kang's sign cannot be assessed as the patient received pain medication. The common duct measures 0.4-0.6 cm in diameter at the level of the hepatic artery. The visualized portions of the pancreas appear normal. The right kidney shows normal echogenicity, cortical thickness and renal contour. The right kidney shows no evidence of hydronephrosis. A upper pole cyst measures 4.3 x 4.4 x 3.9 cm. No ascites or free fluid is seen in Renee's pouch. IMPRESSION: Stones are seen at the gallbladder neck with gallbladder wall thickening and edema. No pericholecystic fluid is seen and sonographic Kang's sign is indeterminate. Findings are concerning for acute cholecystitis, if clinical uncertainty persists, nuclear medicine HIDA study can be performed. ACT 112: Negative or not required by law. Electronically signed by: Fernando Dietrich M.D. 11/19/2021 3:20 PM Endo Retro Cholangiopancreatogram 11/20/21 19:53 [place] ERCP biliary ductal CLINICAL HISTORY: ERCP COMPARISON STUDY: CT of the abdomen and pelvis and right upper quadrant ultrasound November 19, 2021. FLUOROSCOPY TIME: 1 minute and 19 seconds. FLUOROSCOPIC IMAGES: 7 FINDINGS: Fluoroscopy was provided during ERCP. These images demonstrate cannulation of the common bile duct. Filling defects within the common bile duct may reflect calculi. Subsequent images demonstrate placement of a common bile duct stent. IMPRESSION: Fluoroscopy provided during ERCP with placement of a common bile duct stent. ACT 112: Negative or not required by law. Electronically signed by: Rob Mackay M.D. 11/20/2021 9:03 PM
[2021-11-23] MEDS: cefTRIAXone SODIUM 2,000 MG in DEXTROSE 5% 50 ML IV SCH (15:49)
--- NOTE | 2021-11-23 16:41 | Discharge Summary ---
Date of Service November 23, 2021 Admission HPI Per Admitting Provider Muna Young is an 86 y/o female with past medical history significant for atrial flutter on Coumadin, hypertension, asthma, dyslipidemia, GERD, osteoporosis, s/p mitral valve replacement and tricuspid valve repair and 8 months s/p incarcerated hernia repair and subsequent laparotomy with lysis of adhesions who presents today with abdominal pain. Patient woke up this morning, was able to eat her regular breakfast (coffee, cereal, banana), noticed she was belching a lot and had some central abdominal pain. Her physical therapist came to the house for physical therapy, she was able to participate in this, however shortly after her abdominal pain became worse, she felt weak in her legs, and thinks she passed out, as she woke up on her kitchen floor without any recollection of tripping or falling. She called her neighbor for assistance, by the time her neighbor was there she had vomited several times. She presented to our ED for further evaluation. Her abdominal pain is mostly in her periumbilical region with episodes where it radiates to her back. She has been afebrile at home, having normal bowel movements, and eating normally. She did not have any immediate pain after her breakfast. In ED, vital signs initially significant for heart rate of 44, 33 during initial hour in ED, improved to 60s with fluids. Otherwise, she is hypertensive with SBP 140s to 160s, afebrile and SPO2 >95% on room air. Labs significant for PT 33.8, INR 3.4. Sodium 132. T bili 1.5, direct bili 0.3. AST, ALT, alk phos within normal limits. UA unremarkable. COVID/flu/RSV negative. CT A/P showed 3.8 cm transversely oriented linear radiodensity within sigmoid colon with mild associated colonic wall thickening and pericolonic stranding. No evidence of perforation. Suspect cholelithiasis with mild gallbladder distention and gallbladder wall thickening versus fluid, a follow-up gallbladder ultrasound was obtained which revealed stones in the gallbladder neck with gallbladder wall thickening and edema without pericholecystic fluid seen. Admission Exam Per Admitting Provider General: awake, alert, no apparent distress Head: Normocephalic, atraumatic ENT: PERRL, EOMI, no pharyngeal exudate, mucous membranes moist Chest: Clear to auscultation, on room air, no adventitious breath sounds Cardiac: Regular rate and rhythm, no murmur, no JVD, normal peripheral pulses, good capillary refill Abdominal: Epigastric/periumbilical pain without radiation, rebound, guarding; NABS x 4 quadrants, soft Extremities: Normal inspection, no peripheral edema or erythema, calfs nontender to palpation Psych: Normal mood and affect Neuro: AAO x 3, strength intact bilaterally and rated 5/5, no motor deficits, speech is clear, no peripheral sensory deficits Skin: no rash or erythema Principal Diagnosis Cholelithiasis s/p cholecystectomy Discharge Exam Constitutional: WD/WN, vitals as above Eyes: PERRL, conjunctivae normal, anicteric sclerae ENMT: external ear and nose normal, oropharynx normal Neck: trachea midline, no thyromegaly Respiratory: normal respiratory effort, lungs clear to auscultation Cardiovascular: Rate/Rhythm: + irregularly irregular Vessels: no JVD and no carotid bruit Gastrointestinal (Abdomen): normal bowel sounds, soft, nontender, no hepatosplenomegaly Inspection/Auscultation: + abdominal surgical incision (all incisions look clean, dry, healing well, no erythema or swelling) Musculoskeletal: no cyanosis or clubbing, extremities motor strength 5/5 Skin: no rashes, warm and dry Neurologic: PERRL, EOMI, accommodation nl, no face palsy, no dysarthria normal touch/pain/proprioception Psychiatric: A+Ox3, euthymic affect Lymphatic: no cervical or axillary lymphadenopathy Discharge Data Allergies Allergy/AdvReac Type Severity Reaction Status Date / Time Bactrim Allergy Severe RASH AND Verified 12/25/17 10:05 FACIAL SWELLING bee venom protein (honey bee) Allergy Severe ANAPHYLAXIS Verified 11/01/21 12:51 clarithromycin Allergy Intermediate RASH AND Verified 11/01/21 12:51 FACIAL SWELLING fluconazole Allergy Intermediate INCREASED Verified 11/01/21 12:51 HEART RATE moxifloxacin Allergy Intermediate RASH AND Verified 11/01/21 12:51 FACIAL SWELLING nitrofurantoin Allergy Intermediate RASH Verified 11/01/21 12:51 Quinolones Allergy Intermediate RASH AND Verified 11/01/21 12:51 FACIAL SWELLING sulfamethoxazole Allergy Intermediate RASH AND Verified 11/01/21 12:51 FACIAL SWELLING trimethoprim Allergy Intermediate RASH AND Verified 11/01/21 12:51 FACIAL SWELLING cefuroxime [From Ceftin] Allergy Verified 11/01/21 12:51 NSAIDS (Non-Steroidal AdvReac Intermediate Pt had Verified 11/01/21 12:51 Anti-Inflamma Open Heart Surgery ketamine AdvReac Mild VOMITING Verified 11/01/21 12:51 Consultations 11/19/21 16:16 ED Decision to Admit Stat 11/19/21 16:31 Consult General Surgery Routine 11/19/21 20:03 Consult Gastroenterology Routine Procedures Performed Operation Date: 11/20/21 10:35 Actual Procedures p Endoscopic Ultrasonography Upper(Not Applicable) - Guru Wilson MD s Endoscopic Retrograde Cholangiopancreatogram(Not Applicable) - Guru Wilson MD s Esophagogastroduodenoscopy(Not Applicable) - Guru Wilson MD s Colonoscopy(Not Applicable) - Guru Wilson MD Operation Date: 11/21/21 07:15 Actual Procedures p Laparoscopic Cholecystectomy(Not Applicable) - Neri Bell MD, FACS Ordered Studies 11/19/21 11:23 CT abd pelvis IV con only Stat 11/19/21 13:48 US gallbladder Stat 11/20/21 15:35 US upper EUS PACS images Routine 11/20/21 19:53 FL ERCP biliary ductal Routine Hospital Course (1) Cholelithiases: (2) Cholecystitis: (3) Choledocholithiasis: (4) Foreign body in colon: (5) Hypertension: (6) Atrial flutter with controlled response: (7) Weakness: (8) Calf pain: (9) Constipation: (10) Hx laparoscopic cholecystectomy: (11) Drug allergy, antibiotic: (12) Bacteremia: (13) Elevated LFTs: (14) Dilated intrahepatic bile duct: (15) Anticoagulant long-term use: (16) Dyslipidemia: (17) GERD (gastroesophageal reflux disease): Patient is an 86-year-old woman with a history of atrial flutter on Coumadin, HTN, dyslipidemia, GERD, osteoporosis, asthma, mitral valve replacement, tricuspid valve repair, incarcerated hernia repair with lysis of adhesions who presented to the ED on 11/19 with several hours of radiating, periumbilical pain and an episode of syncope 2/2 cholecystitis and choledocholithiasis. -Started Cefdinir 300mg BID for 9 days -Started Flagyl 500mg TID for 9 days -Started Cetirizine 10mg BID while on antibiotics Cholecystitis s/p lap shanthi 11/21: Patient admitted for abdominal pain weakness. Gallbladder U/S 11/19: stones at neck with wall thickening and edema. CT scan 11/19: Suspected cholelithiasis. Mild gallbladder distention with gallbladder wall thickening versus pericholecystic fluid. Interval development of slight biliary ductal dilatation. GI consulted. Surgery Consulted. EUS and ERCP 11/20: performed biliary sphincterectomy and balloon extraction; one biliary stent was placed into the common bile duct, repeat ERCP planned in 8 weeks to remove stent. Cholecyst ectomy 11/21, patient tolerated procedure well no concerns. Abdominal pain resolved. Bacteremia: One positive blood culture showed Gram negative bacilli, pansensitive. Ceftriaxone started 11/21 added metronidazole day 4, transition to Cefdinir and metronidazole PO for outpatient. Patient requires antibiotics for 14 days total. Multiple antibiotic allergies: Patient describes history Cipro reaction: anaphylaxis requiring hospitalization, Cefdinir and penicillin reactions: burning, pruritic facial rash. Allergy consulted, does not suspect IgE mediated allergy, not likely to progress to a more dangerous reaction, can usually treat through the rash; should be able to get any cephalosporin or penicillin family antibiotic and premedicate with cetirizine 10 mg BID throughout the abx course, +/- 10-20 mg of prednisone. Patient started on ceftriaxone 11/21, receiving zyrtec 10mg BID, no rash observed afterwards. Patient to continue zyrtec while on abx. Follow up with Immunology scheduled in December. Atrial flutter with controlled response s/p MAZE procedure: Currently rate controlled on metoprolol. Warfarin was held in hospital, patient was placed on heparin. Restarted Coumadin 11/22, last INR 1.1. Ordered INR recheck Sunday 11/26. There is some concern of Warfarin interaction with her Flagyl to increase risk bleeding, given she is restarting her warfarin it will take time for her to reach therapeutic levels we believe it is appropriate for her to restart this medication. Foreign Body in colon, resolved CT abd 11/19: 3.8 cm radiodensity in sigmoid colon, colonic wall thickening, pericolonic stranding and risk for perforation. Removed gy GI via flexible sigmoidoscopy 11/20: chicken bone found in sigmoid colon, was removed, penetration sites were closed with two Padlock clips. Microperforation suspected, patient is on Cefdinir and Metronidazole (14 days total). Patient diet advanced to regular, she may continue Miralax to encourage bowel movements at home. Weakness: Likely 2/2 to her cholecyctitis and bacteremia as well as her hospital stay length, currently improving. PT/OT will continue outpatient at home Calf pain, resolved: Likely 2/2 sleeping on plastic knobs on SCDs, SCDs removed. Resolved. Constipation Patient has not had bm since 11/19, is able to pas gas, started on miralax, patient to continue miralax at home. HTN: Patient on home dose metoprolol, restart triamterene/HCTZ 11/22 Osteoporosis: Stable, on Prolia Asthma: Chronic, stable, continue Advair, albuterol as needed Valve replacements and repairs: No acute issues, continue with cardiology outpatient GERD: Continue pantoprazole 40 mg QD Dyslipidemia: Continue atorvastatin 40 mg QD Relative hypoxia, resolved: Total Time Total Time Spent Total Time Spent (In Minutes): <30 Discharge Plan Discharge Items Patient Disposition: Home - Self-Care Reason For Visit: CHOLECYSTITIS & POSSIBLE FOREIGH BODY IN COLON Discharge Diagnosis: Cholelithiasis s/p cholecystectomy Activity: Per Instructions section Activity Comment: light activity for 4 weeks Lifting: No more than 10 pounds Bathing Comment: may shower; no soaking in tubs/pools Sexual Activity: When tolerated Exercise/Sports: Wait until after follow-up appointment Exercise Comment: wait at least 4 weeks Driving/Machine Use: no driving while taking any narcotic for pain Non-emergency contact: Primary Care Provider and Surgeon Call non-emergency contact if: you have any medication questions, your symptoms worsen, your pain is not controlled, your pain is worsening, your pain is concerning for you, you have a fever, your temperature is above 101.5, your wound has increased redness, your wound has increased drainage and your wound pain has increased Follow-up/Referrals: Neri Bell MD, FACS [Physician] - (Schedule visit in 1-2 weeks for suture removal s/p cholecystectomy) Ally Serna MD [Primary Care Provider] - (Ordered INR check friday. Please follow up with your primary care provider. ) Diet: Regular Ambulatory Orders: Prothrombin Time INR (Routine) Timeframe: 3 Days Location: Determined by Patient Ordered By: Carlee Gonzales Attending Provider Instructions: You were admitted to the hospital for abdominal pain. You were found to have g allstones and a chicken bone in your colon. You were treated with antibiotics, and had your gallbladder removed and the chicken bone removed. You were found to have bacteria in your blood. After leaving the hospital, please continue to take your antibiotic Cefdinir and Flagyl for 9 days. Please take Zyrtec twice a day while you are on antibiotics to avoid getting a rash. We have restarted your Warfarin. Please have your INR checked on Friday. A discharge summary will be sent to your primary care physician to ensure continuity of care. Please bring this discharge summary with you to your next office appointment so that your provider can review it at that time. Follow-up appointments: Make a follow-up appointment with your PCP within the next week. It is very important that you follow up with them shortly after discharge from the hospital. We have requested a follow-up appointment with surgery. It is important that you keep this appointment. Keep all your follow-up appointments as already scheduled. If you cannot make an appointment, notify your provider. Medications: Your medication list has been reviewed and reconciled upon discharge to ensure accuracy and continuity of care. An updated list of all your medications is included with your hospital discharge paperwork. Please review this list closely, and make note of any changes. * We sent a new medication called Cefdinir to your pharmacy. Take Cefdinir 300mg one tablet twice a day for 9 days. * We sent a new medication called Flagyl (Metronidazole) to your pharmacy. Take Flagyl 500mg one tablet every 8 hours for 9 days. * Please continue to take Zyrtec (Cetirizine) 10mg twice a day while you are on antibiotics to avoid rash. Take your medications as instructed; do not skip a dose of your medicines. Make sure all of your doctors know every medicine you are taking (including [id number] medicines, vitamins, and supplements). Call your primary care provider before taking any new medicines (including [id number] medicines, vitamins, and supplements), because some of these may interact with your current medications, or may make your symptoms worse. Tell your primary care provider if you cannot afford your medications. CONTACT YOUR PRIMARY CARE PROVIDER if you experience any of the following: Shortness of breath, fever chills Abdominal pain Difficulty following your treatment plan, or difficulty taking medications CALL 911 OR GO TO THE EMERGENCY DEPARTMENT if you experience any of the following: Sudden, severe abdominal pain or nausea/vomiting Severe chest pain, or chest pain that radiates (moves) to your jaw or arm Sudden, severe shortness of breath or difficulty breathing Thank you for allowing us to participate in your care. SPECIAL CARE INSTRUCTIONS: * Cover incisions and change daily for comfort/drainage. * May use ibuprofen for pain as tolerated. * Expect some swelling and bruising. Call your doctor if: * Temperature above 101 degrees * Pain not relieved by pain medicine ordered * There is increased drainage or redness from any incision * You have any unanswered questions or concerns [phone]. FOLLOW UP VISIT: If not already scheduled, please call the office for a follow-up visit. 1 to 2 weekssuture removal OFFICE PHONE NUMBER: Dr. Bell Office Pending Studies at Discharge: Yes Studies:: surgical pathology Stand-Alone Forms: My [facility] [employer], Smoking Cessation Medications and DC Order Prescriptions: New cetirizine 10 mg Tablet 10 mg PO BID 9 Days Qty: 18 RF: 0 cefdinir 300 mg capsule 300 mg PO BID 9 Days Qty: 18 RF: 0 metronidazole 500 mg tablet 500 mg PO TID 9 Days Qty: 27 RF: 0 Continued metoprolol succinate [Toprol XL] 25 mg tablet extended release 24 hr 12.5 mg PO BID Qty: 90 RF: 3 fluticasone propion-salmeterol [Advair Diskus] 250-50 mcg/dose blister with device 1 inh inhalation DAILY Qty: 60 RF: 5 pantoprazole [Protonix] 40 mg tablet,delayed release (DR/EC) 40 mg PO QAM Qty: 90 RF: 3 atorvastatin [Lipitor] 40 mg tablet 40 mg PO HS Qty: 90 RF: 3 biotin 2,500 mcg capsule 2,500 mcg PO DAILY RF: 0 triamterene-hydrochlorothiazid 37.5-25 mg tablet 1 tab PO Q2D Qty: 45 RF: 3 ipratropium bromide 0.02 % solution 2.5 ml inhalation Q6H PRN (Reason: shortness of breath or wheezing) Qty: 75 RF: 11 albuterol sulfate [ProAir HFA] 90 mcg/actuation HFA aerosol inhaler 2 puff inhalation Q4H PRN (Reason: shortness of breath or wheezing) Qty: 6.7 RF: 0 multivitamin [Multiple Vitamins] Tablet 1 tab PO DAILY RF: 0 ascorbic acid (vitamin C) [Vitamin C] 500 mg Tablet 500 mg PO DAILY RF: 0 calcium carbonate-vitamin D3 [Calcium 500 + D] 500 mg(1,250mg) -200 unit Tablet 1 tab PO DAILY RF: 0 cholecalciferol (vitamin D3) [Vitamin D3] 5,000 unit Tablet 5,000 unit PO DAILY RF: 0 aspirin 81 mg Tablet,Delayed Release (Dr/Ec) 81 mg PO DAILY RF: 0 epinephrine 0.3 mg/0.3 mL auto-injector 0.3 mg IM UD PRN (Reason: Allergic Reaction) RF: 0 warfarin 6 mg tablet 6 mg PO QPM RF: 0 Prolia 60 mg/mL Syringe 60 mg SUBCUT .Q6M RF: 0 Discharge Orders: Discharge Order (Routine); Ordered 11/23/21 Ordered By: Carlee Rabago Admission Data Admit Date/Time: 11/19/21 16:31 Attending Provider: Judson Knapp Admit Provider: Roverto Swartz Primary Care Provider: Ally Serna Other Providers: [facility],Home Healthcare ; [facility],Referral Center ; Roverto Swartz ; Abhishek Gutierrez ; Angelica Key Other Interventions: Discharge Summary Assessment (RN) Last Done: 11/23/21 13:27 Supervising Physician Co-Signing Physician Notes I personally examined the patient and verified all smyth points of history and exam, discussed case, and agree with decision making with Dr Rabago Feels really good overall.feels up to going home. Vitals noted, in general she is awake and alert pleasant no distress. HEENT normocephalic atraumatic mucous membranes moist. Breathing unlabored no accessory muscle use good effort. Skin shows no rashes no pallor or icterus. Neuro shows no focal deficits. Cholecystitis/choledocholithiasis/gram-negative bacteremia present on admission. Status post ERCP and cholecystectomy. Safe/stable for homefinish a course of treatment with cefdinir and Flagyl (reaction was not allergicsee immunology input, continue Zyrtec while on antibiotics). Home PT to be set up, encouraged to use walker all the time until she "graduates" from it based on PT. Safe for home, otherwise as above Otherwise as above Resident Activity Tracking Resident Involvement: Resident Care Provided Care Provided: Adult [facility] Medicine
--- NOTE | 2021-11-23 17:07 | Billing Data ---
Date of Service November 23, 2021 Coding Level of Care Code D/C DAY MANAGEMENT <30 MINS
== END 2021-11-23 16:10 | disposition home health service (06) | DRG 418 ==
LOC: ED 10:44 → SUATTDRO 16:31 → 2E 16:31 → 2W 11-21 17:51

== ENCOUNTER 2022-10-18 09:45 | Inpatient (IN) ==
[2022-10-18] MEDS ORDERED: SODIUM CHLORIDE 0.9% 1000ML 1,000 ML IV STA (10:08)
[2022-10-18] MEDS ORDERED: ONDANSETRON INJ 2 MG/ML 2 ML VIAL IV STA ×2 (10:24→13:49)
--- NOTE | 2022-10-18 10:55 | Emergency Department Note ---
Impression & Plan Gastroenteritis, Anticoagulant long-term use, Acute UTI ED Provider Note Provider: Stephen Pete MD DATE OF SERVICE: 10/18/2022 CHIEF COMPLAINT: Nausea vomiting diarrhea, abdominal pain HISTORY OF PRESENT ILLNESS: Patient is a 87-year-old female history of paroxysmal atrial flutter and bioprosthetic valve replacement on Coumadin as well as asthma presenting here today stating for the past 4 days she has had nausea vomiting and diarrhea. Multiple episodes of nonbloody diarrhea in the mo rning and then nausea and vomiting in the late evening. Decreased intake but has had some fluids. States her urine is concentrated at times but denies lightheadedness or dizziness. Some increased fatigue. Reports has had some mid abdominal discomfort at times predominantly after urinating. No syncope reported. No sick contacts reported. Is currently on steroids for her asthma after seeing pulmonary recently. PAST MEDICAL HISTORY: As noted above MEDICATIONS: Reviewed home medications SOCIAL HISTORY: Resides at home PHYSICAL EXAM: GENERAL: alert and oriented in no acute distress on stretcher Head: normocephalic and atraumatic EYES: No injection, discharge or icterus. NECK: Trachea midline. ENT: Mucous membranes pink and moist. LUNGS: Airway patent. No retractions. Breath sounds clear with good air entry bilaterally. HEART: Regular rate and rhythm. No chest wall tenderness ABDOMEN: Soft with slight to no mid abdominal tenderness. SKIN: Acyanotic, warm, dry, without rashes EXTREMITIES: Without swelling, tenderness or deformity NEUROLOGICAL: No focal deficits. No aphasia. No facial droop or slurred speech. Ambulatory. EK bpm sinus bradycardia first-degree AV block. PAC noted. No PVC. No acute ST segment elevation with some nonspecific lead III T wave changes. QTc 434. CONTINUOUS CARDIAC MONITORING: was ordered and showed a heart rate of 50s-60s bpm sinus bradycardia first-degree AV block to sinus rhythm. Patient's laboratory studies and imaging reviewed. Differential includes GI illness/gastroenteritis, infection, dehydration, metabolic abnormality, hypo/hyperglycemia, electrolyte disturbance, anemia, hypoxia, cardiac sources as well as other pathologies. IMPRESSION/MEDICAL DECISION MAKING: Slight abdominal discomfort. Somewhat concerning in a 7-year-old but ongoing GI symptoms. Stool sample collection ordered to send for testing if available. Urine sample be sent as well as basic blood work. We will complete a CT of the abdomen pelvis to exclude intra-abdominal pathology as she is a history of intra-abdominal surgeries on past. Does not seem to be obstructive in nature. EKG and troponin completed with less likely that this is cardiac in nature. Blood work without significant anemia or leukocytosis. No severe electrolyte abnormalities noted with normal renal function and no evidence of hepatitis or pancreatitis. Negative COVID. Stool testing again ordered but pending collection. CT of the abdomen pelvis with evidence of bowel obstruction or bowel wall thickening. Prior appendectomy hysterectomy cholecystectomy noted without evidence of diverticulitis. There is a bit of bladder wall thickening noted. Troponin is normal. INR minimally elevated 3.2 likely related to her recent diet issues and tolerability with GI upset. First urine sample was lost so had to wait to obtain a second urine sample to send for UA testing. Testing does appear concerning for infection. Discussed with pharmacy and previous allergy notes reviewed. We will put on third-generation cephalosporin with cetirizine which she tolerated in the past. Patient currently on prednisone for asthma. Discussed skipping a dose of INR and following closely with the outpatient setting for this. Discussed other options and she feels comfort going home. Did take the cetirizine tablet. Within a minute however she been to dry heaves and vomited up some clear liquid but not the pill. Dry heaves continued. Given some Zofran. Given his failure of oral intake with her advanced age and discussion with her will bring in for observation overnight with her gastroenteritis and UTI. Did update the patient's daughter via phone per her request at bedside. DIAGNOSIS: Acute UTI, gastroenteritis DISPOSITION: Hospitalist to evaluate for observation Patient was agreeable with this plan. Past Med/Surg History Medical History Anticoagulant long-term use Asthma Atrial flutter with controlled response (2018) Dysphagia Goiter H/O gastroesophageal reflux (GERD) Hiatal hernia History of esophageal dilatation History of pacemaker Hypertension Migraines Osteoporosis Severe mitral regurgitation Tricuspid valve disease Surgical History Biopsy of breast (2012) Cystocele H/O exploratory laparotomy H/O hemorrhoidectomy H/O knee surgery H/O maze procedure H/O shoulder surgery History of back surgery History of bilateral tubal ligation History of bladder surgery History of breast biopsy History of cardiac cath History of carpal tunnel release History of cataract surgery History of colonoscopy History of esophagogastroduodenoscopy (EGD) History of foot surgery History of hand surgery History of hysterectomy History of incisional hernia repair (03/27/21) History of oophorectomy History of rectocele History of total abdominal hysterectomy History of tricuspid valve replacement Hx laparoscopic cholecystectomy (11/21/21) S/P cervical spinal fusion S/P hysterectomy (2013) S/P Maze operation for atrial fibrillation (2017) S/P STERLING-BSO Family History Aunt Breast cancer Brother Diabetes Sister Breast cancer Myocardial infarction Ovarian cancer Diabetes Father Myocardial infarction Mother Myocardial infarction Diabetes Social History Smoking Status: Never smoker Second Hand Exposure: No; Do You Dip or Chew Tobacco: No; Hx Alcohol Use: No Hx Substance Use: No Preferred Language: Citizen Of [place] Communication Ability: Effective Visual Impairment: No Limitations Hearing Ability: Normal Surgical Device Sales Representative Required: No Beliefs That Will Affect Care: None marital status: Current Living Situation: Alone current occupation: Retired How many Children do You have: 1 Feels Safe at Home: Yes Seatbelt Use: always Assistive Devices: Hearing Aid - Bilateral Allergies Allergies Allergy/AdvReac Type Severity Reaction Status Date / Time bee venom protein (honey bee) Allergy Severe ANAPHYLAXIS Verified 10/18/22 12:19 cefuroxime [From Ceftin] Allergy Intermediate Rash Verified 10/18/22 13:03 clarithromycin Allergy Intermediate RASH AND Verified 10/18/22 12:19 FACIAL SWELLING fluconazole Allergy Intermediate INCREASED Verified 10/18/22 12:19 HEART RATE moxifloxacin Allergy Intermediate RASH AND Verified 10/18/22 12:19 FACIAL SWELLING nitrofurantoin Allergy Intermediate RASH Verified 10/18/22 12:19 Quinolones Allergy Intermediate RASH AND Verified 10/18/22 12:19 FACIAL SWELLING sulfamethoxazole Allergy Intermediate RASH AND Verified 10/18/22 12:19 FACIAL SWELLING trimethoprim Allergy Intermediate RASH AND Verified 10/18/22 12:19 FACIAL SWELLING NSAIDS (Non-Steroidal AdvReac Intermediate Pt had Verified 10/18/22 12:19 Anti-Inflamma Open Heart Surgery ketamine AdvReac Mild VOMITING Verified 10/18/22 12:19 Home Meds Home Medications Medication Instructions Recorded Confirmed ascorbic acid (vitamin C) 500 mg 500 mg PO QAM 03/24/18 10/18/22 tablet (Vitamin C) calcium carbonate 500 mg-vitamin 1 tab PO QAM 03/24/18 10/18/22 D3 5 mcg (200 unit) tablet (Calcium 500 + D) cholecalciferol (vitamin D3) 125 5,000 unit PO QAM 03/24/18 10/18/22 mcg (5,000 unit) tablet (Vitamin D3) multivitamin (Multiple Vitamins 1 tab PO QAM 03/24/18 10/18/22 tablet) aspirin 81 mg tablet,delayed 81 mg PO QAM 03/23/21 10/18/22 release epinephrine 0.3 mg/0.3 mL 0.3 mg IM UD PRN Allergic Reaction 03/23/21 10/18/22 injection, auto-injector biotin 2,500 mcg capsule 2,500 mcg PO QAM 09/19/21 10/18/22 colestipol 1 gram tablet 1 g PO DAILY 10/14/22 10/18/22 Previous Rx's Medication Instructions Recorded albuterol sulfate 90 mcg/actuation 2 puff inhalation Q4H PRN 10/09/21 aerosol inhaler (ProAir HFA) shortness of breath or wheezing #6.7 grams atorvastatin 40 mg tablet (Lipitor) 40 mg PO HS #90 tabs 11/02/21 ipratropium bromide 0.02 % 2.5 ml inhalation Q6H PRN 02/20/22 solution for inhalation shortness of breath or wheezing #75 mL moxifloxacin 400 mg tablet See Rx Instructions PO .COMPLEX #3 03/06/22 tabs fluticasone 250 mcg-salmeterol 50 1 inh inhalation QAM #60 ea 08/27/22 mcg/dose blistr powdr for inhalation (Advair Diskus) denosumab 60 mg/mL subcutaneous 60 mg subcut .Q6M #1 mL 09/02/22 syringe (Prolia) pantoprazole 40 mg tablet,delayed 40 mg PO QAM #90 tabs 09/17/22 release (Protonix) warfarin 6 mg tablet 6 mg PO QPM #90 tabs 09/17/22 metoprolol succinate 25 mg 12.5 mg PO QAM #45 tabs 10/11/22 tablet,extended release 24 hr (Toprol XL) methylprednisolone 4 mg tablets in 4 mg PO .COMPLEX #21 ea 10/14/22 a dose pack (Medrol (Ruperto)) montelukast 10 mg tablet 10 mg PO DAILY #30 tabs 10/14/22 mupirocin 2 % topical ointment 1 applic topical BID #15 grams 10/14/22 triamterene 37.5 1 tab PO Q2D #45 tabs 10/14/22 mg-hydrochlorothiazide 25 mg tablet Results & Data (ED) Vital Signs Vital Signs - 24 hr 10/18/22 09:57 10/18/22 11:21 10/18/22 11:21 Temperature 36.3 C L Temperature Source Temporal Artery Scan Pulse Rate 65 Pulse Rate [Right Apical] 60 Pulse Rate from SpO2 Sensor Pulse Rhythm Regular Pulse Rhythm [Right Apical] Pulse Strength Normal Respiratory Rate 20 16 Respiratory Effort / Characteristics Non-Labored Spontaneous Non-Labored Spontaneous Respiratory Depth Normal Normal Respiratory Pattern Regular Regular Blood Pressure 192/105 H Blood Pressure [Right Arm] 176/89 H Blood Pressure Mean 134 Blood Pressure Mean [Right Arm] 118 Blood Pressure Position Sitting Pulse Oximetry 98 99 99 Oxygen Delivery Method Room Air Room Air Room Air Sepsis Recent Fever Within 48 Hours No Sepsis New/Unexplained Change in Mental Status No Sepsis Action Taken by Nursing No Action Required 10/18/22 12:19 10/18/22 12:30 10/18/22 13:09 Temperature Temperature Source Pulse Rate 66 66 58 L Pulse Rate [Right Apical] Pulse Rate from SpO2 Sensor 67 61 Pulse Rhythm Pulse Rhythm [Right Apical] Pulse Strength Respiratory Rate 18 17 Respiratory Effort / Characteristics Respiratory Depth Respiratory Pattern Blood Pressure 171/86 H 155/86 H Blood Pressure [Right Arm] Blood Pressure Mean 114 109 Blood Pressure Mean [Right Arm] Blood Pressure Position Pulse Oximetry 97 97 Oxygen Delivery Method Room Air Room Air Sepsis Recent Fever Within 48 Hours Sepsis New/Unexplained Change in Mental Status Sepsis Action Taken by Nursing 10/18/22 14:20 10/18/22 14:00 10/18/22 15:00 Temperature Temperature Source Pulse Rate 65 64 Pulse Rate [Right Apical] 54 L Pulse Rate from SpO2 Sensor 63 Pulse Rhythm Pulse Rhythm [Right Apical] Regular Pulse Strength Respiratory Rate 18 16 19 Respiratory Effort / Characteristics Non-Labored Spontaneous Respiratory Depth Normal Respiratory Pattern Regular Blood Pressure 179/100 H 165/75 H Blood Pressure [Right Arm] 150/80 H Blood Pressure Mean 126 105 Blood Pressure Mean [Right Arm] 103 Blood Pressure Position Pulse Oximetry 95 97 96 Oxygen Delivery Method Room Air Room Air Room Air Sepsis Recent Fever Within 48 Hours Sepsis New/Unexplained Change in Mental Status Sepsis Action Taken by Nursing Laboratory Data 10/18/22 10:50 10/18/22 10:50 Lab Results 10/18/22 10/18/22 10/18/22 Range/Units 10:50 10:50 10:50 WBC 10.18 (4.8-10.8) K/ul RBC 5.27 (4.20-5.40) M/uL Hgb 15.4 (12.0-16.0) g/dl Hct 45.4 (37.0-47.0) % MCV 86.1 (80.0-100.0) fL MCH 29.2 (25.0-34.0) pg MCHC 33.9 (32.0-36.0) g/dL RDW Std Deviation 47.1 H (36.4-46.3) fL RDW Coeff of Linda 14.8 H (11.5-14.5) % Plt Count 270 (130-400) K/uL MPV 9.7 (9.4-12.4) fL Immature Gran % (Auto) 0.9 % Neut % (Auto) 71.0 % Lymph % (Auto) 17.5 % [place] % (Auto) 9.9 % Eos % (Auto) 0.2 % Baso % (Auto) 0.5 % Neut # (Auto) 7.23 H (1.40-6.50) K/uL Lymph # (Auto) 1.78 (1.2-3.4) K/uL [place] # (Auto) 1.01 H (0.11-0.59) K/uL Eos # (Auto) 0.02 (0-0.50) K/uL Baso # (Auto) 0.05 (0-0.2) K/uL Immature Gran # (Auto) 0.09 (0.01-0.20) K/uL PT 32.9 H (9.0-12.0) Seconds INR 3.2 H (0.9-1.1) APTT 39.7 H (21.0-31.0) Seconds PTT Ratio 1.4 Sodium (136-145) mmol/L Potassium (3.5-5.1) mmol/L Chloride (98-107) mmol/L Carbon Dioxide (21-32) mmol/L Anion Gap (3-11) BUN (6-23) mg/dl Creatinine (0.6-1.2) mg/dl Est Cr Clr Drug Dosing ml/min Est GFR ( Amer) ml/min Est GFR (Non-Af Amer) ml/min BUN/Creatinine Ratio (10-20) Glucose (70-99(Fasting)) mg/dl Lactate 1.5 (0.4-2.0) mmol/L Calcium (8.6-10.3) mg/dl Total Bilirubin (0.2-1.0) mg/dl AST (13-39) U/L ALT (7-52) U/L Alkaline Phosphatase (34-104) U/L Troponin I High Sens (0-14) pg/ml Total Protein (6.0-8.3) gm/dl Albumin (3.4-5.0) gm/dl Globulin (2.5-4.0) gm/dl Albumin/Globulin Ratio (0.9-2) Lipase (11-82) U/L Urine Color Urine Appearance (Clear) Urine pH (4.5-7.5) Ur Specific [place] (1.000-1.030) Urine Protein (Negative) Urine Glucose (UA) (Negative) Urine Ketones (Negative) Urine Blood (Negative) Urine Nitrite (Negative) Urine Bilirubin (Negative) Urine Urobilinogen (Negative) Ur Leukocyte Esterase (Negative) Urine WBC (Auto) (0-5) /hpf Urine RBC (Auto) (0-4) /hpf U Hyaline Cast (Auto) (0-5) /lpf U Epithel Cells (Auto) (0-5) /lpf Urine Bacteria (Auto) (Negative) SARS-CoV-2, RNA, NAAT (NEGATIVE) 10/18/22 10/18/22 10/18/22 Range/Units 10:50 10:50 13:09 WBC (4.8-10.8) K/ul RBC (4.20-5.40) M/uL Hgb (12.0-16.0) g/dl Hct (37.0-47.0) % MCV (80.0-100.0) fL MCH (25.0-34.0) pg MCHC (32.0-36.0) g/dL RDW Std Deviation (36.4-46.3) fL RDW Coeff of Linda (11.5-14.5) % Plt Count (130-400) K/uL MPV (9.4-12.4) fL Immature Gran % (Auto) % Neut % (Auto) % Lymph % (Auto) % [place] % (Auto) % Eos % (Auto) % Baso % (Auto) % Neut # (Auto) (1.40-6.50) K/uL Lymph # (Auto) (1.2-3.4) K/uL [place] # (Auto) (0.11-0.59) K/uL Eos # (Auto) (0-0.50) K/uL Baso # (Auto) (0-0.2) K/uL Immature Gran # (Auto) (0.01-0.20) K/uL PT (9.0-12.0) Seconds INR (0.9-1.1) APTT (21.0-31.0) Seconds PTT Ratio Sodium 135 L (136-145) mmol/L Potassium 4.0 (3.5-5.1) mmol/L Chloride 99 (98-107) mmol/L Carbon Dioxide 29 (21-32) mmol/L Anion Gap 7 (3-11) BUN 16 (6-23) mg/dl Creatinine 0.76 (0.6-1.2) mg/dl Est Cr Clr Drug Dosing 43.1 ml/min Est GFR ( Amer) 82.3 ml/min Est GFR (Non-Af Amer) 71.0 ml/min BUN/Creatinine Ratio 21.1 H (10-20) Glucose 92 (70-99(Fasting)) mg/dl Lactate (0.4-2.0) mmol/L Calcium 9.8 (8.6-10.3) mg/dl Total Bilirubin 0.8 (0.2-1.0) mg/dl AST 21 (13-39) U/L ALT 20 (7-52) U/L Alkaline Phosphatase 81 (34-104) U/L Troponin I High Sens 6.3 (0-14) pg/ml Total Protein 7.2 (6.0-8.3) gm/dl Albumin 4.4 (3.4-5.0) gm/dl Globulin 2.8 (2.5-4.0) gm/dl Albumin/Globulin Ratio 1.6 (0.9-2) Lipase 17 (11-82) U/L Urine Color Yellow Urine Appearance Clear (Clear) Urine pH 7.0 (4.5-7.5) Ur Specific [place] 1.005 (1.000-1.030) Urine Protein Negative (Negative) Urine Glucose (UA) Negative (Negative) Urine Ketones Negative (Negative) Urine Blood Negative (Negative) Urine Nitrite Negative (Negative) Urine Bilirubin Negative (Negative) Urine Urobilinogen Negative (Negative) Ur Leukocyte Esterase 2+ H (Negative) Urine WBC (Auto) 5-10 H (0-5) /hpf Urine RBC (Auto) 0-4 (0-4) /hpf U Hyaline Cast (Auto) 0 (0-5) /lpf U Epithel Cells (Auto) 5-10 H (0-5) /lpf Urine Bacteria (Auto) 4+ H (Negative) SARS-CoV-2, RNA, NAAT NEGATIVE (NEGATIVE) Administered Medications Discontinued Medications Cetirizine HCl (Cetirizine Hcl 10 Mg Tablet) 10 mg PO NOW ONE Stop: 10/18/22 13:33 Last Admin: 10/18/22 13:44 Dose: 10 mg Documented By: MAXIMINO Sodium Chloride (Nss 1000ml) 1,000 mls @ 999 mls/hr IV .Q1H1M STA Stop: 10/18/22 11:08 Last Infusion: 10/18/22 12:05 Dose: 0 mls/hr Documented By: Admin: 10/18/22 11:05 Dose: 999 mls/hr Documented By: MAXIMINO Ceftriaxone Sodium 1,000 mg/ (Dextrose) 50 mls @ 100 mls/hr IV NOW STA Stop: 10/18/22 14:18 Last Infusion: 10/18/22 14:59 Dose: 0 mls/hr Documented By: Admin: 10/18/22 14:18 Dose: 100 mls/hr Documented By: REINA Ondansetron HCl (Ondansetron Inj 2 Mg/Ml 2 Ml Vial) 4 mg IV NOW STA Stop: 10/18/22 10:25 Last Admin: 10/18/22 11:05 Dose: 4 mg Documented By: MAXIMINO Ondansetron HCl (Ondansetron Inj 2 Mg/Ml 2 Ml Vial) 4 mg IV NOW STA Stop: 10/18/22 13:50 Last Admin: 10/18/22 14:17 Dose: 4 mg Documented By: REINA Imaging Data Radiologist's Impression: Abdomen/Pelvis CT 10/18/22 10:[address] WITHOUT CONTRAST CT DOSE: 630.51 mGy.cm HISTORY: Acute mid abdominal pain mid abd pain, n/v/d TECHNIQUE: Multiaxial CT images of the abdomen and pelvis were performed without contrast. A dose lowering technique was utilized adhering to the principles of ALARA. COMPARISON STUDY: 11/19/2021 FINDINGS: Cardiomegaly with coronary artery calcifications, and prior median sternotomy with tricuspid prosthesis. Dense mitral annular calcifications. Mild subsegmental bibasilar atelectasis. No pneumatosis or pneumoperitoneum identified. The unenhanced spleen, pancreas and right adrenal gland are unremarkable. 6 mm hypodensity of the left adrenal gland suggestive of an adenoma. The liver is within normal limits. No hydronephrosis. 4.3 cm exophytic cyst of the superior pole right kidney. Punctate parenchymal calcification in the inferior pole left kidney. Urinary bladder wall thickening with partial distention. Focus of air noted within the nondependent bladder lumen. Hysterectomy with mild pelvic floor relaxation. Small rectocele. Colonic diverticulosis. Postoperative changes of the sigmoid colon suggestive of partial resection. Mild fecal retention. The appendix is reportedly surgically absent. Mild wall thickening throughout the stomach with partial distention. Atherosclerosis of the aorta without aneurysm. Unremarkable soft tissues. No acute fracture. IMPRESSION: 1. No bowel obstruction or bowel wall thickening. 2. Colonic diverticulosis. 3. Appendectomy, hysterectomy and cholecystectomy. 4. Mild bladder wall thickening with focus of intraluminal air which may be secondary to instrumentation versus infection. Correlate with urinalysis. 5. Additional findings as above. ACT 112: Negative or not required by law. The above report was generated using voice recognition software. It may contain grammatical, syntax or spelling errors. Electronically signed by: Morris Whelan M.D. 10/18/2022 11:23 AM Discharge Plan Visit Data Chief Complaint: Vomiting Stated Complaint: VOMITING, DIARRHEA ED Provider: Stephen Pete Discharge Problem: Gastroenteritis, Anticoagulant long-term use, Acute UTI Patient Disposition: Being Evaluated by Hospitalist Forms Stand Alone Forms: My [facility] Prescriptions Prescriptions: No Action atorvastatin [Lipitor] 40 mg tablet 40 mg PO HS Qty: 90 3RF fluticasone propion-salmeterol [Advair Diskus] 250-50 mcg/dose blister with device 1 inh inhalation QAM Qty: 60 5RF metoprolol succinate [Toprol XL] 25 mg tablet extended release 24 hr 12.5 mg PO QAM Qty: 45 3RF Rx Instructions: 11/19/21 : PT TEMPORARILY TAKING THIS MED DAILY, NOT BID. triamterene-hydrochlorothiazid 37.5-25 mg tablet 1 tab PO Q2D Qty: 45 3RF biotin 2,500 mcg capsule 2,500 mcg PO QAM colestipol 1 gram tablet 1 g PO DAILY mupirocin 2 % ointment 1 applic topical BID Qty: 15 5RF methylprednisolone [Medrol (Ruperto)] 4 mg tablets,dose pack 4 mg PO .COMPLEX Qty: 21 1RF Rx Instructions: 4 mg PO Take as directed; Pt starts medication on 11/26/22 when she goes in for allergy testing montelukast 10 mg tablet 10 mg PO DAILY Qty: 30 3RF warfarin 6 mg tablet 6 mg PO QPM Qty: 90 3RF Protocol: Dose Management Condition: Friday Dose/Route: 6 mg Instruction: 1 x 6 mg tablet Condition: Friday Dose/Route: 6 mg Instruction: 1 x 6 mg tablet Condition: Friday Dose/Route: 6 mg Instruction: 1 x 6 mg tablet Condition: Friday Dose/Route: 6 mg Instruction: 1 x 6 mg tablet Condition: Dose/Route: 6 mg Instruction: 1 x 6 mg tablet Condition: Friday Dose/Route: 6 mg Instruction: 1 x 6 mg tablet Condition: Friday Dose/Route: 6 mg Instruction: 1 x 6 mg tablet Protocol Text: Adjustment Start Date: Friday09/23/22 INR Value: 2.7 INR Date: 09/23/22 Recheck Date: 10/23/22 Rx Instructions: daily pantoprazole [Protonix] 40 mg tablet,delayed release (DR/EC) 40 mg PO QAM Qty: 90 3RF albuterol sulfate [ProAir HFA] 90 mcg/actuation HFA aerosol inhaler 2 puff inhalation Q4H PRN (Reason: shortness of breath or wheezing) Qty: 6.7 0RF ipratropium bromide 0.02 % solution 2.5 ml inhalation Q6H PRN (Reason: shortness of breath or wheezing) Qty: 75 11RF moxifloxacin 400 mg tablet See Rx Instructions PO .COMPLEX Qty: 3 0RF Rx Instructions: DO NOT TAKE. Bring to allergy clinic for testing on 11/26/22 Prolia 60 mg/mL syringe 60 mg SUBCUT .Q6M Qty: 1 0RF multivitamin [Multiple Vitamins] Tablet 1 tab PO QAM ascorbic acid (vitamin C) [Vitamin C] 500 mg Tablet 500 mg PO QAM calcium carbonate-vitamin D3 [Calcium 500 + D] 500 mg(1,250mg) -200 unit Tablet 1 tab PO QAM cholecalciferol (vitamin D3) [Vitamin D3] 5,000 unit Tablet 5,000 unit PO QAM aspirin 81 mg Tablet,Delayed Release (Dr/Ec) 81 mg PO QAM epinephrine 0.3 mg/0.3 mL auto-injector 0.3 mg IM UD PRN (Reason: Allergic Reaction) Referrals Referrals: Ally Serna MD [Primary Care Provider] -
[2022-10-18 11:08] LABS: Basophils # (auto) 0.05 K/uL (0-0.2); Basophils % (auto) 0.5 %; Eosinophils # (auto) 0.02 K/uL (0-0.50); Eosinophils % (auto) 0.2 %; Hematocrit (blood only) 45.4 % (37.0-47.0); Hemoglobin 15.4 g/dl (12.0-16.0); Immature Granulocytes # (auto) 0.09 K/uL (0.01-0.20); Immature Granulocytes % (auto) 0.9 %; Lymphocytes # (auto) 1.78 K/uL (1.2-3.4); Lymphocytes % (auto) 17.5 %; Mean Corpuscular Hemoglobin 29.2 pg (25.0-34.0); Mean Corpuscular Hgb Conc 33.9 g/dL (32.0-36.0); Mean Corpuscular Volume 86.1 fL (80.0-100.0); Mean Platelet Volume 9.7 fL (9.4-12.4); Monocytes # (auto) 1.01 K/uL (0.11-0.59); Monocytes % (auto) 9.9 %; Neutrophils # (auto) 7.23 K/uL (1.40-6.50); Platelet Count 270 K/uL (130-400); RDW Coefficient of Variation 14.8 % (11.5-14.5); RDW Standard Deviation 47.1 fL (36.4-46.3); Red Blood Count 5.27 M/uL (4.20-5.40); White Blood Count 10.18 K/ul (4.8-10.8)
--- NOTE | 2022-10-18 11:25 | CT Scan Report ---
ABDOMEN AND PELVIS CT WITHOUT CONTRAST CT DOSE: 630.51 mGy.cm HISTORY: Acute mid abdominal pain mid abd pain, n/v/d TECHNIQUE: Multiaxial CT images of the abdomen and pelvis were performed without contrast. A dose lo wering technique was utilized adhering to the principles of ALARA. COMPARISON STUDY: 11/19/2021 FINDINGS: Cardiomegaly with coronary artery calcifications, and prior median sternotomy with tricuspi d prosthesis. Dense mitral annular calcifications. Mild subsegmental bibasilar atelectasis. No pneuma tosis or pneumoperitoneum identified. The unenhanced spleen, pancreas and right adrenal gland are unr emarkable. 6 mm hypodensity of the left adrenal gland suggestive of an adenoma. The liver is within n ormal limits. No hydronephrosis. 4.3 cm exophytic cyst of the superior pole right kidney. Punctate parenchymal calc ification in the inferior pole left kidney. Urinary bladder wall thickening with partial distention. Focus of air noted within the nondependent bladder lumen. Hysterectomy with mild pelvic floor relaxat ion. Small rectocele. Colonic diverticulosis. Postoperative changes of the sigmoid colon suggestive o f partial resection. Mild fecal retention. The appendix is reportedly surgically absent. Mild wall th ickening throughout the stomach with partial distention. Atherosclerosis of the aorta without aneurys m. Unremarkable soft tissues. No acute fracture. IMPRESSION: 1. No bowel obstruction or bowel wall thickening. 2. Colonic diverticulosis. 3. Appendectomy, hysterectomy and cholecystectomy. 4. Mild bladder wall thickening with focus of intraluminal air which may be secondary to instrumentat ion versus infection. Correlate with urinalysis. 5. Additional findings as above. ACT 112: Negative or not required by law. The above report was generated using voice recognition software. It may contain grammatical, syntax o r spelling errors. Electronically signed by: Morris Whelan M.D. 10/18/2022 11:23 AM
[2022-10-18 11:26] LABS: Albumin Globulin Ratio 1.6 (0.9-2); Albumin Level 4.4 gm/dl (3.4-5.0); BUN Creatinine Ratio 21.1 (10-20); Bilirubin,Total 0.8 mg/dl (0.2-1.0); Calcium 9.8 mg/dl (8.6-10.3); Creatinine Clr Calc Pharmacy 43.1 ml/min; Est GFR (African American) 82.3 ml/min; Globulin 2.8 gm/dl (2.5-4.0); Total Protein 7.2 gm/dl (6.0-8.3)
[2022-10-18 11:33] LABS: Troponin I High Sensitivity 6.3 pg/ml (0-14)
[2022-10-18 11:37] LABS: INR 3.2 (0.9-1.1); Partial Thromboplastin Ratio 1.4; Partial Thromboplastin Time 39.7 Seconds (21.0-31.0); Prothrombin Time 32.9 Seconds (9.0-12.0)
[2022-10-18 13:20] LABS: Appearance Urine Clear (Clear); Bacteria Urine Automated 4+ (Negative); Bilirubin Urine Negative (Negative); Blood Urine Negative (Negative); Cast Urine Automated 0 /lpf (0-5); Color Urine Yellow; Glucose Urine UA Negative (Negative); Ketones Urine Negative (Negative); Leukocyte Esterase Urine 2+ (Negative); Nitrite Urine Negative (Negative); Protein Urine Negative (Negative); RBC Urine Automated 0-4 /hpf (0-4); Specific Gravity Urine 1.005 (1.000-1.030); Urobilinogen Urine Negative (Negative)
[2022-10-18] MEDS ORDERED: CETIRIZINE HCL 10 MG TABLET PO ONE (13:32)
[2022-10-18] MEDS ORDERED: cefTRIAXone SODIUM 1,000 MG in DEXTROSE 5% AD-VAN 50 ML IV STA (13:49)
--- NOTE | 2022-10-18 15:25 | History & Physical Report ---
Date of Service October 18, 2022 Assessment & Plan (1) Acute UTI: Plan: Nausea/vomiting, suspect UTI Patient with 3 days of nausea/vomiting and reports of diarrhea. No BMs throughout the day while in the ER C. 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 This is not IgE mediated per review of their note, and have a low probability of progressing to severe/dangerous reaction. Based on allergy recommendations above will continue on cetirizine twice daily. Patient is completing 2 more days of prednisone for an asthma exacer bation, is nauseous with pills and vomits. Will give IV dose of Solu-Medrol tonight and tomorrow morning and then additional doses pending allergy reassessment Patient is unable to tolerate p.o. due to recurrent nausea/vomiting despite Zofran and supportive care. Will admit for monitoring of allergic reaction and inadequate p.o. intake UC pending Continue Zofran Multidrug allergy syndrome Cetirizine twice daily for the duration while on antibiotics, cannot tolerate third-generation cephalosporins Methylprednisolone ordered as patient with difficulty tolerating p.o./oral prednisone. If patient does develop a rash, can add hydroxyzine for itching and would continue steroids for duration of antibiotic course Follows with Dr. Kimble as outpatient, note reviewed. Low risk of p rogression to life-threatening allergy reaction and is not thought to be an IgE mediated reaction Paroxysmal Atrial flutter on anticoagulation, history of MVR, maze procedure Hold 1 dose of warfarin, supratherapeutic INR on admission INR daily, resume warfarin tomorrow Continue metoprolol Echo 12/2017 noting biocor MVR, LV SF normal, LV diastolic function not evaluated. No evidence of heart failure No recent chest pain, chest pressure or dysrhythmia. No cardiac exacerbation on admission. She does have resting bradycardia but with appropriate chronotropic response which improved to the 50s/S60s when moving around in bed. Will admit to medical surgical, if hypotension or persistent significant bradycardia/tachycardia can transfer to telemetry at that time. - Echocardiogram early postoperatively 2018 at [facility] showed EF of 30%, however subsequent echocardiogram prior to discharge showed both right and left heart systolic function had returned to normal. Hyperlipidemia Continue statin Hypertension Continue triam-hctz, metoprolol as noted Continue aspirin Asthma Continue home inhaler/formulary equivalent Prednisone taper converted to Methylpred as noted Continue montelukast Disposition: Medical/surgical Diet: Clears, advance as tolerated CODE STATUS: Full code DVT prophylaxis: Anticoagulated (2) Atrial flutter with controlled response: (3) GERD (gastroesophageal reflux disease): (4) Esophageal pain: (5) Dysphagia: History of Present Illness Primary Care Provider: Ally Serna MD Muna is an 87-year-old female with past medical history of atrial flutter on anticoagulation, chronic venous insufficiency, lap shanthi 2021, hypertension, asthma, bradycardia, dyslipidemia, GERD who presented to the emergency department for 4 days of nausea/vomiting/diarrhea nonbloody nonbilious. Somewhat poor p.o. intake in the last few days. CT of the abdomen pelvis in the ER shows no bowel obstruction or bowel wall thickening, diverticulosis without diverticulitis, and notes s/p appendectomy/hysterectomy/cholecystectomy. There is mild bladder wall thickening with intraluminal air? Infection versus instrumentation, UA is suspicious for infection with UCx pending. Patient was treated with Rocephin for UTI in the ER EKG: QTc 434, sinus bradycardia with first-degree block, no acute ischemic changes Nausea/vomiting/diarrhea for 2-3 days. Urine has been very dark yellow and martinez with a very foul odor. Diarrhea up to 4x an hour at onset no blood/melena, just starting to improve and 3x BMs morning of admit, then only 1 while in ER. Has been on prednisone taper for asthma, due for 1 dose tonight and tomorrow then done. History of multidrug allergy syndrome. No rash since gettin rocephin No fevers, chills +Low midline abdominal pain. +epigastric pain from vomiting Decreased appetite, only able to keep down a very small amoutn of toast Nausea/vomiting is not improving. Tried to tolerate PO and go home with abx but immediately vomited and could not keep down PO, and was also concerned about allergy if she canno tkeep her antihistamine down. Did have a heart cath, no hx of NC per patient. Is on warfarin for aflutter, hx of valve replacement. Medical History: Reviewed Medications: Reviewed Surgical History: Reviewed Family history: Reviewed Allergies: Reviewed Social History: No tobacco/etoh use Code Status: Full Code Allergies Allergy/AdvReac Type Severity Reaction Status Date / Time bee venom protein (honey bee) Allergy Severe ANAPHYLAXIS Verified 10/18/22 12:19 cefuroxime [From Ceftin] Allergy Intermediate Rash Verified 10/18/22 13:03 clarithromycin Allergy Intermediate RASH AND Verified 10/18/22 12:19 FACIAL SWELLING fluconazole Allergy Intermediate INCREASED Verified 10/18/22 12:19 HEART RATE moxifloxacin Allergy Intermediate RASH AND Verified 10/18/22 12:19 FACIAL SWELLING nitrofurantoin Allergy Intermediate RASH Verified 10/18/22 12:19 Quinolones Allergy Intermediate RASH AND Verified 10/18/22 12:19 FACIAL SWELLING sulfamethoxazole Allergy Intermediate RASH AND Verified 10/18/22 12:19 FACIAL SWELLING trimethoprim Allergy Intermediate RASH AND Verified 10/18/22 12:19 FACIAL SWELLING NSAIDS (Non-Steroidal AdvReac Intermediate Pt had Verified 10/18/22 12:19 Anti-Inflamma Open Heart Surgery ketamine AdvReac Mild VOMITING Verified 10/18/22 12:19 Home Medications Medication Instructions Recorded Confirmed Type ascorbic acid (vitamin C) 500 mg 500 mg PO QAM 03/24/18 10/18/22 History tablet (Vitamin C) calcium carbonate 500 mg-vitamin 1 tab PO QAM 03/24/18 10/18/22 History D3 5 mcg (200 unit) tablet (Calcium 500 + D) cholecalciferol (vitamin D3) 125 5,000 unit PO QAM 03/24/18 10/18/22 History mcg (5,000 unit) tablet (Vitamin D3) multivitamin (Multiple Vitamins 1 tab PO QAM 03/24/18 10/18/22 History tablet) aspirin 81 mg tablet,delayed 81 mg PO QAM 03/23/21 10/18/22 History release epinephrine 0.3 mg/0.3 mL 0.3 mg IM UD PRN Allergic Reaction 03/23/21 10/18/22 History injection, auto-injector biotin 2,500 mcg capsule 2,500 mcg PO QAM 09/19/21 10/18/22 History albuterol sulfate 90 mcg/actuation 2 puff inhalation Q4H PRN 10/09/21 10/18/22 Rx aerosol inhaler (ProAir HFA) shortness of breath or wheezing #6.7 grams atorvastatin 40 mg tablet (Lipitor) 40 mg PO HS #90 tabs 11/02/21 10/18/22 Rx ipratropium bromide 0.02 % 2.5 ml inhalation Q6H PRN 02/20/22 10/18/22 Rx solution for inhalation shortness of breath or wheezing #75 mL moxifloxacin 400 mg tablet See Rx Instructions PO .COMPLEX #3 03/06/22 10/18/22 Rx tabs fluticasone 250 mcg-salmeterol 50 1 inh inhalation QAM #60 ea 08/27/22 10/18/22 Rx mcg/dose blistr powdr for inhalation (Advair Diskus) denosumab 60 mg/mL subcutaneous 60 mg subcut .Q6M #1 mL 09/02/22 10/18/22 Rx syringe (Prolia) pantoprazole 40 mg tablet,delayed 40 mg PO QAM #90 tabs 09/17/22 10/18/22 Rx release (Protonix) warfarin 6 mg tablet 6 mg PO QPM #90 tabs 09/17/22 10/18/22 Rx metoprolol succinate 25 mg 12.5 mg PO QAM #45 tabs 10/11/22 10/18/22 Rx tablet,extended release 24 hr (Toprol XL) colestipol 1 gram tablet 1 g PO DAILY 10/14/22 10/18/22 History methylprednisolone 4 mg tablets in 4 mg PO .COMPLEX #21 ea 10/14/22 10/18/22 Rx a dose pack (Medrol (Ruperto)) montelukast 10 mg tablet 10 mg PO DAILY #30 tabs 10/14/22 10/18/22 Rx mupirocin 2 % topical ointment 1 applic topical BID #15 grams 10/14/22 10/18/22 Rx triamterene 37.5 1 tab PO Q2D #45 tabs 10/14/22 10/18/22 Rx mg-hydrochlorothiazide 25 mg tablet Past Med/Surg History Medical History Anticoagulant long-term use Asthma Atrial flutter with controlled response (2018) Dysphagia Goiter H/O gastroesophageal reflux (GERD) Hiatal hernia History of esophageal dilatation History of pacemaker Hypertension Migraines Osteoporosis Severe mitral regurgitation Tricuspid valve disease Surgical History Biopsy of breast (2012) Cystocele H/O exploratory laparotomy H/O hemorrhoidectomy H/O knee surgery H/O maze procedure H/O shoulder surgery History of back surgery History of bilateral tubal ligation History of bladder surgery History of breast biopsy History of cardiac cath History of carpal tunnel release History of cataract surgery History of colonoscopy History of esophagogastroduodenoscopy (EGD) History of foot surgery History of hand surgery History of hysterectomy History of incisional hernia repair (03/27/21) History of oophorectomy History of rectocele History of total abdominal hysterectomy History of tricuspid valve replacement Hx laparoscopic cholecystectomy (11/21/21) S/P cervical spinal fusion S/P hysterectomy (2012) S/P Maze operation for atrial fibrillation (2017) S/P STERLING-BSO Family History Aunt Breast cancer Brother Diabetes Sister Breast cancer Myocardial infarction Ovarian cancer Diabetes Father Myocardial infarction Mother Myocardial infarction Diabetes Social History Smoking Status: Never smoker Second Hand Exposure: No; Do You Dip or Chew Tobacco: No; Hx Alcohol Use: No Hx Substance Use: No Preferred Language: Luxembourgish Communication Ability: Effective Visual Impairment: No Limitations Hearing Ability: Normal Product Safety Head Required: No Beliefs That Will Affect Care: None marital status: Current Living Situation: Alone current occupation: Retired How many Children do You have: 1 Feels Safe at Home: Yes Seatbelt Use: always Assistive Devices: Hearing Aid - Bilateral Review of Systems Review of Systems: All systems reviewed & are unremarkable except as noted in HPI & below Physical Exam Physical Exam: General: A&Ox3. NAD. Cooperative. HEENT: Atraumatic, normocephalic. Vision/hearing intact Pulm: CTAB A&P. -wheezes, -rales, -rhonchi. Symmetrical chest rise. No increased work of breathing. No respiratory distress. Cardiac: RRR, +sm. Radial pulses intact and symmetrical. Abdominal: Minimal diffuse tenderness without focal tenderness, guarding, or windy ound. Soft. Bowel sounds present. Extremities: Warm, dry. Moves all extremities equally, sensation symmetrical in hands and feet bilaterally Results & Data Results & Data Vital Signs (Past 12 Hours) Vital Signs Temp Pulse Pulse Resp BP BP Pulse Ox 10/18/22 14:20 54 L 18 150/80 H 95 10/18/22 13:09 58 L 17 155/86 H 97 10/18/22 12:30 66 10/18/22 12:19 66 18 171/86 H 97 10/18/22 11:21 99 10/18/22 11:21 60 16 176/89 H 99 10/18/22 09:57 36.3 C L 65 20 192/105 H 98 O2 Del Method 10/18/22 14:20 Room Air 10/18/22 13:09 Room Air 10/18/22 12:30 10/18/22 12:19 Room Air 10/18/22 11:21 Room Air 10/18/22 11:21 Room Air 10/18/22 09:57 Room Air PG Care Time/CCT Total # of Minutes Spent Total Time Spent with Patient: Total time spent is greater than 50% in coordination of care (as documented) at patient's floor/unit and/or counseling patient: Coding Level of Care Code 79389 INT INP/OBS CARE 2/55MIN Diagnoses Acute UTI N39.0 Atrial flutter with controlled response I48.92 GERD (gastroesophageal reflux disease) K21.9 Esophageal pain K22.8 Dysphagia R13.10
--- NOTE | 2022-10-18 15:36 | Electrocardiogram Report ---
Test Reason : Blood Pressure : / mmHG Vent. Rate : 057 BPM Atrial Rate : 057 BPM P-R Int : 214 ms QRS Dur : 092 ms QT Int : 446 ms P-R-T Axes : 000 -01 -03 degrees QTc Int : 434 ms Sinus bradycardia with 1st degree A-V block with Premature atrial complexes Otherwise normal ECG When compared with ECG of 19-NOV-2021 11:04, [place] interval has increased Nonspecific T wave abnormality no longer evident in Anterolateral leads Confirmed by Jalil Wynn ([id number]) on 10/18/2022 3:36:49 PM Referred By: Confirmed By:Raul Wynn
[2022-10-18] MEDS ORDERED: SODIUM CHLORIDE 0.9% 1000ML 1,000 ML IV SCH (16:00)
[2022-10-18] MEDS ORDERED: ALBUTEROL HFA 8 GM INHALER INH PRN (18:09)
[2022-10-18] MEDS ORDERED: IPRATROPIUM BROMIDE NEB SOLN 0.02% 2.5 ML VIAL INH PRN (18:09)
[2022-10-18] MEDS ORDERED: methylPREDNISolone 40 MG in SYRINGE 0 ML IV ONE (18:30)
[2022-10-18] MEDS: CETIRIZINE HCL 10 MG TABLET PO SCH (19:44)
[2022-10-18] MEDS: ATORVASTATIN 40 MG TAB PO SCH (19:44)
[2022-10-18] MEDS: ONDANSETRON INJ 2 MG/ML 2 ML VIAL IV PRN (19:49)
[2022-10-19 06:52] LABS: INR 2.3 (0.9-1.1); Prothrombin Time 23.5 Seconds (9.0-12.0)
[2022-10-19] MEDS: CHOLECALCIFEROL 5,000 UNITS 125 MCG TAB PO SCH (08:48)
[2022-10-19] MEDS: MONTELUKAST SODIUM 10 MG TABLET PO SCH (08:48)
[2022-10-19] MEDS: CETIRIZINE HCL 10 MG TABLET PO SCH ×2 (08:48→21:53)
[2022-10-19] MEDS: COLESTIPOL HCL 1 GM TAB PO SCH (08:48)
[2022-10-19] MEDS: ASCORBIC ACID 500 MG TAB PO SCH (08:48)
[2022-10-19] MEDS: ASPIRIN 81 MG ECTAB PO SCH (08:48)
[2022-10-19] MEDS: CHOLECALCIFEROL 400 UNITS 10 MCG TAB PO SCH (08:49)
[2022-10-19] MEDS: CALCIUM CARBONATE 1250MG TAB PO SCH (08:49)
[2022-10-19] MEDS: METOPROLOL SUCC 25MG EXT REL TAB PO SCH ×2 (08:49→15:31)
[2022-10-19] MEDS: methylPREDNISolone 40 MG in SYRINGE 0 ML IV SCH (08:50)
[2022-10-19] MEDS: FLUTICASONE/VILANTEROL 200/25MCG 14 PUFFS/INHALER INH SCH (08:50)
--- NOTE | 2022-10-19 08:56 | Hospitalist Progress Note ---
Date of Service October 19, 2022 Assessment & Plan (1) Acute UTI: Plan: Nausea/vomiting x 3 days with reports of diarrhea. 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 This is not IgE mediated per review of their note, and have a low probability of progressing to severe/dangerous reaction. * Continues on Cetirizine BID, no issues w/ reaction at this time Ceftriaxone IV ordered -- has tolerated in the past Urine culture with gram neg bacilli, hx ecoli pansensitive and will continue IV and monitor cultures Given IVF on admit, supportive care. Emesis x 1 this morning -- increased Protonix to BID as takes once daily at home Additional IVF x 500cc ordered for mild dehydration on exam w/ emesis this morning Antiemetics available prn PT/OT consulted as lives alone and ensure no services required Blood cultures obtained given prior + but noting she has gotten abx prior to such Stool PCR/cidff pending for completeness, possible viral enteritis as well given symptoms [employer] WBC wnl, afebrile Monitor labs on repeat Diarrhea -- reported multiple episodes since Friday, worsened day prior to admission -- was at [facility], viral processes going around -- stool PCR/cdiff pending Multidrug allergy syndrome Cetirizine twice daily for the duration while on antibiotics, cannot tolerate third-generation cephalosporins Methylprednisolone ordered as patient with difficulty tolerating p.o./oral prednisone and had 2 more days of prednisone for asthma exacerbation -- consider longer if needed if develops issue w/ abx If patient does develop a rash, can add hydroxyzine for itching and would continue steroids for duration of antibiotic course Follows with Dr. Kimble as outpatient, note reviewed. Low risk of progression to life-threatening allergy reaction and is not thought to be an IgE mediated reaction Paroxysmal Atrial flutter on anticoagulation, history of MVR, maze procedure Follows with Dr Sutton Coumadin held x 1 dose for INR 3.2 on admit. INR 2.3 and resumed for today. Monitor INR in AM Continue metoprolol 12.5mg daily (was on BID in the past) Echo 12/2017 noting biocor MVR, LV SF normal, LV diastolic function not evaluated. No evidence of heart failure No recent chest pain, chest pressure or dysrhythmia. No cardiac exacerbation on admission. She does have resting bradycardia but with appropriate chronotropic response which improved to the 50s/S60s when moving around in bed. Will admit to medical surgical, if hypotension or persistent significant bradycardia/tachycardia can transfer to telemetry at that time. Echocardiogram early postoperatively 2018 at [facility] apparently showed EF of 30%, however subsequent echocardiogram prior to discharge showed both right and left heart systolic function had returned to normal. Hyperlipidemia Continue statin Hypertension Continue metoprolol 12.5mg daily - Takes triamterene/HCTZ Q2D -- will place on hold for AM pending volume status/ability to keep down PO intake Remains on ASA daily Asthma Continue home inhaler/formulary equivalent Prednisone taper converted to Methylpred as noted Continue montelukast - Of note, prior issues w/ advair -- see outpt notes. will need to monitor for thrush contributing (2) Atrial flutter with controlled response: (3) GERD (gastroesophageal reflux disease): (4) Esophageal pain: (5) Dysphagia: Plan: w/ medications due to allergies Admission and Anticipated Discharge Date Admission Date: October 18, 2022 Supervising Physician Co-Signing Physician Notes The patient was not seen by me. The chart was reviewed. Case discussed with KAILEE Atkins. Agree with assessment and plan Subjective Eval this afternoon, doing alright. Did have emesis x 1 this morning but much improved from days prior. Suprapubic pressure/discomfort. On abx for UTI. Antihistamine w/ such due to multiple allergies. No further BMs -- she reports going 3x in <1 hour yesterday and an accident. Reports having been to [facility] friday and symptoms started Friday. Discussed inpatient stay/monitoring urine cultures and obtaining stool studies to r/o other infectious/viral causes but if stable can consider d/c tomorrow. Lives alone in [facility]. She would like me to call and update her daughter. Physical Exam Physical Exam: General: WN/WN female sitting up in bed, talkative, NAD HEENT: head normocephalic, atraumatic, mmm, trachea midline Resp: CTA, no w/c/r, no tachypnea or work of breathing, 96% on RA CV: regular/pat (rates 50s), +systolic murmur, no significant edema/calf tenderness, pulses palpable GI: +BS, soft, slightly tender lower abdomen, no guarding/rebound : no coe MSK/Neuro: no focal deficits, no slurred speech Skin: perfused, no rashes/wheels Psych: AOx3, anxious appearing but cooperative with care Results & Data Results & Data Vital Signs (Past 12 Hours) Vital Signs Temp Pulse Resp BP Pulse Ox O2 Del Method 10/19/22 08:23 51 L 96 Room Air 10/19/22 07:52 36.4 C L 50 L 16 167/71 H 93 Room Air Laboratory Results 10/19/22 10/19/22 10/19/22 Range/Units 09:20 09:20 09:20 WBC 8.94 (4.8-10.8) K/ul RBC 5.06 (4.20-5.40) M/uL Hgb 14.8 (12.0-16.0) g/dl Hct 44.4 (37.0-47.0) % MCV 87.7 (80.0-100.0) fL MCH 29.2 (25.0-34.0) pg MCHC 33.3 (32.0-36.0) g/dL RDW Std Deviation 48.6 H (36.4-46.3) fL RDW Coeff of Linda 15.1 H (11.5-14.5) % Plt Count 266 (130-400) K/uL MPV 10.0 (9.4-12.4) fL PT (9.0-12.0) Seconds INR (0.9-1.1) Sodium 137 (136-145) mmol/L Potassium 3.7 (3.5-5.1) mmol/L Chloride 101 (98-107) mmol/L Carbon Dioxide 28 (21-32) mmol/L Anion Gap 8 (3-11) BUN 17 (6-23) mg/dl Creatinine 0.91 (0.6-1.2) mg/dl Est Cr Clr Drug Dosing 36.0 ml/min Est GFR ( Amer) 66.2 ml/min Est GFR (Non-Af Amer) 57.1 ml/min BUN/Creatinine Ratio 18.7 (10-20) Glucose 198 H (70-99(Fasting)) mg/dl Calcium 9.3 (8.6-10.3) mg/dl Magnesium 1.7 (1.7-2.4) mg/dl Procalcitonin < 0.05 (0-0.5) ng/ml 10/19/22 Range/Units 05:57 WBC (4.8-10.8) K/ul RBC (4.20-5.40) M/uL Hgb (12.0-16.0) g/dl Hct (37.0-47.0) % MCV (80.0-100.0) fL MCH (25.0-34.0) pg MCHC (32.0-36.0) g/dL RDW Std Deviation (36.4-46.3) fL RDW Coeff of Linda (11.5-14.5) % Plt Count (130-400) K/uL MPV (9.4-12.4) fL PT 23.5 H (9.0-12.0) Seconds INR 2.3 H (0.9-1.1) Sodium (136-145) mmol/L Potassium (3.5-5.1) mmol/L Chloride (98-107) mmol/L Carbon Dioxide (21-32) mmol/L Anion Gap (3-11) BUN (6-23) mg/dl Creatinine (0.6-1.2) mg/dl Est Cr Clr Drug Dosing ml/min Est GFR ( Amer) ml/min Est GFR (Non-Af Amer) ml/min BUN/Creatinine Ratio (10-20) Glucose (70-99(Fasting)) mg/dl Calcium (8.6-10.3) mg/dl Magnesium (1.7-2.4) mg/dl Procalcitonin (0-0.5) ng/ml Diagnostic Findings Abdomen/Pelvis CT 10/18/22 10:[address] WITHOUT CONTRAST CT DOSE: 630.51 mGy.cm HISTORY: Acute mid abdominal pain mid abd pain, n/v/d TECHNIQUE: Multiaxial CT images of the abdomen and pelvis were performed without contrast. A dose lowering technique was utilized adhering to the principles of ALARA. COMPARISON STUDY: 11/19/2021 FINDINGS: Cardiomegaly with coronary artery calcifications, and prior median sternotomy with tricuspid prosthesis. Dense mitral annular calcifications. Mild subsegmental bibasilar atelectasis. No pneumatosis or pneumoperitoneum identif ied. The unenhanced spleen, pancreas and right adrenal gland are unremarkable. 6 mm hypodensity of the left adrenal gland suggestive of an adenoma. The liver is within normal limits. No hydronephrosis. 4.3 cm exophytic cyst of the superior pole right kidney. Punctate parenchymal calcification in the inferior pole left kidney. Urinary bladder wall thickening with partial distention. Focus of air noted within the nondependent bladder lumen. Hysterectomy with mild pelvic floor relaxation. Small rectocele. Colonic diverticulosis. Postoperative changes of the sigmoid colon suggestive of partial resection. Mild fecal retention. The appendix is reportedly surgically absent. Mild wall thickening throughout the stomach with partial distention. Atherosclerosis of the aorta without aneurysm. Unremarkable soft tissues. No acute fracture. IMPRESSION: 1. No bowel obstruction or bowel wall thickening. 2. Colonic diverticulosis. 3. Appendectomy, hysterectomy and cholecystectomy. 4. Mild bladder wall thickening with focus of intraluminal air which may be secondary to instrumentation versus infection. Correlate with urinalysis. 5. Additional findings as above. ACT 112: Negative or not required by law. The above report was generated using voice recognition software. It may contain grammatical, syntax or spelling errors. Electronically signed by: Morris Whelan M.D. 10/18/2022 11:23 AM PG Care Time/CCT Total # of Minutes Spent Total Time Spent with Patient: Total time spent is greater than 50% in coordination of care (as documented) at patient's floor/unit and/or counseling patient: Coding Level of Care Code 69157 SUB INP/OBS CARE 2/35MIN Diagnoses Acute UTI N39.0 Atrial flutter with controlled response I48.92 GERD (gastroesophageal reflux disease) K21.9 Esophageal pain K22.8 Dysphagia R13.10
[2022-10-19] MEDS ORDERED: PANTOprazole 40 MG TAB PO SCH (09:00)
[2022-10-19 10:04] LABS: Hematocrit (blood only) 44.4 % (37.0-47.0); Hemoglobin 14.8 g/dl (12.0-16.0); Mean Corpuscular Hemoglobin 29.2 pg (25.0-34.0); Mean Corpuscular Hgb Conc 33.3 g/dL (32.0-36.0); Mean Corpuscular Volume 87.7 fL (80.0-100.0); Platelet Count 266 K/uL (130-400); RDW Coefficient of Variation 15.1 % (11.5-14.5); RDW Standard Deviation 48.6 fL (36.4-46.3); Red Blood Count 5.06 M/uL (4.20-5.40); White Blood Count 8.94 K/ul (4.8-10.8)
[2022-10-19 10:23] LABS: BUN Creatinine Ratio 18.7 (10-20); Calcium 9.3 mg/dl (8.6-10.3); Est GFR (African American) 66.2 ml/min; Est GFR (Non-African American) 57.1 ml/min; Magnesium 1.7 mg/dl (1.7-2.4); Potassium 3.7 mmol/L (3.5-5.1)
[2022-10-19] MEDS: ONDANSETRON INJ 2 MG/ML 2 ML VIAL IV PRN (11:59)
[2022-10-19] MEDS ORDERED: SODIUM CHLORIDE 0.9% 1000ML 1,000 ML IV SCH (14:00)
[2022-10-19] MEDS: WARFARIN SOD 6 MG TAB PO SCH (21:51)
[2022-10-19] MEDS: ATORVASTATIN 40 MG TAB PO SCH (21:52)
[2022-10-19] MEDS: PANTOprazole 40 MG TAB PO SCH (21:53)
[2022-10-20 07:21] LABS: Hematocrit (blood only) 40.4 % (37.0-47.0); Hemoglobin 13.6 g/dl (12.0-16.0); Mean Corpuscular Hemoglobin 29.3 pg (25.0-34.0); Mean Corpuscular Hgb Conc 33.7 g/dL (32.0-36.0); Mean Corpuscular Volume 87.1 fL (80.0-100.0); Mean Platelet Volume 9.9 fL (9.4-12.4); Platelet Count 238 K/uL (130-400); RDW Standard Deviation 47.9 fL (36.4-46.3); Red Blood Count 4.64 M/uL (4.20-5.40); White Blood Count 10.17 K/ul (4.8-10.8)
[2022-10-20 07:41] LABS: BUN Creatinine Ratio 22.4 (10-20); Calcium 9.1 mg/dl (8.6-10.3); Creatinine Clr Calc Pharmacy 38.6 ml/min; Est GFR (African American) 71.9 ml/min; Magnesium 1.8 mg/dl (1.7-2.4); Potassium 3.9 mmol/L (3.5-5.1)
[2022-10-20 07:49] LABS: INR 1.9 (0.9-1.1); Prothrombin Time 19.5 Seconds (9.0-12.0)
--- NOTE | 2022-10-20 08:06 | Hospitalist Progress Note ---
Date of Service October 20, 2022 Assessment & Plan (1) Acute UTI: Plan: Nausea/vomiting x 3 days with reports of diarrhea. 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 This is not IgE mediated per review of their note, and have a low probability of progressing to severe/dangerous reaction. * Continues on Cetirizine BID, no issues w/ reaction at this time Did not get dose IV ceftriaxone yesterday as I did not realize were waiting to see if response prior to RN administering if she was having issue. Continued lower urinary symptoms reported Tolerated the Ceftriaxone and will order 2gm IV x 1 now and schedule daily Blood cultures remain NGTD (got abx in ER prior to getting, but hx ecoli in blood w/ her prior surgery) If not reaction could consider switching to PO Ceftin tomorrow before her IV dose is due (tolerated in the past) and monitor response to the PO and if able to tolerate without reaction could d/c home w/ such Stool studies still pending, miralax provided as no BM since admission PT/OT consulted given lives alone in [facility] and wanting to make sure no services are needed Will change to full admit Diarrhea -- reported multiple episodes since Friday, worsened day prior to admission but no BM since admission -- was at [facility], viral processes going around -- stool PCR/cdiff pending when able to obtain Multidrug allergy syndrome Cetirizine twice daily for the duration while on antibiotics, cannot tolerate third-generation cephalosporins Methylprednisolone ordered as patient with difficulty tolerating p.o./oral prednisone and had 2 more days of prednisone for asthma exacerbation -- stopped after today's dose but if needing for issues w/ abx can resume Follows with Dr. Kimble as outpatient, note reviewed. Low risk of progression to life-threatening allergy reaction and is not thought to be an IgE mediated reaction --> she asks if CM able to arrange her abx testing sooner than prior scheduled. Can check w/ Melodie in AM Paroxysmal Atrial flutter on anticoagulation, history of MVR, maze procedure Follows with Dr Sutton INR 3.2 and coumadin held and resumed for repeat 2.3. In sinus rhythm/pat on exam Continue coumadin and monitor INR in AM Per cards prior note, consideration for noval agent if labile INRs Continue metoprolol 12.5mg daily with hold parameters (was on BID in the past) -- told not to take if HR <60s Echo 12/2017 noting biocor MVR, LV SF normal, LV diastolic function not evaluated. No evidence of heart failure No recent chest pain, chest pressure or dysrhythmia. No cardiac exacerbation on admission. She does have resting bradycardia but with appropriate chronotropic response which improved to the 50s/S60s when moving around in bed. Echocardiogram early postoperatively 2017 at [facility] apparently showed EF of 30%, however subsequent echocardiogram prior to discharge showed both right and left heart systolic function had returned to normal. Hyperlipidemia Continue statin Hypertension Continue metoprolol 12.5mg daily w/ hold parameters - Takes triamterene/HCTZ Q2D -- held while keeping up with PO intake as had issues keeping PO down days prior -- improving Asthma Continue home inhaler/formulary equivalent Lungs clear on exam Stopped further metyhlpred for now -- monitor for any need for rxn to abx Continue montelukast outpt f/u (2) Atrial flutter with controlled response: (3) GERD (gastroesophageal reflux disease): (4) Esophageal pain: (5) Dysphagia: Plan: w/ medications due to allergies increased PPI to BID and no issues since -- consider increased BID at d/c Admission and Anticipated Discharge Date Admission Date: October 18, 2022 Supervising Physician Co-Signing Physician Notes The patient was not seen by me. The chart was reviewed. Case discussed with KAILEE Atkins. Agree with assessment and plan Subjective Eval this afternoon, lunch just delivered. Asked for miralax as no BM, passing lots of gas/gas pains. She reports now that she thinks about it she had burning with urination last friday but thought was from the new toilet paper she had but she thinks that may have been the start.nervous about dc home as lives alone. Ensured getting PT/OT evals prior. Discussed urine cx w/ Ecoli, pansensitive and will transition to PO abx for tomorrow and monitor to ensure no issue with such prior to discharge. HRs in 50s this morning - discussed holding her metoprolol when rates <60s, which Dr Sutton has told her in the past as well. Asked to call w/ updated to daughter sree again today for another update, which I will do. Physical Exam Physical Exam: General: WN/WN female sitting up in bed, talkative, NAD HEENT: head normocephalic, atraumatic, mmm, trachea midline Resp: CTA, no w/c/r, no tachypnea or work of breathing, 96% on RA CV: regular/pat (rates 40-50s), +systolic murmur, no significant edema/calf tenderness, pulses palpable GI: +BS, soft, slightly tender lower abdomen, no guarding/rebound : no coe MSK/Neuro: no focal deficits, no slurred speech Skin: perfused, no rashes/wheels Psych: AOx3, anxious appearing but cooperative with care Results & Data Results & Data Vital Signs (Past 12 Hours) Vital Signs Temp Pulse Resp BP Pulse Ox O2 Del Method 10/20/22 07:22 36.4 C L 46 L 16 166/78 H 95 Room Air 10/19/22 21:22 36.5 C 57 L 16 143/66 H 96 Room Air Laboratory Results 10/20/22 10/20/22 10/20/22 Range/Units 06:44 06:44 06:44 WBC 10.17 (4.8-10.8) K/ul RBC 4.64 (4.20-5.40) M/uL Hgb 13.6 (12.0-16.0) g/dl Hct 40.4 (37.0-47.0) % MCV 87.1 (80.0-100.0) fL MCH 29.3 (25.0-34.0) pg MCHC 33.7 (32.0-36.0) g/dL RDW Std Deviation 47.9 H (36.4-46.3) fL RDW Coeff of Linda 15.0 H (11.5-14.5) % Plt Count 238 (130-400) K/uL MPV 9.9 (9.4-12.4) fL PT 19.5 H (9.0-12.0) Seconds INR 1.9 H (0.9-1.1) Sodium 137 (136-145) mmol/L Potassium 3.9 (3.5-5.1) mmol/L Chloride 104 (98-107) mmol/L Carbon Dioxide 28 (21-32) mmol/L Anion Gap 5 (3-11) BUN 19 (6-23) mg/dl Creatinine 0.85 (0.6-1.2) mg/dl Est Cr Clr Drug Dosing 38.6 ml/min Est GFR ( Amer) 71.9 ml/min Est GFR (Non-Af Amer) 62.0 ml/min BUN/Creatinine Ratio 22.4 H (10-20) Glucose 88 (70-99(Fasting)) mg/dl Calcium 9.1 (8.6-10.3) mg/dl Magnesium 1.8 (1.7-2.4) mg/dl PG Care Time/CCT Total # of Minutes Spent Total Time Spent with Patient: Total time spent is greater than 50% in coordination of care (as documented) at patient's floor/unit and/or counseling patient: Coding Level of Care Code 04834 SUB INP/OBS CARE 3/50MIN Diagnoses Acute UTI N39.0 Atrial flutter with controlled response I48.92 GERD (gastroesophageal reflux disease) K21.9 Esophageal pain K22.8 Dysphagia R13.10
[2022-10-20] MEDS ORDERED: TRIAMTERENE/HCTZ 37.5/25MG TAB PO SCH (09:00)
[2022-10-20] MEDS: COLESTIPOL HCL 1 GM TAB PO SCH (09:55)
[2022-10-20] MEDS: ASPIRIN 81 MG ECTAB PO SCH (09:56)
[2022-10-20] MEDS: ASCORBIC ACID 500 MG TAB PO SCH (09:56)
[2022-10-20] MEDS: CETIRIZINE HCL 10 MG TABLET PO SCH ×2 (09:56→22:01)
[2022-10-20] MEDS: FLUTICASONE/VILANTEROL 200/25MCG 14 PUFFS/INHALER INH SCH (09:57)
[2022-10-20] MEDS: MONTELUKAST SODIUM 10 MG TABLET PO SCH (09:57)
[2022-10-20] MEDS: CALCIUM CARBONATE 1250MG TAB PO SCH (09:57)
[2022-10-20] MEDS: CHOLECALCIFEROL 5,000 UNITS 125 MCG TAB PO SCH (09:57)
[2022-10-20] MEDS: CHOLECALCIFEROL 400 UNITS 10 MCG TAB PO SCH (09:58)
[2022-10-20] MEDS: METOPROLOL SUCC 25MG EXT REL TAB PO SCH (10:01)
[2022-10-20] MEDS: PANTOprazole 40 MG TAB PO SCH ×2 (10:01→22:01)
[2022-10-20] MEDS: methylPREDNISolone 40 MG in SYRINGE 0 ML IV SCH (10:26)
[2022-10-20] MEDS: POLYETHYLENE (MIRALAX) 17 GM PACK PO PRN (10:32)
[2022-10-20] MEDS ORDERED: cefTRIAXone SODIUM 2,000 MG in DEXTROSE 5% 50 ML IV ONE (13:00)
[2022-10-20] MEDS: WARFARIN SOD 6 MG TAB PO SCH (22:00)
[2022-10-20] MEDS: ATORVASTATIN 40 MG TAB PO SCH (22:01)
[2022-10-21 07:42] LABS: Hematocrit (blood only) 40.6 % (37.0-47.0); Hemoglobin 13.8 g/dl (12.0-16.0); Mean Corpuscular Hemoglobin 29.2 pg (25.0-34.0); Mean Corpuscular Volume 85.8 fL (80.0-100.0); Mean Platelet Volume 9.8 fL (9.4-12.4); Platelet Count 233 K/uL (130-400); RDW Coefficient of Variation 14.9 % (11.5-14.5); RDW Standard Deviation 46.7 fL (36.4-46.3); Red Blood Count 4.73 M/uL (4.20-5.40); White Blood Count 10.72 K/ul (4.8-10.8)
[2022-10-21 08:00] LABS: Calcium 9.2 mg/dl (8.6-10.3); Magnesium 1.9 mg/dl (1.7-2.4); Potassium 3.7 mmol/L (3.5-5.1)
[2022-10-21 08:06] LABS: Creatinine Clr Calc Pharmacy 44.3 ml/min; Est GFR (Non-African American) 73.4 ml/min
[2022-10-21] MEDS: PANTOprazole 40 MG TAB PO SCH (08:23)
[2022-10-21] MEDS: CETIRIZINE HCL 10 MG TABLET PO SCH (08:24)
[2022-10-21] MEDS: CHOLECALCIFEROL 400 UNITS 10 MCG TAB PO SCH (08:24)
[2022-10-21] MEDS: MONTELUKAST SODIUM 10 MG TABLET PO SCH (08:24)
[2022-10-21] MEDS: CHOLECALCIFEROL 5,000 UNITS 125 MCG TAB PO SCH (08:25)
[2022-10-21] MEDS: ASCORBIC ACID 500 MG TAB PO SCH (08:25)
[2022-10-21] MEDS: ASPIRIN 81 MG ECTAB PO SCH (08:25)
[2022-10-21] MEDS: FLUTICASONE/VILANTEROL 200/25MCG 14 PUFFS/INHALER INH SCH (08:27)
[2022-10-21] MEDS ORDERED: CEFDINIR 300 MG CAP PO ONE (09:30)
[2022-10-21] MEDS: COLESTIPOL HCL 1 GM TAB PO SCH (11:16)
[2022-10-21] MEDS: METOPROLOL SUCC 25MG EXT REL TAB PO SCH (11:35)
--- NOTE | 2022-10-21 12:53 | Hospitalist Progress Note ---
Date of Service October 21, 2022 Assessment & Plan (1) Acute UTI: Plan: Nausea/vomiting x 3 days with reports of diarrhea. Found to have E coli pansensitive UTI Tolerated the Ceftriaxone Blood cultures remain NGTD (got abx in ER prior to getting, but hx E Coli in blood w/ her prior surgery) Changed to Cefdinir this AM (give 30min after the cetirizine) PT/OT consulted given lives alone in [facility] and wanting to make sure no services are needed Will change to full admit Diarrhea -- reported multiple episodes since Friday, worsened day prior to admission but no BM since admission -- was at [facility], viral processes going around -- stool PCR/cdiff pending when able to obtain Multidrug allergy syndrome Cetirizine twice daily for the duration while on antibiotics, cannot tolerate third-generation cephalosporins Methylprednisolone ordered as patient with difficulty tolerating p.o./oral prednisone and had 2 more days of prednisone for asthma exacerbation -- stopped after today's dose but if needing for issues w/ abx can resume Follows with Dr. Kimble as outpatient, note reviewed. Low risk of progression to life-threatening allergy reaction and is not thought to be an IgE mediated reaction --> she asks if CM able to arrange her abx testing sooner than prior scheduled. Can check w/ Melodie in AM Paroxysmal Atrial flutter on anticoagulation, history of MVR, maze procedure Follows with Dr Sutton INR 3.2 and coumadin held and resumed for repeat 2.3. In sinus rhythm/pat on exam Continue coumadin and monitor INR in AM Per cards prior note, consideration for noval agent if labile INRs Continue metoprolol 12.5mg daily with hold parameters (was on BID in the past) -- told not to take if HR <60s Echo 12/2017 noting biocor MVR, LV SF normal, LV diastolic function not evaluated. No evidence of heart failure No recent chest pain, chest pressure or dysrhythmia. No cardiac exacerbation on admission. She does have resting bradycardia but with appropriate chronotropic response which improved to the 50s/S60s when moving around in bed. Echocardiogram early postoperatively 2018 at [facility] apparently showed EF of 30%, however subsequent echocardiogram prior to discharge showed both right and left heart systolic function had returned to normal. Hyperlipidemia Continue statin Hypertension Continue metoprolol 12.5mg daily w/ hold parameters - Takes triamterene/HCTZ Q2D -- held while keeping up with PO intake as had issues keeping PO down days prior -- improving Asthma Continue home inhaler/formulary equivalent Lungs clear on exam Stopped further metyhlpred for now -- monitor for any need for rxn to abx Continue montelukast outpt f/u (2) Atrial flutter with controlled response: (3) GERD (gastroesophageal reflux disease): (4) Esophageal pain: (5) Dysphagia: Plan: w/ medications due to allergies increased PPI to BID and no issues since -- consider increased BID at d/c Admission and Anticipated Discharge Date Admission Date: October 20, 2022 Subjective Eval this afternoon, she was sitting up in recliner eating lunch. Discussed urine cx w/ Ecoli, pansensitive and will transition to PO abx for today and monitor to ensure no issue with such prior to discharge. Asked to call w/ updated to daughter sree again today for another update, which I will do. Metoprolol has been held for the past 3 days due to heart rate in mid 40s to mid 50s. BP now elevated at 191/81. Also on Maxzide one every 2 days - will resume this today Review of Systems Constitutional: + fatigue; no fever, no chills and no anorexia Respiratory: no cough, no dyspnea and no hemoptysis Cardiovascular: no chest pain, no dyspnea, no syncope, no edema and no calf pain Gastrointestinal: no abdominal pain, no bloating, no early satiety, no nausea and no vomiting Genitourinary: + urinary frequency; no dysuria, no urinary hesitancy and no urinary urgency Integumentary: no rash, no lesions and no new lesions Psychiatric: no behavioral changes, no depression, no hopelessness and no change in appetite Physical Exam Constitutional: well developed, well nourished and average body habitus; no acute distress Neck: trachea midline, no thyromegaly Respiratory: normal respiratory effort, lungs clear to auscultation Cardiovascular: Rate/Rhythm: regular rate, regular rhythm and + bradycardic Heart Sounds: normal S1 and normal S2 Extremities: normal capillary refill; no calf tenderness and no edema Gastrointestinal (Abdomen): normal bowel sounds, soft, nontender, no hepatosplenomegaly Psychiatric: A+Ox3, euthymic affect Results & Data Results & Data Vital Signs (Past 12 Hours) Vital Signs Temp Pulse Resp BP Pulse Ox O2 Del Method 10/21/22 07:59 36.5 C 52 L 16 191/81 H 98 Room Air Laboratory Results Abnormal lab results 10/21/22 10/21/22 Range/Units 06:33 06:33 RDW Std Deviation 46.7 H (36.4-46.3) fL RDW Coeff of Linda 14.9 H (11.5-14.5) % BUN/Creatinine Ratio 23.0 H (10-20) PG Care Time/CCT Total # of Minutes Spent Total Time Spent with Patient: Total time spent is greater than 50% in coordination of care (as documented) at patient's floor/unit and/or counseling patient: Coding Diagnoses Acute UTI N39.0 Atrial flutter with controlled response I48.92 GERD (gastroesophageal reflux disease) K21.9 Esophageal pain K22.8 Dysphagia R13.10
[2022-10-21] MEDS ORDERED: cefTRIAXone SODIUM 2,000 MG in DEXTROSE 5% 50 ML IV SCH (13:00)
[2022-10-21] MEDS ORDERED: TRIAMTERENE/HCTZ 37.5/25MG TAB PO SCH (14:00)
[2022-10-21] MEDS: POLYETHYLENE (MIRALAX) 17 GM PACK PO PRN (14:14)
--- NOTE | 2022-10-21 15:55 | Discharge Summary ---
Date of Service October 21, 2022 Admission HPI Per Admitting Provider Muna is an 87-year-old female with past medical history of atrial flutter on anticoagulation, chronic venous insufficiency, lap shanthi 2021, hypertension, asthma, bradycardia, dyslipidemia, GERD who presented to the emergency department for 4 days of nausea/vomiting/diarrhea nonbloody nonbilious. Somewhat poor p.o. intake in the last few days. CT of the abdomen pelvis in the ER shows no bowel obstruction or bowel wall thickening, diverticulosis without diverticulitis, and notes s/p appendectomy/hysterectomy/cholecystectomy. There is mild bladder wall thickening with intraluminal air? Infection versus instrum entation, UA is suspicious for infection with UCx pending. Patient was treated with Rocephin for UTI in the ER EKG: QTc 434, sinus bradycardia with first-degree block, no acute ischemic changes Nausea/vomiting/diarrhea for 2-3 days. Urine has been very dark yellow and martinez with a very foul odor. Diarrhea up to 4x an hour at onset no blood/melena, just starting to improve and 3x BMs morning of admit, then only 1 while in ER. Has been on prednisone taper for asthma, due for 1 dose tonight and tomorrow then done. History of multidrug allergy syndrome. No rash since gettin rocephin No fevers, chills +Low midline abdominal pain. +epigastric pain from vomiting Decreased appetite, only able to keep down a very small amoutn of toast Nausea/vomiting is not improving. Tried to tolerate PO and go home with abx but immediately vomited and could not keep down PO, and was also concerned about allergy if she canno tkeep her antihistamine down. Did have a heart cath, no hx of IL per patient. Is on warfarin for aflutter, hx of valve replacement. Medical History: Reviewed Medications: Reviewed Surgical History: Reviewed Family history: Reviewed Allergies: Reviewed Social History: No tobacco/etoh use Code Status: Full Code Admission Exam Per Admitting Provider General: A&Ox3. NAD. Cooperative. HEENT: Atraumatic, normocephalic. Vision/hearing intact Pulm: CTAB A&P. -wheezes, -rales, -rhonchi. Symmetrical chest rise. No increased work of breathing. No respiratory distress. Cardiac: RRR, +sm. Radial pulses intact and symmetrical. Abdominal: Minimal diffuse tenderness without focal tenderness, guarding, or rebound. Soft. Bowel sounds present. Extremities: Warm, dry. Moves all extremities equally, sensation symmetrical in hands and feet bilaterally Principal Diagnosis UTI Discharge Exam Constitutional WD/WN, vitals as above Neck trachea midline, no thyromegaly Respiratory normal respiratory effort, lungs clear to auscultation Cardiovascular RRR, no murmur, no edema Extremities: normal capillary refill; no calf tenderness and no edema Gastrointestinal (Abdomen) normal bowel sounds, soft, nontender, no hepatosplenomegaly Psychiatric A+Ox3, euthymic affect Discharge Data Allergies Allergy/AdvReac Type Severity Reaction Status Date / Time bee venom protein (honey bee) Allergy Severe ANAPHYLAXIS Verified 10/18/22 12:19 cefuroxime [From Ceftin] Allergy Intermediate Rash Verified 10/18/22 13:03 clarithromycin Allergy Intermediate RASH AND Verified 10/18/22 12:19 FACIAL SWELLING fluconazole Allergy Intermediate INCREASED Verified 10/18/22 12:19 HEART RATE moxifloxacin Allergy Intermediate RASH AND Verified 10/18/22 12:19 FACIAL SWELLING nitrofurantoin Allergy Intermediate RASH Verified 10/18/22 12:19 Quinolones Allergy Intermediate RASH AND Verified 10/18/22 12:19 FACIAL SWELLING sulfamethoxazole Allergy Intermediate RASH AND Verified 10/18/22 12:19 FACIAL SWELLING trimethoprim Allergy Intermediate RASH AND Verified 10/18/22 12:19 FACIAL SWELLING NSAIDS (Non-Steroidal AdvReac Intermediate Pt had Verified 10/18/22 12:19 Anti-Inflamma Open Heart Surgery ketamine AdvReac Mild VOMITING Verified 10/18/22 12:19 Consultations 10/18/22 14:13 ED Decision to Admit Stat Ordered Studies 10/18/22 10:24 CT abd pelvis wo con Stat Hospital Course (1) Acute UTI: Nausea/vomiting x 3 days with reports of diarrhea. CTAP on admit w/ cystitis, colonic diverticulosis but no diverticulitis Urine with sotelo sensitive E Coli S/P 2 doses of ceftriaxone and today started Cefdinir 300mg po (2) Atrial flutter with controlled response: Paroxysmal Atrial flutter on anticoagulation, history of MVR, maze procedure and follows with Dr Sutton Continue coumadin Had some bradycardia during admission with HR in mid 40s to mid50s and the metoprolol was held. I spoke with Dr Sutton via text and he stated it was fine to hold the metoprolol while inpatient and she can resume upon discharge if the HR is 50 or higher, Echo 12/2017 noting biocor MVR, LV SF normal, LV diastolic function not evaluated. No evidence of heart failure No recent chest pain, chest pressure or dysrhythmia. No cardiac exacerbation on admission. She does have resting bradycardia but with appropriate chronotropic response which improved to the 50s/S60s when moving around in bed. Echocardiogram early postoperatively 2018 at [facility] apparently showed EF of 30%, however subsequent echocardiogram prior to discharge showed both right and left heart systolic function had returned to normal. (3) GERD (gastroesophageal reflux disease): Chronic and stable Continue PPI (4) Dysphagia: Resolved and tolerating diet and po medications Total Time Total Time Spent Total Time Spent (In Minutes): 35 Discharge Plan Discharge Items Patient Disposition: Home - Self-Care Reason For Visit: UTI, HX MULTIDRUG ALLERGY RNX Discharge Diagnosis: UTI Condition on Discharge: Good Activity: Resume your previous activity Lifting: Gradually increase as tolerated Exercise/Sports: Gradually increase as tolerated Driving/Machine Use: Resume 1 day after discharge Weightbearing: Full weightbearing Non-emergency contact: Primary Care Provider Call non-emergency contact if: you have any medication questions, your symptoms worsen and your temperature is above 101.5 Follow-up/Referrals: Ally Serna MD [Primary Care Provider] - Diet: Heart Healthy Addtl Attending Provider Instructions: You were admitted with nausea, vomiting and diarrhea and were found to have a UTI. The bacteria was e coli and was sensitive to all antibiotics. You were treated with some IV antibiotics and today were started n Cefdinir 300mg one pill 2 x per day you will be prescribed another 9 pills . to start them one tnight and then one 2 x per day for the following 4 days. you should take the antihistamine 30 minutes prior to the antibiotic. I will also rx some Zofran for nausea to take if needed. You should follow up with your family doctor in the next 1-2 weeks. Pending Studies at Discharge: No Stand-Alone Forms: My [facility] Medications and DC Order Prescriptions: New cefdinir 300 mg Capsule 300 mg PO BID Qty: 9 0RF cetirizine 10 mg Tablet 10 mg PO BID Qty: 10 0RF Rx Instructions: please take 30 minutes prior to the antibiotic ondansetron 4 mg tablet,disintegrating 4 mg PO Q8H PRN (Reason: nausea and vomiting) 4 Days Qty: 10 0RF Continued atorvastatin [Lipitor] 40 mg tablet 40 mg PO HS Qty: 90 3RF fluticasone propion-salmeterol [Advair Diskus] 250-50 mcg/dose blister with device 1 inh inhalation QAM Qty: 60 5RF metoprolol succinate [Toprol XL] 25 mg tablet extended release 24 hr 12.5 mg PO QAM Qty: 45 3RF Rx Instructions: 11/19/21 : PT TEMPORARILY TAKING THIS MED DAILY, NOT BID. triamterene-hydrochlorothiazid 37.5-25 mg tablet 1 tab PO Q2D Qty: 45 3RF biotin 2,500 mcg capsule 2,500 mcg PO QAM colestipol 1 gram tablet 1 g PO DAILY mupirocin 2 % ointment 1 applic topical BID Qty: 15 5RF methylprednisolone [Medrol (Ruperto)] 4 mg tablets,dose pack 4 mg PO .COMPLEX Qty: 21 1RF Rx Instructions: 4 mg PO Take as directed; Pt starts medication on 11/26/22 when she goes in for allergy testing montelukast 10 mg tablet 10 mg PO DAILY Qty: 30 3RF warfarin 6 mg tablet 6 mg PO QPM Qty: 90 3RF Protocol: Dose Management Condition: Friday Dose/Route: 6 mg Instruction: 1 x 6 mg tablet Condition: Friday Dose/Route: 6 mg Instruction: 1 x 6 mg tablet Condition: Friday Dose/Route: 6 mg Instruction: 1 x 6 mg tablet Condition: Friday Dose/Route: 6 mg Instruction: 1 x 6 mg tablet Condition: Dose/Route: 6 mg Instruction: 1 x 6 mg tablet Condition: Friday Dose/Route: 6 mg Instruction: 1 x 6 mg tablet Condition: Friday Dose/Route: 6 mg Instruction: 1 x 6 mg tablet Protocol Text: Adjustment Start Date: Friday09/23/22 INR Value: 2.7 INR Date: 09/23/22 Recheck Date: 10/23/22 Rx Instructions: daily pantoprazole [Protonix] 40 mg tablet,delayed release (DR/EC) 40 mg PO QAM Qty: 90 3RF albuterol sulfate [ProAir HFA] 90 mcg/actuation HFA aerosol inhaler 2 puff inhalation Q4H PRN (Reason: shortness of breath or wheezing) Qty: 6.7 0RF ipratropium bromide 0.02 % solution 2.5 ml inhalation Q6H PRN (Reason: shortness of breath or wheezing) Qty: 75 11RF Prolia 60 mg/mL syringe 60 mg SUBCUT .Q6M Qty: 1 0RF multivitamin [Multiple Vitamins] Tablet 1 tab PO QAM ascorbic acid (vitamin C) [Vitamin C] 500 mg Tablet 500 mg PO QAM calcium carbonate-vitamin D3 [Calcium 500 + D] 500 mg(1,250mg) -200 unit Tablet 1 tab PO QAM cholecalciferol (vitamin D3) [Vitamin D3] 5,000 unit Tablet 5,000 unit PO QAM aspirin 81 mg Tablet,Delayed Release (Dr/Ec) 81 mg PO QAM epinephrine 0.3 mg/0.3 mL auto-injector 0.3 mg IM UD PRN (Reason: Allergic Reaction) Discontinued moxifloxacin 400 mg tablet See Rx Instructions PO .COMPLEX Qty: 3 0RF Rx Instructions: DO NOT TAKE. Bring to allergy clinic for testing on 11/26/22 Discharge Orders: Discharge Order (Routine); Ordered 10/21/22 Ordered By: Geno aVliente Admission Data Admit Date/Time: 10/20/22 13:25 Attending Provider: Luan Barragan Admit Provider: Arturo Ayala Primary Care Provider: Ally Serna Other Providers: Arturo Ayala ; [facility] Coding Level of Care Code 51793 INP/OBS DISCH >30 MIN Diagnoses Acute UTI N39.0 Atrial flutter with controlled response I48.92 GERD (gastroesophageal reflux disease) K21.9 Dysphagia R13.10
[2022-10-21] MEDS ORDERED: CEFDINIR 300 MG CAP PO SCH (21:00)
== END 2022-10-21 18:19 | disposition home health service (06) | DRG 690 ==
LOC: 3W 09:45 → ED 09:45 → SUATTDRO 15:53 → 3W 17:27 → SUATTDRO 10-20 13:25

== ENCOUNTER 2023-03-30 22:20 | Inpatient (IN) ==
[2023-03-30] MEDS ORDERED: SODIUM CHLORIDE 0.9% 500 ML IV ONE (22:29)
--- NOTE | 2023-03-30 22:34 | Emergency Department Note ---
Impression & Plan Hypoxia, Syncope, Acute hyponatremia ED Provider Note NAME: SHIREEN DOMINGUEZ AGE: 88 SEX: F : 1935 ARRIVES VIA: Ambulance INFORMANT: Patient ED PROVIDER(S): Judson Chu DO CHIEF COMPLAINT: syncope HPI: Patient is an 88-year-old female with a past medical history of A-fib on Coumadin, asthma who presents to the ER following waking up on the floor. She thinks that she had to go to the bathroom and urinate but she woke up on the floor diaphoretic. She does not know how long she was down for. She denies any headache or change in vision. She notes that she got sick on the ambulance ride over to the ER. She has been vomiting. No belly pain. No dysuria urgency or frequency. She notes that this morning when she woke up she felt very weak and rundown all over. ADDITIONAL HISTORY OBTAINED: Per HPI Chronic Medical/Social Conditions Affecting Care: Per HPI PAST MEDICAL HISTORY:See Below PAST SURGICAL HISTORY:See Below FAMILY HISTORY:See Below SOCIAL HISTORY:See Below HOME MEDICATIONS:See Below ALLERGIES:See Below VITALS:See Below PHYSICAL EXAMINATION: GENERAL: Sitting up in bed, alert, well appearing, well nourished, no distress, non-toxic HEAD: NC/AT EYE EXAM: normal conjunctiva. PERRL and EOM's intact. OROPHARYNX: no exudate, no erythema, lips, buccal mucosa, and tongue normal and mucous membranes are moist NECK: supple, no nuchal rigidity, no adenopathy, non-tender LUNGS: Clear to auscultation. Normal chest wall mechanics HEART: no murmurs, S1 normal and S2 normal ABDOMEN: abdomen soft, non-tender, normo-active bowel sounds, no masses, no rebound or guarding. BACK: Back is symmetrical on inspection and there is no deformity, no midline tenderness, no CVA tenderness. UPPER EXTREMITIES: upper extremities are grossly normal. LOWER EXTREMITIES: No pitting edema. NEURO EXAM: Normal sensorium, cranial nerves II-XII intact, normal speech, n weakness of arms, no weakness of legs. No drift. Finger to nose intact. Gross sensation intact. MEDICAL DECISION MAKING: Patient is an 88-year-old female who presents ER for above-stated complaint. IV was established blood was obtained. Labs show no significant leukocytosis or anemia. INR 2.4. With an elevated INR consider PE but very unlikely with the hypoxia at 88%. Was placed on 2 L nasal cannula. BMP with mild hyponatremia at 126. LFTs bilirubin were unremarkable. Troponin was negative. Lipase normal. UA does not appear to suggest UTI. With her allergies was given a dose of Cipro. Viral panel is pending upon admission. Chest x-ray with left lower lobe atelectasis. She was given IV fluids discussed with Dr. Hutchinson for further evaluation management treatment. CT head was negative. No other complaints from the fall. External Records Reviewed: External records from cardiology reviewed and has both mitral and tricuspid valve replacements Consults/Care Managements Discussions: Per [facility] Triage Nursing notes reviewed. Limited review of prior medical records performed Vital Signs: reviewed and remarkable for no significant abnormalities Differential diagnosis: Differential diagnosis includes etiologies such as vasovagal event, infection, hypoglycemia, electrolyte abnormalities, cardiac sources, intracerebral event, toxicologic, neurologic, as well as others were entertained. ER treatment provided: See below Diagnostics interpreted by me include EKG and cardiac monitoring as listed below: -Cardiac Monitoring: An order was placed for continuous cardiac monitoring. The monitor shows a rate of 80 with sinus rhythm. -ECG: Sinus rhythm rate 85 Normal axis No PVCs PACs T wave inversion lead III -Laboratory studies:Interpreted by me as stated above in MDM and shown below. Imaging studies: Xrays: As interpreted by me: Portable AP upright 1 view of the chest shows left lower lobe atelectasis CTs show: CT head was negative per radiology Procedures:none Critical Care: I have personally spent 32 minutes of critical care time in the direct management of this patient. This includes bedside care, interpretation of diagnostic studies, and testing, discussion with consultants, patient, and family members, and other required patient management activities. This 32 minutes is in excess of all separately billable procedures. Past Med/Surg History Medical History Anticoagulant long-term use Asthma Atrial flutter with controlled response (2018) Dysphagia Dysphagia Esophageal pain Gastroenteritis Goiter H/O gastroesophageal reflux (GERD) Hiatal hernia History of esophageal dilatation History of pacemaker Hypertension Migraines Osteoporosis Severe mitral regurgitation Tricuspid valve disease Surgical History Biopsy of breast (2012) Cystocele H/O exploratory laparotomy H/O hemorrhoidectomy H/O knee surgery H/O maze procedure H/O shoulder surgery History of back surgery History of bilateral tubal ligation History of bladder surgery History of breast biopsy History of cardiac cath History of carpal tunnel release History of cataract surgery History of colonoscopy History of esophagogastroduodenoscopy (EGD) History of foot surgery History of hand surgery History of hysterectomy History of incisional hernia repair (03/27/21) History of oophorectomy History of rectocele History of total abdominal hysterectomy History of tricuspid valve replacement Hx laparoscopic cholecystectomy (11/21/21) S/P cervical spinal fusion S/P hysterectomy (2012) S/P Maze operation for atrial fibrillation (2017) S/P STERLING-BSO Family History Aunt Breast cancer Brother Diabetes Sister Breast cancer Myocardial infarction Ovarian cancer Diabetes Father Myocardial infarction Mother Myocardial infarction Diabetes Social History Smoking Status: Never smoker Second Hand Exposure: No; Do You Dip or Chew Tobacco: No; Hx Alcohol Use: No Hx Substance Use: No Preferred Language: Italian Communication Ability: Effective Visual Impairment: No Limitations Hearing Ability: Normal 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 Beliefs That Will Affect Care: None marital status: Current Living Situation: Alone Current Living Situation Comment: lives with daughter millinery department manager in [place] in winter current occupation: Retired How many Children do You have: 2 Feels Safe at Home: Yes Seatbelt Use: always Assistive Devices: None Allergies Allergies Allergy/AdvReac Type Severity Reaction Status Date / Time bee venom protein (honey bee) Allergy Severe ANAPHYLAXIS Verified 03/25/23 13:40 cocoa butter Allergy Severe Hives Verified 03/25/23 13:40 [From Preparation H] glycerin [From Preparation H] Allergy Severe Hives Verified 03/25/23 13:40 mineral oil Allergy Severe Hives Verified 03/25/23 13:40 [From Preparation H] petrolatum,white Allergy Severe Hives Verified 03/25/23 13:40 [From Preparation H] phenylephrine Allergy Severe Hives Verified 03/25/23 13:40 [From Preparation H] shark liver oil Allergy Severe Hives Verified 03/25/23 13:40 [From Preparation H] cefuroxime [From Ceftin] Allergy Intermediate Rash Verified 03/25/23 13:40 clarithromycin Allergy Intermediate RASH AND Verified 03/25/23 13:40 FACIAL SWELLING fluconazole Allergy Intermediate INCREASED Verified 03/25/23 13:40 HEART RATE sulfamethoxazole Allergy Intermediate RASH AND Verified 03/25/23 13:40 FACIAL SWELLING trimethoprim Allergy Intermediate RASH AND Verified 03/25/23 13:40 FACIAL SWELLING bacitracin Allergy Mild Rash Verified 03/25/23 13:40 NSAIDS (Non-Steroidal AdvReac Intermediate Pt had Verified 03/25/23 13:40 Anti-Inflamma Open Heart Surgery ketamine AdvReac Mild VOMITING Verified 03/25/23 13:40 Home Meds Home Medications Medication Instructions Recorded Confirmed ascorbic acid (vitamin C) 500 mg 500 mg PO QAM 03/24/18 03/25/23 tablet (Vitamin C) calcium carbonate 500 mg-vitamin 1 tab PO QAM 03/24/18 03/25/23 D3 5 mcg (200 unit) tablet (Calcium 500 + D) cholecalciferol (vitamin D3) 125 5,000 unit PO QAM 03/24/18 03/25/23 mcg (5,000 unit) tablet (Vitamin D3) multivitamin (Multiple Vitamins 1 tab PO QAM 03/24/18 03/25/23 tablet) aspirin 81 mg tablet,delayed 81 mg PO QAM 03/23/21 03/25/23 release epinephrine 0.3 mg/0.3 mL 0.3 mg IM UD PRN Allergic Reaction 03/23/21 03/25/23 injection, auto-injector biotin 2,500 mcg capsule 2,500 mcg PO QAM 09/19/21 03/25/23 colestipol 1 gram tablet 1 g PO DAILY 10/14/22 03/25/23 Previous Rx's Medication Instructions Recorded albuterol sulfate 90 mcg/actuation 2 puff inhalation Q4H PRN 10/09/21 aerosol inhaler (ProAir HFA) shortness of breath or wheezing #6.7 grams ipratropium bromide 0.02 % 2.5 ml inhalation Q6H PRN 02/20/22 solution for inhalation shortness of breath or wheezing #75 mL fluticasone 250 mcg-salmeterol 50 1 inh inhalation QAM #60 ea 08/27/22 mcg/dose blistr powdr for inhalation (Advair Diskus) pantoprazole 40 mg tablet,delayed 40 mg PO QAM #90 tabs 09/17/22 release (Protonix) warfarin 6 mg tablet 6 mg PO QPM #90 tabs 09/17/22 metoprolol succinate 25 mg 12.5 mg PO QAM #45 tabs 10/11/22 tablet,extended release 24 hr (Toprol XL) mupirocin 2 % topical ointment 1 applic topical BID #15 grams 10/14/22 Prolia 60 mg/mL subcutaneous 60 mg subcut .Q6M #1 mL 12/19/22 syringe (denosumab) triamterene 37.5 1 tab PO Q2D #24 tabs 12/31/22 mg-hydrochlorothiazide 25 mg tablet atorvastatin 40 mg tablet (Lipitor) 40 mg PO HS #90 tabs 01/07/23 nitrofurantoin macrocrystal 25 mg See Rx Instructions PO .COMPLEX #4 01/10/23 capsule caps clarithromycin 250 mg tablet See Rx Instructions PO .COMPLEX #3 01/28/23 tabs epinephrine 0.3 mg/0.3 mL 0.3 mg (0.3 mL) IM Q4H PRN 03/28/23 injection, auto-injector (EpiPen) anaphylaxis #2 ea Results & Data (ED) Vital Signs Vital Signs - 24 hr 03/30/23 22:38 03/30/23 22:31 03/30/23 23:03 Temperature 37.1 C Temperature Source Oral Pulse Rate 80 Pulse Rate [Apical] Respiratory Rate 20 Respiratory Effort / Characteristics Non-Labored Spontaneous Respiratory Depth Normal Respiratory Pattern Regular Blood Pressure 172/95 H Blood Pressure [Right Arm] Blood Pressure Mean 120 Blood Pressure Mean [Right Arm] Pulse Oximetry 94 94 88 L Oxygen Delivery Method Room Air Room Air Room Air Nasal Cannula Oxygen Flow Rate Sepsis Recent Fever Within 48 Hours No Sepsis New/Unexplained Change in Mental Status No Sepsis Action Taken by Nursing No Action Required Oxygen Flow Rate - Titration 2 Pulse Oximetry Post Tiitration 95 03/30/23 23:00 Temperature Temperature Source Pulse Rate Pulse Rate [Apical] 81 Respiratory Rate 18 Respiratory Effort / Characteristics Respiratory Depth Respiratory Pattern Blood Pressure Blood Pressure [Right Arm] 145/86 H Blood Pressure Mean Blood Pressure Mean [Right Arm] 105 Pulse Oximetry 95 Oxygen Delivery Method Nasal Cannula Oxygen Flow Rate 2 Sepsis Recent Fever Within 48 Hours Sepsis New/Unexplained Change in Mental Status Sepsis Action Taken by Nursing Oxygen Flow Rate - Titration Pulse Oximetry Post Tiitration Laboratory Data 03/30/23 22:30 03/30/23 22:30 Lab Results 03/30/23 03/30/23 03/30/23 Range/Units 22:30 22:30 22:30 WBC 7.66 (4.8-10.8) K/ul RBC 5.19 (4.20-5.40) M/uL Hgb 14.6 (12.0-16.0) g/dl Hct 43.3 (37.0-47.0) % MCV 83.4 (80.0-100.0) fL MCH 28.1 (25.0-34.0) pg MCHC 33.7 (32.0-36.0) g/dL RDW Std Deviation 47.2 H (36.4-46.3) fL RDW Coeff of Linda 15.7 H (11.5-14.5) % Plt Count 175 (130-400) K/uL MPV 9.7 (9.4-12.4) fL Immature Gran % (Auto) 0.5 % Neut % (Auto) 70.1 % Lymph % (Auto) 14.8 % [place] % (Auto) 14.1 % Eos % (Auto) 0.1 % Baso % (Auto) 0.4 % Neut # (Auto) 5.37 (1.40-6.50) K/uL Lymph # (Auto) 1.13 L (1.20-3.40) K/uL [place] # (Auto) 1.08 H (0.11-0.59) K/uL Eos # (Auto) 0.01 (0.00-0.50) K/uL Baso # (Auto) 0.03 (0.00-0.20) K/uL Immature Gran # (Auto) 0.04 (0.01-0.20) K/uL PT 24.8 H (9.0-12.0) Seconds INR 2.4 H (0.9-1.1) Sodium 126 L (136-145) mmol/L Potassium 3.9 (3.5-5.1) mmol/L Chloride 94 L (98-107) mmol/L Carbon Dioxide 25 (21-32) mmol/L Anion Gap 7 (3-11) BUN 13 (6-23) mg/dl Creatinine 0.81 (0.6-1.2) mg/dl Est Cr Clr Drug Dosing 42.7 ml/min Est GFR ( Amer) 75.7 ml/min Est GFR (Non-Af Amer) 65.3 ml/min BUN/Creatinine Ratio 16.0 (10-20) Glucose 127 H (70-99(Fasting)) mg/dl Osmolality (280-300) mOsm/kg Calcium 9.0 (8.6-10.3) mg/dl Total Bilirubin 1.1 H (0.2-1.0) mg/dl AST 26 (13-39) U/L ALT 16 (7-52) U/L Alkaline Phosphatase 52 (34-104) U/L Troponin I High Sens 7.9 (0-14) pg/ml Total Protein 6.7 (6.0-8.3) gm/dl Albumin 4.0 (3.4-5.0) gm/dl Globulin 2.7 (2.5-4.0) gm/dl Albumin/Globulin Ratio 1.5 (0.9-2) Lipase 33 (11-82) U/L Urine Color Urine Appearance (Clear) Urine pH (4.5-7.5) Ur Specific [place] (1.000-1.030) Urine Protein (Negative) Urine Glucose (UA) (Negative) Urine Ketones (Negative) Urine Blood (Negative) Urine Nitrite (Negative) Urine Bilirubin (Negative) Urine Urobilinogen (Negative) Ur Leukocyte Esterase (Negative) Urine WBC (Auto) (0-5) /hpf Urine RBC (Auto) (0-4) /hpf U Hyaline Cast (Auto) (0-5) /lpf U Epithel Cells (Auto) (0-5) /lpf Urine Bacteria (Auto) (Negative) 03/30/23 03/30/23 Range/Units 22:30 23:21 WBC (4.8-10.8) K/ul RBC (4.20-5.40) M/uL Hgb (12.0-16.0) g/dl Hct (37.0-47.0) % MCV (80.0-100.0) fL MCH (25.0-34.0) pg MCHC (32.0-36.0) g/dL RDW Std Deviation (36.4-46.3) fL RDW Coeff of Linda (11.5-14.5) % Plt Count (130-400) K/uL MPV (9.4-12.4) fL Immature Gran % (Auto) % Neut % (Auto) % Lymph % (Auto) % [place] % (Auto) % Eos % (Auto) % Baso % (Auto) % Neut # (Auto) (1.40-6.50) K/uL Lymph # (Auto) (1.20-3.40) K/uL [place] # (Auto) (0.11-0.59) K/uL Eos # (Auto) (0.00-0.50) K/uL Baso # (Auto) (0.00-0.20) K/uL Immature Gran # (Auto) (0.01-0.20) K/uL PT (9.0-12.0) Seconds INR (0.9-1.1) Sodium (136-145) mmol/L Potassium (3.5-5.1) mmol/L Chloride (98-107) mmol/L Carbon Dioxide (21-32) mmol/L Anion Gap (3-11) BUN (6-23) mg/dl Creatinine (0.6-1.2) mg/dl Est Cr Clr Drug Dosing ml/min Est GFR ( Amer) ml/min Est GFR (Non-Af Amer) ml/min BUN/Creatinine Ratio (10-20) Glucose (70-99(Fasting)) mg/dl Osmolality 263 L (280-300) mOsm/kg Calcium (8.6-10.3) mg/dl Total Bilirubin (0.2-1.0) mg/dl AST (13-39) U/L ALT (7-52) U/L Alkaline Phosphatase (34-104) U/L Troponin I High Sens (0-14) pg/ml Total Protein (6.0-8.3) gm/dl Albumin (3.4-5.0) gm/dl Globulin (2.5-4.0) gm/dl Albumin/Globulin Ratio (0.9-2) Lipase (11-82) U/L Urine Color Yellow Urine Appearance Cloudy A (Clear) Urine pH 7.5 (4.5-7.5) Ur Specific [place] 1.015 (1.000-1.030) Urine Protein Negative (Negative) Urine Glucose (UA) Negative (Negative) Urine Ketones Trace H (Negative) Urine Blood Negative (Negative) Urine Nitrite Positive A (Negative) Urine Bilirubin Negative (Negative) Urine Urobilinogen Negative (Negative) Ur Leukocyte Esterase 3+ H (Negative) Urine WBC (Auto) >30 H (0-5) /hpf Urine RBC (Auto) 5-10 H (0-4) /hpf U Hyaline Cast (Auto) 1-5 (0-5) /lpf U Epithel Cells (Auto) 10-20 H (0-5) /lpf Urine Bacteria (Auto) 3+ H (Negative) Administered Medications Discontinued Medications Sodium Chloride (Nss) 500 mls @ 999 mls/hr IV .Q31M ONE Stop: 03/30/23 22:59 Last Infusion: 03/30/23 23:32 Dose: 0 mls/hr Documented By: Admin: 03/30/23 22:54 Dose: 999 mls/hr Documented By: AN Ondansetron HCl (Ondansetron Inj 2 Mg/Ml 2 Ml Vial) 4 mg IV NOW STA Stop: 03/30/23 22:52 Last Admin: 03/30/23 22:54 Dose: 4 mg Documented By: AN Imaging Data Radiologist's Impression: Head CT 03/30/23 22:29 Exam(s): CT HEAD Without Contrast EXAM: CT Head Without Intravenous Contrast CLINICAL HISTORY: Reason for exam: fall. TECHNIQUE: Axial computed tomography images of the head/brain without intravenous contrast. CTDI is 35.65 mGy and DLP is 625.8 mGy-cm. Automated exposure control was utilized for the study. A dose lowering technique was utilized adhering to the principles of ALARA. COMPARISON: No relevant prior studies available. FINDINGS: No acute intracranial hemorrhage. No midline shift or mass effect. The territorial martinez-white matter differentiation is maintained throughout. Age-related cerebral volume loss. Periventricular and subcortical white matter hypoattenuation, consistent with chronic microangiopathy. The visualized orbits appear grossly unremarkable. The calvarium is intact. The visualized paranasal sinuses and mastoid air cells are grossly clear. IMPRESSION: No acute intracranial hemorrhage, midline shift, or mass effect. Electronically signed by: Florencio Torres MD 03/30/23 22:52 PM Discharge Plan Visit Data Chief Complaint: Syncope Stated Complaint: ILLNESS/SYNCOPAL EPISODE ED Provider: Judson Chu Discharge Problem: Hypoxia, Syncope, Acute hyponatremia Forms Stand Alone Forms: My [facility] Prescriptions Prescriptions: No Action fluticasone propion-salmeterol [Advair Diskus] 250-50 mcg/dose blister with device 1 inh inhalation QAM Qty: 60 5RF metoprolol succinate [Toprol XL] 25 mg tablet extended release 24 hr 12.5 mg PO QAM Qty: 45 3RF Rx Instructions: 11/19/21 : PT TEMPORARILY TAKING THIS MED DAILY, NOT BID. Prolia 60 mg/mL syringe 60 mg SUBCUT .Q6M Qty: 1 0RF Rx Instructions: Inject 1 syringe every 6 months BUY AND BILL atorvastatin [Lipitor] 40 mg tablet 40 mg PO HS Qty: 90 3RF biotin 2,500 mcg capsule 2,500 mcg PO QAM colestipol 1 gram tablet 1 g PO DAILY mupirocin 2 % ointment 1 applic topical BID Qty: 15 5RF nitrofurantoin macrocrystal 25 mg capsule See Rx Instructions PO .COMPLEX Qty: 4 0RF Rx Instructions: do not take. Bring to allergy clinic for testing. clarithromycin 250 mg tablet See Rx Instructions PO .COMPLEX Qty: 3 0RF Rx Instructions: do not take - bring to allergy clinic for testing warfarin 6 mg tablet 6 mg PO QPM Qty: 90 3RF Protocol: Dose Management Condition: Friday Dose/Route: 6 mg Instruction: 1 x 6 mg tablet Condition: Friday Dose/Route: 9 mg Instruction: 1.5 x 6 mg tablets Condition: Friday Dose/Route: 6 mg Instruction: 1 x 6 mg tablet Condition: Friday Dose/Route: 6 mg Instruction: 1 x 6 mg tablet Condition: Dose/Route: 6 mg Instruction: 1 x 6 mg tablet Condition: Friday Dose/Route: 6 mg Instruction: 1 x 6 mg tablet Condition: Friday Dose/Route: 6 mg Instruction: 1 x 6 mg tablet Protocol Text: Adjustment Start Date: Friday03/25/23 INR Value: 2.2 INR Date: 03/25/23 Recheck Date: 04/24/23 Rx Instructions: daily pantoprazole [Protonix] 40 mg tablet,delayed release (DR/EC) 40 mg PO QAM Qty: 90 3RF triamterene-hydrochlorothiazid 37.5-25 mg tablet 1 tab PO Q2D Qty: 24 3RF Rx Instructions: Mon & Fri albuterol sulfate [ProAir HFA] 90 mcg/actuation HFA aerosol inhaler 2 puff inhalation Q4H PRN (Reason: shortness of breath or wheezing) Qty: 6.7 0RF ipratropium bromide 0.02 % solution 2.5 ml inhalation Q6H PRN (Reason: shortness of breath or wheezing) Qty: 75 11RF multivitamin [Multiple Vitamins] Tablet 1 tab PO QAM ascorbic acid (vitamin C) [Vitamin C] 500 mg Tablet 500 mg PO QAM calcium carbonate-vitamin D3 [Calcium 500 + D] 500 mg(1,250mg) -200 unit Tablet 1 tab PO QAM cholecalciferol (vitamin D3) [Vitamin D3] 5,000 unit Tablet 5,000 unit PO QAM aspirin 81 mg Tablet,Delayed Release (Dr/Ec) 81 mg PO QAM epinephrine 0.3 mg/0.3 mL auto-injector 0.3 mg IM UD PRN (Reason: Allergic Reaction) epinephrine [EpiPen] 0.3 mg/0.3 mL auto-injector 0.3 mg IM Q4H PRN (Reason: anaphylaxis) Qty: 2 0RF Referrals Referrals: Ally Serna MD [Primary Care Provider] -
[2023-03-30] MEDS ORDERED: ONDANSETRON INJ 2 MG/ML 2 ML VIAL IV STA (22:51)
--- NOTE | 2023-03-30 22:53 | CT Scan Report ---
Exam(s): CT HEAD Without Contrast EXAM: CT Head Without Intravenous Contrast CLINICAL HISTORY: Reason for exam: fall. TECHNIQUE: Axial computed tomography images of the head/brain without intravenous contrast. CTDI is 35.65 mGy and DLP is 625.8 mGy-cm. Automated exposure control was utilized for the study. A dose lowering technique was utilized adhering to the principles of ALARA. COMPARISON: No relevant prior studies available. FINDINGS: No acute intracranial hemorrhage. No midline shift or mass effect. The territorial martinez-white matter differentiation is maintained throughout. Age-related cerebral volume loss. Periventricular and subcortical white matter hypoattenuation, consistent with chronic microangiopathy. The visualized orbits appear grossly unremarkable. The calvarium is intact. The visualized paranasal sinuses and mastoid air cells are grossly clear. IMPRESSION: No acute intracranial hemorrhage, midline shift, or mass effect. Electronically signed by: Florencio Torres MD 03/30/23 22:52 PM
[2023-03-30 23:04] LABS: Albumin Globulin Ratio 1.5 (0.9-2); Bilirubin,Total 1.1 mg/dl (0.2-1.0); Creatinine Clr Calc Pharmacy 42.7 ml/min; Est GFR (African American) 75.7 ml/min; Est GFR (Non-African American) 65.3 ml/min; Globulin 2.7 gm/dl (2.5-4.0); Potassium 3.9 mmol/L (3.5-5.1); Total Protein 6.7 gm/dl (6.0-8.3)
[2023-03-30 23:08] LABS: Basophils # (auto) 0.03 K/uL (0.00-0.20); Basophils % (auto) 0.4 %; Eosinophils # (auto) 0.01 K/uL (0.00-0.50); Eosinophils % (auto) 0.1 %; Hematocrit (blood only) 43.3 % (37.0-47.0); Hemoglobin 14.6 g/dl (12.0-16.0); Immature Granulocytes # (auto) 0.04 K/uL (0.01-0.20); Immature Granulocytes % (auto) 0.5 %; Lymphocytes # (auto) 1.13 K/uL (1.20-3.40); Lymphocytes % (auto) 14.8 %; Mean Corpuscular Hemoglobin 28.1 pg (25.0-34.0); Mean Corpuscular Hgb Conc 33.7 g/dL (32.0-36.0); Mean Corpuscular Volume 83.4 fL (80.0-100.0); Mean Platelet Volume 9.7 fL (9.4-12.4); Monocytes # (auto) 1.08 K/uL (0.11-0.59); Monocytes % (auto) 14.1 %; Neutrophils # (auto) 5.37 K/uL (1.40-6.50); Neutrophils % (auto) 70.1 %; Platelet Count 175 K/uL (130-400); RDW Coefficient of Variation 15.7 % (11.5-14.5); RDW Standard Deviation 47.2 fL (36.4-46.3); Red Blood Count 5.19 M/uL (4.20-5.40); White Blood Count 7.66 K/ul (4.8-10.8)
[2023-03-30 23:10] LABS: Troponin I High Sensitivity 7.9 pg/ml (0-14)
[2023-03-30 23:24] LABS: INR 2.4 (0.9-1.1); Prothrombin Time 24.8 Seconds (9.0-12.0)
--- NOTE | 2023-03-30 23:28 | History & Physical Report ---
Date of Service March 30, 2023 Assessment & Plan (1) Allergic reaction: (2) Syncope: (3) Acute hyponatremia: (4) Atrial flutter with controlled response: Plan Syncope- The patient will be admitted to telemetry for serial cardiac enzymes, serial EKG's, cardiac rhythm monitoring Differential causes including but not limited to: Hyponatremia, micturition syncope, recent bee sting and treatment CT scan head negative Hyponatremia- Sodium 126 Serum osmolality 263 Urine osmolality 583 Consistent with SIADH versus HCTZ Hold triamterene/HCTZ Status post 1 L normal saline from the ED Recheck laboratories in a.m. Paroxysmal atrial flutter/status post Maze procedure- Continue warfarin INR therapeutic at 2.4, follow serially Continue metoprolol, aspirin Asthma- Continue Symbicort, albuterol HFA History of Present Illness Chief Complaint: The patient presents to the emergency department via EMS after a syncopal episode, where she found herself on the floor after going into the bathroom. She denies any trauma or hitting her head or any joint or other body pains. She reports having an allergic reaction after having been stung by a bee on her right bicep on 03/28, after which she gave herself a dose of her EpiPen, a friend called 911, and she was then taken to the ED for assessment. She reports that she has been more fatigued since then, and reports having slept most of the day on 03/30. She does report a loss of bladder control with the episode Primary Care Provider: Ally Serna MD The patient is a 88-year-old female with a past medical history including long- term anticoagulant use, UTI, paroxysmal atrial flutter, venom induced anaphylaxis, secondary hyperparathyroidism, status post tricuspid valve repair, status post mitral valve replacement with bioprosthetic valve, intrinsic asthma, GERD, chronic venous insufficiency and asthma. She presents to the emergency department as noted above. Significant laboratories: Sodium 126, glucose 127, INR 2.4, total bilirubin 1.1, serum osmolality 263 and urine osmolality 583 CT scan head was negative Chest x-ray was negative From the ED the patient received the following: Normal saline 500 mls IV bolus, Zofran 4 mg IV, and Cipro 400 mg IV Allergies Allergy/AdvReac Type Severity Reaction Status Date / Time bee venom protein (honey bee) Allergy Severe ANAPHYLAXIS Verified 03/31/23 00:00 cocoa butter Allergy Severe Hives Verified 03/31/23 00:00 [From Preparation H] glycerin [From Preparation H] Allergy Severe Hives Verified 03/31/23 00:00 mineral oil Allergy Severe Hives Verified 03/31/23 00:00 [From Preparation H] petrolatum,white Allergy Severe Hives Verified 03/31/23 00:00 [From Preparation H] phenylephrine Allergy Severe Hives Verified 03/31/23 00:00 [From Preparation H] shark liver oil Allergy Severe Hives Verified 03/31/23 00:00 [From Preparation H] cefuroxime [From Ceftin] Allergy Intermediate Rash Verified 03/31/23 00:00 clarithromycin Allergy Intermediate RASH AND Verified 03/31/23 00:00 FACIAL SWELLING fluconazole Allergy Intermediate INCREASED Verified 03/31/23 00:00 HEART RATE sulfamethoxazole Allergy Intermediate RASH AND Verified 03/31/23 00:00 FACIAL SWELLING trimethoprim Allergy Intermediate RASH AND Verified 03/31/23 00:00 FACIAL SWELLING bacitracin Allergy Mild Rash Verified 03/31/23 00:00 NSAIDS (Non-Steroidal AdvReac Intermediate Pt had Verified 03/31/23 00:01 Anti-Inflamma Open Heart Surgery ketamine AdvReac Mild VOMITING Verified 03/31/23 00:01 Home Medications Medication Instructions Recorded Confirmed Type ascorbic acid (vitamin C) 500 mg 500 mg PO QAM 03/24/18 03/31/23 History tablet (Vitamin C) calcium carbonate 500 mg-vitamin 1 tab PO QAM 03/24/18 03/31/23 History D3 5 mcg (200 unit) tablet (Calcium 500 + D) cholecalciferol (vitamin D3) 125 5,000 unit PO QAM 03/24/18 03/31/23 History mcg (5,000 unit) tablet (Vitamin D3) multivitamin (Multiple Vitamins 1 tab PO QAM 03/24/18 03/31/23 History tablet) aspirin 81 mg tablet,delayed 81 mg PO QAM 03/23/21 03/31/23 History release epinephrine 0.3 mg/0.3 mL 0.3 mg IM UD PRN Allergic Reaction 03/23/21 03/31/23 History injection, auto-injector biotin 2,500 mcg capsule 2,500 mcg PO QAM 09/19/21 03/31/23 History albuterol sulfate 90 mcg/actuation 2 puff inhalation Q4H PRN 10/09/21 03/31/23 Rx aerosol inhaler (ProAir HFA) shortness of breath or wheezing #6.7 grams ipratropium bromide 0.02 % 2.5 ml inhalation Q6H PRN 02/20/22 03/31/23 Rx solution for inhalation shortness of breath or wheezing #75 mL fluticasone 250 mcg-salmeterol 50 1 inh inhalation QAM #60 ea 08/27/22 03/31/23 Rx mcg/dose blistr powdr for inhalation (Advair Diskus) pantoprazole 40 mg tablet,delayed 40 mg PO QAM #90 tabs 09/17/22 03/31/23 Rx release (Protonix) metoprolol succinate 25 mg 12.5 mg PO QAM #45 tabs 10/11/22 03/31/23 Rx tablet,extended release 24 hr (Toprol XL) colestipol 1 gram tablet 1 g PO DAILY 10/14/22 03/31/23 History mupirocin 2 % topical ointment 1 applic topical BID #15 grams 10/14/22 03/31/23 Rx Prolia 60 mg/mL subcutaneous 60 mg subcut .Q6M #1 mL 12/19/22 03/31/23 Rx syringe (denosumab) atorvastatin 40 mg tablet (Lipitor) 40 mg PO HS #90 tabs 01/07/23 03/31/23 Rx nitrofurantoin macrocrystal 25 mg See Rx Instructions PO .COMPLEX #4 01/10/23 03/25/23 Rx capsule caps clarithromycin 250 mg tablet See Rx Instructions PO .COMPLEX #3 01/28/23 03/25/23 Rx tabs triamterene 37.5 1 tab PO 2XWK 03/31/23 03/31/23 History mg-hydrochlorothiazide 25 mg tablet warfarin 6 mg tablet 6 mg PO [id number] 03/31/23 03/31/23 History warfarin 6 mg tablet 9 mg PO WK 03/31/23 03/31/23 History Past Med/Surg History Medical History Anticoagulant long-term use Asthma Atrial flutter with controlled response (2019) Dysphagia Dysphagia Esophageal pain Gastroenteritis Goiter H/O gastroesophageal reflux (GERD) Hiatal hernia History of esophageal dilatation History of pacemaker Hypertension Migraines Osteoporosis Severe mitral regurgitation Tricuspid valve disease Surgical History Biopsy of breast (2012) Cystocele H/O exploratory laparotomy H/O hemorrhoidectomy H/O knee surgery H/O maze procedure H/O shoulder surgery History of back surgery History of bilateral tubal ligation History of bladder surgery History of breast biopsy History of cardiac cath History of carpal tunnel release History of cataract surgery History of colonoscopy History of esophagogastroduodenoscopy (EGD) History of foot surgery History of hand surgery History of hysterectomy History of incisional hernia repair (03/27/21) History of oophorectomy History of rectocele History of total abdominal hysterectomy History of tricuspid valve replacement Hx laparoscopic cholecystectomy (11/21/21) S/P cervical spinal fusion S/P hysterectomy (2012) S/P Maze operation for atrial fibrillation (2017) S/P STERLING-BSO Family History Aunt Breast cancer Brother Diabetes Sister Breast cancer Myocardial infarction Ovarian cancer Diabetes Father Myocardial infarction Mother Myocardial infarction Diabetes Social History Smoking Status: Never smoker Second Hand Exposure: No; Do You Dip or Chew Tobacco: No; Hx Alcohol Use: No Hx Substance Use: No Preferred Language: Mexican Communication Ability: Effective Visual Impairment: No Limitations Hearing Ability: Normal 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 Beliefs That Will Affect Care: None marital status: Current Living Situation: Alone Current Living Situation Comment: lives with daughter partition assembly machine operator in [place] in winter current occupation: Retired How many Children do You have: 2 Feels Safe at Home: Yes Seatbelt Use: always Assistive Devices: None Review of Systems Review of Systems: The patient denies chest pain, palpitations, shortness of breath, dyspnea on exertion, cough, lower extremity swelling, sore throat, fevers, chills, sweats, nausea, vomiting, diarrhea , constipation, abdominal pain, pelvic pain, blood in urine or stool, dysuria, urinary frequency or urgency, lightheadedness, dizziness, headache, rash, abnormal bruising or bleeding, focal weakness, numbness or tingling in arms or legs, generalized arthralgias or myalgias, back or neck pain, or night sweats. The review of systems is otherwise negative other than for that already noted above, and at least 10 systems have been reviewed. Physical Exam Physical Exam: The patient is awake, alert and oriented 3, well developed and well nourished, normocephalic and atraumatic, lying in bed and in no acute distress. HEENT--PERRL, EOMI, mucous membranes and oropharynx mildly normal. Neck--supple. No JVD. No bruits. Thyroid normal, trachea midline, no adenopathy. Heart--normal S1 and S2. No murmurs, rubs or gallops. Lungs--clear bilaterally, no respiratory distress, no accessory muscle use. Abdomen--normal bowel sounds and soft. Nontender. Nondistended Extremities--no cyanosis or clubbing. No edema. Dermatologic--normal skin turgor, normal color, no abnormal lymph nodes, no rash. Neurologic--cranial nerves II through XII grossly intact. Rheumatologic--normal range of motion. Psychiatric--normal affect. Results & Data Results & Data Vital Signs (Past 12 Hours) Vital Signs Temp Pulse Pulse Resp BP BP Pulse Ox 03/30/23 23:00 81 18 145/86 H 95 03/30/23 23:03 88 L 03/30/23 22:31 94 03/30/23 22:38 37.1 C 80 20 172/95 H 94 O2 Del Method O2 Flow Rate 03/30/23 23:00 Nasal Cannula 2 03/30/23 23:03 Room Air, Nasal Cannula 03/30/23 22:31 Room Air 03/30/23 22:38 Room Air Laboratory Results Laboratory Results WBC 7.66 K/ul (4.8-10.8) 03/30/23 22:30 RBC 5.19 M/uL (4.20-5.40) 03/30/23 22:30 Hgb 14.6 g/dl (12.0-16.0) 03/30/23 22:30 Hct 43.3 % (37.0-47.0) 03/30/23 22: MCV 83.4 fL (80.0-100.0) 03/30/23 22: MCH 28.1 pg (25.0-34.0) 03/30/23 22: MCHC 33.7 g/dL (32.0-36.0) 03/30/23: RDW Std Deviation 47.2 fL (36.4-46.3) H 03/30/23: RDW Coeff of Linda 15.7 % (11.5-14.5) H 03/30/23: Plt Count 175 K/uL (130-400) 03/30/23: MPV 9.7 fL (9.4-12.4) 03/30/23: Immature Gran % (Auto) 0.5 % 03/30/23: Neut % (Auto) 70.1 % 03/30/23: Lymph % (Auto) 14.8 % 03/30/23: [place] % (Auto) 14.1 % 03/30/23 22: Eos % (Auto) 0.1 % 03/30/23: Baso % (Auto) 0.4 % 03/30/23: Neut # (Auto) 5.37 K/uL (1.40-6.50) 03/30/23 22: Lymph # (Auto) 1.13 K/uL (1.20-3.40) L 03/30/23 22:30 [place] # (Auto) 1.08 K/uL (0.11-0.59) H 03/30/23 22:30 Eos # (Auto) 0.01 K/uL (0.00-0.50) 03/30/23: Baso # (Auto) 0.03 K/uL (0.00-0.20) 03/30/23: Immature Gran # (Auto) 0.04 K/uL (0.01-0.20) 03/30/23 22: PT 24.8 Seconds (9.0-12.0) H 03/30/23 22:30 INR 2.4 (0.9-1.1) H 03/30/23 22:30 Sodium 126 mmol/L (136-145) L 03/30/23 22: Potassium 3.9 mmol/L (3.5-5.1) 03/30/23 22: Chloride 94 mmol/L (98-107) L 03/30/23 22: Carbon Dioxide 25 mmol/L (21-32) 03/30/23 22: Anion Gap 7 (3-11) 03/30/23 22: BUN 13 mg/dl (6-23) 03/30/23 22: Creatinine 0.81 mg/dl (0.6-1.2) 03/30/23 22: Est Cr Clr Drug Dosing 42.7 ml/min 03/30/23 22:30 Est GFR ( Amer) 75.7 ml/min 03/30/23 22:30 Est GFR (Non-Af Amer) 65.3 ml/min 03/30/23: BUN/Creatinine Ratio 16.0 (10-20) 03/30/23 22: Glucose 127 mg/dl (70-99(Fasting)) H 03/30/23 22: Osmolality 263 mOsm/kg (280-300) L 03/30/23: Calcium 9.0 mg/dl (8.6-10.3) 03/30/23: Total Bilirubin 1.1 mg/dl (0.2-1.0) H 03/30/23 22: AST 26 U/L (13-39) 03/30/23 22: ALT 16 U/L (7-52) 03/30/23 22: Alkaline Phosphatase 52 U/L (34-104) 03/30/23 22: Troponin I High Sens 7.9 pg/ml (0-14) 03/30/23 22: Total Protein 6.7 gm/dl (6.0-8.3) 03/30/23 22: Albumin 4.0 gm/dl (3.4-5.0) 03/30/23: Globulin 2.7 gm/dl (2.5-4.0) 03/30/23: Albumin/Globulin Ratio 1.5 (0.9-2) 03/30/23 22: Lipase 33 U/L (11-82) 03/30/23 22:30 Urine Color Yellow 03/30/23 23:21 Urine Appearance Cloudy (Clear) A 03/30/23 23:21 Urine pH 7.5 (4.5-7.5) 03/30/23 23:21 Ur Specific [place] 1.015 (1.000-1.030) 03/30/23 23:21 Urine Protein Negative (Negative) 03/30/23 23:21 Urine Glucose (UA) Negative (Negative) 03/30/23 23:21 Urine Ketones Trace (Negative) H 03/30/23 23:21 Urine Blood Negative (Negative) 03/30/23 23:21 Urine Nitrite Positive (Negative) A 03/30/23 23:21 Urine Bilirubin Negative (Negative) 03/30/23 23:21 Urine Urobilinogen Negative (Negative) 03/30/23 23:21 Ur Leukocyte Esterase 3+ (Negative) H 03/30/23 23:21 Urine WBC (Auto) >30 /hpf (0-5) H 03/30/23 23:21 Urine RBC (Auto) 5-10 /hpf (0-4) H 03/30/23 23:21 U Hyaline Cast (Auto) 1-5 /lpf (0-5) 03/30/23 23:21 U Epithel Cells (Auto) 10-20 /lpf (0-5) H 03/30/23 23:21 Urine Bacteria (Auto) 3+ (Negative) H 03/30/23 23:21 Urine Osmolality 583 mOsm/kg (500-800) 03/30/23 23:21 Adenovirus (PCR) Not Detected (NotDetected) 03/30/23 23:17 B. pertussis DNA (PCR) Not Detected (NotDetected) 03/30/23 23:17 B.parapertussis DNA PCR Not Detected (NotDetected) 03/30/23 23:17 C. pneumoniae DNA (PCR) Not Detected (NotDetected) 03/30/23 23:17 Coronavirus OC43 (PCR) Not Detected (NotDetected) 03/30/23 23:17 Coronavirus HKU1 (PCR) Not Detected (NotDetected) 03/30/23 23:17 Coronavirus 229E (PCR) Not Detected (NotDetected) 03/30/23 23:17 SARS-CoV-2 (PCR) Not Detected (NotDetected) 03/30/23 23:17 Coronavirus NL63 (PCR) Not Detected (NotDetected) 03/30/23 23:17 Human Metapneumovir PCR Not Detected (NotDetected) 03/30/23 23:17 Influenza Type A (PCR) Not Detected (NotDetected) 03/30/23 23:17 Influenza Type B (PCR) Not Detected (NotDetected) 03/30/23 23:17 M. pneumoniae (PCR) Not Detected (NotDetected) 03/30/23 23:17 Parainfluenza 1 (PCR) Not Detected (NotDetected) 03/30/23 23:17 Parainfluenza 2 (PCR) Not Detected (NotDetected) 03/30/23 23:17 Parainfluenza 3 (PCR) Not Detected (NotDetected) 03/30/23 23:17 Parainfluenza 4 (PCR) Not Detected (NotDetected) 03/30/23 23:17 RSV (PCR) Not Detected (NotDetected) 03/30/23 23:17 Entero/Rhino (PCR) Not Detected (NotDetected) 03/30/23 23:[address] 03/30/23 22:29 Exam(s): CT HEAD Without Contrast EXAM: CT Head Without Intravenous Contrast CLINICAL HISTORY: Reason for exam: fall. TECHNIQUE: Axial computed tomography images of the head/brain without intravenous contrast. CTDI is 35.65 mGy and DLP is 625.8 mGy-cm. Automated exposure control was utilized for the study. A dose lowering technique was utilized adhering to the principles of ALARA. COMPARISON: No relevant prior studies available. FINDINGS: No acute intracranial hemorrhage. No midline shift or mass effect. The territorial martinez-white matter differentiation is maintained throughout. Age-related cerebral volume loss. Periventricular and subcortical white matter hypoattenuation, consistent with chronic microangiopathy. The visualized orbits appear grossly unremarkable. The calvarium is intact. The visualized paranasal sinuses and mastoid air cells are grossly clear. IMPRESSION: No acute intracranial hemorrhage, midline shift, or mass effect. Electronically signed by: Florencio Torres MD 03/30/23 22:52 PM Code Status & VTE Plan Code Status Full code VTE Prophylaxis Plan VTE Prophylaxis will be ordered: Yes PG Care Time/CCT Total # of Minutes Spent Total Time Spent with Patient: Total time spent is greater than 50% in coordination of care (as documented) at patient's floor/unit and/or counseling patient: Coding Level of Care Code 18733 INT INP/OBS CARE 375MIN Diagnoses Allergic reaction T78.40XA Syncope R55 Acute hyponatremia E87.1 Atrial flutter with controlled response I48.92
[2023-03-30 23:41] LABS: Appearance Urine Cloudy (Clear); Bacteria Urine Automated 3+ (Negative); Bilirubin Urine Negative (Negative); Blood Urine Negative (Negative); Color Urine Yellow; Glucose Urine UA Negative (Negative); Ketones Urine Trace (Negative); Leukocyte Esterase Urine 3+ (Negative); Nitrite Urine Positive (Negative); Protein Urine Negative (Negative); Specific Gravity Urine 1.015 (1.000-1.030); Urobilinogen Urine Negative (Negative); WBC Urine Automated >30 /hpf (0-5); pH Urine 7.5 (4.5-7.5)
[2023-03-30] MEDS ORDERED: CIPROFLOXACIN / D5W 400 MG/200 ML BAG IV STA (23:45)
[2023-03-31 00:27] LABS: Adenovirus PCR Not Detected (NotDetected); Bordetella parapertussis PCR Not Detected (NotDetected); Bordetella pertussis PCR Not Detected (NotDetected); Chlamydia pneumoniae PCR Not Detected (NotDetected); Coronavirus 229E PCR Not Detected (NotDetected); Coronavirus CoV-2 (COVID19)PCR Not Detected (NotDetected); Coronavirus HKU1 PCR Not Detected (NotDetected); Coronavirus NL63 PCR Not Detected (NotDetected); Coronavirus OC43PCR Not Detected (NotDetected); Human Metapneumovirus PCR Not Detected (NotDetected); Influenza A PCR Not Detected (NotDetected); Influenza B PCR Not Detected (NotDetected); Mycoplasma pneumoniae PCR Not Detected (NotDetected); Parainfluenza Virus 1 PCR Not Detected (NotDetected); Parainfluenza Virus 2 PCR Not Detected (NotDetected); Parainfluenza Virus 3 PCR Not Detected (NotDetected); Parainfluenza Virus 4 PCR Not Detected (NotDetected); Respiratory Syncytial VirusPCR Not Detected (NotDetected); Rhinovirus/Enterovirus PCR Not Detected (NotDetected)
[2023-03-31] MEDS ORDERED: ONDANSETRON INJ 2 MG/ML 2 ML VIAL IV PRN (02:01)
[2023-03-31] MEDS ORDERED: ACETAMINOPHEN 325 MG TAB PO PRN (02:01)
[2023-03-31 05:22] LABS: INR 2.2 (0.9-1.1)
[2023-03-31 05:29] LABS: Basophils # (auto) 0.02 K/uL (0.00-0.20); Basophils % (auto) 0.4 %; Eosinophils # (auto) 0.15 K/uL (0.00-0.50); Eosinophils % (auto) 2.7 %; Hematocrit (blood only) 40.8 % (37.0-47.0); Hemoglobin 13.9 g/dl (12.0-16.0); Immature Granulocytes # (auto) 0.02 K/uL (0.01-0.20); Immature Granulocytes % (auto) 0.4 %; Lymphocytes # (auto) 1.02 K/uL (1.20-3.40); Lymphocytes % (auto) 18.5 %; Mean Corpuscular Hemoglobin 28.5 pg (25.0-34.0); Mean Corpuscular Hgb Conc 34.1 g/dL (32.0-36.0); Mean Corpuscular Volume 83.8 fL (80.0-100.0); Monocytes % (auto) 12.7 %; Neutrophils # (auto) 3.59 K/uL (1.40-6.50); Neutrophils % (auto) 65.3 %; Platelet Count 154 K/uL (130-400); RDW Coefficient of Variation 15.6 % (11.5-14.5); RDW Standard Deviation 47.6 fL (36.4-46.3); Red Blood Count 4.87 M/uL (4.20-5.40)
[2023-03-31 05:36] LABS: Albumin Globulin Ratio 1.5 (0.9-2); Albumin Level 3.5 gm/dl (3.4-5.0); BUN Creatinine Ratio 14.1 (10-20); Calcium 8.4 mg/dl (8.6-10.3); Creatinine Clr Calc Pharmacy 44.4 ml/min; Est GFR (African American) 79.2 ml/min; Est GFR (Non-African American) 68.4 ml/min; Globulin 2.4 gm/dl (2.5-4.0); Magnesium 1.7 mg/dl (1.7-2.4); Total Protein 5.9 gm/dl (6.0-8.3)
[2023-03-31 05:40] LABS: Troponin I High Sensitivity 8.9 pg/ml (0-14)
--- NOTE | 2023-03-31 07:27 | XRay Report ---
SINGLE VIEW CHEST CLINICAL HISTORY: Atypical chest pain. FINDINGS: 2 AP, portable, upright chest radiographs are compared to study dated 03/28/2023. The patie nt is status post midline sternotomy and cardiac valve surgery. The heart is enlarged noting atherosc lerotic calcification of the thoracic aorta. The pulmonary vasculature is noncongested. Chronic inter stitial thickening is similar to previous. There is bibasilar scarring/atelectasis. The lungs and ple ural spaces are otherwise clear. No pneumothorax is seen. The skeletal structures are osteopenic. The bony thorax is grossly intact. Fusion hardware is seen in the lower cervical spine. Arthritic change is noted in the shoulders. Cholecystectomy clips are seen in the right upper quadrant. IMPRESSION: Cardiomegaly with no active disease in the chest. ACT 112: Negative or not required by law. Electronically signed by: Jorje Quispe M.D. 03/31/2023 7:26 AM
--- NOTE | 2023-03-31 08:44 | Hospitalist Progress Note ---
Date of Service March 31, 2023 Assessment & Plan (1) Syncope: Plan: pt was found on bathroom floor, no apparrent injury has history of aflutter s/p MAZE on AC history of tricusppid valve repair, mitral valve replacement (bioprosthetic) Continue warfarin INR therapeutic at 2.4, follow serially Continue metoprolol, aspirin monitor for arrythmia but pt has persistent Hyponatremia (2) Acute UTI: Plan: Acute urinary tract infection present on admission. Previous Klebsiella. Continue ciprofloxacin started emergency department await formal culture results Or perhaps follow-up was resulted metabolic encephalopathy from UTI POA (3) Acute hyponatremia: Plan: pt on HCTZ did receive nss in ER, no change in sodium overnight, will fluid restrict and consider hypertonic saline is putting out a dilute urine maybe trying to correct already (4) Asthma: Plan: Asthma- Continue Symbicort, albuterol HFA Admission and Anticipated Discharge Date Admission Date: March 30, 2023 Subjective Patient is awake and alert she can recall events that happened she did not recall getting to go to the bathroom but passed out pushing with the bathroom she was slightly constipated. Patient has had frequent urinary tract infections in the most recent past with a pansensitive Klebsiella Daughter called in [place] and updated Hyponatremia persists we will fluid restrict Physical Exam Physical Exam: Awake alert appropriate. No traumatic injury from falling. Card exam is regular with a systolic murmur consistent with her previous valvular repair. Lungs are clear without wheezes or crackles She is with no focal neurological deficits Results & Data Results & Data Vital Signs (Past 12 Hours) Vital Signs Temp Pulse Pulse Resp BP BP Pulse Ox 03/31/23 07:30 63 18 111/65 97 03/30/23 23:30 63 03/31/23 02:00 65 19 129/69 97 03/31/23 02:00 03/31/23 01:00 72 17 124/69 95 03/31/23 00:00 76 18 136/77 97 03/30/23 23:00 81 18 145/86 H 95 03/30/23 23:03 88 L 03/30/23 22:31 94 03/30/23 22:38 98.8 F 80 20 172/95 H 94 Pulse Ox O2 Del Method O2 Del Method O2 Flow Rate O2 Flow Rate 03/31/23 07:30 Room Air 03/30/23 23:30 03/31/23 02:00 Nasal Cannula 2 03/31/23 02:00 97 Nasal Cannula 2 03/31/23 01:00 Nasal Cannula 2 03/31/23 00:00 Nasal Cannula 2 03/30/23 23:00 Nasal Cannula 2 03/30/23 23:03 Room Air, Nasal Cannula 03/30/23 22:31 Room Air 03/30/23 22:38 Room Air Laboratory Results Reviewed CBC reviewed PRP reviewed osmolality PG Care Time/CCT Total # of Minutes Spent Total Time Spent with Patient: Total time spent is greater than 50% in coordination of care (as documented) at patient's floor/unit and/or counseling patient: Coding Level of Care Code 18558 SUB INP/OBS CARE 3/50MIN Diagnoses Syncope R55 Acute UTI N39.0 Acute hyponatremia E87.1 Asthma J45.909
--- NOTE | 2023-03-31 13:27 | Electrocardiogram Report ---
Test Reason : Blood Pressure : / mmHG Vent. Rate : 085 BPM Atrial Rate : 085 BPM P-R Int : 000 ms QRS Dur : 086 ms QT Int : 386 ms P-R-T Axes : 000 -08 -19 degrees QTc Int : 459 ms Atrial flutter Low voltage QRS Borderline ECG When compared with ECG of 28-MAR-2023 13:09, Atrial flutter has replaced sinus rhythm Confirmed by Jalil Wynn ([id number]) on 03/31/2023 1:26:40 PM Referred By: REFERRED SELF Confirmed By:Raul Wynn
[2023-03-31] MEDS ORDERED: IPRATROPIUM BROMIDE NEB SOLN 0.02% 2.5 ML VIAL INH PRN (18:09)
[2023-03-31] MEDS: CIPROFLOXACIN / D5W 400 MG/200 ML BAG IV SCH (19:52)
[2023-03-31] MEDS: WARFARIN SOD 6 MG TAB PO SCH (19:54)
[2023-04-01] MEDS: CIPROFLOXACIN / D5W 400 MG/200 ML BAG IV SCH (06:38)
[2023-04-01 06:56] LABS: Basophils # (auto) 0.03 K/uL (0.00-0.20); Basophils % (auto) 0.4 %; Eosinophils # (auto) 0.01 K/uL (0.00-0.50); Eosinophils % (auto) 0.1 %; Hematocrit (blood only) 42.5 % (37.0-47.0); Hemoglobin 14.5 g/dl (12.0-16.0); Immature Granulocytes # (auto) 0.04 K/uL (0.01-0.20); Immature Granulocytes % (auto) 0.5 %; Lymphocytes # (auto) 1.47 K/uL (1.20-3.40); Lymphocytes % (auto) 17.9 %; Mean Corpuscular Hemoglobin 28.4 pg (25.0-34.0); Mean Corpuscular Hgb Conc 34.1 g/dL (32.0-36.0); Mean Corpuscular Volume 83.2 fL (80.0-100.0); Mean Platelet Volume 10.1 fL (9.4-12.4); Monocytes # (auto) 1.53 K/uL (0.11-0.59); Monocytes % (auto) 18.6 %; Neutrophils # (auto) 5.13 K/uL (1.40-6.50); Neutrophils % (auto) 62.5 %; Platelet Count 140 K/uL (130-400); RDW Coefficient of Variation 15.8 % (11.5-14.5); RDW Standard Deviation 47.8 fL (36.4-46.3); Red Blood Count 5.11 M/uL (4.20-5.40); White Blood Count 8.21 K/ul (4.8-10.8)
[2023-04-01 07:18] LABS: Albumin Globulin Ratio 1.3 (0.9-2); Albumin Level 3.4 gm/dl (3.4-5.0); BUN Creatinine Ratio 19.2 (10-20); Bilirubin,Total 1.1 mg/dl (0.2-1.0); Calcium 8.3 mg/dl (8.6-10.3); Creatinine Clr Calc Pharmacy 47.4 ml/min; Est GFR (African American) 85.8 ml/min; Est GFR (Non-African American) 74.1 ml/min; Globulin 2.6 gm/dl (2.5-4.0); Magnesium 1.9 mg/dl (1.7-2.4); Potassium 3.5 mmol/L (3.5-5.1)
[2023-04-01 07:36] LABS: INR 1.8 (0.9-1.1); Prothrombin Time 18.7 Seconds (9.0-12.0)
[2023-04-01] MEDS: METOPROLOL SUCC 25MG EXT REL TAB PO SCH (08:55)
[2023-04-01] MEDS: PANTOprazole 40 MG TAB PO SCH (08:55)
[2023-04-01] MEDS: ASPIRIN 81 MG ECTAB PO SCH (08:56)
[2023-04-01] MEDS: FLUTICASONE/VILANTEROL 100/25MCG 14 PUFFS/INHALER INH SCH (08:57)
[2023-04-01] MEDS ORDERED: PIPER/TAZO 4.5g in D5W MINI-B 100 ML IV ONE (14:45)
--- NOTE | 2023-04-01 15:17 | Hospitalist Progress Note ---
Date of Service April 01, 2023 Assessment & Plan (1) Syncope: Plan: pt was found on bathroom floor, no apparent injury, initial Head CT negative, will repeat 04/01/23as some functional limitations on PT has history of aflutter s/p MAZE on AC history of tricuspid valve repair, mitral valve replacement (bioprosthetic) continue warfarin, follow INR Continue metoprolol, aspirin monitor for arrhythmia but pt has persistent Hyponatremia (2) Acute UTI: Plan: Acute urinary tract infection present on admission. Previous Klebsiella. Identified as GR negative, await formal culture results fever overnight, altough cx in the past did not show resistance, will change antibiotics to Zosyn Or perhaps follow-up was resulted metabolic encephalopathy from UTI POA (3) Acute hyponatremia: Plan: pt on HCTZ did receive nss in ER, no change in sodium overnight, will fluid restrict and consider hypertonic saline is putting out a dilute urine maybe trying to correct already (4) Asthma: Plan: Asthma- Continue Symbicort, albuterol HFA Admission and Anticipated Discharge Date Admission Date: March 31, 2023 Subjective Patient is awake and alert she can recall events that happened she did not recall getting to go to the bathroom but passed out pushing with the bathroom she was slightly constipated. Patient has had frequent urinary tract infections in the most recent past with a pansensitive Klebsiella Daughter called in [place] and updated Hyponatremia persists continue to fluid restrict Physical Exam Physical Exam: Awake alert appropriate. No traumatic injury from falling. Card exam is regular with a systolic murmur consistent with her previous valvular repair. Lungs are clear without wheezes or crackles She is with no focal neurological deficits Results & Data Results & Data Vital Signs (Past 12 Hours) Vital Signs Temp Pulse Pulse Resp BP Pulse Ox O2 Del Method 04/01/23 12:03 99.0 F 65 16 107/70 95 Room Air 04/01/23 08:00 Nasal Cannula 04/01/23 08:33 98.2 F 59 L 16 110/70 93 Nasal Cannula 04/01/23 07:21 71 O2 Flow Rate 04/01/23 12:03 04/01/23 08:00 1 04/01/23 08:33 1 04/01/23 07:21 Laboratory Results reviewed cbc reviewed prp PG Care Time/CCT Total # of Minutes Spent Total Time Spent with Patient: Total time spent is greater than 50% in coordination of care (as documented) at patient's floor/unit and/or counseling patient: Coding Level of Care Code 25848 SUB INP/OBS CARE 235MIN Diagnoses Syncope R55 Acute UTI N39.0 Acute hyponatremia E87.1 Asthma J45.909
[2023-04-01] MEDS: WARFARIN SOD 6 MG TAB PO SCH (16:00)
--- NOTE | 2023-04-01 16:21 | CT Scan Report ---
CT SCAN OF THE BRAIN WITHOUT IV CONTRAST CLINICAL HISTORY: Fall. COMPARISON STUDY: CT of the brain dated 03/30/2023. TECHNIQUE: Unenhanced axial CT scan of the brain is performed from the vertex to the skull base. A do se lowering technique was utilized adhering to the principles of ALARA. CT DOSE: 625.8 mGy.cm FINDINGS: Brain parenchyma: There is age-related involutional change noting mild subcortical and periventricula r microangiopathic disease. There is no hemorrhage, mass effect, or evidence of acute territorial isc hemia by CT criteria. A focus of right temporal encephalomalacia is consistent with a remote insult. Lawler-white matter differentiation is preserved. No extra-axial fluid collection is seen. Ventricles, sulci, cisterns: Prominent secondary to involutional change. Intracranial vasculature: There is atherosclerotic calcification of the cavernous carotid and vertebr al arteries. Calvarium: Unremarkable. Sinuses and mastoids: There is moderate mucosal thickening within left sphenoid sinus. The remaining visualized paranasal sinuses are clear. The mastoid air cells are well pneumatized. Orbits: The bony orbits are grossly intact. IMPRESSION: There is no hemorrhage, mass effect, or evidence of acute territorial ischemia by CT finn salazar. ACT 112: Negative or not required by law. Electronically signed by: Jorje Quispe M.D. 04/01/2023 4:20 PM
[2023-04-01] MEDS: PIPERACILLIN/TAZOBACTAM 4.5 GM in DEXTROSE 5% MINI-B 100 ML IV SCH (20:18)
[2023-04-01] MEDS ORDERED: MELATONIN 3 MG TAB PO PRN (23:04)
[2023-04-02] MEDS: PIPERACILLIN/TAZOBACTAM 4.5 GM in DEXTROSE 5% MINI-B 100 ML IV SCH ×3 (03:32→20:11)
[2023-04-02 06:50] LABS: Basophils # (auto) 0.04 K/uL (0.00-0.20); Basophils % (auto) 0.5 %; Eosinophils # (auto) 0.03 K/uL (0.00-0.50); Eosinophils % (auto) 0.4 %; Hematocrit (blood only) 39.9 % (37.0-47.0); Hemoglobin 13.9 g/dl (12.0-16.0); Immature Granulocytes # (auto) 0.02 K/uL (0.01-0.20); Immature Granulocytes % (auto) 0.2 %; Lymphocytes # (auto) 1.46 K/uL (1.20-3.40); Lymphocytes % (auto) 18.1 %; Mean Corpuscular Hemoglobin 28.7 pg (25.0-34.0); Mean Corpuscular Hgb Conc 34.8 g/dL (32.0-36.0); Mean Corpuscular Volume 82.3 fL (80.0-100.0); Mean Platelet Volume 10.3 fL (9.4-12.4); Monocytes # (auto) 1.85 K/uL (0.11-0.59); Neutrophils # (auto) 4.66 K/uL (1.40-6.50); Neutrophils % (auto) 57.8 %; Platelet Count 147 K/uL (130-400); RDW Coefficient of Variation 15.9 % (11.5-14.5); RDW Standard Deviation 47.7 fL (36.4-46.3); Red Blood Count 4.85 M/uL (4.20-5.40); White Blood Count 8.06 K/ul (4.8-10.8)
[2023-04-02 06:59] LABS: Prothrombin Time 21.3 Seconds (9.0-12.0)
[2023-04-02 07:13] LABS: Albumin Globulin Ratio 1.2 (0.9-2); Albumin Level 3.2 gm/dl (3.4-5.0); BUN Creatinine Ratio 18.1 (10-20); Bilirubin,Total 1.4 mg/dl (0.2-1.0); Calcium 8.1 mg/dl (8.6-10.3); Creatinine Clr Calc Pharmacy 40.7 ml/min; Est GFR (African American) 73.5 ml/min; Est GFR (Non-African American) 63.4 ml/min; Globulin 2.6 gm/dl (2.5-4.0); Magnesium 1.8 mg/dl (1.7-2.4); Potassium 3.6 mmol/L (3.5-5.1); Total Protein 5.8 gm/dl (6.0-8.3)
[2023-04-02] MEDS: PANTOprazole 40 MG TAB PO SCH (09:31)
[2023-04-02] MEDS: FLUTICASONE/VILANTEROL 100/25MCG 14 PUFFS/INHALER INH SCH (09:31)
[2023-04-02] MEDS: ASPIRIN 81 MG ECTAB PO SCH (09:31)
--- NOTE | 2023-04-02 09:42 | Ultrasound Report ---
RENAL ULTRASOUND CLINICAL HISTORY: recurrent uti eval for anatomy COMPARISON STUDY: CT of the abdomen and pelvis October 18, 2022. Renal ultrasound July 22, 2006. TECHNIQUE: Sonography of the kidneys and the urinary bladder was performed. FINDINGS: The right kidney measures 11 cm in maximal dimension and the left measures 10.8 cm. There i s no hydronephrosis. A 3.5 cm anechoic lesion arising from the upper pole of the right kidney is cons istent with a cyst. No renal mass or calculus is identified. Renal echogenicity, size and cortical th ickness are normal. Ureteral jets were not visualized. Bladder is otherwise unremarkable. IMPRESSION: 1. No hydronephrosis. No renal calculi identified by sonography. 2. 3.5 cm right upper pole renal cyst. ACT 112: Negative or not required by law. Electronically signed by: Rob Mackay M.D. 04/02/2023 9:41 AM
[2023-04-02] MEDS: METOPROLOL SUCC 25MG EXT REL TAB PO SCH (10:45)
[2023-04-02] MEDS ORDERED: STAT IV/IM STA (14:40)
--- NOTE | 2023-04-02 14:48 | Hospitalist Progress Note ---
Date of Service April 02, 2023 Assessment & Plan (1) Syncope: Plan: pt was found on bathroom floor, no apparent injury, initial Head CT negative, will repeat 04/01/23as some functional limitations on PT has history of aflutter s/p MAZE on AC history of tricuspid valve repair, mitral valve replacement (bioprosthetic) continue warfarin, follow INR Continue metoprolol, aspirin no significant arrhythmia (2) Acute UTI: Plan: Acute urinary tract infection present on admission. Previous Klebsiella. Identified as Citrobacter sensitive to pcn fever overnight, altough cx in the past did not show resistance, will change antibiotics to Zosyn metabolic encephalopathy from UTI POA 3.5 cm right renal cyst, which may make her more susceptible to upper tract infection (3) Acute hyponatremia: Plan: pt on HCTZ did receive nss in ER, no change in sodium overnight, will fluid restrict and consider hypertonic saline is putting out a dilute urine maybe trying to correct already still low will give 50ml 3% hypertonic saline (4) Asthma: Plan: Asthma- Continue Symbicort, albuterol HFA Plan if continues to improve family is supportive of home with home health did have [facility] HH in the past, will continue to asses if rehab appropriate Admission and Anticipated Discharge Date Admission Date: March 31, 2023 Subjective much improved ambulating with walker , PT still recommending REhab Physical Exam Physical Exam: Awake alert appropriate. No traumatic injury from falling. Card exam is regular with a systolic murmur consistent with her previous valvular repair. Lungs are clear without wheezes or crackles She is with no focal neurological deficits Results & Data Results & Data Vital Signs (Past 12 Hours) Vital Signs Temp Pulse Resp BP Pulse Ox O2 Del Method 04/02/23 12:17 97.7 F 91 H 18 104/69 96 Room Air 04/02/23 08:00 Room Air 04/02/23 08:12 98.2 F 71 17 96/61 L 91 Room Air 04/02/23 03:45 98.2 F 79 18 102/66 92 Room Air Diagnostic Findings reviewed cbc reviewed chemistry reviewed coagulation PG Care Time/CCT Total # of Minutes Spent Total Time Spent with Patient: Total time spent is greater than 50% in coordination of care (as documented) at patient's floor/unit and/or counseling patient: Coding Level of Care Code 23865 SUB INP/OBS CARE 2/35MIN Diagnoses Syncope R55 Acute UTI N39.0 Acute hyponatremia E87.1 Asthma J45.909
[2023-04-02] MEDS: SODIUM CHLORIDE 3 % 50 ML IV ONE ×2 (15:00→17:03)
[2023-04-02] MEDS: WARFARIN SOD 6 MG TAB PO SCH (17:04)
[2023-04-03] MEDS ORDERED: POLYETHYLENE (MIRALAX) 17 GM PACK PO PRN (00:35)
[2023-04-03] MEDS: PIPERACILLIN/TAZOBACTAM 4.5 GM in DEXTROSE 5% MINI-B 100 ML IV SCH ×3 (04:35→19:58)
[2023-04-03 06:59] LABS: INR 2.6 (0.9-1.1); Prothrombin Time 26.5 Seconds (9.0-12.0)
[2023-04-03] MEDS: PANTOprazole 40 MG TAB PO SCH (07:57)
[2023-04-03] MEDS: ASPIRIN 81 MG ECTAB PO SCH (07:57)
[2023-04-03] MEDS: METOPROLOL SUCC 25MG EXT REL TAB PO SCH (07:57)
[2023-04-03] MEDS: FLUTICASONE/VILANTEROL 100/25MCG 14 PUFFS/INHALER INH SCH (07:57)
[2023-04-03] MEDS: WARFARIN SOD 6 MG TAB PO SCH (16:41)
[2023-04-03 17:24] LABS: BUN Creatinine Ratio 19.8 (10-20); Calcium 8.3 mg/dl (8.6-10.3); Creatinine Clr Calc Pharmacy 39.8 ml/min; Est GFR (African American) 70.4 ml/min; Est GFR (Non-African American) 60.7 ml/min; Potassium 3.7 mmol/L (3.5-5.1)
--- NOTE | 2023-04-03 22:01 | Hospitalist Progress Note ---
Date of Service April 03, 2023 Assessment & Plan (1) Syncope: Plan: pt was found on bathroom floor, no apparent injury, initial Head CT negative, will repeat 04/01/23as some functional limitations on PT has history of aflutter s/p MAZE on AC history of tricuspid valve repair, mitral valve replacement (bioprosthetic) continue warfarin, follow INR currently 2.6 will recheck on 04/04 Continue metoprolol, aspirin no significant arrhythmia (2) Acute UTI: Plan: Acute urinary tract infection present on admission. Previous Klebsiella. Identified as Citrobacter sensitive to pcn fever overnight, altough cx in the past did not show resistance, will change antibiotics to Zosyn metabolic encephalopathy from UTI POA 3.5 cm right renal cyst, which may make her more susceptible to upper tract infe ction (3) Acute hyponatremia: Plan: pt on HCTZ did receive nss in ER, no change in sodium overnight, will fluid restrict and consider hypertonic saline is putting out a dilute urine maybe trying to correct already still low will give 50ml 3% hypertonic saline (4) Asthma: Plan: Asthma- Continue Symbicort, albuterol HFA Plan if continues to improve family is supportive of home with home health did have [facility] HH in the past, will continue to asses if rehab appropriate Admission and Anticipated Discharge Date Admission Date: March 31, 2023 Subjective Patient reports no new complaints. Review of Systems Review of Systems: All systems reviewed & are unremarkable except as noted in HPI & below Physical Exam Physical Exam: Awake alert appropriate. No traumatic injury from falling. Card exam is regular with a systolic murmur consistent with her previous valvular repair. Lungs are clear without wheezes or crackles She is with no focal neurological deficits Results & Data Results & Data Vital Signs (Past 12 Hours) Vital Signs Temp Pulse Pulse Resp BP Pulse Ox O2 Del Method 04/03/23 20:00 36.7 C 62 18 108/67 94 Room Air 04/03/23 15:59 36.8 C 61 17 106/68 93 Room Air 04/03/23 14:00 72 04/03/23 11:33 36.7 C 63 17 106/65 94 Room Air PG Care Time/CCT Total # of Minutes Spent Total Time Spent with Patient: Total time spent is greater than 50% in coordination of care (as documented) at patient's floor/unit and/or counseling patient: Coding Level of Care Code 56896 SUB INP/OBS CARE 235MIN Diagnoses Syncope R55 Acute UTI N39.0 Acute hyponatremia E87.1 Asthma J45.909
[2023-04-04] MEDS: PIPERACILLIN/TAZOBACTAM 4.5 GM in DEXTROSE 5% MINI-B 100 ML IV SCH (04:09)
[2023-04-04 06:58] LABS: Hematocrit (blood only) 37.4 % (37.0-47.0); Hemoglobin 12.7 g/dl (12.0-16.0); Mean Corpuscular Hemoglobin 28.3 pg (25.0-34.0); Mean Corpuscular Volume 83.3 fL (80.0-100.0); Mean Platelet Volume 10.5 fL (9.4-12.4); Platelet Count 162 K/uL (130-400); RDW Coefficient of Variation 15.9 % (11.5-14.5); RDW Standard Deviation 48.1 fL (36.4-46.3); Red Blood Count 4.49 M/uL (4.20-5.40); White Blood Count 6.25 K/ul (4.8-10.8)
[2023-04-04 07:08] LABS: INR 3.3 (0.9-1.1); Prothrombin Time 33.1 Seconds (9.0-12.0)
[2023-04-04 07:14] LABS: BUN Creatinine Ratio 19.8 (10-20); Calcium 8.4 mg/dl (8.6-10.3); Creatinine Clr Calc Pharmacy 42.5 ml/min; Est GFR (African American) 75.7 ml/min; Est GFR (Non-African American) 65.3 ml/min; Potassium 3.7 mmol/L (3.5-5.1)
[2023-04-04] MEDS: PANTOprazole 40 MG TAB PO SCH (08:10)
[2023-04-04] MEDS: ASPIRIN 81 MG ECTAB PO SCH (08:10)
[2023-04-04] MEDS: METOPROLOL SUCC 25MG EXT REL TAB PO SCH (08:10)
[2023-04-04] MEDS: FLUTICASONE/VILANTEROL 100/25MCG 14 PUFFS/INHALER INH SCH (08:10)
[2023-04-04] MEDS ORDERED: AMOXICILLIN/CLAVULANATE 500 MG TAB PO ONE (11:11)
--- NOTE | 2023-04-04 12:21 | Discharge Summary ---
Date of Service April 04, 2023 Admission HPI Per Admitting Provider The patient is a 88-year-old female with a past medical history including long- term anticoagulant use, UTI, paroxysmal atrial flutter, venom induced anaphylaxis, secondary hyperparathyroidism, status post tricuspid valve repair, status post mitral valve replacement with bioprosthetic valve, intrinsic asthma, GERD, chronic venous insufficiency and asthma. She presents to the emergency department as noted above. Significant laboratories: Sodium 126, glucose 127, INR 2.4, total bilirubin 1.1, serum osmolality 263 and urine osmolality 583 CT scan head was negative Chest x-ray was negative From the ED the patient received the following: Normal saline 500 mls IV bolus, Zofran 4 mg IV, and Cipro 400 mg IV Principal Diagnosis syncope Discharge Exam Awake alert appropriate. No traumatic injury from falling. Card exam is regular with a systolic murmur consistent with her previous valvular repair. Lungs are clear without wheezes or crackles She is with no focal neurological deficits Discharge Data Allergies Allergy/AdvReac Type Severity Reaction Status Date / Time bee venom protein (honey bee) Allergy Severe ANAPHYLAXIS Verified 03/31/23 00:00 cocoa butter Allergy Severe Hives Verified 03/31/23 00:00 [From Preparation H] glycerin [From Preparation H] Allergy Severe Hives Verified 03/31/23 00:00 mineral oil Allergy Severe Hives Verified 03/31/23 00:00 [From Preparation H] petrolatum,white Allergy Severe Hives Verified 03/31/23 00:00 [From Preparation H] phenylephrine Allergy Severe Hives Verified 03/31/23 00:00 [From Preparation H] shark liver oil Allergy Severe Hives Verified 03/31/23 00:00 [From Preparation H] cefuroxime [From Ceftin] Allergy Intermediate Rash Verified 03/31/23 00:00 clarithromycin Allergy Intermediate RASH AND Verified 03/31/23 00:00 FACIAL SWELLING fluconazole Allergy Intermediate INCREASED Verified 03/31/23 00:00 HEART RATE sulfamethoxazole Allergy Intermediate RASH AND Verified 03/31/23 00:00 FACIAL SWELLING trimethoprim Allergy Intermediate RASH AND Verified 03/31/23 00:00 FACIAL SWELLING bacitracin Allergy Mild Rash Verified 03/31/23 00:00 NSAIDS (Non-Steroidal AdvReac Intermediate Pt had Verified 03/31/23 00:01 Anti-Inflamma Open Heart Surgery ketamine AdvReac Mild VOMITING Verified 03/31/23 00:01 Consultations 03/30/23 23:11 ED Decision to Admit Stat Ordered Studies 03/30/23 22:29 CT head/brain wo con Stat 04/01/23 14:[address] [CT head/brain wo con] Routine 04/02/23 08:04 US renal/blad retro comp Routine Hospital Course (1) Syncope: pt was found on bathroom floor, no apparent injury, initial Head CT negative, will repeat 04/01/23as some functional limitations on PT has history of aflutter s/p MAZE on AC history of tricuspid valve repair, mitral valve replacement (bioprosthetic) continue warfarin, follow INR currently 2.6 will recheck on 04/04 Continue metoprolol, aspirin no significant arrhythmia (2) Acute UTI: Acute urinary tract infection present on admission. Previous Klebsiella. Identified as Citrobacter sensitive to pcn fever overnight, although cx in the past did not show resistance, will change antibiotics to Zosyn metabolic encephalopathy from UTI POA 3.5 cm right renal cyst, which may make her more susceptible to upper tract infection Will discharge on augmentin, will complete about a 7 day course. Patient will have 7 tablets at discharge. Recommended estrogen vaginal cream to help prevent UTI. will defer to PCP. cranberry pills may also be an option, however if this were to be added, would need to likely cut back on warfarin and closely monitor INR, or perhaps switch to a DOAC. (3) Acute hyponatremia: pt on HCTZ did receive nss in ER, no change in sodium overnight, will fluid restrict and consider hypertonic saline is putting out a dilute urine maybe trying to correct already still low will give 50ml 3% hypertonic saline Patient improved over course of the hospital stay. Hyponatremia likely due to HCTZ, however in the short term, will recommend fluid restriction 1.5 liters. will defer to PCP if HCTZ should be resumed, understand that she did have this increased from 2x a week to every other day. (4) Asthma: Asthma- Continue Symbicort, albuterol HFA Plan DIscharge home with [facility] home health Total Time Total Time Spent Total Time Spent (In Minutes): 35 Discharge Plan Discharge Items Patient Disposition: Home - Home Health Services Reason For Visit: SYNCOPE Discharge Diagnosis: syncope Activity: Resume your previous activity Non-emergency contact: Primary Care Provider Call non-emergency contact if: you have any medication questions Follow-up/Referrals: Ally Serna MD [Primary Care Provider] - 04/11/23 11:00 am Diet: Heart Healthy Fluids: 1500ml (6 cups) Addtl Attending Provider Instructions: Hold today's warfarin dose and resume regular dose tomorrow. Continue antibiotics tonight Recommend followup with PCP in 1 week Recommend rechecking INR next week. Will hold Hydrochlorothiazide for the short term given that this played a role with your sodium and may have contributed to your fall. Will defer to cardiology and/or PCP if this will be restarted or replaced. Pending Studies at Discharge: No Stand-Alone Forms: [facility] Medications and DC Order Prescriptions: New amoxicillin-pot clavulanate [Augmentin] 500-125 mg tablet 1 tab PO BID Qty: 7 0RF Rx Instructions: first dose tonight Continued fluticasone propion-salmeterol [Advair Diskus] 250-50 mcg/dose blister with device 1 inh inhalation QAM Qty: 60 5RF metoprolol succinate [Toprol XL] 25 mg tablet extended release 24 hr 12.5 mg PO QAM Qty: 45 3RF Prolia 60 mg/mL syringe 60 mg SUBCUT .Q6M Qty: 1 0RF Rx Instructions: Inject 1 syringe every 6 months BUY AND BILL atorvastatin [Lipitor] 40 mg tablet 40 mg PO HS Qty: 90 3RF biotin 2,500 mcg capsule 2,500 mcg PO QAM colestipol 1 gram tablet 1 g PO DAILY mupirocin 2 % ointment 1 applic topical BID Qty: 15 5RF nitrofurantoin macrocrystal 25 mg capsule See Rx Instructions PO .COMPLEX Qty: 4 0RF Rx Instructions: do not take. Bring to allergy clinic for testing on 04/09/23. clarithromycin 250 mg tablet See Rx Instructions PO .COMPLEX Qty: 3 0RF Rx Instructions: do not take - bring to allergy clinic for testing on 04/09/23 pantoprazole [Protonix] 40 mg tablet,delayed release (DR/EC) 40 mg PO QAM Qty: 90 3RF albuterol sulfate [ProAir HFA] 90 mcg/actuation HFA aerosol inhaler 2 puff inhalation Q4H PRN (Reason: shortness of breath or wheezing) Qty: 6.7 0RF ipratropium bromide 0.02 % solution 2.5 ml inhalation Q6H PRN (Reason: shortness of breath or wheezing) Qty: 75 11RF multivitamin [Multiple Vitamins] Tablet 1 tab PO QAM ascorbic acid (vitamin C) [Vitamin C] 500 mg Tablet 500 mg PO QAM calcium carbonate-vitamin D3 [Calcium 500 + D] 500 mg(1,250mg) -200 unit Tablet 1 tab PO QAM cholecalciferol (vitamin D3) [Vitamin D3] 5,000 unit Tablet 5,000 unit PO QAM aspirin 81 mg Tablet,Delayed Release (Dr/Ec) 81 mg PO QAM epinephrine 0.3 mg/0.3 mL auto-injector 0.3 mg IM UD PRN (Reason: Allergic Reaction) warfarin 6 mg tablet 6 mg PO [id number] Protocol: Dose Management Condition: Friday Dose/Route: 6 mg Instruction: 1 x 6 mg tablet Condition: Friday Dose/Route: 9 mg Instruction: 1.5 x 6 mg tablets Condition: Friday Dose/Route: 6 mg Instruction: 1 x 6 mg tablet Condition: Friday Dose/Route: 6 mg Instruction: 1 x 6 mg tablet Condition: Dose/Route: 6 mg Instruction: 1 x 6 mg tablet Condition: Friday Dose/Route: 6 mg Instruction: 1 x 6 mg tablet Condition: Friday Dose/Route: 6 mg Instruction: 1 x 6 mg tablet Protocol Text: Adjustment Start Date: Friday03/25/23 INR Value: 2.2 INR Date: 03/25/23 Recheck Date: 04/24/23 Rx Instructions: TAKE THIS MED EVERY FRIDAY/FRIDAY/FRIDAY/FRIDAY/FRIDAY/FRIDAY. warfarin 6 mg Tablet 9 mg PO WK Rx Instructions: TAKE 1 & 1/2 TABLET ( 9MG) EVERY FRIDAY. Discontinued triamterene-hydrochlorothiazid 37.5-25 mg tablet 1 tab PO 2XWK Rx Instructions: Fri & Fri Discharge Orders: Discharge Order (Routine); Ordered 04/04/23 Ordered By: Luan Barron/Other Patient Handouts: Warfarin Oral Tablet, Amoxicillin/Clavulanate Oral Tablet, What to Know When TakingWarfarin, Hyponatremia Dc, Limiting Fluids Dc Admission Data Admit Date/Time: 03/31/23 08:37 Attending Provider: Luan Barragan Admit Provider: Giovanny Finley Primary Care Provider: Ally Serna Other Providers: Giovanny Finley; [facility],Home Healthcare Other Interventions: Discharge Summary Assessment (RN) Last Done: 04/04/23 11:45 Coding Level of Care Code 97859 INP/OBS DISCH >30 MIN Diagnoses Syncope R55 Acute UTI N39.0 Acute hyponatremia E87.1 Asthma J45.909
[2023-04-04] MEDS: WARFARIN SOD 6 MG TAB PO SCH (12:39)
== END 2023-04-04 13:46 | disposition home health service (06) | DRG 640 ==
LOC: EDINP 22:20 → ED 22:20 → SUATTDRO 23:28 → 2W 03-31 02:01 → SUATTDRO 03-31 08:37 → 2W 03-31 14:47 → 2N 04-01 01:54